=== PATIENT | female | born 1955 | race Caucasian/White ===

== ENCOUNTER → 2017-03-03 | Outpatient (CLI) | payer BC ==
--- NOTE | 2017-03-04 07:14 | BD ---
EXAMINATION TYPE: MG DEXA axial skeleton. DATE OF EXAM: 03/03/2017 COMPARISON: NONE CLINICAL HISTORY: Height: 5 FT Weight: 107 FRAX RISK QUESTIONS: Alcohol (3 or more units per day): YES Family History (Parent hip fracture): NO Glucocorticoids (More than 3mos): NO (Ex: prednisone, prednisolone, methylprednisolone, dexamethasone, and hydrocortisone). History of Fracture in Adulthood: NO Secondary Osteoporosis: 1. Type 1 Diabetes: NO 2. Hyperthyroidism: NO 3. Menopause before 45: YES SURGICAL 4. Malnutrition: NO 5. Chronic liver disease: NO Rheumatoid Arthritis: NO Current Tobacco Use: YES RISK FACTORS HISTORY OF: Smoke tobacco: YES Drink Alcohol: YES Active: YES Postmenopausal woman: PART HYST AGE 40 MEDICATIONS: Thyroid Medications: YES Which medication: LEVOTHYROXINE How Long: SINCE 1998 Osteoporosis Medications: YES Which medication: ACTONEL How Lon YR Additional Medications: LEVOTHYROXINE,ACTOENL ,CALCIUM Additional History: BREAST CANCER 1998 WITH RADIATION EXAM MEASUREMENTS: Bone mineral densitometry was performed using the [employer] System. Bone mineral density as measured about the Lumbar spine is: ----- L1-L4(G/cm2): 0.965 T Score Values are as follows: ----- L2: -1.6 ----- L3: -1.4 ----- L4: -2.7 ----- L1-L4: -1.8 Bone mineral density has: Increased 8.2% since study of: 2013 Bone mineral density about the R hip (g/cm2): 0.850 Bone mineral density about the L hip (g/cm2): 0.882 T Score values are as follows: -----R Neck: -1.3 -----L Neck: -1.1 -----R Total: -1.6 -----L Total: -0.9 Bone mineral density has: Increased 3.5% since study of: 2013 IMPRESSION: Findings compatible with osteopenia with localized osteoporosis involving the L4 vertebral body. NOTE: T-SCORE=SD OF THE YOUNG ADULT MEAN.
== END | disposition home or self-care (01) ==
LOC: RADBDWWP 14:15
PROVIDERS: ATTEND Family Medicine
DX: Z78.0 Asymptomatic menopausal state (principal)
CPT/HCPCS: 77080

== ENCOUNTER 2019-01-09 13:38 | Emergency (ER) | payer BC ==
[2019-01-09 14:09] VITALS: RESP 18
[2019-01-09] MEDS ORDERED: PANTOPRAZOLE 40 MG/10 ML VIAL IVP STA (15:27)
[2019-01-09] MEDS ORDERED: SODIUM CHLORIDE 0.9% 1,000 ML IV STA (15:27)
[2019-01-09] MEDS ORDERED: ONDANSETRON 4 MG/2 ML VIAL IVP STA (15:27)
[2019-01-09] MEDS ORDERED: MAG HYDROX/AL HYDROX/SIMETH 30 ML, HYOSCYAMINE ELIXIR 10 ML, CIMETIDINE HCL 300 MG, LID... PO STA ×4 (15:28)
[2019-01-09 16:14] LABS: Appearance,Urine Clear (Clear); Bilirubin,Urine Negative (Negative); Blood,Urine Negative (Negative); Color,Urine Light Yellow; Glucose,Urine (UA) Negative (Negative); Ketones,Urine Negative (Negative); Leukocyte Esterase,Urine Negative (Negative); Nitrite,Urine Negative (Negative); Protein,Urine Negative (Negative); Specific Gravity,Urine 1.003 (1.001-1.035); Urobilinogen,Urine <2.0 mg/dL (<2.0)
[2019-01-09 16:15] LABS: Basophils # (A) 0.1 k/uL (0-0.2); Basophils % (A) 0 %; Eosinophils # (A) 0.4 k/uL (0-0.7); Eosinophils % (A) 1 %; HCT 41.4 % (34.0-46.0); HGB 14.2 gm/dL (11.4-16.0); Lymphocytes # (A) 3.2 k/uL (1.0-4.8); Lymphocytes % (A) 11 %; MCH 33.1 pg (25.0-35.0); MCHC 34.4 g/dL (31.0-37.0); MCV 96.3 fL (80.0-100.0); Mean Platelet Volume 6.8; Monocytes # (A) 0.7 k/uL (0-1.0); Monocytes % (A) 2 %; Neutrophils # (A) 25.1 k/uL (1.3-7.7); Neutrophils % (A) 84 %; Platelet Count 541 k/uL (150-450); RBC 4.29 m/uL (3.80-5.40); RDW 13.1 % (11.5-15.5); WBC 29.8 k/uL (3.8-10.6)
[2019-01-09 16:24] LABS: ALT 31 U/L (9-52); AST 27 U/L (14-36); Albumin 4.5 g/dL (3.5-5.0); Alkaline Phosphatase 135 U/L (38-126); Amylase 51 U/L (30-110); Anion Gap 13 mmol/L; Blood Urea Nitrogen 7 mg/dL (7-17); Calcium 10.3 mg/dL (8.4-10.2); Carbon Dioxide 25 mmol/L (22-30); Chloride 100 mmol/L (98-107); Glucose 94 mg/dL (74-99); Lipase 39 U/L (23-300); Partial Thromboplastin Time 22.9 sec (22.0-30.0); Potassium 4.2 mmol/L (3.5-5.1); Prothrombin Time 10.6 sec (9.0-12.0); Sodium 138 mmol/L (137-145); Total Bilirubin 0.4 mg/dL (0.2-1.3); Total Protein 7.5 g/dL (6.3-8.2)
--- NOTE | 2019-01-09 16:42 | XR ---
EXAMINATION TYPE: XR KUB DATE OF EXAM: 01/09/2019 COMPARISON: NONE HISTORY: Abdominal pain TECHNIQUE: 2 views FINDINGS: The bowel gas pattern is normal. There is no sign of intestinal obstruction or pneumoperito neum. Fecal pattern is normal. There is no evidence of a mass. There are no pathologic calcifications over the kidneys. There is hiatal hernia. IMPRESSION: Nonacute abdomen.
--- NOTE | 2019-01-09 16:45 | XR ---
EXAMINATION TYPE: XR chest 2V DATE OF EXAM: 01/09/2019 COMPARISON: October 29, 2008 HISTORY: Upper respiratory infection TECHNIQUE: Frontal and lateral views of the chest are obtained. FINDINGS: There is a 7 cm masslike density at the left pulmonary hilum extending posteriorly. There is probably a hiatal hernia. The right lung is clear. There is no heart failure. Heart size is normal . Bony thorax appears intact. IMPRESSION: Large left side mass is suspicious for tumor. This is new compared to old exam. CT scan is recommended for further evaluation if clinically indicated.
--- NOTE | 2019-01-09 16:48 | ED ---
Abdominal Pain HPI - General Chief Complaint: Abdominal Pain Stated Complaint: LEG WEAKNESS Time Seen by Provider: 01/09/19 15:07 Source: patient, RN notes reviewed, old records reviewed Mode of arrival: ambulatory Limitations: no limitations - History of Present Illness Initial Comments: Krista is a 63-year-old female presents emergency department today with 3 weeks of sinus congestion and pressure feeling full with her sinuses. She complains of fevers and chills and body aches. She's been placed on multiple antibiotics by her primary care doctor. She states that she started Levaquin. She states that after starting Levaquin she started to have a flareup of her gastric ulcers. Patient states that she has been having GERD-like pain for the past week. She been taking Maalox and Rolaids without any relief of her symptoms. She states that she also been having off and on tingling and weakness in bilateral legs. She states it seems like her legs are "putting". She is here with her daughter. She has a strong smoking history. - Related Data Home Medications Medication Instructions Recorded Confirmed Levothyroxine Sodium [Synthroid] 175 mg PO DAILY 09/13/14 01/09/19 Acetaminophen Tab [Tylenol Tab] 975 mg PO Q4H PRN 01/09/19 01/09/19 Cetirizine HCl [Zyrtec] 10 mg PO DAILY 01/09/19 01/09/19 Esomeprazole Magnesium [NexIUM] 20 mg PO DAILY 01/09/19 01/09/19 Multivitamins, Thera [Multivitamin 1 tab PO DAILY 01/09/19 01/09/19 (formulary)] Allergies Allergy/AdvReac Type Severity Reaction Status Date / Time cucumber AdvReac Unknown Verified 01/09/19 15:21 Milk Containing Products AdvReac Unknown Verified 01/09/19 15:21 [Dairy] tomato AdvReac Unknown Verified 01/09/19 15:21 SEEDS AdvReac Unknown Uncoded 01/09/19 15:21 Review of Systems ROS Statement: Those systems with pertinent positive or pertinent negative responses have been documented in the HPI. ROS Other: All systems not noted in ROS Statement are negative. Past Medical History Past Medical History: Thyroid Disorder Additional Past Medical History / Comment(s): breast cancer History of Any Multi-Drug Resistant Organisms: None Reported Past Surgical History: Breast Surgery Additional Past Surgical History / Comment(s): left breast masectomy 99 Past Psychological History: No Psychological Hx Reported Smoking Status: Current every day smoker Past Alcohol Use History: None Reported Past Drug Use History: None Reported General Exam - General Exam Comments Initial Comments: Patient is a 63-year-old female. Alert and oriented. Patient appears acute distress. Limitations: no limitations General appearance: alert, in no apparent distress Head exam: Present: atraumatic Eye exam: Present: normal appearance, PERRL, EOMI. Absent: scleral icterus, conjunctival injection, periorbital swelling ENT exam: Present: normal exam, mucous membranes moist Neck exam: Present: normal inspection. Absent: tenderness, meningismus, lymphadenopathy Respiratory exam: Present: normal lung sounds bilaterally. Absent: respiratory distress, wheezes, rales, rhonchi, stridor Cardiovascular Exam: Present: regular rate, normal rhythm, normal heart sounds. Absent: systolic murmur, diastolic murmur, rubs, gallop, clicks GI/Abdominal exam: Present: soft, normal bowel sounds. Absent: distended, tenderness, guarding, rebound, rigid Extremities exam: Present: normal inspection, full ROM, normal capillary refill. Absent: tenderness, pedal edema, joint swelling, calf tenderness Back exam: Present: normal inspection Neurological exam: Present: alert, oriented X3, CN II-XII intact Psychiatric exam: Present: normal affect, normal mood Course Vital Signs 01/09/19 01/09/19 01/09/19 14:04 16:10 17:41 Temperature 98.1 F Pulse Rate 101 H 104 H 118 H Respiratory 18 18 18 Rate Blood Pressure 151/77 164/73 163/78 O2 Sat by Pulse 97 96 96 Oximetry Medical Decision Making - Medical Decision Making Patient's a 63-year-old female presents emergency Department with complaints of leg weakness intermittently, epigastric and chest burning pain, as well as sinus congestion for the past 3 weeks. She's been on multiple antibiotic for sinus congestion. Lab work was obtained. Evidence of leukocytosis with blood cell count 29,000. Chest x-ray shows evidence of a large mass not evident on previous chest x-rays. I informed Patient. And we completed a computed tomography scan. There is evidence of a large infrahilar mass. I informed Patient or family this and encouraged admission. Patient is adamant that she wants to be discharged. Discussed leaving AGAINST MEDICAL ADVICE. I will still give her referrals for pulmonology and oncology. Patient understands. - Lab Data Result diagrams: 01/09/19 16:00 01/09/19 16:00 Lab Results 01/09/19 01/09/19 01/09/19 Range/Units 16:00 16:00 16:00 WBC 29.8 H (3.8-10.6) k/uL RBC 4.29 (3.80-5.40) m/uL Hgb 14.2 (11.4-16.0) gm/dL Hct 41.4 (34.0-46.0) % MCV 96.3 (80.0-100.0) fL MCH 33.1 (25.0-35.0) pg MCHC 34.4 (31.0-37.0) g/dL RDW 13.1 (11.5-15.5) % Plt Count 541 H (150-450) k/uL Neutrophils % 84 % Lymphocytes % 11 % Monocytes % 2 % Eosinophils % 1 % Basophils % 0 % Neutrophils # 25.1 H (1.3-7.7) k/uL Lymphocytes # 3.2 (1.0-4.8) k/uL Monocytes # 0.7 (0-1.0) k/uL Eosinophils # 0.4 (0-0.7) k/uL Basophils # 0.1 (0-0.2) k/uL PT 10.6 (9.0-12.0) sec INR 1.0 (<1.2) APTT 22.9 (22.0-30.0) sec Sodium 138 (137-145) mmol/L Potassium 4.2 (3.5-5.1) mmol/L Chloride 100 (98-107) mmol/L Carbon Dioxide 25 (22-30) mmol/L Anion Gap 13 mmol/L BUN 7 (7-17) mg/dL Creatinine 0.43 L (0.52-1.04) mg/dL Est GFR (CKD-EPI)AfAm >90 (>60 ml/min/1.73 sqM) Est GFR (CKD-EPI)NonAf >90 (>60 ml/min/1.73 sqM) Glucose 94 (74-99) mg/dL Calcium 10.3 H (8.4-10.2) mg/dL Total Bilirubin 0.4 (0.2-1.3) mg/dL AST 27 (14-36) U/L ALT 31 (9-52) U/L Alkaline Phosphatase 135 H (38-126) U/L Troponin I (0.000-0.034) ng/mL Total Protein 7.5 (6.3-8.2) g/dL Albumin 4.5 (3.5-5.0) g/dL Amylase 51 (30-110) U/L Lipase 39 (23-300) U/L Urine Color Urine Appearance (Clear) Urine pH (5.0-8.0) Ur Specific [place] (1.001-1.035) Urine Protein (Negative) Urine Glucose (UA) (Negative) Urine Ketones (Negative) Urine Blood (Negative) Urine Nitrite (Negative) Urine Bilirubin (Negative) Urine Urobilinogen (<2.0) mg/dL Ur Leukocyte Esterase (Negative) 01/09/19 01/09/19 Range/Units 16:00 16:00 WBC (3.8-10.6) k/uL RBC (3.80-5.40) m/uL Hgb (11.4-16.0) gm/dL Hct (34.0-46.0) % MCV (80.0-100.0) fL MCH (25.0-35.0) pg MCHC (31.0-37.0) g/dL RDW (11.5-15.5) % Plt Count (150-450) k/uL Neutrophils % % Lymphocytes % % Monocytes % % Eosinophils % % Basophils % % Neutrophils # (1.3-7.7) k/uL Lymphocytes # (1.0-4.8) k/uL Monocytes # (0-1.0) k/uL Eosinophils # (0-0.7) k/uL Basophils # (0-0.2) k/uL PT (9.0-12.0) sec INR (<1.2) APTT (22.0-30.0) sec Sodium (137-145) mmol/L Potassium (3.5-5.1) mmol/L Chloride (98-107) mmol/L Carbon Dioxide (22-30) mmol/L Anion Gap mmol/L BUN (7-17) mg/dL Creatinine (0.52-1.04) mg/dL Est GFR (CKD-EPI)AfAm (>60 ml/min/1.73 sqM) Est GFR (CKD-EPI)NonAf (>60 ml/min/1.73 sqM) Glucose (74-99) mg/dL Calcium (8.4-10.2) mg/dL Total Bilirubin (0.2-1.3) mg/dL AST (14-36) U/L ALT (9-52) U/L Alkaline Phosphatase (38-126) U/L Troponin I <0.012 (0.000-0.034) ng/mL Total Protein (6.3-8.2) g/dL Albumin (3.5-5.0) g/dL Amylase (30-110) U/L Lipase (23-300) U/L Urine Color Light Yellow Urine Appearance Clear (Clear) Urine pH 6.0 (5.0-8.0) Ur Specific [place] 1.003 (1.001-1.035) Urine Protein Negative (Negative) Urine Glucose (UA) Negative (Negative) Urine Ketones Negative (Negative) Urine Blood Negative (Negative) Urine Nitrite Negative (Negative) Urine Bilirubin Negative (Negative) Urine Urobilinogen <2.0 (<2.0) mg/dL Ur Leukocyte Esterase Negative (Negative) 01/09/19 18:39 EKG shows sinus tachycardia minimal voltage criteria for LVH may be normal variant. Borderline EKG. Ventricular rate of 105 bpm. Intervals 156 ms. QRS ration 76 ms. QT QTC 340/449 ms. - Radiology Data Radiology results: report reviewed Large left-sided mass suspicious for tumor new compared old exam. CT recomme nded for further evaluation AB is normal. There is a large left hilar mass with smaller satellite mass in left lower lobe consistent with primary malignancy. There is an abrasion of left lower lobe pulmonary vein. No evidence of pulmonary embolus. Disposition Clinical Impression: Hilar mass, Leukocytosis, Transient leg weakness Disposition: Left Against Medical Advice Condition: Stable Is patient prescribed a controlled substance at d/c from ED?: No Referrals: Stewart Dawn MD [Primary Care Provider] - 1-2 days Naif Wild MD [STAFF PHYSICIAN] - 1-2 days Xu Hernandez MD [STAFF PHYSICIAN] - 1-2 days Time of Disposition: 18:46
--- NOTE | 2019-01-09 18:09 | CT ---
EXAMINATION TYPE: CT chest angio for PE DATE OF EXAM: 01/09/2019 COMPARISON: HISTORY: Burning to lower left chest. CT DLP: 177.4 mGycm Automated exposure control for dose reduction was used. CONTRAST: CT Chest for pulmonary embolism performed with with IV Contrast, patient injected with 70 mL of Isovu e 370. There are 3-D post processed images. FINDINGS: There is diffuse pulmonary emphysema. There is a 6.7 x 7.5 x 5.5 cm mass at the left pulmonary hilum extending posteriorly and inferiorly. There is some encasement of the left lower lobe pulmonary arter ies. There is narrowing of the left lower lobe bronchus. There is some narrowing of the left mainstem bronchus. Mass extends into the subcarinal region. There is some anterior displacement of left pulmo nary veins. Mass appears to be invading into left lower lobe pulmonary vein on the sagittal and axial images. There is a noncalcified 2.5 cm x 3 cm lobulated satellite mass in the posterior basal segmen t left lower lobe. There is some pleural thickening of the left major fissure. There is no filling de fect in the pulmonary arteries. Thoracic aorta shows no sign of aneurysm or dissection. Upper abdominal images show a 3 cm cyst in the anterior right lobe of the liver. There is a second 1 cm cyst anterior right lobe of the liver. IMPRESSION: There is a large left hilar mass with smaller satellite mass in the left lower lobe consistent with p rimary malignancy. There is some invasion of the left lower lobe pulmonary vein. No evidence of pulmo nary embolism. Emphysema.
[2019-01-09 18:56] VITALS: BP 161/79; PULSE 113; TEMP 98.3
== END 2019-01-09 18:55 | disposition left against medical advice (07) ==
LOC: EC 13:38
DX: D72.829 Elevated white blood cell count, unspecified (principal); R91.8 Other nonspecific abnormal finding of lung field; E07.9 Disorder of thyroid, unspecified; F17.200 Nicotine dependence, unspecified, uncomplicated; Z85.3 Personal history of malignant neoplasm of breast; Z90.12 Acquired absence of left breast and nipple; Z79.890 Hormone replacement therapy; Z79.899 Other long term (current) drug therapy; Z91.018 Allergy to other foods; Z91.011 Allergy to milk products; Z91.048 Other nonmedicinal substance allergy status
CPT/HCPCS: 36415; 93005; 80053; 82150; 83690; 84484; 85025; 85610; 85730; 81003; 71046; 74018; 71275; 99285; 96374; 96375; 96361; J2405; C9113; Q9967

== ENCOUNTER 2019-01-10 13:12 | Inpatient (IN) | payer BC ==
[2019-01-10] MEDS ORDERED: SODIUM CHLORIDE 0.9% 1,000 ML IV STA ×2 (14:11)
[2019-01-10 14:41] LABS: Basophils # (A) 0.1 k/uL (0-0.2); Basophils % (A) 0 %; Eosinophils # (A) 0.5 k/uL (0-0.7); Eosinophils % (A) 2 %; HCT 42.4 % (34.0-46.0); HGB 14.3 gm/dL (11.4-16.0); Lymphocytes # (A) 3.1 k/uL (1.0-4.8); Lymphocytes % (A) 10 %; MCH 32.9 pg (25.0-35.0); MCHC 33.8 g/dL (31.0-37.0); MCV 97.2 fL (80.0-100.0); Mean Platelet Volume 7.1; Monocytes # (A) 0.8 k/uL (0-1.0); Monocytes % (A) 3 %; Neutrophils # (A) 26.3 k/uL (1.3-7.7); Neutrophils % (A) 85 %; Platelet Count 511 k/uL (150-450); RBC 4.36 m/uL (3.80-5.40); RDW 13.3 % (11.5-15.5); WBC 31.2 k/uL (3.8-10.6)
[2019-01-10 14:46] LABS: ALT 37 U/L (9-52); AST 34 U/L (14-36); Albumin 4.3 g/dL (3.5-5.0); Alkaline Phosphatase 139 U/L (38-126); Anion Gap 10 mmol/L; Blood Urea Nitrogen 7 mg/dL (7-17); Calcium 9.8 mg/dL (8.4-10.2); Carbon Dioxide 22 mmol/L (22-30); Chloride 103 mmol/L (98-107); Glucose 93 mg/dL (74-99); INR 0.9 (<1.2); Magnesium 2.1 mg/dL (1.6-2.3); Phosphorus 4.4 mg/dL (2.5-4.5); Potassium 4.6 mmol/L (3.5-5.1); Prothrombin Time 9.4 sec (9.0-12.0); Sodium 135 mmol/L (137-145); Total Bilirubin 0.4 mg/dL (0.2-1.3); Total Protein 7.2 g/dL (6.3-8.2)
--- NOTE | 2019-01-10 15:04 | XR ---
EXAMINATION TYPE: XR chest 2V DATE OF EXAM: 01/10/2019 COMPARISON: 01/09/2019 HISTORY: Shortness of breath TECHNIQUE: Frontal and lateral views of the chest are obtained. FINDINGS: Scattered senescent parenchymal changes noted. Hyperinflation compatible with COPD. No evidence for infiltrate. No evidence for atelectasis. Left hilar mass redemonstrated. Left lower l obe mass also identified. Heart size is stable. Mediastinal structures are stable and grossly unremarkable. No evidence for hilar prominence. Degenerative changes dorsal spine. IMPRESSION: 1. Left hilar mass redemonstrated. Left lower lobe mass also identified.
--- NOTE | 2019-01-10 15:06 | ED ---
Weakness HPI - General Chief complaint: Weakness Stated complaint: Weakness, light headed CA PT Time Seen by Provider: 01/10/19 13:40 Source: patient, RN notes reviewed, old records reviewed Mode of arrival: ambulatory Limitations: no limitations - History of Present Illness Initial comments: Patient is a 63-year-old female presented to return today for evaluation due to lightheaded weakness. She was seen in emergency department by myself yesterday and was diagnosed with a large mediastinal mass area Patient states that she has had increased coughing some Unasyn and feeling more short of breath and felt that she needed to come in for evaluation and admission. - Related Data Home Medications Medication Instructions Recorded Confirmed Multivitamins, Thera [Multivitamin 1 tab PO DAILY 01/09/19 01/10/19 (formulary)] Alendronate Sodium 70 mg PO FLORES 01/10/19 01/10/19 Calcium Carbonate/Vitamin D3 1 tab PO DAILY 01/10/19 01/10/19 [Caltrate 600 Plus D3 Tablet] Cholecalciferol [Vitamin D3] 2,000 unit PO DAILY 01/10/19 01/10/19 Levothyroxine Sodium [Synthroid] 125 mcg PO DAILY 01/10/19 01/10/19 Ranitidine HCl [Zantac] 75 mg PO DAILY 01/10/19 01/10/19 Allergies Allergy/AdvReac Type Severity Reaction Status Date / Time cucumber AdvReac Unknown Verified 01/10/19 13:52 Milk Containing Products AdvReac Unknown Verified 01/10/19 13:52 [Dairy] tomato AdvReac Unknown Verified 01/10/19 13:52 SEEDS AdvReac Unknown Uncoded 01/10/19 13:37 Review of Systems ROS Statement: Those systems with pertinent positive or pertinent negative responses have been documented in the HPI. ROS Other: All systems not noted in ROS Statement are negative. Past Medical History Past Medical History: Thyroid Disorder Additional Past Medical History / Comment(s): breast cancer History of Any Multi-Drug Resistant Organisms: None Reported Past Surgical History: Breast Surgery Additional Past Surgical History / Comment(s): left breast masectomy 99 Past Psychological History: No Psychological Hx Reported Smoking Status: Current every day smoker Past Alcohol Use History: None Reported Past Drug Use History: None Reported General Exam - General Exam Comments Initial Comments: 63-year-old female. Alert and oriented 3. Limitations: no limitations General appearance: alert, in no apparent distress Head exam: Present: atraumatic, normocephalic, normal inspection Eye exam: Present: normal appearance, PERRL, EOMI. Absent: scleral icterus, conjunctival injection, periorbital swelling ENT exam: Present: normal exam, normal oropharynx, mucous membranes moist Neck exam: Present: normal inspection. Absent: tenderness, meningismus, lymp hadenopathy Respiratory exam: Absent: normal lung sounds bilaterally (Rhonchi and wheezing noted bilaterally.), respiratory distress, wheezes, rales, rhonchi, stridor Cardiovascular Exam: Present: regular rate, normal rhythm, normal heart sounds. Absent: systolic murmur, diastolic murmur, rubs, gallop, clicks GI/Abdominal exam: Present: soft, normal bowel sounds. Absent: distended, tenderness, guarding, rebound, rigid Extremities exam: Present: normal inspection, full ROM, normal capillary refill. Absent: tenderness, pedal edema, joint swelling, calf tenderness Back exam: Present: normal inspection Neurological exam: Present: alert, oriented X3, CN II-XII intact Psychiatric exam: Present: normal affect, normal mood Skin exam: Present: warm, dry, intact, normal color. Absent: rash Course Vital Signs 01/10/19 01/10/19 13:34 16:00 Temperature 98.3 F Pulse Rate 124 H 103 H Respiratory 18 18 Rate Blood Pressure 159/76 136/75 O2 Sat by Pulse 96 95 Oximetry EKG Findings - EKG Comments: EKG Findings:: EKG shows sinus tachycardia, ventricular rate of 160 bpm. DE interval is 150 ms. QRS duration 74 ms. QT QTc is 318/442 ms. No evidence of ST elevation or T-wave inversions. No evidence of atrial or ventricular arrhythmias. Medical Decision Making - Medical Decision Making Patient is 63-year-old female presented for his pharmacy for reevaluation and after finding a large mediastinal mass yesterday. At that time she left AMA. Labwork was reviewed today and continued to show significant leukocytosis. Patient has been placed on multiple antibiotics by her PCP for sinusitis. No steroid use. Patient does have wheezing rhonchi noted. She does complain of increasing dyspnea today. Repeat x-rays today continues to show the large mass. I discussed case with Dr. Meidna. I also discussed this with the admitting physician Dr. Irvin as none. Recommends consult pulmonology and oncology. We will hold off on antibiotics at this time. Patient did have blood cultures completed yesterday. - Lab Data Result diagrams: 01/10/19 14:24 01/10/19 14:24 Lab Results 01/10/19 01/10/19 01/10/19 Range/Units 14:24 14:24 14:24 WBC 31.2 H (3.8-10.6) k/uL RBC 4.36 (3.80-5.40) m/uL Hgb 14.3 (11.4-16.0) gm/dL Hct 42.4 (34.0-46.0) % MCV 97.2 (80.0-100.0) fL MCH 32.9 (25.0-35.0) pg MCHC 33.8 (31.0-37.0) g/dL RDW 13.3 (11.5-15.5) % Plt Count 511 H (150-450) k/uL Neutrophils % 85 % Lymphocytes % 10 % Monocytes % 3 % Eosinophils % 2 % Basophils % 0 % Neutrophils # 26.3 H (1.3-7.7) k/uL Lymphocytes # 3.1 (1.0-4.8) k/uL Monocytes # 0.8 (0-1.0) k/uL Eosinophils # 0.5 (0-0.7) k/uL Basophils # 0.1 (0-0.2) k/uL PT (9.0-12.0) sec INR (<1.2) APTT (22.0-30.0) sec Sodium 135 L (137-145) mmol/L Potassium 4.6 (3.5-5.1) mmol/L Chloride 103 (98-107) mmol/L Carbon Dioxide 22 (22-30) mmol/L Anion Gap 10 mmol/L BUN 7 (7-17) mg/dL Creatinine 0.47 L (0.52-1.04) mg/dL Est GFR (CKD-EPI)AfAm >90 (>60 ml/min/1.73 sqM) Est GFR (CKD-EPI)NonAf >90 (>60 ml/min/1.73 sqM) Glucose 93 (74-99) mg/dL Plasma Lactic Acid [place] 1.2 (0.7-2.0) mmol/L Calcium 9.8 (8.4-10.2) mg/dL Phosphorus 4.4 (2.5-4.5) mg/dL Magnesium 2.1 (1.6-2.3) mg/dL Total Bilirubin 0.4 (0.2-1.3) mg/dL AST 34 (14-36) U/L ALT 37 (9-52) U/L Alkaline Phosphatase 139 H (38-126) U/L Troponin I (0.000-0.034) ng/mL Total Protein 7.2 (6.3-8.2) g/dL Albumin 4.3 (3.5-5.0) g/dL Urine Color Urine Appearance (Clear) Urine pH (5.0-8.0) Ur Specific [place] (1.001-1.035) Urine Protein (Negative) Urine Glucose (UA) (Negative) Urine Ketones (Negative) Urine Blood (Negative) Urine Nitrite (Negative) Urine Bilirubin (Negative) Urine Urobilinogen (<2.0) mg/dL Ur Leukocyte Esterase (Negative) Urine RBC (0-5) /hpf Urine WBC (0-5) /hpf 01/10/19 01/10/19 01/10/19 Range/Units 14:24 14:24 15:44 WBC (3.8-10.6) k/uL RBC (3.80-5.40) m/uL Hgb (11.4-16.0) gm/dL Hct (34.0-46.0) % MCV (80.0-100.0) fL MCH (25.0-35.0) pg MCHC (31.0-37.0) g/dL RDW (11.5-15.5) % Plt Count (150-450) k/uL Neutrophils % % Lymphocytes % % Monocytes % % Eosinophils % % Basophils % % Neutrophils # (1.3-7.7) k/uL Lymphocytes # (1.0-4.8) k/uL Monocytes # (0-1.0) k/uL Eosinophils # (0-0.7) k/uL Basophils # (0-0.2) k/uL PT 9.4 (9.0-12.0) sec INR 0.9 (<1.2) APTT 20.0 L (22.0-30.0) sec Sodium (137-145) mmol/L Potassium (3.5-5.1) mmol/L Chloride (98-107) mmol/L Carbon Dioxide (22-30) mmol/L Anion Gap mmol/L BUN (7-17) mg/dL Creatinine (0.52-1.04) mg/dL Est GFR (CKD-EPI)AfAm (>60 ml/min/1.73 sqM) Est GFR (CKD-EPI)NonAf (>60 ml/min/1.73 sqM) Glucose (74-99) mg/dL Plasma Lactic Acid [place] (0.7-2.0) mmol/L Calcium (8.4-10.2) mg/dL Phosphorus (2.5-4.5) mg/dL Magnesium (1.6-2.3) mg/dL Total Bilirubin (0.2-1.3) mg/dL AST (14-36) U/L ALT (9-52) U/L Alkaline Phosphatase (38-126) U/L Troponin I <0.012 (0.000-0.034) ng/mL Total Protein (6.3-8.2) g/dL Albumin (3.5-5.0) g/dL Urine Color Light Yellow Urine Appearance Clear (Clear) Urine pH 6.0 (5.0-8.0) Ur Specific [place] 1.002 (1.001-1.035) Urine Protein Negative (Negative) Urine Glucose (UA) Negative (Negative) Urine Ketones Negative (Negative) Urine Blood Negative (Negative) Urine Nitrite Negative (Negative) Urine Bilirubin Negative (Negative) Urine Urobilinogen <2.0 (<2.0) mg/dL Ur Leukocyte Esterase Small H (Negative) Urine RBC <1 (0-5) /hpf Urine WBC 3 (0-5) /hpf - Radiology Data Radiology results: report reviewed Left hilar masses redemonstrated. Left lower lobe mass is also identified. Disposition Clinical Impression: Hilar mass, Leukocytosis Disposition: ADMITTED IP TO THIS [facility] Condition: Stable Is patient prescribed a controlled substance at d/c from ED?: No Referrals: Stewart Dawn MD [Primary Care Provider] - 1-2 days Time of Disposition: 16:35
[2019-01-10 15:54] LABS: Appearance,Urine Clear (Clear); Bilirubin,Urine Negative (Negative); Blood,Urine Negative (Negative); Color,Urine Light Yellow; Glucose,Urine (UA) Negative (Negative); Ketones,Urine Negative (Negative); Leukocyte Esterase,Urine Small (Negative); Nitrite,Urine Negative (Negative); Protein,Urine Negative (Negative); RBC,Urine <1 /hpf (0-5); Specific Gravity,Urine 1.002 (1.001-1.035); Urobilinogen,Urine <2.0 mg/dL (<2.0); WBC,Urine 3 /hpf (0-5)
[2019-01-10] MEDS ORDERED: NICOTINE 21MG/24HR PATCH TRANSDERM STA (16:33)
[2019-01-10] MEDS ORDERED: ACETAMINOPHEN TAB 325 MG TAB PO PRN (16:36)
[2019-01-10] MEDS ORDERED: IBUPROFEN 400 MG TAB PO PRN (16:36)
[2019-01-10] MEDS ORDERED: KETOROLAC 30 MG/ML 1 ML VIAL IVP PRN (16:36)
[2019-01-10] MEDS ORDERED: NALOXONE 0.4 MG/ML 1 ML VIAL IV PRN (16:36)
[2019-01-10] MEDS: LIDOCAINE 5% PATCH TOPICAL SCH (16:53)
--- NOTE | 2019-01-10 18:00 | P.HPIM ---
History of Present Illness Patient is a 63-year-old female came in with compensative lightheadedness generalized weakness tiredness and epigastric abdominal discomfort nausea and epigastric abdominal burning sensation. Patient appears to have gastritis and the hands and this aids and this can you to patient will continue on Protonix. Patient was being treated for upper respiratory tract infection with antibiotics although she didn't receive any steroids. Patient had a chest x-ray because of this year like symptoms which showed a large mediastinal mass and the patient subsequently had a CAT scan which did show left hilar mass there is some atelectasis but no evidence of pneumonia or a bronchogram there is a small other satellite lesion in the left inferior lobe with atelectasis and there is no pneumonia. Although patient has elevated white blood cell count when questioned about it patient was complaining of mild hemoptysis. Patient did admit to significant weight loss recently. Patient denied any fever chills dysuria UA is not significantly abnormal. I cannot explain the leukocytosis taken reactive because of this leukocytosis I did admit the patient for monitoring for 1 more night patient is bit tachycardic due to intravascular volume depletion for which I'll continue with -IV fluids. Patient will be monitored off antibiotics as t here is no evidence of pneumonia or UTI R any other kind of infection patient doesn't have any fever. Review of Systems REVIEW OF SYSTEMS: CONSTITUTIONAL: As mentioned in HPI. HEENT: No recent visual problems or hearing problems. Denied any sore throat. CARDIOVASCULAR: No chest pain, orthopnea, PND, no palpitations, no syncope. PULMONARY: No shortness of breath. GASTROINTESTINAL: As mentioned in HPI NEUROLOGICAL: No headaches, no weakness, no numbness. HEMATOLOGICAL: Denies any bleeding or petechiae. GENITOURINARY: Denies any burning micturition, frequency, or urgency. MUSCULOSKELETAL/RHEUMATOLOGICAL: Denies any joint pain, swelling, or any muscle pain. ENDOCRINE: Denies any polyuria or polydipsia. The rest of the 14-point review of systems is negative. Past Medical History Past Medical History: Thyroid Disorder Additional Past Medical History / Comment(s): breast cancer History of Any Multi-Drug Resistant Organisms: None Reported Past Surgical History: Breast Surgery Additional Past Surgical History / Comment(s): left breast masectomy 99 Past Psychological History: No Psychological Hx Reported Smoking Status: Current every day smoker Past Alcohol Use History: None Reported Past Drug Use History: None Reported Medications and Allergies Home Medications Medication Instructions Recorded Confirmed Type Multivitamins, Thera [Multivitamin 1 tab PO DAILY 01/09/19 01/10/19 History (formulary)] Alendronate Sodium 70 mg PO FLORES 01/10/19 01/10/19 History Calcium Carbonate/Vitamin D3 1 tab PO DAILY 01/10/19 01/10/19 History [Caltrate 600 Plus D3 Tablet] Cholecalciferol [Vitamin D3] 2,000 unit PO DAILY 01/10/19 01/10/19 History Levothyroxine Sodium [Synthroid] 125 mcg PO DAILY 01/10/19 01/10/19 History Ranitidine HCl [Zantac] 75 mg PO DAILY 01/10/19 01/10/19 History Allergies Allergy/AdvReac Type Severity Reaction Status Date / Time cucumber AdvReac Unknown Verified 01/10/19 13:52 Milk Containing Products AdvReac Unknown Verified 01/10/19 13:52 [Dairy] tomato AdvReac Unknown Verified 01/10/19 13:52 SEEDS AdvReac Unknown Uncoded 01/10/19 13:37 Physical Exam Vitals: Vital Signs Temp Pulse Resp BP Pulse Ox 01/10/19 17:00 102 H 20 134/67 95 01/10/19 16:00 103 H 18 136/75 95 01/10/19 13:34 98.3 F 124 H 18 159/76 96 Intake and Output 01/10/19 01/10/19 01/10/19 06:59 14:59 22:59 Other: Weight 46.72 kg PHYSICAL EXAMINATION: GENERAL: The patient is alert and oriented x3, not in any acute distress. Thin built female HEENT: Pupils are round and equally reacting to light. EOMI. No scleral icterus. No conjunctival pallor. Normocephalic, atraumatic. No pharyngeal erythema. No thyromegaly. CARDIOVASCULAR: S1 and S2 present. No murmurs, rubs, or gallops. Candice sinus tachycardia PULMONARY: Chest is clear to auscultation, no wheezing or crackles. ABDOMEN: Soft, nontender, nondistended, normoactive bowel sounds. No palpable organomegaly. MUSCULOSKELETAL: No joint swelling or deformity. EXTREMITIES: No cyanosis, clubbing, or pedal edema. NEUROLOGICAL: Gross neurological examination did not reveal any focal deficits. SKIN: No rashes. Results CBC & Chem 7: 01/10/19 14:24 01/10/19 14:24 Labs: Abnormal Lab Results - Last 24 Hours (Table) 01/10/19 01/10/19 01/10/19 Range/Units 14:24 14:24 14:24 WBC 31.2 H (3.8-10.6) k/uL Plt Count 511 H (150-450) k/uL Neutrophils # 26.3 H (1.3-7.7) k/uL APTT 20.0 L (22.0-30.0) sec Sodium 135 L (137-145) mmol/L Creatinine 0.47 L (0.52-1.04) mg/dL Alkaline Phosphatase 139 H (38-126) U/L Ur Leukocyte Esterase (Negative) 01/10/19 Range/Units 15:44 WBC (3.8-10.6) k/uL Plt Count (150-450) k/uL Neutrophils # (1.3-7.7) k/uL APTT (22.0-30.0) sec Sodium (137-145) mmol/L Creatinine (0.52-1.04) mg/dL Alkaline Phosphatase (38-126) U/L Ur Leukocyte Esterase Small H (Negative) Assessment and Plan Plan: -Leukocytosis: Patient white blood cell count is 31,000 with neutrophilic leuko cytosis no evidence of pneumonia or any other infection patient will be monitored overnight without any antibiotics. Patient does have some atelectasis and a big hilar mass which is probably a malignancy unless otherwise proven patient is a lifelong smoker continues to smoke did have significant weight loss. And this is reactive leukocytosis can be from nausea vomiting from my GI symptoms along with possible malignancy. -Left hilar mass: Possibility of malignancy, oncology and the pulmonology were consulted pulmonology for possible bronchial biopsy patient was unable to get an outpatient appointment with pulmonary until next 4 weeks. -Possible gastroesophageal reflux disease or peptic ulcer disease: Nonsteroidal anti-rheumatoid medications were discontinued and patient will be can you done IV fluids and the Protonix -Dehydration: IV fluids as mentioned, -Hypothyroidism -Unintentional weight loss probably secondary to malignancy as mentioned above -Significant emphysema changes on the CAT scan to although patient is not in COPD exacerbation at this time, counseling regarding smoking cessation was provided -Patient will need pharmacologic DVT prophylaxis -Generalized weakness: Consult PT and OT
[2019-01-10] MEDS: HEPARIN SODIUM,PORCINE 5,000 UNIT/ML 1 ML VIAL SQ SCH (20:38)
--- NOTE | 2019-01-10 22:49 | P.CONS ---
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 She describes subjective fevers and chills. She has been following with her primary care provider and has been on a few different antibiotics. Most recently levaquin, although has a history of gastritis and GERD-Like discomfort was worsening. She admits to greater than 15lb weight loss over 6 months and hemoptysis, bloody tinged sputum in which she contributed to sinus infection. Her Acid reflux has not improved on over the counter medications maalox, tums. She overall doesnt feel well, numbess and tingling in lower legs, weakness when standing. and exertional shortness of breath. On 01/09/19 a chest xray was performed and revealed a large mediastinal lung mass. Referrals for Oncology and Pulmnary were made to be seen as outpatient for patient and she was discharged home, although re-presented today 01/10/19 with worsening overall symptoms. Calcium was mildly elevated at 10.3, WBC increased (no evidence of recent steroid use, likely reactive to probable new malignancy), A CTA did not show evidence of PE, although did reveal the identified mass 6.7x7.5x5.5cm left pulmonary hilum extending posterior and inferior with encasement in the left lower lobe pulmonary artery. A satelite lobulated mass post segment of left bronchus was also identified measuring 2 .5x3cm. Therefore she was admitted for further monitoring, oncology and pulmonary evaluations, and IV Hydration for hypercalcemia (Secondary to dehydration versus other). She was taking calcium supplements on admission, I have discontinued these at this time. Review of Systems A 14 point review of systems assessed and completed and all negative except HPI Past Medical History Past Medical History: Thyroid Disorder Additional Past Medical History / Comment(s): breast cancer History of Any Multi-Drug Resistant Organisms: None Reported Past Surgical History: Breast Surgery Additional Past Surgical History / Comment(s): left breast masectomy 99 Past Psychological History: No Psychological Hx Reported Smoking Status: Current every day smoker Past Alcohol Use History: None Reported Past Drug Use History: None Reported Medications and Allergies Home Medications Medication Instructions Recorded Confirmed Type Multivitamins, Thera [Multivitamin 1 tab PO DAILY 01/09/19 01/10/19 History (formulary)] Alendronate Sodium 70 mg PO FLORES 01/10/19 01/10/19 History Calcium Carbonate/Vitamin D3 1 tab PO DAILY 01/10/19 01/10/19 History [Caltrate 600 Plus D3 Tablet] Cholecalciferol [Vitamin D3] 2,000 unit PO DAILY 01/10/19 01/10/19 History Levothyroxine Sodium [Synthroid] 125 mcg PO DAILY 01/10/19 01/10/19 History Ranitidine HCl [Zantac] 75 mg PO DAILY 01/10/19 01/10/19 History Allergies Allergy/AdvReac Type Severity Reaction Status Date / Time cucumber AdvReac Unknown Verified 01/10/19 13:52 Milk Containing Products AdvReac Unknown Verified 01/10/19 13:52 [Dairy] tomato AdvReac Unknown Verified 01/10/19 13:52 SEEDS AdvReac Unknown Uncoded 01/10/19 13:37 Physical Exam Vitals: Vital Signs Temp Pulse Resp BP Pulse Ox 01/10/19 17:56 99.2 F 01/10/19 17:00 102 H 20 134/67 95 01/10/19 16:00 103 H 18 136/75 95 01/10/19 13:34 98.3 F 124 H 18 159/76 96 Intake and Output 01/10/19 01/10/19 01/10/19 06:59 14:59 22:59 Other: Weight 46.72 kg Gen: Alert and Oriented, NAD Head: NCNT Neck: Supple, No palpable Cervical, Axillary or supraclavicular Mouth/Nares: Norm Lungs: Expiratory Wheeze No increased Effort Heart: Abdomen: Soft, ND, NT Extre: No edema, no rashes Neuro: No sensory or motor deficits Results CBC & Chem 7: 01/10/19 14:24 01/10/19 14:24 Labs: Abnormal Lab Results - Last 24 Hours (Table) 01/10/19 01/10/19 01/10/19 Range/Units 14:24 14:24 14:24 WBC 31.2 H (3.8-10.6) k/uL Plt Count 511 H (150-450) k/uL Neutrophils # 26.3 H (1.3-7.7) k/uL APTT 20.0 L (22.0-30.0) sec Sodium 135 L (137-145) mmol/L Creatinine 0.47 L (0.52-1.04) mg/dL Alkaline Phosphatase 139 H (38-126) U/L Ur Leukocyte Esterase (Negative) 01/10/19 Range/Units 15:44 WBC (3.8-10.6) k/uL Plt Count (150-450) k/uL Neutrophils # (1.3-7.7) k/uL APTT (22.0-30.0) sec Sodium (137-145) mmol/L Creatinine (0.52-1.04) mg/dL Alkaline Phosphatase (38-126) U/L Ur Leukocyte Esterase Small H (Negative) Assessment and Plan (1) Hypercalcemia Current Visit: Yes Status: Acute Code(s): E83.52 - HYPERCALCEMIA SNOMED Code(s): 45936610 (2) Hilar mass Current Visit: Yes Status: Acute Code(s): R91.8 - OTHER NONSPECIFIC ABNORMAL FINDING OF LUNG FIELD SNOMED Code(s): 778554585 (3) Leukocytosis Current Visit: Yes Status: Acute Code(s): D72.829 - ELEVATED WHITE BLOOD JAMES L COUNT, UNSPECIFIED SNOMED Code(s): 090882814 Plan: Assessment and Recommendations: New Large Left Pulmonary Hilium Mass: 6.7x7.5x5.5cm - extension posterior and inferior with encasement of left lower lobe pulmonary artery - A second suspicious satellite lubulated mass identified in the posterior segment of left lobe measuring 2.5x3cm - Very suspicious for a primary lung cancer picture, with her extent of symptoms it is resonable to initiate diagnostic work-up as inpatient. - Pulmonary has been consulted for bronchoscopy for diagnostic tissue biopsy - CT scans Abdomen and Pelvis, ordered for tomorrow with recent CT scan Contr ast today. Hypercalcemia: - Dehydration versus other, with increased alk phos will order bone scan to assess for metastatic malignancy bone - Recheck CMP for reassessment of calcium and alk phose in am - Discontinued Calcium Supp Neurological Sensory - Lower extremities: bilateral and light-headed dizziness: - Imaging of brain with MRI with contrast Leukocytosis: Likely reactive to above picture Sherry SERRANOCNP Physician Attest: I have completed the full history and physical of this patient and devloped the above impression and plan, I agree with above dictation, dictated as a scribe.
[2019-01-11] MEDS: LEVOTHYROXINE 125 MCG TAB PO SCH (04:58)
[2019-01-11 05:02] VITALS: BMI 20.1
[2019-01-11] MEDS: IOPAMIDOL-300 CONTRAST 30 ML VIAL (ORAL USE) PO PRN ×2 (06:29→07:30)
[2019-01-11 07:38] LABS: Basophils # (A) 0.1 k/uL (0-0.2); Basophils % (A) 0 %; Eosinophils # (A) 0.4 k/uL (0-0.7); Eosinophils % (A) 1 %; HCT 41.5 % (34.0-46.0); Lymphocytes % (A) 10 %; MCH 31.7 pg (25.0-35.0); MCHC 31.4 g/dL (31.0-37.0); MCV 100.9 fL (80.0-100.0); Macrocytosis Slight; Mean Platelet Volume 7.2; Monocytes # (A) 0.7 k/uL (0-1.0); Monocytes % (A) 2 %; Neutrophils # (A) 24.5 k/uL (1.3-7.7); Neutrophils % (A) 84 %; Platelet Count 490 k/uL (150-450); RBC 4.12 m/uL (3.80-5.40); RDW 13.5 % (11.5-15.5); WBC 29.1 k/uL (3.8-10.6)
[2019-01-11 08:00] LABS: ALT 41 U/L (9-52); AST 31 U/L (14-36); Albumin 3.8 g/dL (3.5-5.0); Alkaline Phosphatase 113 U/L (38-126); Anion Gap 10 mmol/L; Blood Urea Nitrogen 6 mg/dL (7-17); Calcium 9.1 mg/dL (8.4-10.2); Carbon Dioxide 21 mmol/L (22-30); Chloride 108 mmol/L (98-107); Glucose 121 mg/dL (74-99); LDH 614 U/L (313-618); Potassium 4.6 mmol/L (3.5-5.1); Sodium 139 mmol/L (137-145); Total Bilirubin 0.4 mg/dL (0.2-1.3); Total Protein 6.6 g/dL (6.3-8.2)
[2019-01-11] MEDS ORDERED: CALCIUM CARB-VIT D 500MG-200UN 1 EACH TAB PO SCH (09:00)
[2019-01-11] MEDS: PANTOPRAZOLE 40 MG/10 ML VIAL IV SCH (09:23)
[2019-01-11] MEDS: HEPARIN SODIUM,PORCINE 5,000 UNIT/ML 1 ML VIAL SQ SCH ×2 (09:24→21:48)
[2019-01-11] MEDS: MULTIVITAMINS, THERA 1 EACH TAB PO SCH (09:24)
[2019-01-11] MEDS: CHOLECALCIFEROL 1,000 UNIT TAB PO SCH (09:24)
[2019-01-11] MEDS: FAMOTIDINE 20 MG TAB PO SCH (09:24)
--- NOTE | 2019-01-11 10:20 | MR ---
EXAMINATION TYPE: MR brain wo/w con DATE OF EXAM: 01/11/2019 COMPARISON: Correlation CT chest performed 01/09/2019 HISTORY: 63-year-old female Evaluate metastatic cancer TECHNIQUE: Multiplanar, multisequence images of the brain and brainstem were acquired before and aft er administration of 4.5 mL IV Gadavist. Diffusion weighted imaging is performed. FINDINGS: Scattered ring enhancing lesions are present with associated vasogenic edema. Largest posterior right parietal lobe measures 4.2 cm with thin rim enhancement and some mural based T1 hyperintensity that could represent hemorrhagic material. Second largest at the left precentral gyrus measures 2.1 cm. Third largest measures 1.4 cm left paramedian left occipital lobe. A tiny 7 mm lesion is present in the left caudate. Small 5 mm focus of enhancement at the scott-white matter interface of the left parieto-occipital junc tion. These lesions show associated vasogenic edema but did not contribute to ventricular effacement or mid line shift. No evidence for acute infarction, midline shift, herniation, effacement of basal cisterns, or extra-a xial fluid collection. The ventricles and sulci are age-appropriate. T2/FLAIR weighted sequences show background of matter scattered bright foci in the subcortical and de ep white matter regions of both cerebral hemispheres and also within the bilateral paramedian renee li eliza relating to chronic small vessel ischemic disease. Midline structures demonstrate normal morphology. The craniocervical junction is normal. Intravenous sinuses are patent. Moderate mucosal thickening within the ethmoid air cells and right frontal sinus. Fluid within the le ft mastoid air cells. IMPRESSION: 1. Multiple ring-enhancing lesions with associated vasogenic edema suggestive of brain metastases. Ap proximately 5 lesions are present. No mass effect, herniation, or midline shift. 2. The largest lesion measures 4.2 cm in the right parietal lobe and only has thin rim enhancement wi th some mural based T1 hyperintensity, probably hemorrhagic debris. This has a somewhat atypical appe arance possibly due to prominent internal necrosis or abscess. Clinically correlate. 3. Background of mild to moderate scattered bright white matter changes likely related to chronic sma ll vessel ischemic disease. 4. Moderate chronic paranasal sinus disease. Additionally, there is trapped fluid in the left mastoid air cells. Correlate for any mastoid pain to exclude mastoiditis.
[2019-01-11] MEDS: NICOTINE 21MG/24HR PATCH TRANSDERM SCH (13:53)
[2019-01-11] MEDS: LIDOCAINE 5% PATCH TOPICAL SCH (13:53)
[2019-01-11] MEDS: DEXAMETHASONE SOD PHOSPHATE 4 MG/ML 1 ML VIAL IV SCH ×2 (13:54→18:39)
--- NOTE | 2019-01-11 13:58 | NM ---
EXAMINATION TYPE: NM bone scan whole body DATE OF EXAM: 01/11/2019 COMPARISON: NONE HISTORY: Initial staging. Probable lung cancer. Delayed whole-body scanning was performed following the injection of 22.3 mCi Tc 99m MDP. Images acq uired 5.25 hours post injection. FINDINGS: No suspicious focal radiotracer uptake to suggest metastatic osseous lesion. There is uptake within t he glenohumeral joints, sacroiliac joints, sternoclavicular joints, chromic clavicular joints, knees, hips, ankles, and mid feet as well as elbows likely on a degenerative basis. Physiologic uptake and excretion is seen within the kidneys and urinary bladder. IMPRESSION: Degenerative changes of the axial and appendicular skeleton. No findings to suggest osseo us metastasis.
--- NOTE | 2019-01-11 15:53 | CONS ---
CONSULTATION This is a pulmonary/critical care consultation. DATE OF SERVICE: January 11, 2019. REASON FOR CONSULTATION: We were asked to see the patient because of a lung mass. HISTORY OF PRESENT ILLNESS: This is a 63-year-old female who apparently presented to the emergency room because of weakness. She apparently was very lightheaded and very weak over a few days prior to admission. She apparently was in the emergency room a couple days back. She was discharged. She came back into the emergency room because she was not feeling well. In addition, she had cough and some hemoptysis. She was placed on some antibiotic. Again, she was not feeling any better and so she had to be readmitted to the hospital. A chest x-ray confirmed a mediastinal/left hilar mass. A CT scan further defined the mass. Quite large in the left chest. She does have a previous history of breast cancer. Her complaints include weakness, fatigue, decreased appetite, weight loss, cough and coughing up blood. The patient also complains about being lightheaded. HOME MEDICATIONS: Include multivitamins, alendronate sodium, Caltrate 600, vitamin D3, Synthroid and Zantac. ALLERGIES: INCLUDE CUCUMBER, MILK CONTAINING PRODUCTS, TOMATO AND SEEDS. MEDICAL HISTORY: Hypothyroidism and osteoporosis. Vitamin D deficiency and acid reflux disease. She also has a history of breast cancer. PAST SURGICAL HISTORY: Surgically, the breast cancer was surgically treated many years back. She had a left breast mastectomy [place] [address] Ambriz. She apparently at that time received no chemo or radiation therapy. SOCIAL HISTORY: Positive for current and ongoing tobacco use. She denies any alcohol use or illicit drug use. FAMILY HISTORY: Noncontributory. REVIEW OF SYSTEMS: CONSTITUTIONAL: Weakness, weight loss, decreased appetite. NEUROLOGIC: Lightheadedness. HEENT negative. CARDIOVASCULAR: Negative. PULMONARY: Shortness of breath, pretty much at baseline, cough and some hemoptysis. GI negative. : Negative. RHEUMATOLOGIC: Negative. IMMUNOLOGICAL: Negative. DERMATOLOGIC: Negative. PHYSICAL EXAMINATION: VITAL SIGNS: Current vital signs are reviewed. Temperature is 98.3, heart rate 89, respiratory rate 18, blood pressure 149/74, mean 99, room air saturation 96%. GENERAL: Appears in no acute distress. HEENT examination is grossly unremarkable. Mucous membranes are moist. No oral lesions. NECK: Supple. Full range of motion. No adenopathy, thyromegaly or neck vein distention. CARDIOVASCULAR: Examination reveals regular rhythm rate. Heart rate 89 beats per minute. S1, S2 normal. No S3, S4, murmur. LUNGS: Significant coarse rhonchi particularly in the left mid chest on auscultation. That is not heard on the right side. There is some scattered crackles as well. The right lung sounds mostly clear. Any abnormal sounds on the right side, probably are transmitted. No wheezes are appreciated. Breath sounds really diminished on the left side compared to the right. ABDOMEN: Soft bowel sounds are heard. There is no masses or tenderness. EXTREMITIES are intact. No cyanosis, clubbing, or edema. SKIN: Without rash. NEUROLOGIC EXAMINATION: Brief but nonfocal. LABS: Reviewed. White count 29.1, hemoglobin 13, hematocrit 41.5, platelet count 490,000. PT/INR normal. PTT is 20. Sodium 139, potassium 4.6, chloride 108, CO2 21. BUN and creatinine were 6 and 0.43. Alkaline phosphatase is 139. The urine was negative. The patient had a chest x-ray which suggested a left hilar mass. There is also a left lower lobe mass identified. Brain MRI shows multiple ring-enhancing lesions with associated vasogenic edema suggestive brain metastases with approximately 5 lesions are present. No mass effect, herniation or midline shift. The largest lesion is apparently 4.2 cm in the right parietal lobe and only has a thin rim enhancement with some mural based T1 hyperintensity. The rest of the MRI shows primarily chronic changes. The CT angiogram done on January 09 during her 1st visit to the emergency room shows a large left hilar mass with small satellite mass in the left lower lobe consistent with primary malignancy. There is some invasion of the lower lobe pulmonary vein. No evidence of pulmonary embolism. Medications are reviewed. The patient is on Decadron 4 mg q.6 hours. The patient's other medications are appropriate. She does have a nicotine patch. She is getting morphine, multivitamins and levothyroxine. ASSESSMENT: 1. Large mediastinal/left hilar mass with metastasis to the brain, likely representing metastatic lung cancer. 2. Previous history of left breast cancer with previous left mastectomy. 3. History of osteoporosis. 4. Vitamin D deficiency. 5. Hypothyroidism. 6. Ongoing tobacco use with nicotine addiction. 7. Rule out chronic obstructive pulmonary disease. PLAN: The patient is on Decadron. The patient will be going for bronchoscopy tomorrow. No additional recommendations are made. Prognosis is very guarded. This may in fact be bronchogenic carcinoma with METS to the brain. It appears on CT scan that we might be able to run into the lesion endobronchially. Additional recommendations and suggestions are forthcoming. Oncology has been consulted. MMODL / IJN: [id number] /
--- NOTE | 2019-01-11 16:05 | P.PN ---
Subjective 63-year-old female admitted the for gastritis or peptic is a disease incidentally found to have mass in the lung appears to have metastatic bronchoge christie carcinoma patient will undergo bronchoscopy patient does have metastases to the brain without any significant osseous metastasis patient was started on Decadron. Patient's abdominal pain did improve patient leukocytosis is coming down a bit. Constitutional: Denied any fatigue denied any fever. Cardio vascular: denied any chest pain, palpitations Gastrointestinal denied any nausea vomiting Pulmonary: Denied any shortness of breath cough Neurologic denied any new focal deficits All inpatient medications were reviewed and appropriate changes in these medications as dictated in the interval history and assessment and plan. Objective - Vital Signs Vital signs: Vital Signs Temp 98.3 F 01/11/19 11:39 Pulse 89 01/11/19 11:39 Resp 18 01/11/19 11:39 BP 149/74 01/11/19 11:39 Pulse Ox 96 01/11/19 11:39 Intake & Output 01/10/19 01/11/19 01/11/19 18:59 06:59 18:59 Intake Total 1160 300 Balance 1160 300 Weight 46.72 kg Intake: Intake, IV Titration 800 300 Amount Sodium Chloride 0.9% 1, 800 300 000 ml @ 100 mls/hr IV . Q10H STA Rx#:[id number] Oral 360 Other: # Voids 1 - Exam PHYSICAL EXAMINATION: GENERAL: The patient is alert and oriented x3, not in any acute distress. Thin built female HEENT: Pupils are round and equally reacting to light. EOMI. No scleral icterus. No conjunctival pallor. Normocephalic, atraumatic. No pharyngeal erythema. No thyromegaly. CARDIOVASCULAR: S1 and S2 present. No murmurs, rubs, or gallops. [place] sinus tachycardia PULMONARY: Chest is clear to auscultation, no wheezing or crackles. ABDOMEN: Soft, nontender, nondistended, normoactive bowel sounds. No palpable organomegaly. MUSCULOSKELETAL: No joint swelling or deformity. EXTREMITIES: No cyanosis, clubbing, or pedal edema. NEUROLOGICAL: Gross neurological examination did not reveal any focal deficits. SKIN: No rashes. - Labs CBC & Chem 7: 01/11/19 07:08 01/11/19 07:08 Labs: Abnormal Lab Results - Last 24 Hours (Table) 01/11/19 01/11/19 Range/Units 07:08 07:08 WBC 29.1 H (3.8-10.6) k/uL MCV 100.9 H (80.0-100.0) fL Plt Count 490 H (150-450) k/uL Neutrophils # 24.5 H (1.3-7.7) k/uL Chloride 108 H (98-107) mmol/L Carbon Dioxide 21 L (22-30) mmol/L BUN 6 L (7-17) mg/dL Creatinine 0.43 L (0.52-1.04) mg/dL Glucose 121 H (74-99) mg/dL Assessment and Plan Plan: -Possible Metastatic bronchogenic carcinoma with the metastatic disease to brain no significant osseous metastasis patient will undergo bronchoscopy tomorrow -Leukocytosis: Patient white blood cell count is 31,000 with neutrophilic leukocytosis no evidence of pneumonia or any other infection. -Left hilar mass. -Possible gastroesophageal reflux disease or peptic ulcer disease: Nonsteroidal anti-rheumatoid medications were discontinued and patient will be can you done IV fluids and the Protonix, improved abdominal pain and nausea -Dehydration: IV fluids as mentioned, improved -Hypothyroidism -Unintentional weight loss probably secondary to malignancy as mentioned above -Significant emphysema changes on the CAT scan to although patient is not in SPLUNK ARCHITECT D exacerbation at this time, counseling regarding smoking cessation was provided -Patient will need pharmacologic DVT prophylaxis -Generalized weakness: Consulted PT and OT
--- NOTE | 2019-01-11 17:02 | CT ---
EXAMINATION TYPE: CT abdomen pelvis w con DATE OF EXAM: 01/11/2019 COMPARISON: None HISTORY: Liver lesion Breast cancer CT DLP: 406 mGycm Automated exposure control for dose reduction was used. TECHNIQUE: Helical acquisition of images was performed from the lung bases through the pelvis. CONTRAST: Performed with Oral Contrast and with IV Contrast, patient injected with 100 mL of Isovue 300. FINDINGS: Heart size is normal. There is small left pleural effusion. There is infiltrate and atelectasis in th e left lower lobe. There are multiple rounded fluid densities in the liver that measure up to 2.5 cm consistent with sim ple cysts. The bile ducts are not dilated. Gallbladder appears normal. Spleen appears normal. The sto mach appears normal. There is no evidence of a pancreatic mass. There is no adrenal mass. Kidneys show satisfactory contrast opacification. There is no hydronephrosi s. There is atheromatous change in the abdominal aorta. There is no retroperitoneal adenopathy. Bladd er distends smoothly. There is no pelvic mass. There is no free fluid in the pelvis. There is no ingu inal hernia. There is no sign of a bowel obstruction. There is no mesenteric edema. There is no ascites. There is no sign of free air. Appendix is not seen. There is no sign of appendic itis. Lumbar spine is intact. Bony pelvis appears intact. I see no bony destructive process. IMPRESSION: MULTIPLE SMALL HEPATIC CYSTS. NO EVIDENCE OF METASTATIC DISEASE WITHIN THE ABDOMEN AND PELVIS. ATHERO SCLEROTIC VASCULAR DISEASE. LEFT LOWER LOBE PNEUMONIC INFILTRATE AND ATELECTASIS AND SMALL LEFT PLEURAL EFFUSION. PLEURAL FLUID I NCREASED COMPARED TO RECENT CT SCAN OF 01/09/2019.
[2019-01-12] MEDS: DEXAMETHASONE SOD PHOSPHATE 4 MG/ML 1 ML VIAL IV SCH ×5 (00:37→23:31)
[2019-01-12] MEDS: LEVOTHYROXINE 125 MCG TAB PO SCH ×2 (05:20→08:09)
[2019-01-12] MEDS: ONDANSETRON 4 MG/2 ML VIAL IVP PRN ×2 (05:56→20:23)
[2019-01-12] MEDS: MULTIVITAMINS, THERA 1 EACH TAB PO SCH (08:04)
[2019-01-12] MEDS: LIDOCAINE 5% PATCH TOPICAL SCH (08:04)
[2019-01-12] MEDS: FAMOTIDINE 20 MG TAB PO SCH (08:04)
[2019-01-12] MEDS: NICOTINE 21MG/24HR PATCH TRANSDERM SCH (08:04)
[2019-01-12] MEDS: PANTOPRAZOLE 40 MG/10 ML VIAL IV SCH (08:05)
[2019-01-12] MEDS: CHOLECALCIFEROL 1,000 UNIT TAB PO SCH (08:05)
[2019-01-12] MEDS: HEPARIN SODIUM,PORCINE 5,000 UNIT/ML 1 ML VIAL SQ SCH ×2 (08:06→20:16)
[2019-01-12 08:38] LABS: HCT 40.6 % (34.0-46.0); HGB 13.4 gm/dL (11.4-16.0); MCH 32.4 pg (25.0-35.0); MCV 98.1 fL (80.0-100.0); Mean Platelet Volume 8.5; Platelet Count 449 k/uL (150-450); RBC 4.14 m/uL (3.80-5.40); RDW 13.4 % (11.5-15.5); WBC 42.2 k/uL (3.8-10.6)
[2019-01-12 09:16] LABS: Anion Gap 14 mmol/L; Blood Urea Nitrogen 7 mg/dL (7-17); Calcium 9.4 mg/dL (8.4-10.2); Carbon Dioxide 21 mmol/L (22-30); Chloride 104 mmol/L (98-107); Glucose 104 mg/dL (74-99); Potassium 4.3 mmol/L (3.5-5.1); Sodium 139 mmol/L (137-145)
--- NOTE | 2019-01-12 12:00 | P.PN ---
Subjective Progress Note Date: 01/12/19 Principal diagnosis: Cough, weakness hemoptysis, weight loss On 01/12/2019 patient seen in follow-up on oncology floor. She is awake and alert, oriented 3, denies any acute distress, room air pulse ox is 95%, lung sounds are diminished, with some coarse rhonchi in the left mid chest. Still has a small amount of hemoptysis from time to time, but denies any dyspnea. She has been nothing by mouth after midnight, the patient is scheduled for Reclast Skippy with biopsy of the left mediastinal/left hilar mass. MRI of the brain showed multiple ring enhancing lesions with associated vasogenic edema suggestive of brain metastasis. Objective - Vital Signs Vital signs: Vital Signs Temp 98.6 F 01/12/19 06:28 Pulse 95 01/12/19 06:28 Resp 18 01/12/19 07:15 BP 149/74 01/12/19 06:28 Pulse Ox 95 01/12/19 06:28 Intake & Output 01/11/19 01/12/19 01/12/19 18:59 06:59 18:59 Intake Total 300 500 Balance 300 500 Intake: Intake, IV Titration 300 Amount Sodium Chloride 0.9% 1, 300 000 ml @ 100 mls/hr IV . Q10H STA Rx#:[id number] Oral 500 Other: Voiding Method Toilet Toilet # Voids 1 - Exam GENERAL EXAM: Alert, pleasant, 63-year-old white female on room air, with a pulse ox of 95% comfortable in no apparent distress. HEAD: Normocephalic/atraumatic. EYES: Normal reaction of pupils, equal size. Conjunctiva pink, sclera white. NOSE: Clear with pink turbinates. THROAT: No erythema or exudates. NECK: No masses, no JVD, no thyroid enlargement, no adenopathy. CHEST: No chest wall deformity. Symmetrical expansion. LUNGS: Equal air entry with diminished breath sounds on the left, with the some scattered rhonchi CVS: Regular rate and rhythm, normal S1 and S2, no gallops, no murmurs, no rubs ABDOMEN: Soft, nontender. No hepatosplenomegaly, normal bowel sounds, no guarding or rigidity. EXTREMITIES: No clubbing, no edema, no cyanosis, 2+ pulses and upper and lower extremities. MUSCULOSKELETAL: Muscle strength and tone normal. SPINE: No scoliosis or deformity SKIN: No rashes CENTRAL NERVOUS SYSTEM: Alert and oriented -3. No focal deficits, tone is normal in all 4 extremities. PSYCHIATRIC: Alert and oriented -3. Appropriate affect. Intact judgment and insight. - Labs CBC & Chem 7: 01/12/19 07:25 01/12/19 07:35 Labs: Abnormal Lab Results - Last 24 Hours (Table) 01/12/19 01/12/19 Range/Units 07:25 07:35 WBC 42.2 H (3.8-10.6) k/uL Carbon Dioxide 21 L (22-30) mmol/L Creatinine 0.42 L (0.52-1.04) mg/dL Glucose 104 H (74-99) mg/dL Assessment and Plan Plan: Assessment: #1. Large mediastinal/left hilar mass with metastasis to the brain, likely representing metastatic lung cancer #2. Previous history of left breast cancer with previous left partial mastectomy #3. Osteoporosis #4. Vitamin D deficiency #5. Hypothyroidism #6. Ongoing tobacco use with nicotine addiction #7. Rule out underlying chronic obstructive pulmonary disease Plan: We will proceed with bronchoscopy with biopsy of the left mediastinal mass today. MRI of the brain revealed lesions suspicious for metastatis, patient has been started on Decadron. Other recommendations will be based on the findings of the biopsy. Medical oncology is on board I performed a history & physical examination of the patient and discussed their management with my nurse practitioner, Mena Prater. I reviewed the nurse practitioner's note and agree with the documented findings and plan of care. Lung sounds are positive for rhonchi in the left lung. The findings and the impression was discussed with the patient. I attest to the documentation by the nurse practitioner. Time with Patient: Less than 30
[2019-01-12] MEDS ORDERED: LIDOCAINE 1% INJ 10MG/ML (20 ML MDV) ONE (13:00)
[2019-01-12] MEDS ORDERED: fentaNYL (PF) 50 MCG/ML 2 ML AMP ONE (13:00)
[2019-01-12] MEDS ORDERED: MIDAZOLAM 2 MG/2 ML VIAL ONE (13:00)
[2019-01-12] MEDS ORDERED: PROPOFOL 10 MG/ML 20 ML VIAL IV ONE (13:00)
[2019-01-12] MEDS ORDERED: LIDOCAINE 2% INJ 20 MG/ML INTRATRACH ONE (13:31)
[2019-01-12] MEDS ORDERED: LACTATED RINGERS 1,000 ML IV ONE (13:42)
--- NOTE | 2019-01-12 14:44 | P.PN ---
Subjective 63-year-old female admitted the for gastritis or peptic is a disease incidentally found to have mass in the lung appears to have metastatic bronchoge christie carcinoma patient will undergo bronchoscopy patient does have metastases to the brain without any significant osseous metastasis patient was started on Decadron. Patient's abdominal pain did improve patient leukocytosis is coming down a bit. 01/12/2019 Patient was apparently having weakness in both legs which improved she never complained of the symptoms to me. Patient white blood cell count went up to secondary to Decadron patient underwent bronchoscopy and discuss bronchoscopic findings with the pulmonology it appears he'll like patient has some pus while bronchoscopy they believe patient has postobstructive pneumonia as well because of which patient was started on Zosyn which will be continued for today possibility of discharge tomorrow with appointments oncology oral Augmentin and follow up with the pulmonology as an outpatient counseling regarding smoking cessation was provided discharge plan was extensively discussed with the patient. Abdominal pain completely resolved Constitutional: Denied any fatigue denied any fever. Cardio vascular: denied any chest pain, palpitations Gastrointestinal denied any nausea vomiting Pulmonary: Denied any shortness of breath cough Neurologic denied any new focal deficits All inpatient medications were reviewed and appropriate changes in these medications as dictated in the interval history and assessment and plan. Objective - Vital Signs Vital signs: Vital Signs Temp 98.1 F 01/12/19 12:45 Pulse 84 01/12/19 14:23 Resp 18 01/12/19 14:23 BP 139/70 01/12/19 14:12 Pulse Ox 94 L 01/12/19 14:12 Intake & Output 01/11/19 01/12/19 01/12/19 18:59 06:59 18:59 Intake Total 300 500 700 Balance 300 500 700 Intake: IV 700 Intake, IV Titration 300 Amount Sodium Chloride 0.9% 1, 300 000 ml @ 100 mls/hr IV . Q10H STA Rx#:[id number] Oral 500 Other: Voiding Method Toilet Toilet # Voids 1 2 - Exam PHYSICAL EXAMINATION: GENERAL: The patient is alert and oriented x3, not in any acute distress. Thin built female HEENT: Pupils are round and equally reacting to light. EOMI. No scleral icterus. No conjunctival pallor. Normocephalic, atraumatic. No pharyngeal erythema. No thyromegaly. CARDIOVASCULAR: S1 and S2 present. No murmurs, rubs, or gallops. [place] sinus tachycardia PULMONARY: Chest is clear to auscultation, no wheezing or crackles. ABDOMEN: Soft, nontender, nondistended, normoactive bowel sounds. No palpable organomegaly. MUSCULOSKELETAL: No joint swelling or deformity. EXTREMITIES: No cyanosis, clubbing, or pedal edema. NEUROLOGICAL: Gross neurological examination did not reveal any focal deficits. SKIN: No rashes. - Labs CBC & Chem 7: 01/12/19 07:25 01/12/19 07:35 Labs: Abnormal Lab Results - Last 24 Hours (Table) 01/12/19 01/12/19 Range/Units 07:25 07:35 WBC 42.2 H (3.8-10.6) k/uL Carbon Dioxide 21 L (22-30) mmol/L Creatinine 0.42 L (0.52-1.04) mg/dL Glucose 104 H (74-99) mg/dL Assessment and Plan Plan: -Possible Metastatic bronchogenic carcinoma with the metastatic disease to brain no significant osseous metastasis patient did undergo bronchoscopy -Possible postobstructive pneumonia patient was started on Zosyn -Leukocytosis: Secondary to postobstructive pneumonia, lung cancer and Decadron -Metastatic bronchogenic carcinoma had a biopsy today patient has metastases to the brain for which patient was started on Decadron -Possible gastroesophageal reflux disease or peptic ulcer disease: Nonsteroidal anti-inflammatory medications were discontinued and patient will be can you done IV fluids and the Protonix, improved abdominal pain and nausea -Dehydration: IV fluids as mentioned, improved -Hypothyroidism -Unintentional weight loss probably secondary to malignancy as mentioned above -Significant emphysema changes on the CAT scan to although patient is not in COPD exacerbation at this time, counseling regarding smoking cessation was provided -Patient will need pharmacologic DVT prophylaxis -Generalized weakness: Consulted PT and OT
--- NOTE | 2019-01-12 14:54 | PCN ---
PROCEDURE NOTE PROCEDURE: Bronchoscopy, airway examination, therapeutic lavage, BAL, endobronchial biopsies, transbronchial biopsies, transbronchial needle aspirations, brushes and washes distal left mainstem. OPERATORS: Dr. Chavez and Rosemary Dodge. PREOPERATIVE DIAGNOSIS: Left hilar mass. POSTOPERATIVE DIAGNOSIS: Left hilar mass. ANESTHESIA: Provided unconscious sedation and general anesthesia. The patient's procedure was done in room #1. There was informed consent and universal timeout. After the patient was adequately sedated and being fully monitored, the bronchoscope was inserted through the right nostril. It passed through the right nasopharynx into the oropharynx. The hypopharynx was identified and topicalized. The hypopharyngeal structures including anterior commissure, true cords, false cords, arytenoids, piriform sinuses, right and left vallecula and epiglottis all appeared relatively normal. After topicalization, bronchoscope was pushed through the glottic opening into the trachea. Trachea appeared normal. Tracheal monica were sharp. The right side was evaluated first. The right upper lobe and its three segments, right middle lobe and its two segments, right lower lobe and its five segments were relatively normal, save for some mild to moderate bronchitis and thick secretions. The secretions looked purulent. The secretions were much more significant on the left side. They were very thick and yellow in color. They were suctioned. Next, the bronchoscope was taken down to the distal left mainstem. There was obvious significant disease there. It appeared to be both intrinsic compression as well as extrinsic abnormalities to the bronchial air tubes. There was a lot of narrowing. There was some whitish material noted in the area right above the left lower lobe. It appeared to be possibly tumor or necrotic tumor. The monica the left upper lobe proper from the left lower lobe was thick. Next, multiple needle biopsies were done. In addition, both endobronchial and transbronchial biopsies were done in that area. Washes were performed as well as brushes in that area. The patient tolerated the procedure well. There was minimal bleeding. There was no immediate complication. The patient will be recovered. I will make sure that I talk to the family and give them an update. No additional recommendations are made. MMODL / IJN: [id number] /
--- NOTE | 2019-01-12 16:02 | P.CONS ---
History of Present Illness - Reason for Consult Consult date: 01/12/19 Brain Metastasis - Chief Complaint "I have lung cancer" - History of Present Illness Lissette Ge is a pleasant 63 year old with a history of locally advanced breast cancer in 1998 with retirement tobacco abuse history who presented to the emergency room after not improving from upper respiratory sinus congestive symptoms. She describes subjective fevers and chills. She notes a 15 lb weight l oss secondary to GERD/abdominal distress as well as bilateral lower extremity weakness, waxing and waning hemoptysis, and visual changes. On 01/09/19 a chest xray was performed and revealed a large mediastinal lung mass. CTA did not show evidence of PE, although did reveal the identified mass 6. 7x7.5x5.5cm left pulmonary hilum extending posterior and inferior with encasement in the left lower lobe pulmonary artery. A satelite lobulated mass post segment of left bronchus was also identified measuring 2.5x3cm. CT abdomen/pelvis on 01/11/19 visualized no evidence of metastatic disease. Same day bone scan was remarkable only for degenerative changes. MRI of the brain on 01/11/19 unfortunately visualized scattered ring enhancing lesions wiht associated vasogenic edema. The largest lesions are cystic in nature nad present in the right parietal lobe, left occipital lobe, and left precentral gyrus. Lissette did go for bronchoscopy and biopsy this afternoon. She feels well although did have some mild blood tinged sputum. She denies headaches, confusion, balance problems, and notes improvement in her vision since the admission. Review of Systems Constitutional: Reports chills, Reports weakness, Reports weight loss Eyes: bilateral blurred vision, bilateral decreased vision Respiratory: Reports cough with sputum, Reports hemoptysis Gastrointestinal: Reports abdominal pain, Reports indigestion, Reports nausea Genitourinary: Denies dysuria, Denies hematuria Past Medical History Past Medical History: Thyroid Disorder Additional Past Medical History / Comment(s): breast cancer History of Any Multi-Drug Resistant Organisms: None Reported Past Surgical History: Breast Surgery Additional Past Surgical History / Comment(s): left breast masectomy 99 Past Psychological History: No Psychological Hx Reported Smoking Status: Current every day smoker Past Alcohol Use History: None Reported Past Drug Use History: None Reported - Past Family History Mother Family Medical History: Hypertension Medications and Allergies Home Medications Medication Instructions Recorded Confirmed Type Multivitamins, Thera [Multivitamin 1 tab PO DAILY 01/09/19 01/10/19 History (formulary)] Alendronate Sodium 70 mg PO FLORES 01/10/19 01/10/19 History Calcium Carbonate/Vitamin D3 1 tab PO DAILY 01/10/19 01/10/19 History [Caltrate 600 Plus D3 Tablet] Cholecalciferol [Vitamin D3] 2,000 unit PO DAILY 01/10/19 01/10/19 History Levothyroxine Sodium [Synthroid] 125 mcg PO DAILY 01/10/19 01/10/19 History Albuterol Inhaler [Ventolin Hfa 1 - 2 puff INHALATION Q6HR PRN #1 01/12/19 Rx Inhaler] inhaler Dexamethasone [Decadron] 4 mg PO DIRECTED #100 tablet 01/12/19 Rx Lidocaine 5% Patch [Lidoderm 5% 1 patch TOPICAL DAILY #10 patch 01/12/19 Rx Patch] Metoprolol Tartrate [Lopressor] 25 mg PO BID #60 tablet 01/12/19 Rx Nicotine 21Mg/24Hr Patch [Habitrol] 1 patch TRANSDERM DAILY #14 patch 01/12/19 Rx Omeprazole [PriLOSEC] 20 mg PO AC-BID #60 cap 01/12/19 Rx Allergies Allergy/AdvReac Type Severity Reaction Status Date / Time cucumber AdvReac Unknown Verified 01/10/19 13:52 Milk Containing Products AdvReac Unknown Verified 01/10/19 13:52 [Dairy] tomato AdvReac Unknown Verified 01/10/19 13:52 SEEDS AdvReac Unknown Uncoded 01/10/19 13:37 Physical Exam Vitals: Vital Signs Temp Pulse Pulse Pulse Resp BP Pulse Ox 01/12/19 15:00 144/85 01/12/19 14:23 84 18 01/12/19 14:12 125 H 16 139/70 94 L 01/12/19 12:45 98.1 F 108 H 19 157/83 96 01/12/19 12:27 97.9 F 112 H 16 164/83 96 01/12/19 07:15 18 01/12/19 06:28 98.6 F 95 18 149/74 95 01/11/19 22:12 97.9 F 117 H 16 153/77 96 01/11/19 16:00 18 Intake and Output 01/12/19 01/12/19 01/12/19 06:59 14:59 22:59 Intake Total 700 Balance 700 Intake: IV 700 Other: Voiding Method Toilet Toilet # Voids 1 2 - Constitutional General appearance: thin - EENT Eyes: EOMI - Respiratory Respiratory: right: diminished, left: CTA - Cardiovascular Rhythm: regular Heart sounds: normal: S1, S2 - Gastrointestinal General gastrointestinal: normal bowel sounds - Neurologic Neurologic: CNII-XII intact - Psychiatric Psychiatric: A&O x's 3 Results CBC & Chem 7: 01/12/19 07:25 01/12/19 07:35 Labs: Abnormal Lab Results - Last 24 Hours (Table) 01/12/19 01/12/19 01/12/19 Range/Units 07:25 07:35 07:35 WBC 42.2 H (3.8-10.6) k/uL Carbon Dioxide 21 L (22-30) mmol/L Creatinine 0.42 L (0.52-1.04) mg/dL Glucose 104 H (74-99) mg/dL TSH 0.349 L (0.465-4.680) mIU/L Assessment and Plan Assessment: Lissette Ge is a 63 year old with a large left hilar mass and [employer] lesions likely consistent with metastatic lung cancer. Plan: Large central lung mass - left constriction of segmental branches, however, Breathing stable; currently on 02 - hemoptysis scant - Bronchoscopy and biopsy performed today; pathology pending. Brain metastasis - Multifocal and cystic in nature. Patient with limited systemic metastatic disease. Did have mild lower extremity weakness and homonymous hemianopsia somewhat improved since admission. Continues on steroids with improvement, but does appear to have some steroid kourtney. - If pathology returns non small cell lung cancer may potentially benefit from outpatient neurosurgical evaluation secondary to symptoms and cystic nature of the lesions. Should she have small cell lung cancer whole brain radiation would be initiated. We will see Lissette back as an outpatient on 01/17/19 @11am for further recommendations with final pathology. Misael Forman [phone]
[2019-01-12] MEDS: PIPERACILLIN-TAZOBACTAM 3.375 GM in SODIUM CHLORIDE 0.9% 100 ML IVPB SCH ×2 (17:24→23:33)
[2019-01-12 18:04] LABS: Appearance,BF Bloody; Color,BF Red
[2019-01-12 18:05] LABS: Nucleated Cells, Body Fluid 0 /uL; RBC, Body Fluid 2960 /uL
[2019-01-12 18:09] LABS: T4, Free (Free Thyroxine) 2.16 ng/dL (0.78-2.19)
--- NOTE | 2019-01-12 20:37 | P.PN ---
Subjective Progress Note Date: 01/12/19 The patient's shortness of breath and chest discomfort persist and are stable. She continues to have a productive cough. No history of any fever or chills or hemoptysis. She is awaiting bronchoscopy today. She denies any dizziness, falls or headaches. Objective - Vital Signs Vital signs: Vital Signs Temp 98.0 F 01/12/19 20:18 Pulse 107 H 01/12/19 20:18 Resp 18 01/12/19 20:18 BP 143/73 01/12/19 20:18 Pulse Ox 96 01/12/19 20:18 Intake & Output 01/12/19 01/12/19 01/13/19 06:59 18:59 06:59 Intake Total 500 700 Balance 500 700 Intake: IV 700 Oral 500 Other: Voiding Method Toilet Toilet # Voids 1 1 - Constitutional General appearance: Present: no acute distress - EENT Eyes: Present: EOMI ENT: Present: hearing grossly normal, normal oropharynx - Respiratory Respiratory: left: diminished, rales - Cardiovascular Rhythm: regular Heart sounds: normal: S1, S2 - Gastrointestinal General gastrointestinal: Present: normal bowel sounds, soft - Integumentary Integumentary: Present: normal - Neurologic Neurologic: Present: CNII-XII intact - Musculoskeletal Musculoskeletal: Present: generalized weakness, strength equal bilaterally - Psychiatric Psychiatric: Present: A&O x's 3, appropriate affect - Labs CBC & Chem 7: 01/12/19 07:25 01/12/19 07:35 Labs: Abnormal Lab Results - Last 24 Hours (Table) 01/12/19 01/12/19 01/12/19 Range/Units 07:25 07:35 07:35 WBC 42.2 H (3.8-10.6) k/uL Carbon Dioxide 21 L (22-30) mmol/L Creatinine 0.42 L (0.52-1.04) mg/dL Glucose 104 H (74-99) mg/dL TSH 0.349 L (0.465-4.680) mIU/L Microbiology - Last 24 Hours (Table) 01/12/19 10:15 Acid Fast Bacilli Culture - Preliminary Bronchial Washings - Left 01/12/19 10:15 Fungal Culture - Preliminary Bronchial Washings - Left 01/12/19 10:15 Bronchial Washings Culture - Preliminary Bronchial Washings - Left Assessment and Plan (1) Hilar mass Narrative/Plan: The patient is awaiting bronchoscopy for tissue diagnosis. Await results. It was again discussed with her and her daughter, that the clinical presentation is most suggestive of a primary lung cancer. However tissue diagnosis is required for confirmation, prior to proceeding with any systemic therapy plans. The patient has had bone scan as well as CT of the abdomen and pelvis showing no definite metastatic disease. She does have a left-sided pleural effusion, that is however quite small, and nonspecific as to etiology. Brain MRI however reveals evidence of brain metastasis, confirming stage IV disease. It was discussed with the patient and the daughter, that stage IV disease would usually not be considered curable, and the main stay of treatment would be systemic therapy, with the intent of prolongation of life and palliation of symptoms. Assuming lung primary is confirmed, biomarker testing will be ordered on the specimen Current Visit: Yes Status: Acute Code(s): R91.8 - OTHER NONSPECIFIC ABNORMAL FINDING OF LUNG FIELD SNOMED Code(s): 807580386 (2) Brain metastasis Narrative/Plan: MRI of the brain unfortunately confirms the presence of bilateral metastatic brain lesions. The patient overall has fairly mild symptomatology. In retrospect she feels that she has noted some blurring of vision, and feeling of fullness in her head occasionally. - IV steroids utilizing dexamethasone Radiation oncology was consulted, and the case discussed in detail with them. Images were also reviewed with them . They've evaluated the patient, but will wait on tissue diagnosis and completion of staging, prior to starting therapy. This is reasonable, given the patient's mild symptomatology, even prior to starting Decadron. Current Visit: Yes Status: Acute Code(s): C79.31 - SECONDARY MALIGNANT NEOPLASM OF BRAIN SNOMED Code(s): 21440805
[2019-01-13] MEDS: ONDANSETRON 4 MG/2 ML VIAL IVP PRN (04:07)
[2019-01-13] MEDS: MORPHINE SULFATE 4 MG/ML SYRINGE IV PRN ×2 (04:51→11:17)
[2019-01-13 04:59] VITALS: TEMP 97.8
[2019-01-13] MEDS: DEXAMETHASONE SOD PHOSPHATE 4 MG/ML 1 ML VIAL IV SCH ×2 (05:38→11:46)
[2019-01-13] MEDS: LEVOTHYROXINE 125 MCG TAB PO SCH (05:49)
[2019-01-13 08:50] VITALS: RESP 18
[2019-01-13] MEDS: PANTOPRAZOLE 40 MG/10 ML VIAL IV SCH (09:37)
[2019-01-13] MEDS: MULTIVITAMINS, THERA 1 EACH TAB PO SCH (09:37)
[2019-01-13] MEDS: PIPERACILLIN-TAZOBACTAM 3.375 GM in SODIUM CHLORIDE 0.9% 100 ML IVPB SCH (09:37)
[2019-01-13] MEDS: HEPARIN SODIUM,PORCINE 5,000 UNIT/ML 1 ML VIAL SQ SCH (09:38)
[2019-01-13] MEDS: LIDOCAINE 5% PATCH TOPICAL SCH (09:38)
[2019-01-13] MEDS: NICOTINE 21MG/24HR PATCH TRANSDERM SCH (09:38)
[2019-01-13] MEDS: CHOLECALCIFEROL 1,000 UNIT TAB PO SCH (09:38)
--- NOTE | 2019-01-13 11:55 | P.DS ---
Providers Date of admission: 01/11/19 13:27 Attending physician: Jaja Tena Consults: 01/10/19 16:36 Consult Physician Stat Consulting Provider: Wendy Escobar Consult Reason/Comments: Hilar mass Do you want consulting provider notified?: Yes Consult Physician Stat Consulting Provider: Naif Wild Consult Reason/Comments: hilar mass Do you want consulting provider notified?: Yes 01/12/19 20:29 Consult Physician Routine Consulting Provider: Misael Forman Consult Reason/Comments: Brain mets, eval for RT Do you want consulting provider notified?: Already Contacted Primary care physician: Stewart Dawn [facility] Course: 63-year-old female admitted the for gastritis or peptic is a disease incidentally found to have mass in the lung appears to have metastatic bronchogenic carcinoma patient will undergo bronchoscopy patient does have metastases to the brain without any significant osseous metastasis patient was started on Decadron. Patient's abdominal pain did improve patient leukocytosis is coming down a bit. 01/12/2019 Patient was apparently having weakness in both legs which improved she never complained of the symptoms to me. Patient white blood cell count went up to secondary to Decadron patient underwent bronchoscopy and discuss bronchoscopic findings with the pulmonology it appears he'll like patient has some pus while bronchoscopy they believe patient has postobstructive pneumonia as well because of which patient was started on Zosyn which will be continued for today possibility of discharge tomorrow with appointments oncology oral Augmentin and follow up with the pulmonology as an outpatient counseling regarding smoking cessation was provided discharge plan was extensively discussed with the patient. Abdominal pain completely resolved 01/13/2019 and patient is being discharged today patient will follow-up with oncology, radiation oncology pulmonary. Primary care physician as an outpatient. Patient was started on Augmentin for possible postobstructive pneumonia for about a week. Patient will be discharged on [place] for pain. Description for 3 days was provided. PHYSICAL EXAMINATION: GENERAL: The patient is alert and oriented x3, not in any acute distress. Thin built female HEENT: Pupils are round and equally reacting to light. EOMI. No scleral icterus. No conjunctival pallor. Normocephalic, atraumatic. No pharyngeal erythema. No thyromegaly. CARDIOVASCULAR: S1 and S2 present. No murmurs, rubs, or gallops. [place] sinus tachycardia PULMONARY: Chest is clear to auscultation, no wheezing or crackles. ABDOMEN: Soft, nontender, nondistended, normoactive bowel sounds. No palpable organomegaly. MUSCULOSKELETAL: No joint swelling or deformity. EXTREMITIES: No cyanosis, clubbing, or pedal edema. NEUROLOGICAL: Gross neurological examination did not reveal any focal deficits. SKIN: No rashes. Assessment and Plan Plan: -Possible Metastatic bronchogenic carcinoma with the metastatic disease to brain no significant osseous metastasis patient did undergo bronchoscopy -Possible postobstructive pneumonia patient was on Zosyn, will be discharged on Augmentin -Leukocytosis: Secondary to postobstructive pneumonia, lung cancer and Decadron -Metastatic bronchogenic carcinoma had a biopsy yesterday patient has metastases to the brain for which patient is on Decadron -Possible gastroesophageal reflux disease or peptic ulcer disease: Nonsteroidal anti-inflammatory medications were discontinued and patient is being discharged on Prilosec -Dehydration: IV fluids as mentioned, improved -Hypothyroidism -Unintentional weight loss probably secondary to malignancy as mentioned above -Significant emphysema changes on the CAT scan to although patient is not in COPD exacerbation at this time, counseling regarding smoking cessation was provided Patient Condition at Discharge: Stable Plan - Discharge Summary New Discharge Prescriptions: New Dexamethasone [Decadron] 4 mg PO DIRECTED #100 tablet Nicotine 21Mg/24Hr Patch [Habitrol] 1 patch TRANSDERM DAILY #14 patch Lidocaine 5% Patch [Lidoderm 5% Patch] 1 patch TOPICAL DAILY #10 patch Omeprazole [PriLOSEC] 20 mg PO AC-BID #60 cap Metoprolol Tartrate [Lopressor] 25 mg PO BID #60 tablet Albuterol Inhaler [Ventolin Hfa Inhaler] 1 - 2 puff INHALATION Q6HR PRN #1 inhaler PRN Reason: Shortness Of Breath Or Wheezing Amoxic-Pot Clav 875-125Mg [Augmentin 875-125] 1 tab PO Q12HR #14 tablet HYDROcodone/APAP 7.5-325MG [[place] 7.5-325] 1 tab PO Q4H PRN #18 tab PRN Reason: Pain Continue Multivitamins, Thera [Multivitamin (formulary)] 1 tab PO DAILY Levothyroxine Sodium [Synthroid] 125 mcg PO DAILY Cholecalciferol [Vitamin D3] 2,000 unit PO DAILY Alendronate Sodium 70 mg PO FLORES Calcium Carbonate/Vitamin D3 [Caltrate 600 Plus D3 Tablet] 1 tab PO DAILY Discontinued Ranitidine HCl [Zantac] 75 mg PO DAILY Discharge Medication List Multivitamins, Thera [Multivitamin (formulary)] 1 tab PO DAILY 01/09/19 [History] Alendronate Sodium 70 mg PO FLORES 01/10/19 [History] Calcium Carbonate/Vitamin D3 [Caltrate 600 Plus D3 Tablet] 1 tab PO DAILY 01/10/19 [History] Cholecalciferol [Vitamin D3] 2,000 unit PO DAILY 01/10/19 [History] Levothyroxine Sodium [Synthroid] 125 mcg PO DAILY 01/10/19 [History] Albuterol Inhaler [Ventolin Hfa Inhaler] 1 - 2 puff INHALATION Q6HR PRN #1 inhaler 01/12/19 [Rx] Dexamethasone [Decadron] 4 mg PO DIRECTED #100 tablet 01/12/19 [Rx] Lidocaine 5% Patch [Lidoderm 5% Patch] 1 patch TOPICAL DAILY #10 patch 01/12/19 [Rx] Metoprolol Tartrate [Lopressor] 25 mg PO BID #60 tablet 01/12/19 [Rx] Nicotine 21Mg/24Hr Patch [Habitrol] 1 patch TRANSDERM DAILY #14 patch 01/12/19 [Rx] Omeprazole [PriLOSEC] 20 mg PO AC-BID #60 cap 01/12/19 [Rx] Amoxic-Pot Clav 875-125Mg [Augmentin 875-125] 1 tab PO Q12HR #14 tablet 01/13/19 [Rx] HYDROcodone/APAP 7.5-325MG [[place] 7.5-325] 1 tab PO Q4H PRN #18 tab 01/13/19 [Rx] Follow up Appointment(s)/Referral(s): Naif Wild MD [STAFF PHYSICIAN] - 01/19/19 3:45 pm (appt will be in the [facility]) Stewart Dawn MD [Primary Care Provider] - 01/18/19 11:20 am Keny Chavez DO [Doctor of Osteopathic Medicine] - 01/24/19 3:30 pm (patient will have to get referal from 's office before being seen at 's) Misael Forman MD [STAFF PHYSICIAN] - 01/17/19 11:00 am Discharge Disposition: HOME SELF-CARE
[2019-01-13 12:24] VITALS: BP 158/77; PULSE 83
--- NOTE | 2019-01-13 13:54 | P.PN ---
Subjective Progress Note Date: 01/13/19 Principal diagnosis: The patient is seen today 01/13/2019 in follow-up on the oncology unit. She is awake and alert in no acute distress. Up ambulating in her room. She did unde rgo bronchoscopy with biopsies yesterday, pathology is pending. She also had undergone an MRI of the brain field multiple ring-enhancing lesions associated with vasogenic edema suggestive brain metastases. Approximately 5 lesions are present. The largest lesion measures 4.2 cm in the right parietal lobe. She had been initiated on Decadron. She still has a loose currently nonproductive cough. She is maintaining good O2 saturations in the mid 90s on room air. She's been afebrile. Hemodynamically stable. Bronchial wash cultures are pending. Currently on Zosyn. Objective - Vital Signs Vital signs: Vital Signs Temp 97.8 F 01/13/19 11:12 Pulse 83 01/13/19 11:12 Resp 18 01/13/19 11:28 BP 158/77 01/13/19 11:12 Pulse Ox 96 01/13/19 11:12 Intake & Output 01/12/19 01/13/19 01/13/19 18:59 06:59 18:59 Intake Total 700 1520 650 Output Total 3 Balance 700 1517 650 Intake: IV 700 Intake, IV Titration 440 100 Amount Lactated Ringers 1,000 ml 240 @ 0 mls/hr IV [facility] Rx#:[id number] Piperacillin-Tazobactam 3 200 100 .375 gm In Sodium Chloride 0.9% 100 ml @ 25 mls/hr IVPB Q8HR [facility] Rx# :[id number] Oral 1080 550 Output: Urine 3 Other: Voiding Method Toilet Toilet Toilet # Voids 1 3 2 - Exam GENERAL EXAM: Alert, pleasant, 63-year-old female on room air, with a pulse ox of 96%, comfortable in no apparent distress. HEAD: Normocephalic/atraumatic. EYES: Normal reaction of pupils, equal size. Conjunctiva pink, sclera white. NOSE: Clear with pink turbinates. THROAT: No erythema or exudates. NECK: No masses, no JVD, no thyroid enlargement, no adenopathy. CHEST: No chest wall deformity. Symmetrical expansion. LUNGS: Equal air entry with diminished breath sounds on the left, with the some scattered rhonchi CVS: Regular rate and rhythm, normal S1 and S2, no gallops, no murmurs, no rubs ABDOMEN: Soft, nontender. No hepatosplenomegaly, normal bowel sounds, no guarding or rigidity. EXTREMITIES: No clubbing, no edema, no cyanosis, 2+ pulses and upper and lower extremities. MUSCULOSKELETAL: Muscle strength and tone normal. SPINE: No scoliosis or deformity SKIN: No rashes CENTRAL NERVOUS SYSTEM: No focal deficits, tone is normal in all 4 extremities. PSYCHIATRIC: Alert and oriented -3. Appropriate affect. Intact judgment and insight. - Labs CBC & Chem 7: 01/12/19 07:25 01/12/19 07:35 Labs: Abnormal Lab Results - Last 24 Hours (Table) 01/12/19 Range/Units 07:35 TSH 0.349 L (0.465-4.680) mIU/L Microbiology - Last 24 Hours (Table) 01/12/19 10:15 Acid Fast Bacilli Smear - Final Bronchial Washings - Left Acid Fast Bacilli Culture - Preliminary 01/12/19 10:15 Gram Stain - Preliminary Bronchial Washings - Left Bronchial Washings Culture - Preliminary 01/12/19 10:15 Fungal Culture - Preliminary Bronchial Washings - Left Assessment and Plan Assessment: Assessment: #1. Large mediastinal/left hilar mass with metastasis to the brain, likely r epresenting metastatic lung cancer. Status post bronchoscopy with biopsy. Pathology pending. The patient did undergo MRI of the brain which revealed metastatic lesions, the largest of which is 4.2 cm in the right parietal lobe. #2. Previous history of left breast cancer with previous left partial mastectomy #3. Osteoporosis #4. Vitamin D deficiency #5. Hypothyroidism #6. Ongoing tobacco use with nicotine addiction #7. Rule out underlying chronic obstructive pulmonary disease Plan: The patient was seen and evaluated by Dr. Chavez. She is currently stable from the pulmonary standpoint. She is hoping to go home today. She has been seen by oncology and radiation oncology. We'll wait for final pathology. She will follow-up in our office in 1-2 weeks' time. She is encouraged to call sooner with any recurrence of symptoms or other questions or concerns. I, the cosigning physician, performed a history & physical examination of the patient. Lungs sounds with few scattered rhonchi. Maintaining good O2 saturations in the 90s on room air. I discussed the assessment and plan of care with my nurse practitioner, Rosemary Dodge. I attest to the above note as dictated by her.
[2019-01-14] MEDS ORDERED: PANTOPRAZOLE 40 MG TABLET PO SCH (07:30)
[2019-01-15] MEDS ORDERED: ALENDRONATE 70MG PO SCH (06:30)
== END 2019-01-13 15:04 | disposition home or self-care (01) | DRG 166 ==
LOC: EC 13:12 → 3NMEDONC 16:01 → OBSVTOIN 01-11 13:27
PROVIDERS: ADMIT Internal Medicine; ATTEND Internal Medicine
PROC: 0B9L8ZX Drainage of Left Lung, Via Natural or Artificial Opening Endoscopic, Diagnostic (ICD-10-PCS; principal; 2019-01-12 13:20)
PROC: 0BD78ZX Extraction of Left Main Bronchus, Via Natural or Artificial Opening Endoscopic, Diagnostic (ICD-10-PCS; 2019-01-12 13:20)
PROC: 0BD78ZX Extraction of Left Main Bronchus, Via Natural or Artificial Opening Endoscopic, Diagnostic (ICD-10-PCS; 2019-01-12 13:20)
DX: C34.02 Malignant neoplasm of left main bronchus (principal); G93.6 Cerebral edema; J18.9 Pneumonia, unspecified organism; R04.2 Hemoptysis; C79.31 Secondary malignant neoplasm of brain; J91.8 Pleural effusion in other conditions classified elsewhere; J98.11 Atelectasis; H53.469 Homonymous bilateral field defects, unspecified side; E83.52 Hypercalcemia; J43.9 Emphysema, unspecified; E86.0 Dehydration; E55.9 Vitamin D deficiency, unspecified; D72.828 Other elevated white blood cell count; T38.0X5A Adverse effect of glucocorticoids and synthetic analogues, initial encounter; E03.9 Hypothyroidism, unspecified; K29.70 Gastritis, unspecified, without bleeding; K21.9 Gastro-esophageal reflux disease without esophagitis; M81.0 Age-related osteoporosis without current pathological fracture; F17.200 Nicotine dependence, unspecified, uncomplicated; Z71.6 Tobacco abuse counseling; Z79.83 Long term (current) use of bisphosphonates; Z79.890 Hormone replacement therapy; Z79.899 Other long term (current) drug therapy; Z85.3 Personal history of malignant neoplasm of breast; Z90.12 Acquired absence of left breast and nipple; Z91.011 Allergy to milk products; Z91.018 Allergy to other foods; Z82.49 Family history of ischemic heart disease and other diseases of the circulatory system
CPT/HCPCS: 31623; 31624; 31625; 31633; 36415; 70553; 71046; 74177; 78306; 80048; 80053; 81001; 83605; 83615; 83735; 84100; 84439; 84443; 84484; 85025; 85027; 85610; 85730; 87070; 87102; 87116; 87205; 87206; 87252; 87496; 87498; 87502; 87529; 87634; 87798; 88104; 88108; 88173; 88305; 88341; 88342; 89050; 93005; 96360; 96361; 99285

== ENCOUNTER → 2019-02-04 | Outpatient (CLI) | payer BC ==
--- NOTE | 2019-02-06 07:09 | PE ---
EXAMINATION TYPE: PET CT fusion skull to thigh DATE OF EXAM: 02/04/2019 COMPARISON: NONE HISTORY: Lung cancer. Prior radiation therapy of the left breast in 1998. No treatment for the known lung cancer. TECHNIQUE: Following the intravenous administration of 11.0 mCi of F-18 FDG, whole body images are p erformed from the skull base to the midthigh. Images are reviewed on the computer in the coronal, ax ial, and sagittal planes. Reconstructed rotating images are created on independent workstation and r eviewed on the computer. A localization and attenuation correction CT is performed in conjunction w ith the PET scan. SCAN: Initial exam FINDINGS: Mediastinal background: 1.25 Abdominal background: 2.16 SKULL BASE AND NECK: No suspicious hypermetabolic uptake. CHEST, MEDIASTINUM, AND HILAR REGION: Moderate background emphysematous change. The large cavitary left upper lobe mass invades the mediast inum and is inseparable with mediastinal adenopathy. This conglomeration measures up to 9.8 x 6.9 cm on series 3 image 100 and creates downstream atelectasis. This has a maximum SUV of 23.04. Compatible with neoplasm. Additionally there is a cavitary left lower lobe mass measuring 3.6 x 2.4 cm with a maximum SUV of 7. 6. Hypermetabolic high prevascular lymph node on series 3 image 71 adjacent to the superior vena cava nice s a maximum SUV of 3.99 and measures 1.6 cm in short axis. ABDOMEN AND PELVIS: There is focal hypermetabolic activity of a left pericolonic mass seen on image 1 96 measuring 2.4 x 2.9 cm presumably primary colonic neoplasm with metastasis also possibility. This has a maximum SUV of 23.97. Two adjacent closely associated lobulated hypermetabolic masses represent ing metastasis given their marked hypermetabolic activity are seen on image 217 and 218 measuring 3.4 cm and 3.0 cm with a total maximum SUV of 26.05. These are seen within the ischiorectal fossa. OSSEOUS STRUCTURES: Multifocal hypermetabolic uptake within the thoracic spine (maximum SUV up to 3.3 3) and lumbosacral spine (maximum SUV up to 2.9) as well as within the iliac bones (maximum SUV up to 14.84 on the left). There is also hypermetabolic activity within the manubrium with a maximum SUV of 1.93. Correlate with bone scan. There is also focal hypermetabolic activity of the right fifth, sixt h, and seventh ribs anteriorly and left sixth rib anteriorly. OTHER CT: Encephalomalacia in the right parietal lobe is seen from prior infarct. Mild multilevel deg enerative changes of the spine. There is leftward mediastinal shift. Mild coronary calcifications are seen. Postsurgical changes of the breasts are noted. Left hepatic lobe 2.5 cm cyst and right hepatic lobe 1.0 cm cyst are seen. Extensive atherosclerosis of the aorta is present. Numerous diverticula a re seen with inspissated debris. Mesenteric nodule on image 141 in the left upper quadrant could repr esent a tiny low lying splenule or lymph node however this is not hypermetabolic. Unenhanced abdomina l viscera are grossly unremarkable. IMPRESSION: 1. Large left perihilar markedly hypermetabolic mass invading the mediastinum most compatible with pr imary lung neoplasmresulting in downstream atelectasis with inseparable left perihilar and subcarinal adenopathy and metastatic left lower lobe cavitary hypermetabolic mass. These masses measure up to 9 .8 cm and 3.6 cm respectively. 2. Retrosternal high mediastinal metastatic lymph node, multifocal hypermetabolic osseous activity hi ghly suggestive of metastasis, and markedly hypermetabolic soft tissue implants in the right ischiore ctal fossa also relating to metastasis. 3. Highly hypermetabolic left pericolonic mass of the sigmoid colon that is concerning for synchronou s primary colon carcinoma.
== END | disposition home or self-care (01) ==
LOC: RADPETMAIN 08:06
PROVIDERS: ATTEND Internal Medicine Hematology & Oncology
DX: C34.12 Malignant neoplasm of upper lobe, left bronchus or lung (principal); C78.02 Secondary malignant neoplasm of left lung; C77.1 Secondary and unspecified malignant neoplasm of intrathoracic lymph nodes; R59.1 Generalized enlarged lymph nodes; J98.11 Atelectasis; K63.89 Other specified diseases of intestine; Z96.89 Presence of other specified functional implants
CPT/HCPCS: 78815; A9552

== ENCOUNTER 2019-02-19 13:20 | Inpatient (IN) | payer BC ==
[2019-02-19] MEDS ORDERED: SODIUM CHLORIDE 0.9% 1,000 ML IV STA (13:39)
[2019-02-19] MEDS ORDERED: ONDANSETRON 4 MG/2 ML VIAL IVP STA (13:39)
[2019-02-19] MEDS ORDERED: MORPHINE SULFATE 4 MG/ML SYRINGE IV STA (13:39)
--- NOTE | 2019-02-19 14:12 | ED ---
Abdominal Pain HPI - General Chief Complaint: Abdominal Pain Stated Complaint: abd pain, ca pt Time Seen by Provider: 02/19/19 13:39 Source: patient, RN notes reviewed, old records reviewed Mode of arrival: wheelchair Limitations: no limitations - History of Present Illness Initial Comments: This is a 63-year-old female the ER for evaluation. She presents today for evaluation of severe abdominal pain. Patient does has had history of CVA. Last bowel movement 2 days ago. Severe abdominal pain suprapubic and pelvic pain. Severe nausea every time she eats. Unable to keep anything down. No fevers. No travel history no sick contacts. No prior history of similar symptoms. No abdominal surgery, breast cancer is primary cancer with metastases MD Complaint: abdominal pain -: days(s) Location: suprapubic Radiation: suprapubic Migration to: suprapubic Severity: moderate Severity scale (1-10): 7 Quality: aching Consistency: constant Improves With: nothing Worsens With: nothing Associated Symptoms: nausea - Related Data Home Medications Medication Instructions Recorded Confirmed Multivitamins, Thera [Multivitamin 1 tab PO DAILY 01/09/19 02/19/19 (formulary)] Alendronate Sodium 70 mg PO FLORES 01/10/19 02/19/19 Calcium Carbonate/Vitamin D3 1 tab PO DAILY 01/10/19 02/19/19 [Caltrate 600 Plus D3 Tablet] Cholecalciferol [Vitamin D3 (25 2,000 unit PO DAILY 01/10/19 02/19/19 Mcg = 1000 Iu)] Levothyroxine Sodium [Synthroid] 125 mcg PO DAILY 01/10/19 02/19/19 Dexamethasone [Decadron] 4 mg PO BID 02/19/19 02/19/19 Previous Rx's Medication Instructions Recorded Lidocaine 5% Patch [Lidoderm 5% 1 patch TOPICAL DAILY #10 patch 01/12/19 Patch] Metoprolol Tartrate [Lopressor] 25 mg PO BID #60 tablet 01/12/19 Nicotine 21Mg/24Hr Patch [Habitrol] 1 patch TRANSDERM DAILY #14 patch 01/12/19 Omeprazole [PriLOSEC] 20 mg PO AC-BID #60 cap 01/12/19 HYDROcodone/APAP 7.5-325MG [[place] 1 tab PO Q4H PRN #18 tab 01/13/19 7.5-325] Allergies Allergy/AdvReac Type Severity Reaction Status Date / Time cucumber AdvReac Unknown Verified 02/19/19 14:02 Milk Containing Products AdvReac Unknown Verified 02/19/19 14:02 [Dairy] tomato AdvReac Unknown Verified 02/19/19 14:02 SEEDS AdvReac Unknown Uncoded 02/19/19 13:37 Review of Systems ROS Statement: Those systems with pertinent positive or pertinent negative responses have been documented in the HPI. ROS Other: All systems not noted in ROS Statement are negative. Past Medical History Past Medical History: Cancer, Thyroid Disorder Additional Past Medical History / Comment(s): breast cancer, lung CA, Brain lesions History of Any Multi-Drug Resistant Organisms: None Reported Past Surgical History: Breast Surgery Additional Past Surgical History / Comment(s): left breast masectomy 99, thyroid removed Past Psychological History: No Psychological Hx Reported Smoking Status: Former smoker Past Alcohol Use History: None Reported Past Drug Use History: None Reported - Past Family History Mother Family Medical History: Hypertension General Exam Limitations: no limitations General appearance: alert, in no apparent distress Head exam: Present: atraumatic, normocephalic, normal inspection Eye exam: Present: normal appearance, PERRL, EOMI. Absent: scleral icterus, conjunctival injection, periorbital swelling ENT exam: Present: normal exam, mucous membranes moist Neck exam: Present: normal inspection. Absent: tenderness, meningismus, lymphadenopathy Respiratory exam: Present: normal lung sounds bilaterally. Absent: respiratory distress, wheezes, rales, rhonchi, stridor Cardiovascular Exam: Present: regular rate, normal rhythm, normal heart sounds. Absent: systolic murmur, diastolic murmur, rubs, gallop, clicks GI/Abdominal exam: Present: soft, normal bowel sounds. Absent: distended, tenderness, guarding, rebound, rigid Extremities exam: Present: normal inspection, full ROM, normal capillary refill. Absent: tenderness, pedal edema, joint swelling, calf tenderness Back exam: Present: normal inspection Neurological exam: Present: alert, oriented X3, CN II-XII intact Psychiatric exam: Present: normal affect, normal mood Skin exam: Present: warm, dry, intact, normal color. Absent: rash Course Vital Signs 02/19/19 13:34 Temperature 97.2 F L Pulse Rate 130 H Respiratory 18 Rate Blood Pressure 119/67 - Reevaluation(s) Reevaluation #1: 02/19/19 14:12 Medical record is reviewed Reevaluation #2: 02/19/19 14:12 Patient has adequate pain control currently Medical Decision Making - Medical Decision Making 63 female the ER for evaluation. Patient with abdominal pain severe, severe cancer with multiple areas metastasis. Mild nausea severe nausea and vomiting. Patient be admitted for surgical oncology consult - Lab Data Result diagrams: 02/19/19 14:05 02/19/19 14:05 Lab Results 02/19/19 02/19/19 02/19/19 Range/Units 14:05 14:05 14:05 WBC 52.3 H* (3.8-10.6) k/uL RBC 3.58 L (3.80-5.40) m/uL Hgb 11.0 L (11.4-16.0) gm/dL Hct 35.0 (34.0-46.0) % MCV 97.8 (80.0-100.0) fL MCH 30.8 (25.0-35.0) pg MCHC 31.5 (31.0-37.0) g/dL RDW 13.5 (11.5-15.5) % Plt Count 489 H (150-450) k/uL Neutrophils % 96 % Lymphocytes % 2 % Monocytes % 2 % Eosinophils % 1 % Basophils % 0 % Neutrophils # 50.0 H (1.3-7.7) k/uL Lymphocytes # 0.9 L (1.0-4.8) k/uL Monocytes # 0.9 (0-1.0) k/uL Eosinophils # 0.3 (0-0.7) k/uL Basophils # 0.1 (0-0.2) k/uL Sodium 136 L (137-145) mmol/L Potassium 4.3 (3.5-5.1) mmol/L Chloride 99 (98-107) mmol/L Carbon Dioxide 25 (22-30) mmol/L Anion Gap 12 mmol/L BUN 14 (7-17) mg/dL Creatinine 0.43 L (0.52-1.04) mg/dL Est GFR (CKD-EPI)AfAm >90 (>60 ml/min/1.73 sqM) Est GFR (CKD-EPI)NonAf >90 (>60 ml/min/1.73 sqM) Glucose 150 H (74-99) mg/dL Plasma Lactic Acid [place] 1.7 (0.7-2.0) mmol/L Calcium 8.8 (8.4-10.2) mg/dL Total Bilirubin 0.5 (0.2-1.3) mg/dL AST 45 H (14-36) U/L ALT 17 (9-52) U/L Alkaline Phosphatase 240 H (38-126) U/L Total Protein 6.3 (6.3-8.2) g/dL Albumin 3.5 (3.5-5.0) g/dL Amylase 35 (30-110) U/L Lipase <10 L (23-300) U/L - Radiology Data Radiology results: report reviewed (CT pelvis as colonic mass severe with possible fistula), image reviewed Disposition Clinical Impression: Hilar mass, Leukocytosis, Brain metastasis, Lung cancer, Breast cancer Disposition: ADMITTED IP TO THIS [facility] Condition: Critical Is patient prescribed a controlled substance at d/c from ED?: No Referrals: Stewart Dawn MD [Primary Care Provider] - 1-2 days
[2019-02-19 14:28] LABS: ALT 17 U/L (9-52); AST 45 U/L (14-36); African American GFR (CKD) >90 (>60 ml/min/1.73 sqM); Albumin 3.5 g/dL (3.5-5.0); Alkaline Phosphatase 240 U/L (38-126); Amylase 35 U/L (30-110); Anion Gap 12 mmol/L; Blood Urea Nitrogen 14 mg/dL (7-17); Calcium 8.8 mg/dL (8.4-10.2); Carbon Dioxide 25 mmol/L (22-30); Chloride 99 mmol/L (98-107); Glucose 150 mg/dL (74-99); Lipase <10 U/L (23-300); Potassium 4.3 mmol/L (3.5-5.1); Sodium 136 mmol/L (137-145); Total Bilirubin 0.5 mg/dL (0.2-1.3); Total Protein 6.3 g/dL (6.3-8.2)
[2019-02-19 14:34] LABS: Basophils # (A) 0.1 k/uL (0-0.2); Basophils % (A) 0 %; Eosinophils # (A) 0.3 k/uL (0-0.7); Eosinophils % (A) 1 %; Lymphocytes # (A) 0.9 k/uL (1.0-4.8); Lymphocytes % (A) 2 %; MCH 30.8 pg (25.0-35.0); MCHC 31.5 g/dL (31.0-37.0); MCV 97.8 fL (80.0-100.0); Mean Platelet Volume 6.6; Monocytes # (A) 0.9 k/uL (0-1.0); Monocytes % (A) 2 %; Neutrophils % (A) 96 %; Platelet Count 489 k/uL (150-450); RBC 3.58 m/uL (3.80-5.40); RDW 13.5 % (11.5-15.5)
--- NOTE | 2019-02-19 14:40 | CT ---
EXAMINATION TYPE: CT abdomen pelvis w con DATE OF EXAM: 02/19/2019 HISTORY: Abdominal pain. Lung CA CT DLP: 442.3mGycm Automated Exposure Control for Dose Reduction was Utilized. CONTRAST: CT scan of the abdomen and pelvis is performed with IV Contrast, patient injected with 100 mL of Isov ue 300. COMPARISON: CT abdomen pelvis dated 02/04/[address] abdomen pelvis dated 01/11/2019 FINDINGS: LUNG BASES: The left lower lobe cavitating mass is again seen with central necrosis indicating the me diastinum with neovascularization seen. This at least abut if not invades the esophagus. There is a s mall associated left pleural effusion and associated atelectasis. LIVER/GB: Multiple hepatic cysts are again noted. Gallbladder is unremarkable. PANCREAS: Slight pancreatic ductal prominence although the pancreas enhances homogeneously. SPLEEN: No significant abnormality is seen. ADRENALS: There is slight thickening of the adrenal glands likely related to adrenal gland hyperplasi a.. KIDNEYS: The kidneys enhance symmetrically without hydronephrosis. Urinary bladder is incompletely di stended. BOWEL: As mentioned on the prior PET/CT of 02/04/2019 there is progression in size of a large sigmoid colon mass with central necrosis now measuring 4.1 x 3.6 cm. At the cranial aspect of this mass there is a questionable fistula versus focus of free air with possible fistulous tract emanating medially on coronal image 58. This extends towards another loop of sigmoid colon. There is surrounding inflamm atory fat stranding and scant amount of free pelvic fluid. This is nonobstructive as no proximal jose l dilatation is seen. However there is a second markedly hypermetabolic descending colonic mass with wall thickening up to 1.9 cm, hypermetabolic on the prior PET. Few loops of prominent small bowel in the left upper quadrant measuring up to 2.8 cm, upper limits of normal.. LYMPH NODES: No greater than 1cm abdominal or pelvic lymph nodes are appreciated. OSSEOUS STRUCTURES: Mild multilevel degenerative changes of the spine.. OTHER: Multilobulated right ischiorectal fossa metastasis measures 3.5 cm with the adjacent mass andree uring 3.5 cm as well. Extensive atherosclerosis is seen of the abdominal aorta and its branches. IMPRESSION: 1. Left colonic masses present in either synchronous or metastatic colon carcinoma within the sigmoid and descending colon have enlarged since the prior PET/CT of 02/04/2019. There is new acute inflammat ory change surrounding the sigmoid colonic mass indicative of surrounding acute colitis. Additionally there is either a punctate focus of pneumoperitoneum or nondistended fistulous tract to the adjacent sigmoid colon. Findings discussed with Dr. You by Dr. Yusuf at 1437 on 02/19/19. 2. Partial visualization of the known left lower lobe/perihilar pulmonary neoplasm invading the media stinum and at least abutting if not invading the esophagus.
[2019-02-19 14:44] LABS: WBC 52.3 k/uL (3.8-10.6)
[2019-02-19] MEDS ORDERED: MORPHINE SULFATE 4 MG/ML SYRINGE IVP STA (14:52)
[2019-02-19] MEDS ORDERED: ONDANSETRON 4 MG/2 ML VIAL IVP PRN (14:52)
[2019-02-19] MEDS ORDERED: PIPERACILLIN-TAZOBACTAM 3.375 GM in SODIUM CHLORIDE 0.9% 100 ML IVPB STA (14:52)
[2019-02-19 16:05] LABS: Appearance,Urine Clear (Clear); Bilirubin,Urine Negative (Negative); Blood,Urine Negative (Negative); Color,Urine Light Yellow; Glucose,Urine (UA) Negative (Negative); Ketones,Urine Trace (Negative); Leukocyte Esterase,Urine Negative (Negative); Nitrite,Urine Negative (Negative); Protein,Urine Negative (Negative); Urobilinogen,Urine <2.0 mg/dL (<2.0)
[2019-02-19 16:08] LABS: Specific Gravity,Urine >1.050 (1.001-1.035)
[2019-02-19] MEDS: SODIUM CHLORIDE 0.9% 1,000 ML IV SCH (17:32)
[2019-02-19] MEDS: MORPHINE SULFATE 4 MG/ML SYRINGE IVP PRN (18:16)
[2019-02-19] MEDS: LIDOCAINE 5% PATCH TOPICAL SCH (18:16)
[2019-02-19] MEDS: NICOTINE 14MG/24HR PATCH TRANSDERM SCH (18:16)
[2019-02-19] MEDS: METOPROLOL TARTRATE 25 MG TAB PO SCH (20:21)
[2019-02-19] MEDS: PIPERACILLIN-TAZOBACTAM 3.375 GM in SODIUM CHLORIDE 0.9% 100 ML IVPB SCH (23:24)
[2019-02-20] MEDS: MORPHINE SULFATE 4 MG/ML SYRINGE IVP PRN ×4 (02:09→22:21)
[2019-02-20] MEDS: SODIUM CHLORIDE 0.9% 1,000 ML IV SCH ×3 (07:08→23:38)
[2019-02-20] MEDS: NICOTINE 14MG/24HR PATCH TRANSDERM SCH (07:33)
[2019-02-20] MEDS: METOPROLOL TARTRATE 25 MG TAB PO SCH ×2 (07:33→20:45)
[2019-02-20] MEDS: PIPERACILLIN-TAZOBACTAM 3.375 GM in SODIUM CHLORIDE 0.9% 100 ML IVPB SCH ×3 (07:33→23:38)
[2019-02-20] MEDS: ENOXAPARIN 40 MG/0.4 ML SYRINGE SQ SCH (07:33)
--- NOTE | 2019-02-20 07:46 | P.HPIM ---
History of Present Illness H&P Date: 02/20/19 Chief Complaint: abdominal pain diffuse This is a history of physical 63-year-old white female with known history oflung and history of colon cancer. The patient has been struggling with abdominal pain. She was treated for colitis as an outpatient and states she did not im prove very much. The patient came to the ER for worsening abdominal pain. Last bowel movement was about 2 days ago. The patient now has found metastatic disease with probable fistula. Surgery has been consulted as has oncology. I had a brief discussion with surgery service, she has poor prognostic indicators given her severity of disease. Pain seems to be only moderately controlled. Review of Systems Constitutional: Reports fatigue, Reports poor appetite Eyes: denies blurred vision, denies pain Ears, nose, mouth and throat: Denies headache, Denies sore throat Cardiovascular: Denies chest pain, Denies shortness of breath Respiratory: Reports cough Gastrointestinal: Reports abdominal pain, Reports nausea, Reports vomiting, Denies diarrhea Genitourinary: Denies dysuria, Denies hematuria Musculoskeletal: Denies myalgias Integumentary: Denies pruritus, Denies rash Neurological: Denies numbness, Denies weakness Psychiatric: Denies anxiety, Denies depression Past Medical History Past Medical History: Cancer, Thyroid Disorder Additional Past Medical History / Comment(s): breast cancer, lung CA, Brain lesions History of Any Multi-Drug Resistant Organisms: None Reported Past Surgical History: Breast Surgery Additional Past Surgical History / Comment(s): left breast masectomy 99, thyroid removed Past Anesthesia/Blood Transfusion Reactions: No Reported Reaction Past Psychological History: No Psychological Hx Reported Smoking Status: Former smoker Past Alcohol Use History: None Reported Past Drug Use History: None Reported - Past Family History Mother Family Medical History: Hypertension Medications and Allergies Home Medications Medication Instructions Recorded Confirmed Type Multivitamins, Thera [Multivitamin 1 tab PO DAILY 01/09/19 02/19/19 History (formulary)] Alendronate Sodium 70 mg PO FLORES 01/10/19 02/19/19 History Calcium Carbonate/Vitamin D3 1 tab PO DAILY 01/10/19 02/19/19 History [Caltrate 600 Plus D3 Tablet] Cholecalciferol [Vitamin D3 (25 2,000 unit PO DAILY 01/10/19 02/19/19 History Mcg = 1000 Iu)] Levothyroxine Sodium [Synthroid] 125 mcg PO DAILY 01/10/19 02/19/19 History Lidocaine 5% Patch [Lidoderm 5% 1 patch TOPICAL DAILY #10 patch 01/12/19 02/19/19 Rx Patch] Metoprolol Tartrate [Lopressor] 25 mg PO BID #60 tablet 01/12/19 02/19/19 Rx Nicotine 21Mg/24Hr Patch [Habitrol] 1 patch TRANSDERM DAILY #14 patch 01/12/19 02/19/19 Rx Omeprazole [PriLOSEC] 20 mg PO AC-BID #60 cap 01/12/19 02/19/19 Rx HYDROcodone/APAP 7.5-325MG [[place] 1 tab PO Q4H PRN #18 tab 01/13/19 02/19/19 Rx 7.5-325] Dexamethasone [Decadron] 4 mg PO BID 02/19/19 02/19/19 History Allergies Allergy/AdvReac Type Severity Reaction Status Date / Time cucumber AdvReac Unknown Verified 02/19/19 14:02 Milk Containing Products AdvReac Unknown Verified 02/19/19 14:02 [Dairy] tomato AdvReac Unknown Verified 02/19/19 14:02 SEEDS AdvReac Unknown Uncoded 02/19/19 13:37 Physical Exam Vitals: Vital Signs Temp Pulse Pulse Pulse Resp BP BP 02/20/19 01:15 99.4 F 115 H 16 110/68 02/19/19 23:00 117 H 02/19/19 21:49 134 H 02/19/19 19:42 96.9 F L 131 H 16 123/73 02/19/19 16:00 133 H 16 02/19/19 15:56 98.9 F 133 H 16 117/76 02/19/19 15:34 110 H 16 126/61 02/19/19 13:34 97.2 F L 130 H 18 119/67 Pulse Ox 02/20/19 01:15 95 02/19/19 23:00 02/19/19 21:49 02/19/19 19:42 98 02/19/19 16:00 02/19/19 15:56 98 02/19/19 15:34 92 L 02/19/19 13:34 Intake and Output 02/19/19 02/20/19 02/20/19 22:59 06:59 14:59 Intake Total 0 700 Balance 0 700 Intake: Intake, IV Titration 700 Amount Sodium Chloride 0.9% 1, 700 000 ml @ 100 mls/hr IV . Q10H [facility] Rx#:[id number] Oral 0 Other: Voiding Method Toilet # Voids 1 1 Weight 33.5 kg - Constitutional General appearance: no acute distress - EENT Eyes: EOMI - Neck Neck: no lymphadenopathy - Respiratory Respiratory: bilateral: CTA - Cardiovascular Rhythm: regular Heart sounds: normal: S1, S2 Abnormal Heart Sounds: no S3 Gallop - Gastrointestinal General gastrointestinal: decreased bowel sounds, tenderness - Neurologic Neurologic: CNII-XII intact Results CBC & Chem 7: 02/19/19 14:05 02/19/19 14:05 Labs: Abnormal Lab Results - Last 24 Hours (Table) 02/19/19 02/19/19 02/19/19 Range/Units 14:00 14:05 14:05 WBC 52.3 H* (3.8-10.6) k/uL RBC 3.58 L (3.80-5.40) m/uL Hgb 11.0 L (11.4-16.0) gm/dL Plt Count 489 H (150-450) k/uL Neutrophils # 50.0 H (1.3-7.7) k/uL Lymphocytes # 0.9 L (1.0-4.8) k/uL Sodium 136 L (137-145) mmol/L Creatinine 0.43 L (0.52-1.04) mg/dL Glucose 150 H (74-99) mg/dL AST 45 H (14-36) U/L Alkaline Phosphatase 240 H (38-126) U/L Lipase <10 L (23-300) U/L Ur Specific [place] >1.050 H (1.001-1.035) Urine Ketones Trace H (Negative) Thrombosis Risk Factor Assmnt - Choose All That Apply Any of the Below Risk Factors Present?: Yes Other Risk Factors: Yes Each Risk Factor Represents 2 Points: Age 61-74 years, Malignancy Thrombosis Risk Factor Assessment Total Risk Factor Score: 4 Thrombosis Risk Factor Assessment Level: Moderate Risk Assessment and Plan (1) Acute colitis Current Visit: Yes Status: Acute Code(s): K52.9 - NONINFECTIVE GASTROENTERITIS AND COLITIS, UNSPECIFIED SNOMED Code(s): 76393987 (2) Brain metastasis Current Visit: Yes Status: Acute Code(s): C79.31 - SECONDARY MALIGNANT NEOPLASM OF BRAIN SNOMED Code(s): 98474520 (3) Hilar mass Current Visit: Yes Status: Acute Code(s): R91.8 - OTHER NONSPECIFIC ABNORMAL FINDING OF LUNG FIELD SNOMED Code(s): 898206241 (4) Lung cancer Current Visit: Yes Status: Acute Code(s): C34.90 - MALIGNANT NEOPLASM OF UNSP PART OF UNSP BRONCHUS OR LUNG SNOMED Code(s): 323813072 Plan: appreciate surgical evaluation per Await hematology/oncology service. Pain control as necessary. Continue current regimen of antibiotics given her colitis element. Prognosis is poor secondary to her multiple metastasis. shared services manager consultation for hospice/palliative care. Time with Patient: Greater than 30
[2019-02-20] MEDS ORDERED: LIDOCAINE 5% PATCH TOPICAL SCH (09:00)
[2019-02-20 09:48] LABS: HCT 26.4 % (34.0-46.0); Hypochromasia Slight; MCH 31.4 pg (25.0-35.0); MCHC 31.7 g/dL (31.0-37.0); Mean Platelet Volume 7.4; Platelet Count 434 k/uL (150-450); RBC 2.67 m/uL (3.80-5.40); RDW 13.8 % (11.5-15.5)
[2019-02-20 09:56] LABS: WBC 54.4 k/uL (3.8-10.6)
[2019-02-20 09:57] LABS: HGB 8.4 gm/dL (11.4-16.0)
[2019-02-20 12:25] LABS: Band Neutrophils % 3 %; Lymphocytes # (M) 2.72 k/uL (1.0-4.8); Monocytes # (M) 1.63 k/uL (0-1.0); Neutrophils % (M) 89 %; Nucleated Red Blood Cells 0 /100 WBC (0-0); Total Cells Counted 100; Toxic Granulation Present
[2019-02-20 12:26] LABS: Anisocytosis (M) Present; Poikilocytosis (M) Present
--- NOTE | 2019-02-20 14:43 | P.GSCN ---
History of Present Illness Consult date: 02/20/19 History of present illness: 63-year-old female presents to the emergency department with complaints of abdominal pain. She has had recent diagnosis of lung cancer that does appear to invade into the mediastinum and possibly into the esophagus. She also was found to have brain metastasis. On recent PET scan, she was found to have a lesion in the descending or sigmoid colon. She did have a CT scan on admission to the hospital and was found to have some inflammatory changes around this mass. She states that her last bowel movement was over 1 day ago but she is having some flatus. She denies any nausea vomiting. She denies any abdominal distention. She is being followed by oncology secondary to her stage IV disease. She states that she has not made a decision on chemotherapy. It is not clear whether she has had any discussion on goals of care due to her terminal illness. Review of Systems All systems: negative Past Medical History Past Medical History: Cancer, Thyroid Disorder Additional Past Medical History / Comment(s): breast cancer, lung CA, Brain l esions History of Any Multi-Drug Resistant Organisms: None Reported Past Surgical History: Breast Surgery Additional Past Surgical History / Comment(s): left breast masectomy 99, thyroid removed Past Anesthesia/Blood Transfusion Reactions: No Reported Reaction Past Psychological History: No Psychological Hx Reported Smoking Status: Former smoker Past Alcohol Use History: None Reported Past Drug Use History: None Reported - Past Family History Mother Family Medical History: Hypertension Medications and Allergies Home Medications Medication Instructions Recorded Confirmed Type RX: Multivitamins, Thera 1 tab PO DAILY 01/09/19 02/19/19 History [Multivitamin (formulary)] RX: Alendronate Sodium 70 mg PO FLORES 01/10/19 02/19/19 History RX: Calcium Carbonate/Vitamin D3 1 tab PO DAILY 01/10/19 02/19/19 History [Caltrate 600 Plus D3 Tablet] RX: Cholecalciferol [Vitamin D3 2,000 unit PO DAILY 01/10/19 02/19/19 History (25 Mcg = 1000 Iu)] RX: Levothyroxine Sodium 125 mcg PO DAILY 01/10/19 02/19/19 History [Synthroid] Omeprazole [PriLOSEC] 20 mg PO AC-BID #60 cap 01/12/19 02/19/19 Rx RX: Lidocaine 5% Patch [Lidoderm 1 patch TOPICAL DAILY #10 patch 01/12/19 Rx 5% Patch] RX: Metoprolol Tartrate [Lopressor] 25 mg PO BID #60 tablet 01/12/19 02/19/19 Rx RX: Nicotine 21Mg/24Hr Patch 1 patch TRANSDERM DAILY #14 patch 01/12/19 02/19/19 Rx [Habitrol] HYDROcodone/APAP 7.5-325MG [[place] 1 tab PO Q4H PRN #18 tab 01/13/19 02/19/19 Rx 7.5-325] Dexamethasone [Decadron] 4 mg PO BID 02/19/19 02/19/19 History Allergies Allergy/AdvReac Type Severity Reaction Status Date / Time cucumber AdvReac Unknown Verified 02/19/19 14:02 Milk Containing Products AdvReac Unknown Verified 02/19/19 14:02 [Dairy] tomato AdvReac Unknown Verified 02/19/19 14:02 Surgical - Exam Osteopathic Statement: *. No significant issues noted on an osteopathic structural exam other than those noted in the History and Physical/Consult. Vital Signs Temp Pulse Resp BP 97.2 F L 130 H 18 119/67 02/19/19 13:34 02/19/19 13:34 02/19/19 13:34 02/19/19 13:34 - General no distress - Eyes PERRL - ENT no hearing loss - Neck trachea midline - Respiratory no difficulty with respiration - Abdomen soft, mild tenderness to palpation in b/l lower quadrants, nondistended, no rebound, no guarding - Psychiatric oriented to time, oriented to person, oriented to place Results - Labs 02/20/19 08:42 02/19/19 14:05 Abnormal Lab Results - Last 24 Hours (Table) 02/19/19 02/19/19 02/19/19 Range/Units 14:00 14:05 14:05 WBC 52.3 H* (3.8-10.6) k/uL RBC 3.58 L (3.80-5.40) m/uL Hgb 11.0 L (11.4-16.0) gm/dL Hct (34.0-46.0) % Plt Count 489 H (150-450) k/uL Neutrophils # 50.0 H (1.3-7.7) k/uL Neutrophils # (Manual) (1.3-7.7) k/uL Lymphocytes # 0.9 L (1.0-4.8) k/uL Monocytes # (Manual) (0-1.0) k/uL Sodium 136 L (137-145) mmol/L Creatinine 0.43 L (0.52-1.04) mg/dL Glucose 150 H (74-99) mg/dL AST 45 H (14-36) U/L Alkaline Phosphatase 240 H (38-126) U/L Lipase <10 L (23-300) U/L Ur Specific [place] >1.050 H (1.001-1.035) Urine Ketones Trace H (Negative) 02/20/19 Range/Units 08:42 WBC 54.4 H* (3.8-10.6) k/uL RBC 2.67 L (3.80-5.40) m/uL Hgb 8.4 L D (11.4-16.0) gm/dL Hct 26.4 L (34.0-46.0) % Plt Count (150-450) k/uL Neutrophils # (1.3-7.7) k/uL Neutrophils # (Manual) 50.00 H (1.3-7.7) k/uL Lymphocytes # (1.0-4.8) k/uL Monocytes # (Manual) 1.63 H (0-1.0) k/uL Sodium (137-145) mmol/L Creatinine (0.52-1.04) mg/dL Glucose (74-99) mg/dL AST (14-36) U/L Alkaline Phosphatase (38-126) U/L Lipase (23-300) U/L Ur Specific [place] (1.001-1.035) Urine Ketones (Negative) Diabetes panel 02/19/19 Range/Units 14:05 Sodium 136 L (137-145) mmol/L Potassium 4.3 (3.5-5.1) mmol/L Chloride 99 (98-107) mmol/L Carbon Dioxide 25 (22-30) mmol/L BUN 14 (7-17) mg/dL Creatinine 0.43 L (0.52-1.04) mg/dL Glucose 150 H (74-99) mg/dL Calcium 8.8 (8.4-10.2) mg/dL AST 45 H (14-36) U/L ALT 17 (9-52) U/L Alkaline Phosphatase 240 H (38-126) U/L Total Protein 6.3 (6.3-8.2) g/dL Albumin 3.5 (3.5-5.0) g/dL Calcium panel 02/19/19 Range/Units 14:05 Calcium 8.8 (8.4-10.2) mg/dL Albumin 3.5 (3.5-5.0) g/dL Pituitary panel 02/19/19 Range/Units 14:05 Sodium 136 L (137-145) mmol/L Potassium 4.3 (3.5-5.1) mmol/L Chloride 99 (98-107) mmol/L Carbon Dioxide 25 (22-30) mmol/L BUN 14 (7-17) mg/dL Creatinine 0.43 L (0.52-1.04) mg/dL Glucose 150 H (74-99) mg/dL Calcium 8.8 (8.4-10.2) mg/dL Adrenal panel 02/19/19 Range/Units 14:05 Sodium 136 L (137-145) mmol/L Potassium 4.3 (3.5-5.1) mmol/L Chloride 99 (98-107) mmol/L Carbon Dioxide 25 (22-30) mmol/L BUN 14 (7-17) mg/dL Creatinine 0.43 L (0.52-1.04) mg/dL Glucose 150 H (74-99) mg/dL Calcium 8.8 (8.4-10.2) mg/dL Total Bilirubin 0.5 (0.2-1.3) mg/dL AST 45 H (14-36) U/L ALT 17 (9-52) U/L Alkaline Phosphatase 240 H (38-126) U/L Total Protein 6.3 (6.3-8.2) g/dL Albumin 3.5 (3.5-5.0) g/dL - Imaging CT scan - abdomen: report reviewed, image reviewed CT scan - pelvis: report reviewed, image reviewed Assessment and Plan (1) Abdominal pain Narrative/Plan: 63-year-old female with colonic mass, stage IV lung cancer with brain metastasis - I did have a discussion with the patient and the patient's primary care physician about her current diagnosis. Currently, it is unclear whether she has a true large bowel obstruction. She does have stool and air distal to this mass on CT of the abdomen and pelvis. She will be seen by oncology during this admission and will be making decisions on oncologic treatment and goals of care. At this point, due to stage IV disease, any surgical procedure would be as a palliative measure and not as a curative measure. The patient does understand this. I will continue to follow and make recommendations based on the patient's clinical progress and decisions on goals of care Current Visit: Yes Status: Acute Code(s): R10.9 - UNSPECIFIED ABDOMINAL PAIN SNOMED Code(s): 48491745
[2019-02-20] MEDS: LIDOCAINE 5% PATCH TOPICAL SCH (17:09)
[2019-02-20] MEDS: PANTOPRAZOLE 40 MG TABLET PO SCH (18:01)
--- NOTE | 2019-02-20 18:01 | P.CONS ---
History of Present Illness - Reason for Consult Consult date: 02/20/19 metastatic NSCLC Requesting physician: Byron You - Chief Complaint abd pain - History of Present Illness Ms. Ge is a pleasant lady seen in consult at [facility] 01/10/19, she presented with upper respiratory symptoms, subjective fevers and chills that had been ongoing for several weeks. These had not improved satisfactorily after different courses of antibiotics. She had also been having some upper abdominal discomfort. The patient had noted blood-tinged sputum over 2-3 weeks, associated symptoms included generalized weakness, increasing shortness of br eath on exertion, as well as some numbness and tingling in her lower extremities, all progressive over the past 2-3 weeks. CXR on 01/09/19 showed a large left upper mediastinal mass. The patient left AMA with a plan to follow- up with Oncology and Pulmonary as an outpatient. However, due to some worsening of her symptoms she came back to the ER and agreed to be admitted for further management. On admission calcium was elevated at 10.3, CTA revealed 6.7 x 7.5 x 5.5 left hilar mass extending posteriorly and inferiorly with encasement of the left lower lobe pulmonary artery. Satellite related mass in the posterior segment was also seen measuring 2.5 x 3 cm. Calcium improved with hydration and withholding of calcium supplements. MRI of the brain revealed at least 5 separate lesions involving both lobes, the largest 4.2 cm in the right parietal lobe. These were overall cystic in nature. CT AP and bone scan were negative. She was seen by Radiation Oncology and started on Decadron. In retrospect she noted some visual complaints with blurring of vision in the right lateral visual field, as well as mild intermittent difficulty with balance. Bronchoscopy 01/12/19, path revealed poorly differentiated malignant neoplasm, positive for vimentin, but negative for other markers, including breast. Specimen sent to [facility], poorly differentiated malignant non-small cell neoplasm of pulmonary origin, with additional differentiation not possible. First office visit was on 01/19/19. She proceeded to whole brain radiation and completed that on 02/07/19. Staging PET showed widespread disease outside the [employer], with involvement of the left lower lobe, mediastinal lymph node, thoracic and lumbar spine, bilateral ribs and iliac bones, as well as the left lower abdomen, there was the possibility of a primary colonic neoplasm with 2 other areas of uptake. Patient is currently admitted with complaints of persistent, progressive abdominal pain, lower portion of the abdomen, denies any recent bloody or mucus stools, she did have a bowel movement the day before admission, she denied any change in caliber of the stool, no rectal pain with bowel movements. Patient is having more of a cramping type sensation across the abdomen, greater on the flanks, complaints of mild distention. She is anemic, WBC significantly elevated, all neutrophils, CT of the abdomen and pelvis reveals left colonic masses within the sigmoid and descending colon, enlarged since the prior PET/CT from 02/04. New acute inflammatory changes suggesting surrounding acute colitis. Possible punctate focus of pneumoperitoneum or nondistended fistulous tract in the adjacent sigmoid colon. Review of Systems 14 point review of systems is negative except as stated in HPI Past Medical History Past Medical History: Cancer, Thyroid Disorder Additional Past Medical History / Comment(s): breast cancer, lung CA, Brain lesions History of Any Multi-Drug Resistant Organisms: None Reported Past Surgical History: Breast Surgery Additional Past Surgical History / Comment(s): left breast masectomy 99, thyroid removed Past Anesthesia/Blood Transfusion Reactions: No Reported Reaction Past Psychological History: No Psychological Hx Reported Smoking Status: Former smoker Past Alcohol Use History: None Reported Past Drug Use History: None Reported - Past Family History Mother Family Medical History: Hypertension Medications and Allergies Home Medications Medication Instructions Recorded Confirmed Type Multivitamins, Thera [Multivitamin 1 tab PO DAILY 01/09/19 02/19/19 History (formulary)] Alendronate Sodium 70 mg PO FLORES 01/10/19 02/19/19 History Calcium Carbonate/Vitamin D3 1 tab PO DAILY 01/10/19 02/19/19 History [Caltrate 600 Plus D3 Tablet] Cholecalciferol [Vitamin D3 (25 2,000 unit PO DAILY 01/10/19 02/19/19 History Mcg = 1000 Iu)] Levothyroxine Sodium [Synthroid] 125 mcg PO DAILY 01/10/19 02/19/19 History Lidocaine 5% Patch [Lidoderm 5% 1 patch TOPICAL DAILY #10 patch 01/12/19 02/19/19 Rx Patch] Metoprolol Tartrate [Lopressor] 25 mg PO BID #60 tablet 01/12/19 02/19/19 Rx Nicotine 21Mg/24Hr Patch [Habitrol] 1 patch TRANSDERM DAILY #14 patch 01/12/19 02/19/19 Rx Omeprazole [PriLOSEC] 20 mg PO AC-BID #60 cap 01/12/19 02/19/19 Rx HYDROcodone/APAP 7.5-325MG [[place] 1 tab PO Q4H PRN #18 tab 01/13/19 02/19/19 Rx 7.5-325] Dexamethasone [Decadron] 4 mg PO BID 02/19/19 02/19/19 History Allergies Allergy/AdvReac Type Severity Reaction Status Date / Time cucumber AdvReac Unknown Verified 02/19/19 14:02 Milk Containing Products AdvReac Unknown Verified 02/19/19 14:02 [Dairy] tomato AdvReac Unknown Verified 02/19/19 14:02 Physical Exam Vitals: Vital Signs Temp Pulse Resp BP Pulse Ox 02/20/19 14:54 98.3 F 93 16 104/56 93 L 02/20/19 07:00 98.1 F 72 16 95/50 98 02/20/19 01:15 99.4 F 115 H 16 110/68 95 02/19/19 23:00 117 H 02/19/19 21:49 134 H 02/19/19 19:42 96.9 F L 131 H 16 123/73 98 Intake and Output 02/20/19 02/20/19 02/20/19 06:59 14:59 22:59 Intake Total 700 Balance 700 Intake: Intake, IV Titration 700 Amount Sodium Chloride 0.9% 1, 700 000 ml @ 100 mls/hr IV . Q10H [facility] Rx#:[id number] Other: Voiding Method Toilet Toilet # Voids 3 Weight 46.4 kg - Constitutional General appearance: average body habitus, cooperative, no acute distress - EENT Eyes: anicteric sclerae, edentulous, EOMI ENT: hearing grossly normal, normal oropharynx - Neck Neck: no lymphadenopathy - Respiratory Respiratory: bilateral: CTA - Cardiovascular Heart sounds: normal: S1, S2 Abnormal Heart Sounds: no systolic murmur, no diastolic murmur, no rub, no S3 Gallop, no S4 Gallop, no click, no other leg Peripheral Edema: bilateral: None - Gastrointestinal General gastrointestinal: distended, soft, tenderness - Neurologic Neurologic: CNII-XII intact - Musculoskeletal Musculoskeletal: strength equal bilaterally - Psychiatric Psychiatric: A&O x's 3, appropriate affect, intact judgment & insight Results CBC & Chem 7: 02/20/19 08:42 02/19/19 14:05 Labs: Abnormal Lab Results - Last 24 Hours (Table) 02/20/19 Range/Units 08:42 WBC 54.4 H* (3.8-10.6) k/uL RBC 2.67 L (3.80-5.40) m/uL Hgb 8.4 L D (11.4-16.0) gm/dL Hct 26.4 L (34.0-46.0) % Neutrophils # (Manual) 50.00 H (1.3-7.7) k/uL Monocytes # (Manual) 1.63 H (0-1.0) k/uL CT scan - abdomen: report reviewed CT scan - pelvis: report reviewed Assessment and Plan (1) Colonic mass Narrative/Plan: Early this morning case was discussed with Surgeon. It was felt that treating obstruction medically was the best option for the patient at this time. Case discussed with Dr. Wild. Dr. Wild is concerned that the patient could obstruct in the near future. If the patient does obstruct than that would negate any t herapy that she could receive for lung cancer. Also, it is unclear if the patient may have a second primary in the colon or, if this is metastatic disease or, a benign process. Dr. Wild has recommended a diverting ostomy the or removal of the mass. We will contact surgeon in the a.m. to discuss the opinions. Patient's performance status is a 1. Without further work up I cannot state for certain that she is a good surgical candidate, this will be discussed with Surgeon and Attending. Patient did seem to understand the reasoning behind the recommendation for surgery. Surgery would be reasonable even if it was for palliative/comfort measures only. Current Visit: Yes Status: Acute Priority: High Code(s): K63.9 - DISEASE OF INTESTINE, UNSPECIFIED SNOMED Code(s): 368651165 (2) Non-small cell lung cancer with metastasis Narrative/Plan: the plan so far regarding metastatic non-small cell lung cancer: The patient's PET scan results and implications of metastatic disease were discussed with her in the office on 02/09. She was advised that she has widespread metastatic disease, which is not curable. The intention of treatment would be prolongation of life and palliation of symptoms. Biomarker testing has been ordered but, is still pending. If she has a suitable marker, then appropriate, targeted agent will be used in first line. Otherwise, patient will start on chemotherapy with carboplatin, Taxol and Keytruda. Current Visit: Yes Status: Acute Code(s): C34.90 - MALIGNANT NEOPLASM OF UNSP PART OF UNSP BRONCHUS OR LUNG SNOMED Code(s): 303263219 (3) Brain metastasis Narrative/Plan: Status post whole brain radiation. Patient is to continue her steroid taper for now. She is currently on 4 mg of dexamethasone twice a day. Current Visit: Yes Status: Acute Priority: High Code(s): C79.31 - SECONDARY MALIGNANT NEOPLASM OF BRAIN SNOMED Code(s): 35022462 (4) Normocytic anemia Narrative/Plan: Patient has had a little over 2 gram drop in her hemoglobin over time. Anemia workup will be ordered. No need for transfusion at this time. CBC monitoring during hospitalization. Current Visit: Yes Status: Acute Priority: Medium Code(s): D64.9 - ANEMIA, UNSPECIFIED SNOMED Code(s): 996180348 (5) Leukocytosis Narrative/Plan: Patient's white blood cell count has been elevated for some time. Is noted to be a left shift, with absolute neutrophilia. No acute intervention. May need to consider infectious disease consult. Patient is on antibiotics. Current Visit: Yes Status: Acute Priority: Medium Code(s): D72.829 - ELEVATED WHITE BLOOD CELL COUNT, UNSPECIFIED SNOMED Code(s): 942475800
[2019-02-20 18:14] LABS: Reticulocyte % 1.6 % (0.5-2.0)
[2019-02-20] MEDS ORDERED: DOCUSATE 100 MG CAP PO PRN (21:00)
[2019-02-21 02:10] LABS: Iron Saturation 4.29 (12.00-45.00)
[2019-02-21] MEDS: MORPHINE SULFATE 4 MG/ML SYRINGE IVP PRN ×4 (04:06→23:57)
[2019-02-21] MEDS: ENOXAPARIN 40 MG/0.4 ML SYRINGE SQ SCH (07:03)
[2019-02-21] MEDS: NICOTINE 14MG/24HR PATCH TRANSDERM SCH (07:03)
[2019-02-21] MEDS: PIPERACILLIN-TAZOBACTAM 3.375 GM in SODIUM CHLORIDE 0.9% 100 ML IVPB SCH ×3 (07:03→23:57)
[2019-02-21] MEDS: METOPROLOL TARTRATE 25 MG TAB PO SCH ×2 (07:03→20:22)
[2019-02-21] MEDS: PANTOPRAZOLE 40 MG TABLET PO SCH (07:03)
--- NOTE | 2019-02-21 07:27 | P.PN ---
Subjective Progress Note Date: 02/21/19 Principal diagnosis: This is a continue progress on a 63-year-old white female essentially admitted for abdominal pain and finding of metastatic disease with potential colonic obst ruction. I'll on discussion with her today and she is agreeable to surgery for possible diverting colostomy to prevent potential obstruction and palliative care at that point. She slept well yesterday. She seems to be tolerating diet but has had no significant bowel movement since admission. Objective - Vital Signs Vital signs: Vital Signs Temp 98.8 F 02/21/19 00:49 Pulse 87 02/21/19 00:49 Resp 18 02/21/19 00:49 BP 105/65 02/21/19 00:49 Pulse Ox 96 02/21/19 00:49 Intake & Output 02/20/19 02/21/19 02/21/19 18:59 06:59 18:59 Intake Total 700 500 Balance 700 500 Weight 46.4 kg Intake: Intake, IV Titration 700 500 Amount Sodium Chloride 0.9% 1, 700 500 000 ml @ 100 mls/hr IV . Q10H [facility] Rx#:[id number] Other: Voiding Method Toilet Toilet # Voids 3 1 - Constitutional General appearance: Present: average body habitus - EENT Eyes: Absent: abnormal pupil - Neck Neck: Absent: lymphadenopathy - Respiratory Respiratory: bilateral: CTA - Cardiovascular Rhythm: regular Heart sounds: normal: S1, S2 Abnormal Heart Sounds: Absent: S3 Gallop - Gastrointestinal General gastrointestinal: Present: soft. Absent: tenderness - Integumentary Integumentary: Absent: cellulitis - Psychiatric Psychiatric: Present: A&O x's 3, appropriate affect, intact judgment & insight - Labs CBC & Chem 7: 02/20/19 08:42 02/19/19 14:05 Labs: Abnormal Lab Results - Last 24 Hours (Table) 02/20/19 02/20/19 Range/Units 08:42 08:42 WBC 54.4 H* (3.8-10.6) k/uL RBC 2.67 L (3.80-5.40) m/uL Hgb 8.4 L D (11.4-16.0) gm/dL Hct 26.4 L (34.0-46.0) % Neutrophils # (Manual) 50.00 H (1.3-7.7) k/uL Monocytes # (Manual) 1.63 H (0-1.0) k/uL Iron 9 L (50-170) ug/dL TIBC 210 L (228-460) ug/dL Iron Saturation 4.29 L (12.00-45.00) Ferritin 315.4 H (10.0-291.0) ng/mL Vitamin B12 3081.0 H (200.0-944.0) pg/mL Assessment and Plan (1) Acute colitis Current Visit: Yes Status: Acute Code(s): K52.9 - NONINFECTIVE GASTROENTERITIS AND COLITIS, UNSPECIFIED SNOMED Code(s): 70186909 (2) Brain metastasis Current Visit: Yes Status: Acute Priority: High Code(s): C79.31 - SECONDARY MALIGNANT NEOPLASM OF BRAIN SNOMED Code(s): 87715741 (3) Hilar mass Current Visit: Yes Status: Acute Code(s): R91.8 - OTHER NONSPECIFIC ABNORMAL FINDING OF LUNG FIELD SNOMED Code(s): 213638139 (4) Lung cancer Current Visit: Yes Status: Acute Code(s): C34.90 - MALIGNANT NEOPLASM OF UNSP PART OF UNSP BRONCHUS OR LUNG SNOMED Code(s): 589305356 Plan: We will continue clear liquids today. Await surgical reevaluation area and she is agreeable to potential repair at this time. New. Check CBC and CMP in a.m. History leukocytosis which is not new. Prognosis is guarded.
[2019-02-21 08:21] LABS: HGB 8.6 gm/dL (11.4-16.0); Hypochromasia Slight; MCH 31.5 pg (25.0-35.0); MCHC 31.7 g/dL (31.0-37.0); MCV 99.3 fL (80.0-100.0); Mean Platelet Volume 7.2; Platelet Count 465 k/uL (150-450); RBC 2.72 m/uL (3.80-5.40); RDW 13.6 % (11.5-15.5)
[2019-02-21 08:22] LABS: ALT 24 U/L (9-52); AST 31 U/L (14-36); African American GFR (CKD) >90 (>60 ml/min/1.73 sqM); Albumin 2.8 g/dL (3.5-5.0); Alkaline Phosphatase 227 U/L (38-126); Anion Gap 8 mmol/L; Blood Urea Nitrogen 6 mg/dL (7-17); Calcium 8.2 mg/dL (8.4-10.2); Carbon Dioxide 26 mmol/L (22-30); Chloride 104 mmol/L (98-107); Glucose 85 mg/dL (74-99); Potassium 4.4 mmol/L (3.5-5.1); Sodium 138 mmol/L (137-145); Total Bilirubin 0.5 mg/dL (0.2-1.3); Total Protein 5.5 g/dL (6.3-8.2)
[2019-02-21 08:25] LABS: WBC 61.2 k/uL (3.8-10.6)
[2019-02-21] MEDS: SODIUM CHLORIDE 0.9% 1,000 ML IV SCH ×2 (09:30→20:26)
--- NOTE | 2019-02-21 13:44 | FL ---
EXAMINATION TYPE: FL barium enema DATE OF EXAM: 02/21/2019 COMPARISON: CT dated 02/19/2019 and PET/CT dated 02/04/2019. HISTORY: Lung cancer, colonic masses, and constipation. Last bowel movement 4 days prior, abnormal fo r the patient TECHNIQUE: A double contrast barium enema study is performed. 750 mL of Isovue-370 was utilized with 750 mL of water. 2 minutes and 56 seconds of fluoroscopy time was used with 81 images saved. FINDINGS: The medical staff coordinator image demonstrates no evidence of pneumoperitoneum. This also demonstrates gaseou s distention of the colon up to 3.8 cm without abnormal dilation. There is mucosal ulceration and irregularity of the sigmoid colon in a long segment measuring at leas t 6.5 cm. There appears to be extrinsic compression by a likely submucosal mass. This could either be primary or metastatic. After entirely filling the rectum this area of narrowing is partially related to colonic spasm as there is some distention without high-grade stricture. Numerous diverticula are also incidentally seen throughout the colon. Along the descending colon distally there is extrinsic m ass effect without stenosis from the now confirmed small bowel rather than large bowel concerning mas s seen on prior PET/CT and CT dated 02/19/2019. There is persistent narrowing and delayed of contrast flow at the splenic flexure with eventual passa ge of contrast. Focal area of narrowing is seen without incomplete distention at this location. This is very short segment and could relate to colonic spasm. On the postevacuation images the previously questioned fistula or free air appears to represent a sin us tract marked on image /81 emanating anteriorly and medially without extent into the adjacent colo n. This appears to be blind ending. IMPRESSION: 1. Long segment mucosal ulceration and irregularity with transient high-grade narrowing partially rel ated to colonic spasm of the sigmoid colon is seen measuring 6.5 cm in length. Suspicion is for submu cosal nonobstructing sigmoid colon mass, primary or metastatic, creating adjacent colitis and spasm. 2. 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 3. The second neoplastic bowel mass seen on the prior exams is located within small bowel adjacent to the descending colon creating only mild mass effect on the descending colon. 4. Short segment persistent narrowing of the splenic flexure without CT correlate. This may relate to colonic spasm or short segment stricture and exploration of the splenic flexure is recommended if th ere is surgical intervention performed. 5. Contrast progresses into the transverse colon through the suspected areas of obstruction however t he patient described intense pain throughout the exam and the exam was terminated after opacification of the mid and distal transverse colon was achieved. The proximal transverse colon and ascending col on were not visualized.
--- NOTE | 2019-02-21 14:10 | P.PN ---
Subjective Progress Note Date: 02/21/19 Patient seen and examined at bedside. She states she is feeling better today. Abdominal pain is improving. She does not have pain around her rectum. She states she has not had a bowel movement. She is unsure on whether she is passing gas or not. Objective - Vital Signs Vital signs: Vital Signs Temp 98.0 F 02/21/19 07:00 Pulse 94 02/21/19 07:00 Resp 16 02/21/19 07:00 BP 123/74 02/21/19 07:00 Pulse Ox 94 L 02/21/19 07:00 Intake & Output 02/20/19 02/21/19 02/21/19 18:59 06:59 18:59 Intake Total 700 500 Balance 700 500 Weight 46.4 kg 46.4 kg Intake: Intake, IV Titration 700 500 Amount Sodium Chloride 0.9% 1, 700 500 000 ml @ 100 mls/hr IV . Q10H [facility] Rx#:[id number] Other: Voiding Method Toilet Toilet # Voids 3 1 - Constitutional General appearance: Present: cooperative, no acute distress - EENT Eyes: Present: PERRLA - Respiratory Details: no difficulty with respiration - Gastrointestinal Gastrointestinal Comment(s): soft, nontender, nondistended, no rebound, no guarding - Musculoskeletal Musculoskeletal: Present: generalized weakness - Psychiatric Psychiatric: Present: A&O x's 3 - Labs CBC & Chem 7: 02/21/19 06:51 02/21/19 06:51 Labs: Abnormal Lab Results - Last 24 Hours (Table) 02/20/19 02/20/19 02/21/19 Range/Units 08:42 08:42 06:51 WBC 61.2 H* (3.8-10.6) k/uL RBC 2.72 L (3.80-5.40) m/uL Hgb 8.6 L (11.4-16.0) gm/dL Hct 27.0 L (34.0-46.0) % Plt Count 465 H (150-450) k/uL BUN (7-17) mg/dL Calcium (8.4-10.2) mg/dL Iron 9 L (50-170) ug/dL TIBC 210 L (228-460) ug/dL Iron Saturation 4.29 L (12.00-45.00) Ferritin 315.4 H (10.0-291.0) ng/mL Alkaline Phosphatase (38-126) U/L Total Protein (6.3-8.2) g/dL Albumin (3.5-5.0) g/dL Vitamin B12 3081.0 H (200.0-944.0) pg/mL RBC Folate 1,450 H (280 - 791) ng/mL 02/21/19 Range/Units 06:51 WBC (3.8-10.6) k/uL RBC (3.80-5.40) m/uL Hgb (11.4-16.0) gm/dL Hct (34.0-46.0) % Plt Count (150-450) k/uL BUN 6 L (7-17) mg/dL Calcium 8.2 L (8.4-10.2) mg/dL Iron (50-170) ug/dL TIBC (228-460) ug/dL Iron Saturation (12.00-45.00) Ferritin (10.0-291.0) ng/mL Alkaline Phosphatase 227 H (38-126) U/L Total Protein 5.5 L (6.3-8.2) g/dL Albumin 2.8 L (3.5-5.0) g/dL Vitamin B12 (200.0-944.0) pg/mL RBC Folate (280 - 791) ng/mL Assessment and Plan (1) Abdominal pain Narrative/Plan: 63-year-old female with colonic mass, stage IV lung cancer with brain metastasis - I did review the oncology notes for this case. It is reasonable to consider a diverting ostomy if the patient is having concern of obstruction. I also did review the CT scan once again and did discuss the CT findings with the radiologist. The patient does have 2 lesions in the colon in the descending and sigmoid colon. It is also unclear whether there is a true obstruction. We will obtain a barium enema for further investigation of anatomy and the multiple lesions of the left side of the colon. Once this is completed, I will need to discuss the case with oncology on patient's medical status and surgery preparedness and what the overall prognosis would be prior to deciding on a diverting loop ostomy versus an end colostomy with removal of the colonic masses. At this point, removing the colonic masses may not have a curative effect for the patient. Further recommendations will be made after barium enema and discussion with oncology. Current Visit: Yes Status: Acute Code(s): R10.9 - UNSPECIFIED ABDOMINAL PAIN SNOMED Code(s): 22379114
[2019-02-21] MEDS: LIDOCAINE 5% PATCH TOPICAL SCH (15:51)
[2019-02-21] MEDS ORDERED: PANTOPRAZOLE 40 MG TABLET PO SCH (18:00)
[2019-02-22] MEDS: SODIUM CHLORIDE 0.9% 1,000 ML IV SCH ×2 (05:56→15:45)
[2019-02-22 07:39] LABS: HCT 26.3 % (34.0-46.0); HGB 8.4 gm/dL (11.4-16.0); Hypochromasia Slight; MCH 31.7 pg (25.0-35.0); MCHC 31.8 g/dL (31.0-37.0); MCV 99.7 fL (80.0-100.0); Mean Platelet Volume 7.2; Platelet Count 456 k/uL (150-450); RBC 2.64 m/uL (3.80-5.40); RDW 13.5 % (11.5-15.5)
[2019-02-22 07:47] LABS: ALT 19 U/L (9-52); AST 30 U/L (14-36); African American GFR (CKD) >90 (>60 ml/min/1.73 sqM); Albumin 2.7 g/dL (3.5-5.0); Alkaline Phosphatase 198 U/L (38-126); Anion Gap 7 mmol/L; Blood Urea Nitrogen 4 mg/dL (7-17); Calcium 8.4 mg/dL (8.4-10.2); Carbon Dioxide 25 mmol/L (22-30); Chloride 107 mmol/L (98-107); Glucose 89 mg/dL (74-99); Potassium 4.1 mmol/L (3.5-5.1); Sodium 139 mmol/L (137-145); Total Bilirubin 0.4 mg/dL (0.2-1.3); Total Protein 5.3 g/dL (6.3-8.2)
[2019-02-22 07:55] LABS: WBC 57.9 k/uL (3.8-10.6)
--- NOTE | 2019-02-22 08:52 | P.PN ---
Subjective Progress Note Date: 02/22/19 Patient seen and examined at bedside. States that after the barium enema from yesterday, she did have some abdominal pain, however she began having bowel function and her abdominal pain has resolved. She denies nausea and vomiting. Objective - Vital Signs Vital signs: Vital Signs Temp 98.3 F 02/22/19 07:00 Pulse 105 H 02/22/19 07:00 Resp 16 02/22/19 07:00 BP 130/79 02/22/19 07:00 Pulse Ox 98 02/22/19 07:00 Intake & Output 02/21/19 02/22/19 02/22/19 18:59 06:59 18:59 Intake Total 800 Balance 800 Weight 46.4 kg Intake: Intake, IV Titration 800 Amount Sodium Chloride 0.9% 1, 800 000 ml @ 100 mls/hr IV . Q10H [facility] Rx#:[id number] Other: Voiding Method Toilet Toilet # Voids 2 2 - Constitutional General appearance: Present: cooperative, no acute distress - Respiratory Details: no difficulty with respiration - Gastrointestinal Gastrointestinal Comment(s): soft, nontender, nondistended, no rebound, no guarding - Psychiatric Psychiatric: Present: A&O x's 3 - Labs CBC & Chem 7: 02/22/19 06:50 02/22/19 06:50 Labs: Abnormal Lab Results - Last 24 Hours (Table) 02/20/19 02/22/19 02/22/19 Range/Units 08:42 06:50 06:50 WBC 57.9 H* (3.8-10.6) k/uL RBC 2.64 L (3.80-5.40) m/uL Hgb 8.4 L (11.4-16.0) gm/dL Hct 26.3 L (34.0-46.0) % Plt Count 456 H (150-450) k/uL BUN 4 L (7-17) mg/dL Creatinine 0.42 L (0.52-1.04) mg/dL Alkaline Phosphatase 198 H (38-126) U/L Total Protein 5.3 L (6.3-8.2) g/dL Albumin 2.7 L (3.5-5.0) g/dL RBC Folate 1,450 H (280 - 791) ng/mL Assessment and Plan (1) Abdominal pain Narrative/Plan: 63-year-old female with colonic mass, stage IV lung cancer with brain metastasis - Patient did have a barium enema performed yesterday. There is a notable 6.5 cm nonobstructing lesion in the sigmoid colon. The patient did have bowel function after the barium enema. I also did discuss the case with Dr. Wild yesterday. At this point, the goals of care need to be firmly established with the patient. Any surgical intervention would be strictly for palliative purposes and non- curative. It is unclear whether the sigmoid colon mass is a second primary source or a metastatic lesion. Based on imaging studies, the mass does appear submucosal and biopsy would unlikely provide a complete picture with IR or endoscopy. At this point, the patient is not obstructed and therefore we can continue the patient on laxatives for the time being while decisions on long- term care are being made. Current Visit: Yes Status: Acute Code(s): R10.9 - UNSPECIFIED ABDOMINAL PAIN SNOMED Code(s): 42454370
[2019-02-22] MEDS: ENOXAPARIN 40 MG/0.4 ML SYRINGE SQ SCH (10:24)
[2019-02-22] MEDS: PIPERACILLIN-TAZOBACTAM 3.375 GM in SODIUM CHLORIDE 0.9% 100 ML IVPB SCH ×3 (10:24→23:28)
[2019-02-22] MEDS: NICOTINE 14MG/24HR PATCH TRANSDERM SCH (10:24)
[2019-02-22] MEDS: PANTOPRAZOLE 40 MG TABLET PO SCH (10:24)
[2019-02-22] MEDS: METOPROLOL TARTRATE 25 MG TAB PO SCH ×2 (10:24→20:23)
[2019-02-22] MEDS: MORPHINE SULFATE 4 MG/ML SYRINGE IVP PRN ×3 (11:25→20:20)
[2019-02-22] MEDS ORDERED: MAGNESIUM CITRATE 296 ML BOTTLE PO ONE (13:45)
--- NOTE | 2019-02-22 15:52 | P.PN ---
Progress Note - Text Progress Note Date: 02/22/19 I did have a long discussion with the patient and the patient's daughter after discussion with Dr. Wild. At this point, we are unsure if the colonic mass is a primary tumor or if this is a metastatic lesion from the lung cancer. If the patient is to start chemotherapy for lung cancer, it would not treat a second primary colon cancer. Therefore, we would need further investigation to understand what the pathology is of the colonic mass. At this point, an IR biopsy is unlikely due to the lesion being submucosal and the colon. A laparoscopic biopsy would provide a high risk for any perforation of the colon. So we will plan for a endoscopic biopsy of this lesion. The biopsy will be able to dictate any future oncologic and surgical plans. We will plan for the biopsy to be completed tomorrow.
[2019-02-22] MEDS: LIDOCAINE 5% PATCH TOPICAL SCH (18:10)
--- NOTE | 2019-02-22 22:42 | P.PN ---
Subjective Progress Note Date: 02/22/19 Principal diagnosis: This is a continue progress on a 63-year-old white female essentially admitted for abdominal pain and finding of metastatic disease with potential colonic obst ruction. I'll on discussion with her today and she is agreeable to surgery for possible diverting colostomy to prevent potential obstruction and palliative care at that point. She slept well yesterday. She seems to be tolerating diet but has had no significant bowel movement since admission. Discussion with the patient about possible diverting colostomy to prevent possible obstruction. However protocol needs to be followed as far as if this is a new primary versus metastatic disease.Conference with the general surgeon at length. Objective - Vital Signs Vital signs: Vital Signs Temp 98.2 F 02/22/19 19:28 Pulse 104 H 02/22/19 19:28 Resp 17 02/22/19 19:28 BP 135/81 02/22/19 19:28 Pulse Ox 90 L 02/22/19 19:28 Intake & Output 02/22/19 02/22/19 02/23/19 06:59 18:59 06:59 Intake Total 800 240 Balance 800 240 Intake: Intake, IV Titration 800 Amount Sodium Chloride 0.9% 1, 800 000 ml @ 100 mls/hr IV . Q10H LU Rx#:[id number] Oral 240 Other: Voiding Method Toilet # Voids 2 8 1 # Bowel Movements 1 - Constitutional General appearance: Present: average body habitus - EENT Eyes: Absent: abnormal pupil - Neck Neck: Absent: lymphadenopathy - Respiratory Respiratory: bilateral: CTA - Cardiovascular Rhythm: regular Heart sounds: normal: S1, S2 Abnormal Heart Sounds: Absent: S3 Gallop - Gastrointestinal General gastrointestinal: Present: soft - Integumentary Integumentary: Absent: cellulitis - Psychiatric Psychiatric: Present: A&O x's 3 - Labs CBC & Chem 7: 02/22/19 06:50 02/22/19 06:50 Labs: Abnormal Lab Results - Last 24 Hours (Table) 02/22/19 02/22/19 Range/Units 06:50 06:50 WBC 57.9 H* (3.8-10.6) k/uL RBC 2.64 L (3.80-5.40) m/uL Hgb 8.4 L (11.4-16.0) gm/dL Hct 26.3 L (34.0-46.0) % Plt Count 456 H (150-450) k/uL BUN 4 L (7-17) mg/dL Creatinine 0.42 L (0.52-1.04) mg/dL Alkaline Phosphatase 198 H (38-126) U/L Total Protein 5.3 L (6.3-8.2) g/dL Albumin 2.7 L (3.5-5.0) g/dL Assessment and Plan (1) Acute colitis Current Visit: Yes Status: Acute Code(s): K52.9 - NONINFECTIVE GASTROENTERITIS AND COLITIS, UNSPECIFIED SNOMED Code(s): 79916889 (2) Brain metastasis Current Visit: Yes Status: Acute Priority: High Code(s): C79.31 - SECONDARY MALIGNANT NEOPLASM OF BRAIN SNOMED Code(s): 39413421 (3) Hilar mass Current Visit: Yes Status: Acute Code(s): R91.8 - OTHER NONSPECIFIC ABNORMAL FINDING OF LUNG FIELD SNOMED Code(s): 364346082 (4) Lung cancer Current Visit: Yes Status: Acute Code(s): C34.90 - MALIGNANT NEOPLASM OF UNSP PART OF UNSP BRONCHUS OR LUNG SNOMED Code(s): 701542346 Plan: Appreciate input from oncology and general surgery. Check CBC and CMP in a.m. Prognosis is guarded secondary to her multiple comorbidities. Time with Patient: Greater than 30
[2019-02-23] MEDS: MORPHINE SULFATE 4 MG/ML SYRINGE IVP PRN ×4 (00:13→19:22)
--- NOTE | 2019-02-23 00:35 | P.PN ---
Subjective Progress Note Date: 02/22/19 The patient feels overall fairly comfortable. She denies any major abdominal pain. No nausea or vomiting. She is having bowel movements and passing gas. She reports some increase in appetite. No fevers or chills. Objective - Vital Signs Vital signs: Vital Signs Temp 98.2 F 02/22/19 19:28 Pulse 104 H 02/22/19 19:28 Resp 17 02/22/19 19:28 BP 135/81 02/22/19 19:28 Pulse Ox 90 L 02/22/19 19:28 Intake & Output 02/22/19 02/22/19 02/23/19 06:59 18:59 06:59 Intake Total 800 240 Balance 800 240 Intake: Intake, IV Titration 800 Amount Sodium Chloride 0.9% 1, 800 000 ml @ 100 mls/hr IV . Q10H [facility] Rx#:[id number] Oral 240 Other: Voiding Method Toilet # Voids 2 8 1 # Bowel Movements 1 - Constitutional General appearance: Present: no acute distress - EENT Eyes: Present: EOMI ENT: Present: hearing grossly normal, normal oropharynx - Respiratory Respiratory: bilateral: CTA - Cardiovascular Rhythm: regular Heart sounds: normal: S1, S2 - Gastrointestinal General gastrointestinal: Present: normal bowel sounds, soft Localized gastrointestinal: tender: diffuse (mild) - Integumentary Integumentary: Present: normal - Neurologic Neurologic: Present: CNII-XII intact - Musculoskeletal Musculoskeletal: Present: generalized weakness - Labs CBC & Chem 7: 02/22/19 06:50 02/22/19 06:50 Labs: Abnormal Lab Results - Last 24 Hours (Table) 02/22/19 02/22/19 Range/Units 06:50 06:50 WBC 57.9 H* (3.8-10.6) k/uL RBC 2.64 L (3.80-5.40) m/uL Hgb 8.4 L (11.4-16.0) gm/dL Hct 26.3 L (34.0-46.0) % Plt Count 456 H (150-450) k/uL BUN 4 L (7-17) mg/dL Creatinine 0.42 L (0.52-1.04) mg/dL Alkaline Phosphatase 198 H (38-126) U/L Total Protein 5.3 L (6.3-8.2) g/dL Albumin 2.7 L (3.5-5.0) g/dL Assessment and Plan (1) Colonic mass Narrative/Plan: The patient presented with symptoms related to the same. It was concern for obstruction, as well as fistula. At this time the patient does not appear to be obstructed clinically. Symptoms are improved. The patient's case, including scans were discussed in detail with surgery. Based on their evaluation of the CT scan, fistula appears to be less likely. At this time extrinsic lesion, involving segments of the colon, and adjacent small bowel is a possibility, versus primary colonic lesion with growth outwards through the serosa. It was discussed with surgery, and subsequently with the patient, that this p resents a complicated situation. If the patient had a second primary malignancy involving the colon, then this should ideally be treated surgically, before we proceed with treatment for her lung cancer. If the patient already has metastatic disease limited to the colon, then the patient will be quite hard to treat, as we do not have a regimen that would be effective against metastatic lung and metastatic colon simultaneously. On the other hand if this lesion represents metastasis from the lung primary with extrinsic involvement and growth the wall of the colon from outside in, this would represent another lesion in her stage IV lung cancer which already has. In that case she can proceed with systemic treatment for metastatic lung cancer (assuming no need for acute surgical intervention such as or obstruction or perforation) which is already being planned for her Therefore it is very important to obtain a biopsy from the abdominal lesion. Various methods of attempting the same were discussed with surgery. At this time the plan is to proceed with sigmoidoscopy, and biopsy of any intraluminal lesions. If sigmoidoscopy is negative for the same, then relapse, with appropriate antibiotics the lesions will be considered. The above plan was discussed in detail with the patient and surgery. They are agreeable to proceed Current Visit: Yes Status: Acute Priority: High Code(s): K63.9 - DISEASE OF INTESTINE, UNSPECIFIED SNOMED Code(s): 521088688 (2) Non-small cell lung cancer with metastasis Narrative/Plan: The patient has completed whole brain radiation with good tolerance. She will start systemic therapy, ending receipt of biomarker testing. If these are negative for any specific target, she'll start treatment with carboplatin and Alimta, along with Keytruda. However the current plan is on hold currently pending evaluation and identification of the colonic lesions, which would have implications as detailed above Current Visit: Yes Status: Acute Code(s): C34.90 - MALIGNANT NEOPLASM OF UNSP PART OF UNSP BRONCHUS OR LUNG SNOMED Code(s): 053550862
[2019-02-23] MEDS: SODIUM CHLORIDE 0.9% 1,000 ML IV SCH ×2 (05:27→13:59)
--- NOTE | 2019-02-23 07:55 | P.PN ---
Subjective Principal diagnosis: This is a continue progress on a 63-year-old white female essentially admitted for abdominal pain and finding of metastatic disease with potential colonic obstruction. I'll on discussion with her today and she is agreeable to surgery for possible diverting colostomy to prevent potential obstruction and palliative care at that point. She slept well yesterday. She seems to be tolerating diet but has had no significant bowel movement since admission. This is a continue present on a 63-year-old white female essentially admitted for possible metastatic disease. She is scheduled for sigmoidoscopy/colonoscopy with possible biopsy because of computed tomography scan showing possible metastatic disease versus new primary. She has not underlying history of non- small cell cancer. Objective - Vital Signs Vital signs: Vital Signs Temp 98.1 F 02/23/19 01:16 Pulse 98 02/23/19 01:16 Resp 18 02/23/19 04:37 BP 129/78 02/23/19 01:16 Pulse Ox 99 02/23/19 07:27 Intake & Output 02/22/19 02/23/19 02/23/19 18:59 06:59 18:59 Intake Total 240 900 Balance 240 900 Intake: Intake, IV Titration 900 Amount Piperacillin-Tazobactam 3 100 .375 gm In Sodium Chloride 0.9% 100 ml @ 25 mls/hr IVPB Q8HR [facility] Rx# :[id number] Sodium Chloride 0.9% 1, 800 000 ml @ 100 mls/hr IV . Q10H [facility] Rx#:[id number] Oral 240 Other: Voiding Method Toilet # Voids 8 1 # Bowel Movements 1 - Constitutional General appearance: Present: average body habitus - EENT Eyes: Absent: abnormal pupil - Neck Neck: Absent: lymphadenopathy - Respiratory Respiratory: bilateral: CTA - Cardiovascular Rhythm: regular Heart sounds: normal: S1, S2 Abnormal Heart Sounds: Absent: S3 Gallop - Gastrointestinal General gastrointestinal: Present: soft. Absent: tenderness - Musculoskeletal Musculoskeletal: Present: gait normal - Psychiatric Psychiatric: Present: A&O x's 3, appropriate affect - Labs CBC & Chem 7: 02/22/19 06:50 02/22/19 06:50 Labs: Abnormal Lab Results - Last 24 Hours (Table) 02/22/19 Range/Units 06:50 WBC 57.9 H* (3.8-10.6) k/uL RBC 2.64 L (3.80-5.40) m/uL Hgb 8.4 L (11.4-16.0) gm/dL Hct 26.3 L (34.0-46.0) % Plt Count 456 H (150-450) k/uL Assessment and Plan (1) Acute colitis Current Visit: Yes Status: Acute Code(s): K52.9 - NONINFECTIVE EDJUAN ROENTERITIS AND COLITIS, UNSPECIFIED SNOMED Code(s): 25488955 (2) Brain metastasis Current Visit: Yes Status: Acute Priority: High Code(s): C79.31 - SECONDARY MALIGNANT NEOPLASM OF BRAIN SNOMED Code(s): 53089851 (3) Hilar mass Current Visit: Yes Status: Acute Code(s): R91.8 - OTHER NONSPECIFIC ABNORMAL FINDING OF LUNG FIELD SNOMED Code(s): 580070840 (4) Lung cancer Current Visit: Yes Status: Acute Code(s): C34.90 - MALIGNANT NEOPLASM OF UNSP PART OF UNSP BRONCHUS OR LUNG SNOMED Code(s): 181829069 Plan: Appreciate input from oncology and general surgery. Await colonoscopy and biopsy results. Anticipate discharge in next 24 hours. Prognosis is guarded secondary to her multiple comorbidities.
[2019-02-23] MEDS: ENOXAPARIN 40 MG/0.4 ML SYRINGE SQ SCH (07:57)
[2019-02-23] MEDS: PANTOPRAZOLE 40 MG TABLET PO SCH (08:39)
[2019-02-23] MEDS: PIPERACILLIN-TAZOBACTAM 3.375 GM in SODIUM CHLORIDE 0.9% 100 ML IVPB SCH ×2 (08:39→16:56)
[2019-02-23] MEDS: NICOTINE 14MG/24HR PATCH TRANSDERM SCH (08:39)
[2019-02-23] MEDS: METOPROLOL TARTRATE 25 MG TAB PO SCH ×2 (08:39→21:37)
[2019-02-23] MEDS ORDERED: IV FLUID CONTINUATION 1,000 ML IV ONE (12:25)
[2019-02-23] MEDS ORDERED: MIDAZOLAM 2 MG/2 ML VIAL ONE (12:25)
[2019-02-23] MEDS ORDERED: PROPOFOL 10 MG/ML 20 ML VIAL IV ONE (12:25)
--- NOTE | 2019-02-23 13:10 | P.OP ---
Date of Procedure: 02/23/19 Preoperative Diagnosis: Sigmoid colon mass Postoperative Diagnosis: Sigmoid colon mass Procedure(s) Performed: Flexible sigmoidoscopy up to approximately 70 cm with biopsy Anesthesia: CATARINO Surgeon: Fabian Sierra Pathology: other (Biopsies of sigmoid and biopsies of sigmoid mass) Condition: stable Disposition: floor Indications for Procedure: 63-year-old female with recent finding of sigmoid mass on PET scan and CT of the abdomen and pelvis along with a barium enema. She is noted to have a history of small cell lung cancer along with metastasis to the brain. Biopsy is being performed today for planning on the future clinical care of the patient's multiple oncologic issues. Operative Findings: Sigmoid colon mass and approximately the 25 cm ricardo Description of Procedure: The patient was placed in left lateral decubitus position. Sedation was provided by anesthesia and a digital rectal exam was performed. There was no obvious palpable rectal mass. The scope was then placed into the rectum and advanced to approximately 70 cm. The scope was then slowly retrieved and there were no obvious lesions throughout the descending colon. The sigmoid colon was closely examined. Multiple biopsies were taken of the sigmoid colon. A mucosal ulceration was noted and this was noted to be the sigmoid colon mass that had been seen on previous imaging. Multiple biopsies were taken. Hemostasis was maintained. The scope was then fully retrieved and the patient was awakened in the endoscopy suite. Multiple pictures were taken throughout the procedure.
[2019-02-23] MEDS: LIDOCAINE 5% PATCH TOPICAL SCH (19:23)
[2019-02-24] MEDS: SODIUM CHLORIDE 0.9% 1,000 ML IV SCH ×2 (00:48→08:57)
[2019-02-24] MEDS: PIPERACILLIN-TAZOBACTAM 3.375 GM in SODIUM CHLORIDE 0.9% 100 ML IVPB SCH ×2 (00:49→08:56)
[2019-02-24] MEDS: MORPHINE SULFATE 4 MG/ML SYRINGE IVP PRN ×2 (00:54→06:21)
--- NOTE | 2019-02-24 07:27 | P.PN ---
Subjective Progress Note Date: 02/24/19 Patient seen and examined at bedside. States she is feeling well since her procedure. She has had lots of flatus. She denies nausea or vomiting. Objective - Vital Signs Vital signs: Vital Signs Temp 98.3 F 02/24/19 02:29 Pulse 88 02/24/19 02:29 Resp 18 02/24/19 02:29 BP 128/72 02/24/19 02:29 Pulse Ox 96 02/24/19 02:29 Intake & Output 02/23/19 02/24/19 02/24/19 18:59 06:59 18:59 Intake Total 250 900 Balance 250 900 Weight 46.4 kg Intake: IV 250 Intake, IV Titration 900 Amount Piperacillin-Tazobactam 3 100 .375 gm In Sodium Chloride 0.9% 100 ml @ 25 mls/hr IVPB Q8HR [facility] Rx# :[id number] Sodium Chloride 0.9% 1, 800 000 ml @ 100 mls/hr IV . Q10H [facility] Rx#:[id number] Other: Voiding Method Toilet # Voids 2 1 # Bowel Movements 10 1 - Constitutional General appearance: Present: cooperative, no acute distress - EENT Eyes: Present: PERRLA - Respiratory Details: No difficulty with respiration - Gastrointestinal Gastrointestinal Comment(s): Soft, nontender, nondistended, no rebound, no guarding - Psychiatric Psychiatric: Present: A&O x's 3 - Labs CBC & Chem 7: 02/22/19 06:50 02/22/19 06:50 Assessment and Plan (1) Abdominal pain Narrative/Plan: 63-year-old female with colonic mass, stage IV lung cancer with brain metastasis - Patient is doing well since procedure yesterday. She is not obstructed as the pediatric scope was able to traverse the colonic lesion. Biopsies were taken and are pending. At this point, the patient is surgically stable for discharge. I did advise the patient to stay on full liquids and soft foods with laxative and stool softener use. She is to follow-up with myself and with oncology for further recommendations after biopsies return. Current Visit: Yes Status: Acute Code(s): R10.9 - UNSPECIFIED ABDOMINAL PAIN SNOMED Code(s): 80539868
[2019-02-24 07:39] VITALS: BP 145/81; PULSE 99; RESP 16; TEMP 98.1
--- NOTE | 2019-02-24 07:42 | P.DS ---
Providers Date of admission: 02/19/19 14:50 Attending physician: Stewart Dawn Consults: 02/19/19 14:50 Consult Physician Routine Consulting Provider: Juno Hernadez Consult Reason/Comments: known Do you want consulting provider notified?: Yes Consult Physician Routine Consulting Provider: Fabian Sierra Consult Reason/Comments: colonCa Do you want consulting provider notified?: Yes Primary care physician: Stewart Dawn - Discharge Diagnosis(es) (1) Acute colitis Current Visit: Yes Status: Acute (2) Brain metastasis Current Visit: Yes Status: Acute Priority: High (3) Hilar mass Current Visit: Yes Status: Acute (4) Lung cancer Current Visit: Yes Status: Acute Hospital Course: Mr. discharge summary a 63-year-old white female with known non-small cell lung cancer who had abnormal abdominal pain with element of possible metastatic disease. Colonoscopy was done biopsies are pending. At this point she is been cleared from a surgical perspective. Once cleared by oncology, we will sent home on appropriate pain control and follow-up with me in about 5-7 days. Patient Condition at Discharge: Serious Plan - Discharge Summary Discharge Rx Participant: No New Discharge Prescriptions: New Nicotine 14Mg/24Hr Patch [Habitrol] 1 patch TRANSDERM DAILY #30 patch Pantoprazole [Protonix] 40 mg PO AC-BRKFST #30 tablet.dr Vásquez Multivitamins, Thera [Multivitamin (formulary)] 1 tab PO DAILY Levothyroxine Sodium [Synthroid] 125 mcg PO DAILY Cholecalciferol [Vitamin D3 (25 Mcg = 1000 Iu)] 2,000 unit PO DAILY Alendronate Sodium 70 mg PO FLORES Calcium Carbonate/Vitamin D3 [Caltrate 600 Plus D3 Tablet] 1 tab PO DAILY Nicotine 21Mg/24Hr Patch [Habitrol] 1 patch TRANSDERM DAILY #14 patch Lidocaine 5% Patch [Lidoderm 5% Patch] 1 patch TOPICAL DAILY #10 patch Omeprazole [PriLOSEC] 20 mg PO AC-BID #60 cap Metoprolol Tartrate [Lopressor] 25 mg PO BID #60 tablet Dexamethasone [Decadron] 4 mg PO BID Changed HYDROcodone/APAP 7.5-325MG [Wheeler 7.5-325] 1 tab PO Q6H PRN #28 tab PRN Reason: Pain Discharge Medication List Multivitamins, Thera [Multivitamin (formulary)] 1 tab PO DAILY 01/09/19 [History] Alendronate Sodium 70 mg PO FLORES 01/10/19 [History] Calcium Carbonate/Vitamin D3 [Caltrate 600 Plus D3 Tablet] 1 tab PO DAILY 01/10/19 [History] Cholecalciferol [Vitamin D3 (25 Mcg = 1000 Iu)] 2,000 unit PO DAILY 01/10/19 [History] Levothyroxine Sodium [Synthroid] 125 mcg PO DAILY 01/10/19 [History] Lidocaine 5% Patch [Lidoderm 5% Patch] 1 patch TOPICAL DAILY #10 patch 01/12/19 [Rx] Metoprolol Tartrate [Lopressor] 25 mg PO BID #60 tablet 01/12/19 [Rx] Nicotine 21Mg/24Hr Patch [Habitrol] 1 patch TRANSDERM DAILY #14 patch 01/12/19 [Rx] Omeprazole [PriLOSEC] 20 mg PO AC-BID #60 cap 01/12/19 [Rx] Dexamethasone [Decadron] 4 mg PO BID 02/19/19 [History] HYDROcodone/APAP 7.5-325MG [Wheeler 7.5-325] 1 tab PO Q6H PRN #28 tab 02/24/19 [Rx] Nicotine 14Mg/24Hr Patch [Habitrol] 1 patch TRANSDERM DAILY #30 patch 02/24/19 [Rx] Pantoprazole [Protonix] 40 mg PO AC-BRKFST #30 tablet. 02/24/19 [Rx] Follow up Appointment(s)/Referral(s): Stewart Dawn MD [Primary Care Provider] - 1-2 days Fabian Sierra DO [Doctor of Osteopathic Medicine] - 10 Days
[2019-02-24] MEDS: PANTOPRAZOLE 40 MG TABLET PO SCH (08:56)
[2019-02-24] MEDS: METOPROLOL TARTRATE 25 MG TAB PO SCH (08:56)
[2019-02-24] MEDS: ENOXAPARIN 40 MG/0.4 ML SYRINGE SQ SCH ×2 (08:56→09:03)
[2019-02-24] MEDS: NICOTINE 14MG/24HR PATCH TRANSDERM SCH (08:56)
--- NOTE | 2019-03-02 13:59 | CDI ---
Documentation Clarification Form Date: 03-02-19 From: Misa Finch Phone: Admit Date: 02/19/2019 2:50:00 PM Patient Name: Lissette Ge Visit Number: [id number] Discharge Date: 02/24/2019 3:00:00 PM ATTENTION: The Clinical Documentation Specialists (CDI) and [facility] Coding Staff appreciate your assistance in clarifying documentation. Please respond to the clarification below the line at the bottom and electronically sign. The CDI & [facility] Coding staff will review the response and follow-up if needed. Please note: Queries are made part of the Legal Health Record. If you have any questions, please contact the author of this message via ITS. Dr. Stewart Dawn Ms Ge presented with recent findings of sigmoid mass on PET scan. She is noted t have a history of small cell lung cancer along with metastasis to the brain. Flexible sigmoidoscopy with biopsy of the sigmoid mass was performed on 02/23. The final diagnosis of the pathology report states: Poorly differentiated non small cell carcinoma, favor metastasis from pulmonary primary. Discharge Summary documentation states: Possible metastatic disease, colonscopy biopsies pending In your professional opinion, do you agree with the pathology report specifying sigmoid mass as metastasis from pulmonary primary? Yes No Other (please specify) Unable to determine dx per path MTDD
== END 2019-02-24 15:00 | disposition home or self-care (01) | DRG 392 ==
LOC: EC 13:20 → 4SSUR 14:50
PROVIDERS: ADMIT Family Medicine; ATTEND Family Medicine
DX: K52.9 Noninfective gastroenteritis and colitis, unspecified (principal); C78.5 Secondary malignant neoplasm of large intestine and rectum; C34.90 Malignant neoplasm of unspecified part of unspecified bronchus or lung; C79.31 Secondary malignant neoplasm of brain; K63.89 Other specified diseases of intestine
CPT/HCPCS: 36415; 45331; 74177; 74270; 80053; 81003; 82150; 82607; 82728; 82747; 83540; 83550; 83605; 83690; 83921; 85025; 85027; 85045; 88305; 88341; 88342; 94760; 96361; 96374; 96375; 96376; 99285

== ENCOUNTER 2019-03-10 21:06 | Inpatient (IN) | payer BC ==
[2019-03-10 22:01] LABS: HCT 22.9 % (34.0-46.0); HGB 7.4 gm/dL (11.4-16.0); Hypochromasia Slight; MCH 29.7 pg (25.0-35.0); MCHC 32.1 g/dL (31.0-37.0); Mean Platelet Volume 7.5; Platelet Count 703 k/uL (150-450); RBC 2.47 m/uL (3.80-5.40); RDW 14.7 % (11.5-15.5)
[2019-03-10 22:04] LABS: INR 1.1 (<1.2); Prothrombin Time 11.2 sec (9.0-12.0)
--- NOTE | 2019-03-10 22:08 | CT ---
EXAMINATION TYPE: CT brain corenlius salguero con DATE OF EXAM: 03/10/2019 COMPARISON: None HISTORY: Fall. History of brain mets. CT DLP: 1163.1 mGycm Automated exposure control for dose reduction was used. TECHNIQUE: CT scan of the head and cervical spine are performed without contrast. FINDINGS: Ventricles have normal size. There is 3.5 cm area of hypodensity right occipital lobe gra y and white matter consistent with edema. There is a similar irregular 4.5 x 2.5 cm area of edema lef t occipital lobe. There is 4 cm irregular area of edema left posterior frontal lobe cortex. There is no midline shift. There is no sign of intracranial hemorrhage. There is some mucosal thickening in th e mastoid sinuses consistent with mastoiditis on the left side more than the right. Cervical vertebra have normal alignment. There is some degenerative disc space narrowing and spur for mation at C5-6 C6-7. Skull base is intact. There is no evidence for fracture. I see no bony destructi ve process. IMPRESSION: Spondylotic changes in the lower cervical spine. No fracture. There are several foci of cerebral edema consistent with metastatic disease. No intracranial hemorrha ge.
[2019-03-10 22:09] LABS: ALT 16 U/L (9-52); AST 20 U/L (14-36); African American GFR (CKD) >90 (>60 ml/min/1.73 sqM); Albumin 2.8 g/dL (3.5-5.0); Alkaline Phosphatase 284 U/L (38-126); Anion Gap 8 mmol/L; Blood Urea Nitrogen 10 mg/dL (7-17); Carbon Dioxide 29 mmol/L (22-30); Chloride 97 mmol/L (98-107); Glucose 148 mg/dL (74-99); Magnesium 1.9 mg/dL (1.6-2.3); Potassium 3.3 mmol/L (3.5-5.1); Sodium 134 mmol/L (137-145); Total Bilirubin 0.3 mg/dL (0.2-1.3); Total Protein 5.6 g/dL (6.3-8.2)
[2019-03-10 22:13] LABS: WBC 104.8 k/uL (3.8-10.6)
--- NOTE | 2019-03-10 22:19 | XR ---
EXAM: XR Chest, 2 Views CLINICAL HISTORY: Pain TECHNIQUE: Frontal and lateral views of the chest. COMPARISON: Chest x-ray dated 01/10/2019 FINDINGS: Lungs: Complete opacification of the left thorax which may represent large pleural effusion and atelectasis. Pneumonia or neoplasm is not excluded. Pleural space: See above. Heart: Unremarkable. No cardiomegaly. Mediastinum: Unremarkable. Bones/joints: Unremarkable. IMPRESSION: Complete opacification of the left thorax which may represent large pleural effusion and atelectasis. Pneumonia or neoplasm is not excluded.
--- NOTE | 2019-03-10 22:19 | ED ---
General Adult HPI - General Chief complaint: Weakness Stated complaint: Rt sided weakness Time Seen by Provider: 03/10/19 21:16 Source: patient, family, RN notes reviewed, old records reviewed Mode of arrival: ambulatory Limitations: no limitations - History of Present Illness Initial comments: Chief complaint history of present illness a 63-year-old female with a history of breast cancer in 1998 and several months ago diagnosed with lung cancer with metastatic lesions to the brain. The patient has finished radiation to the brain proximal one month ago. Scheduled to have chemotherapy. Today she states she had a week right arm trying to get up and fell bruising the left side of her cheek and head sheet read difficulty calling for her this lasted for several minutes. By the time the patient arrived to the emergency room she was moving her arms talking in normal fashion answering questions appropriately. Denies having had previous episodes like this. Denies being on blood thinners. - Related Data Home Medications Medication Instructions Recorded Confirmed Multivitamins, Thera [Multivitamin 1 tab PO DAILY 01/09/19 02/19/19 (formulary)] Alendronate Sodium 70 mg PO FLORES 01/10/19 02/19/19 Calcium Carbonate/Vitamin D3 1 tab PO DAILY 01/10/19 02/19/19 [Caltrate 600 Plus D3 Tablet] Cholecalciferol [Vitamin D3 (25 2,000 unit PO DAILY 01/10/19 02/19/19 Mcg = 1000 Iu)] Levothyroxine Sodium [Synthroid] 125 mcg PO DAILY 01/10/19 02/19/19 Dexamethasone [Decadron] 4 mg PO BID 02/19/19 02/19/19 Previous Rx's Medication Instructions Recorded Lidocaine 5% Patch [Lidoderm 5% 1 patch TOPICAL DAILY #10 patch 01/12/19 Patch] Metoprolol Tartrate [Lopressor] 25 mg PO BID #60 tablet 01/12/19 Nicotine 21Mg/24Hr Patch [Habitrol] 1 patch TRANSDERM DAILY #14 patch 01/12/19 Omeprazole [PriLOSEC] 20 mg PO AC-BID #60 cap 01/12/19 HYDROcodone/APAP 7.5-325MG [[place] 1 tab PO Q6H PRN #28 tab 02/24/19 7.5-325] Nicotine 14Mg/24Hr Patch [Habitrol] 1 patch TRANSDERM DAILY #30 patch 02/24/19 Pantoprazole [Protonix] 40 mg PO AC-BRKFST #30 tablet. 02/24/19 Allergies Allergy/AdvReac Type Severity Reaction Status Date / Time cucumber AdvReac Unknown Verified 03/10/19 21:14 Milk Containing Products AdvReac Unknown Verified 03/10/19 21:14 [Dairy] tomato AdvReac Unknown Verified 03/10/19 21:14 Review of Systems ROS Statement: Those systems with pertinent positive or pertinent negative responses have been documented in the HPI. Review of systems currently not complaining of any headache or visual acuity changes the previous weakness the right arm subsided. Able to express himself without difficulty. Family states she's sounding and talking normal at this time. She said she has some chest pain earlier this morning her daughter told to call him to come the hospital because she did not. The patient denies any diaphoresis throughout the day. She states the pain is behind heart where she has her tumor. The patient denies any vomiting. She reports she has loose stool. Moving all extremities. All systems reviewed. Past medical problems significant for breast cancer and more recently lung cancer with metastatic lesions to the brain. Patient's family history significant for her father had lung cancer use a emergency care tech. Patient has ALLERGIES to cucumbers, milk containing products and tomatoes. She quit smoking several months ago with alcohol half year ago. ROS Other: All systems not noted in ROS Statement are negative. Past Medical History Past Medical History: Cancer, Thyroid Disorder Additional Past Medical History / Comment(s): breast cancer, lung CA, Brain lesions History of Any Multi-Drug Resistant Organisms: None Reported Past Surgical History: Breast Surgery Additional Past Surgical History / Comment(s): left breast masectomy 99, thyroid removed Past Anesthesia/Blood Transfusion Reactions: No Reported Reaction Past Psychological History: No Psychological Hx Reported Smoking Status: Former smoker Past Alcohol Use History: None Reported Past Drug Use History: None Reported - Past Family History Mother Family Medical History: Hypertension General Exam - General Exam Comments Initial Comments: General: The patient is awake and alert, patient is much improved over the past 40 minutes from when she had appears to be a TIA. Vital signs are temperature 90.5 pulse 124 respiratory rate 20 pulse ox 96% room air blood pressure 157/83 Eye: Pupils are equal, round and reactive to light, extra-ocular movements are intact; there is normal conjunctiva bilaterally. No signs of icterus. Ears, nose, mouth and throat: There are moist mucous membranes and no oral lesions. Neck: The neck is supple, there is no tenderness . Cardiovascular: Tachycardic, 124 Respiratory: Decreased and no breath sounds appreciated on the left thorax. Gastrointestinal: Soft, non-distended, non-tender abdomen without masses or organomegaly noted. There is no rebound or guarding present. Back: There is no tenderness to palpation in the midline. There is no obvious deformity. No rashes noted. Musculoskeletal: Normal ROM, no tenderness, There is no pedal edema. There is no calf tenderness or swelling. Sensation intact. Pulses equal bilaterally 2+. Neurological: Neurologically patient is intact, no focal or lateralizing findings at this time. She had complained of difficulty speaking and right arm weakness all over since subsided. Alert and oriented making jokes Skin: Skin is warm and dry and no rashes or lesions are noted. Psychiatric: Cooperative, appropriate mood & affect, Limitations: no limitations Course Vital Signs 03/10/19 21:08 Temperature 98.5 F Pulse Rate 124 H Respiratory 20 Rate Blood Pressure 157/83 O2 Sat by Pulse 96 Oximetry EKG Findings - EKG Comments: EKG Findings:: EKG was done and reviewed at 2122 showing sinus tach rate 117 age undetermined anterior infarct. Patient's SD interval was 136 QRS 74 QT 316 QTC 440. No acute ST elevation. No old EKG available to compare to. Dr. Valle Medical Decision Making - Medical Decision Making Medical decision making; is a 63-year-old female brought in by family because of possible TIA. Her symptoms have since resolved. She had difficulty speaking for several minutes and weakness to her right arm. The patient is currently being treated for metastatic lung cancer to the brain. Recently finished rad iation to the brain and is starting chemotherapy. On a previous visit the patient's CBC showed a white count of 55,000. Today's white count is 104,000. Hemoglobin 7.4 hemoglobin 22.9 INR 1.1 platelets 703. Potassium 3.3. BUN 10 creatinine 0.34 GFR greater than 90. Glucose 148 alk phos 284, troponin less than 0.012. Patient had a CT of the brain and reviewed by radiologist entire report was reviewed the radiologist's impression is spondylotic changes in the lower cervical spine. No fracture. There are several foci cerebral edema consistent with metastatic disease. No intracranial hemorrhage. As read by Dr. Ratliff Chest x-ray was done and compared to chest x-ray dated 01/10/2019. Findings include complete opacification of left thorax which may represent large pleural effusion and atelectasis. Pneumonia or neoplasm is not excluded. No cardiomegaly. Impression complete opacification of the left thorax which may represent large pleural effusion and atelectasis. Pneumonia or neoplasm is not excluded. As read by Dr. barbosa The patient be admitted to Dr. vazquez, on-call for Dr. Dawn Disposition Clinical Impression: TIA (transient ischemic attack), Pleural effusion, left, Metastatic cancer to brain, Lung cancer Disposition: ADMITTED IP TO THIS HOSP Condition: Serious Referrals: Stewart Dawn MD [Primary Care Provider] - 1-2 days
[2019-03-10 22:39] LABS: Lymphocytes # (M) 4.19 k/uL (1.0-4.8); Neutrophils # (M) 98.51 k/uL (1.3-7.7); Neutrophils % (M) 94 %; Nucleated Red Blood Cells 0 /100 WBC (0-0); Polychromasia Present; Total Cells Counted 100
[2019-03-10 22:40] LABS: Appearance,Urine Clear (Clear); Bilirubin,Urine Negative (Negative); Blood,Urine Negative (Negative); Color,Urine Yellow; Glucose,Urine (UA) Negative (Negative); Hyaline Casts,Urine 3 /lpf (0-2); Ketones,Urine Negative (Negative); Leukocyte Esterase,Urine Moderate (Negative); Mucus,Urine Occasional /hpf; Nitrite,Urine Negative (Negative); Protein,Urine Trace (Negative); RBC,Urine 1 /hpf (0-5); Specific Gravity,Urine 1.017 (1.001-1.035); Squamous Epithelial Cell,Urine 1 /hpf (0-4); WBC,Urine 26 /hpf (0-5)
[2019-03-10] MEDS ORDERED: NALOXONE 0.4 MG/ML 1 ML VIAL IV PRN (22:41)
[2019-03-10] MEDS: SODIUM CHLORIDE 0.9% 1,000 ML IV SCH (23:13)
[2019-03-10] MEDS: HYDROcodone/APAP 7.5-325MG 1 EACH TAB PO PRN (23:45)
[2019-03-11 00:59] LABS: Troponin I <0.012 ng/mL (0.000-0.034)
[2019-03-11] MEDS ORDERED: LORazepam 1 MG TAB PO PRN (01:07)
[2019-03-11] MEDS: DEXAMETHASONE SOD PHOSPHATE 4 MG/ML 1 ML VIAL IV SCH ×5 (02:40→23:52)
[2019-03-11] MEDS: LEVOTHYROXINE 125 MCG TAB PO SCH (06:07)
[2019-03-11] MEDS: HYDROcodone/APAP 7.5-325MG 1 EACH TAB PO PRN ×4 (06:07→23:52)
[2019-03-11] MEDS: PANTOPRAZOLE 40 MG TABLET PO SCH (06:07)
[2019-03-11 06:19] LABS: HCT 24.9 % (34.0-46.0); HGB 7.8 gm/dL (11.4-16.0); Hypochromasia Moderate; MCH 30.1 pg (25.0-35.0); MCHC 31.2 g/dL (31.0-37.0); MCV 96.5 fL (80.0-100.0); Mean Platelet Volume 6.7; Platelet Count 647 k/uL (150-450); RBC 2.58 m/uL (3.80-5.40); RDW 14.8 % (11.5-15.5)
[2019-03-11 06:22] LABS: African American GFR (CKD) >90 (>60 ml/min/1.73 sqM); Anion Gap 9 mmol/L; Blood Urea Nitrogen 10 mg/dL (7-17); Carbon Dioxide 29 mmol/L (22-30); Chloride 97 mmol/L (98-107); Creatine Kinase <20 U/L (30-135); Glucose 124 mg/dL (74-99); Potassium 3.6 mmol/L (3.5-5.1); Sodium 135 mmol/L (137-145)
[2019-03-11 06:25] LABS: WBC 96.4 k/uL (3.8-10.6)
[2019-03-11 06:47] LABS: Creatine Kinase MB 0.8 ng/mL (0.0-2.4); Troponin I <0.012 ng/mL (0.000-0.034)
[2019-03-11 07:03] LABS: Monocytes # (M) 0.96 k/uL (0-1.0); Neutrophils # (M) 95.44 k/uL (1.3-7.7); Neutrophils % (M) 99 %; Nucleated Red Blood Cells 0 /100 WBC (0-0); Total Cells Counted 100; Toxic Vacuolation Present
[2019-03-11 07:32] LABS: MCV 92.5 fL (80.0-100.0)
--- NOTE | 2019-03-11 07:51 | HP ---
HISTORY AND PHYSICAL I am covering for Dr. Dawn. DATE OF SERVICE: 03/10/2019 CHIEF COMPLAINT: Weakness and numbness of the right upper limb. HISTORY OF PRESENT ILLNESS: This 63-year-old woman with a past medical history of breast cancer, history of lung cancer with metastases with brain lesions, finished radiation therapy recently on chemotherapy. Slated to have chemotherapy. Also with history hypothyroidism, mastectomy, thyroidectomy being followed Dr. Dawn in the outpatient setting, was apparently at home and was noted to have weakness, numbness of the right arm. Apparently the patient also lost control of the right arm and there were some abnormal movements also described. The patient came to [facility]. Patient unable to speak also for some time and by the time the patient is in the ER, patient able to speak. Evaluation included CT scans of the head, cervical spine and head, neck showed spondylitic changes and several consistent with metastatic disease and patient admitted to the hospital for further evaluation and treatment. There is no history of fever, rigors. No history of headache, loss of consciousness or seizures. PAST MEDICAL HISTORY: History of hypothyroidism, history of breast cancer, lung cancer, brain lesions, history of breast surgery. MEDICATIONS: Prior to admission: 1. Protonix 40 mg p.o. daily. 2. Multivitamins 1 daily. 3. Lopressor 25 mg b.i.d. 4. Lidocaine patch 5% patch daily. 5. Synthroid 112 mcg p.o. daily. 6. [place] 7.5 q.6h p.r.n. 7. Folic acid 1 mg daily. 8. Decadron 4 mg p.o. b.i.d. 9. Fosamax 70 mg q.h.s. ALLERGIES: CONTAINING PRODUCTS. FAMILY HISTORY: History of hypertension in the family. SOCIAL HISTORY: Previous history of smoking. No history of current smoking or alcohol intake. REVIEW OF SYSTEMS: ENT: Diminished vision. Diminished hearing. Cardiovascular: No angina or palpitations. Respiration as mentioned earlier. GI no nausea or vomiting. no dysuria. Nervous System: As mentioned earlier. ALLERGY/IMMUNOLOGY: No asthma or hayfever. MUSCULOSKELETAL as mentioned earlier. HEMATOLOGY/ONCOLOGY: As mentioned earlier. ENDOCRINE: Hypothyroidism. CONSTITUTIONAL: As mentioned earlier. DERMATOLOGY: Negative. RHEUMATOLOGY negative. PSYCHIATRY as mentioned earlier. PHYSICAL EXAMINATION: Alert and oriented times three. Pulse is 106. Blood pressure 149/74, respirations 16, temperature 97.4, pulse ox 97% on 2 L. HEENT: Oral mucosa moist. Neck is no jugular venous distention. No carotid bruit. No lymph node enlargement. Cardiovascular system: S1, S2. No S3, no S4. RESPIRATORY: Breath sounds diminished in the bases. A few scattered rhonchi and crackles. ABDOMEN: Soft, nontender. No mass palpable. LEGS: No edema. No swelling. NERVOUS SYSTEM: Higher functions as mentioned earlier, moves all 4 limbs. No focal motor or sensory deficits. Minimal weakness on the right upper limb present. LYMPHATICS: No lymph nodes palpable in the neck, axillae or groin. SKIN: No ulcer, rashes or bleeding. JOINTS: No active deforming. LAB STUDIES: WBC ntd, hemoglobin 7.4, and platelets 703. Sodium 130, potassium 3.3. ASSESSMENT: 1. Weakness and numbness of the right upper limb, possible transient ischemic attack, rule out seizure disorder. 2. History of lung cancer with METS, status post radiation therapy. 3. History of breast cancer. 4. Effusion versus collapse of the left lung. 5. Increased WBC. 6. Anemia. 7. Increased platelets. 8. Hyponatremia. 9. Hypokalemia. 10.Hypocalcemia. 11.Possible urinary tract infection. 12.History of breast surgery, mastectomy. 13.Remote history of nicotine dependence. 14.Mild to moderate protein calorie malnutrition with BMI of 19.9. RECOMMENDATIONS AND DISCUSSION: In this 63-year-old woman presented with multiple medical issues, at this time I recommend to continue current medication, continue symptomatic treatment. We will also consult Dr. Hernandez for further evaluation. Otherwise, repeat labs. The white count is elevated up to 104.8. Previous baseline was about 57.9, indicating a leukemoid reaction. Otherwise the most recent admission was meant for colitis and brain METS. We will continue to monitor. Overall prognosis extremely guarded because of multiple complex medical issues. Patient remains FULL CODE. Further recommendations to follow. A copy of this forwarded to Dr. Dawn who is the primary physician. MMKELLY / ISSACN: [id number] / CARLOS
[2019-03-11] MEDS: LIDOCAINE 5% PATCH TOPICAL SCH (08:52)
[2019-03-11] MEDS: METOPROLOL TARTRATE 25 MG TAB PO SCH ×2 (08:54→20:01)
[2019-03-11] MEDS: NICOTINE 14MG/24HR PATCH TRANSDERM SCH (08:54)
[2019-03-11] MEDS: CHOLECALCIFEROL 1,000 UNIT TAB PO SCH (08:54)
[2019-03-11] MEDS: FOLIC ACID 1 MG TAB PO SCH (08:54)
[2019-03-11] MEDS: MULTIVITAMINS, THERA 1 EACH TAB PO SCH (08:54)
[2019-03-11] MEDS: CALCIUM CARB-VIT D 500MG-200UN 1 EACH TAB PO SCH (08:54)
[2019-03-11] MEDS ORDERED: FAMOTIDINE 20 MG TAB PO SCH (09:00)
[2019-03-11] MEDS ORDERED: DEXAMETHASONE 4 MG TAB PO SCH (09:00)
--- NOTE | 2019-03-11 09:59 | US ---
EXAMINATION TYPE: US chest DATE OF EXAM: 03/11/2019 COMPARISON: NONE CLINICAL HISTORY: Left pleural effusion. Left pleural effusion TECHNIQUE: Targeted ultrasound of the posterior lower bilateral hemithoraces EXAM MEASUREMENTS: Right Pleural Effusion pocket size: 1.3 cm Right skin surface to fluid distance: 2.3 cm Left Pleural Effusion pocket size: 9.5 cm - lung noted anteriorly Left skin surface to fluid distance: 1.8 cm Right side NOT marked for possible thoracentesis outside the dept. Left side marked for possible thoracentesis outside the dept. Pulmonologists are able to review the images in the patient?s EMR. IMPRESSIONS: SMALL, BILATERAL PLEURAL EFFUSIONS.
--- NOTE | 2019-03-11 10:40 | P.CNPUL ---
History of Present Illness Consult date: 03/11/19 Requesting physician: Stewart Dawn Reason for consult: abnormal CXR/CT Chief complaint: Right upper extremity weakness, dysphasia History of present illness: This is a very pleasant 63-year-old female patient who follows with Dr. Dawn as her primary care physician. She has a history of hypothyroidism and previous breast cancer with a left mastectomy in 1998. Thyroidectomy. Former smoker. She was admitted here back in December 2018 with weakness and was found to have a left hilar and lower lobe mass. She had undergone biopsies by Dr. 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 She had undergone 10 radiation treatments to the brain. Colon biopsy was positive for non-small cell carcinoma favoring metastasis from pulmonary primary. She is due to start chemotherapy next week. She presented here to the emergency room yesterday after having right arm numbness and weakness as well as dysphasia and was having trouble calling out to her for help. Computed tomography scan of the brain revealed several foci of cerebral edema consistent with metastatic disease. No intracranial hemorrhage. She has been on Decadron 4 mg twice a day in the outpatient setting. Chest x-ray reveals near complete white out of the left lung. We are consulted for the same. She is seen in consultation on the selective care unit. Presently, she is awake and alert in no acute distress. She has nearly complete resolution of the right arm numbness. Her speech is clear. She is oriented 3. She does have some dyspnea on exertion. Comfortable at rest. Maintain O2 saturations in the high 90s on 2 L/m per nasal cannula. She's afebrile. Blood pressure stable. Slightly tachycardic. Urine culture pending. Initial white count 104.8, currently 96.4. Hemoglobin 7.8. Platelet count 647,000, neutrophils 95, sodium 135. Creatinine 0.34. Glucose 124. Calcium 8.0. Troponin is negative 3. Review of Systems REVIEW OF SYSTEMS: CONSTITUTIONAL: Positive for weight loss no weight gain. EYES: Denies change in vision. EARS, NOSE, MOUTH, THROAT: Denies headaches, denies sore throat. CARDIOVASCULAR: Denies chest pain, palpitations or syncopal episodes. RESPIRATORY: Positive shortness of breath, cough, congestion no hemoptysis. GASTROINTESTINAL: Poor appetite, denies abdominal pain GENITOURINARY: Denies hematuria, denies infections. MUSKULOSKELETAL: Denies pain, denies swelling. INTEGUMENTARY: Denies rash, denies eczema. NEUROLOGICAL: Right upper extremity weakness, dysphasia PSYCHIATRIC: Denies anxiety, denies depression. HEMATOLOGIC/LYMPHATIC: Denies anemia. Past Medical History Past Medical History: Cancer, Thyroid Disorder Additional Past Medical History / Comment(s): breast cancer, lung CA, Brain lesions History of Any Multi-Drug Resistant Organisms: None Reported Past Surgical History: Breast Surgery Additional Past Surgical History / Comment(s): left breast masectomy 99, thyroid removed Past Anesthesia/Blood Transfusion Reactions: No Reported Reaction Past Psychological History: No Psychological Hx Reported Smoking Status: Former smoker Past Alcohol Use History: None Reported Additional Past Alcohol Use History / Comment(s): quit in december 2018 Past Drug Use History: None Reported - Past Family History Mother Family Medical History: Hypertension Medications and Allergies Home Medications Medication Instructions Recorded Confirmed Type Multivitamins, Thera [Multivitamin 1 tab PO DAILY 01/09/19 03/10/19 History (formulary)] Alendronate Sodium 70 mg PO FLORES 01/10/19 03/10/19 History Levothyroxine Sodium [Synthroid] 125 mcg PO DAILY 01/10/19 03/10/19 History Lidocaine 5% Patch [Lidoderm 5% 1 patch TOPICAL DAILY #10 patch 01/12/19 03/10/19 Rx Patch] Metoprolol Tartrate [Lopressor] 25 mg PO BID #60 tablet 01/12/19 03/10/19 Rx Dexamethasone [Decadron] 4 mg PO BID 02/19/19 03/10/19 History HYDROcodone/APAP 7.5-325MG [[place] 1 tab PO Q6H PRN #28 tab 02/24/19 03/10/19 Rx 7.5-325] Pantoprazole [Protonix] 40 mg PO AC-BRKFST #30 tablet. 02/24/19 03/10/19 Rx Folic Acid 1 mg PO DAILY 03/10/19 03/10/19 History Allergies Allergy/AdvReac Type Severity Reaction Status Date / Time cucumber AdvReac Unknown Verified 03/10/19 22:51 Milk Containing Products AdvReac Unknown Verified 03/10/19 22:51 [Dairy] tomato AdvReac Unknown Verified 03/10/19 22:51 Physical Exam Vitals: Vital Signs Temp Pulse Pulse Resp BP BP Pulse Ox 03/11/19 03:04 105 H 18 03/11/19 03:03 98.1 F 105 H 18 156/80 99 03/10/19 23:55 106 H 18 03/10/19 23:53 97.4 F L 106 H 16 149/74 97 03/10/19 23:04 97.4 F L 106 H 16 149/74 97 03/10/19 23:00 98.3 F 103 H 18 141/72 99 03/10/19 22:10 117 H 20 98 03/10/19 21:08 98.5 F 124 H 20 157/83 96 Intake and Output 03/10/19 03/11/19 03/11/19 22:59 06:59 14:59 Intake Total 310 240 Output Total 300 Balance 10 240 Intake: Amount of Fluid Infused ( 50 ml) Intake, IV Titration 160 Amount Sodium Chloride 0.9% 1, 160 000 ml @ 20 mls/hr IV . Q24H [facility], [facility]–1983 Rx#:[id number] Oral 100 240 Output: Urine 300 Other: Voiding Method Toilet # Voids 1 Weight 46.266 kg 44.7 kg GENERAL EXAM: Very pleasant 63-year-old female patient, alert, fairly comfortable in no apparent distress. On 2 L nasal cannula. HEAD: Alopecia secondary to radiation treatments to the brain. Normocephalic. EYES: Normal reaction of pupils, equal size. NOSE: Clear with pink turbinates. THROAT: No erythema or exudates. NECK: No masses, no JVD. CHEST: No chest wall deformity. LUNGS: Crackles and diminished in the left lung. CVS: S1 and S2 normal with no audible murmur, regular rhythm. ABDOMEN: No hepatosplenomegaly, normal bowel sounds, no guarding or rigidity. SPINE: No scoliosis or deformity SKIN: No rashes CENTRAL NERVOUS SYSTEM: No focal deficits currently, tone is normal in all 4 extremities. EXTREMITIES: There is no peripheral edema. No clubbing, no cyanosis. Peripheral pulses are intact. Results - Laboratory Findings CBC and BMP: 03/11/19 05:35 03/11/19 05:35 PT/INR, D-dimer PT 11.2 sec (9.0-12.0) 03/10/19 21:45 INR 1.1 (<1.2) 03/10/19 21:45 Abnormal lab findings: Abnormal Labs 03/10/19 03/10/19 03/10/19 21:45 21:45 22:24 WBC 104.8 H* RBC 2.47 L Hgb 7.4 L Hct 22.9 L Plt Count 703 H Neutrophils # (Manual) 98.51 H Monocytes # (Manual) 2.10 H Sodium 134 L Potassium 3.3 L Chloride 97 L Creatinine 0.34 L Glucose 148 H Calcium 8.0 L Alkaline Phosphatase 284 H Creatine Kinase Total Protein 5.6 L Albumin 2.8 L Urine Protein Trace H Ur Leukocyte Esterase Moderate H Urine WBC 26 H Hyaline Casts 3 H Urine Mucus Occasional H 03/11/19 03/11/19 05:35 05:35 WBC 96.4 H* RBC 2.58 L Hgb 7.8 L Hct 24.9 L Plt Count 647 H Neutrophils # (Manual) 95.44 H Monocytes # (Manual) Sodium 135 L Potassium Chloride 97 L Creatinine 0.34 L Glucose 124 H Calcium 8.0 L Alkaline Phosphatase Creatine Kinase <20 L Total Protein Albumin Urine Protein Ur Leukocyte Esterase Urine WBC Hyaline Casts Urine Mucus - Diagnostic Findings Chest x-ray: image reviewed Assessment and Plan Assessment: Impression: #1 Right upper extremity numbness and weakness, dysphasia, recovered. Suspect secondary to several foci of cerebral edema consistent with metastatic disease. Status post 10 radiation treatments. On Decadron in the outpatient setting. Due to start chemotherapy on 03/15/2019. #2 Large left pleural effusion secondary to non-small cell lung cancer with metastasis to the brain and colon. Diagnosed in December 2018. #3 Significant leukocytosis. Initial white count 104.8, currently 96.4. #4 Anemia. Current hemoglobin 7.8. #5 History of chronic tobacco dependence. #6 History of breast cancer status post left mastectomy in 1998. #7 History of thyroid cancer status post thyroidectomy. Plan: The patient was seen and evaluated by Dr. Hernandez. Chest x-ray and labs reviewed. We'll order an ultrasound of the left chest to determine if there is significant free-flowing fluid or potential thoracentesis. Right upper extremity weakness and dysphagia has improved. We'll continue Decadron. We will continue to follow and make further recommendations based on her clinical status. I, the cosigning physician, performed a history & physical examination of the patient. Lungs sounds crackles, diminished left lung Maintaining good O2 saturations in the 90s on 2 L/m per nasal cannula. I discussed the assessment a nd plan of care with my nurse practitioner, Rosemary Dodge. I attest to the above note as dictated by her.
[2019-03-11 12:18] LABS: Creatine Kinase <20 U/L (30-135)
[2019-03-11 12:27] LABS: Creatine Kinase MB 0.6 ng/mL (0.0-2.4); Troponin I <0.012 ng/mL (0.000-0.034)
--- NOTE | 2019-03-11 13:57 | PCN ---
PROCEDURE NOTE OPERATIVE REPORT: Left-sided thoracentesis. PREOPERATIVE DIAGNOSIS: Large left pleural effusion. POSTOPERATIVE DIAGNOSIS: Large left pleural effusion. ANESTHESIA USED: 2 mL of 1% lidocaine. PROCEDURE: The patient was placed in a sitting upright position, the area below the left scapula was prepared in a sterile fashion and drapes were applied. The area of the fluid was localized earlier by ultrasound guidance. At the level of the 8th intercostal space and tip of the scapula, the area was locally anesthetized, a 26-gauge needle was inserted at the same site. The fluid was localized with the needle. Then a small tiny skin incision was made, and a standard thoracentesis catheter and needle were used and inserted at the same site, advanced into the pleural space and as soon as the fluid was obtained, the needle was pulled out of the pleural space and the catheter was advanced into the pleural space. Freely-flowing fluid was removed, roughly 800 mL of fluid was removed, and there was definitely more fluid to be drained, however, the patient developed significant left shoulder pain and discomfort, and hence no further fluid was drained. 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 The fluid was sent for different diagnostic studies. MMODL / IJN: [id number] /
--- NOTE | 2019-03-11 14:03 | XR ---
EXAMINATION TYPE: XR chest 1V portable DATE OF EXAM: 03/11/2019 HISTORY: s/p lt thoracentesis. REFERENCE: Previous study dated 03/10/2019. FINDINGS: There is, , Slight improved aeration of the left lung. There is a tiny apical pneumothorax. There is a small ri ght pleural effusion. There is overinflation of the right lung. IMPRESSION: TINY LEFT APICAL PNEUMOTHORAX FOLLOWING THORACENTESIS.
[2019-03-11 15:01] LABS: Appearance,BF Clear; Color,BF Yellow; Nucleated Cells, Body Fluid 39 /uL; RBC, Body Fluid 29 /uL
[2019-03-11 15:18] LABS: Mononuclear WBC,Body Fluid 53 %; Polynuclear WBC,Body Fluid 47 %; Total Cells Counted,Body Fluid 100
[2019-03-11] MEDS: SODIUM CHLORIDE 0.9% 1,000 ML IV SCH (20:03)
[2019-03-11 23:27] LABS: Total Protein, Body Fluid 920 mg/dL
--- NOTE | 2019-03-11 23:30 | PN ---
PROGRESS NOTE DATE OF SERVICE: 03/11/2019. This 63-year-old woman was admitted with weakness and numbness of the right arm was suspected to have a TIA. The patient also had abnormal movements. Patient also had lung cancer with METS, stat radiation treatment. Patient complaining of weakness. Patient being closely monitored. The patient is being evaluated by multiple consultants, evaluated by Dr. Hernandez also. The ultrasound only showed mild bilateral pleural effusions. Chest x-ray was reviewed personally. Dr. Hernandez performed left thoracocentesis of about 800 mL fluid was removed. PAST MEDICAL HISTORY: Reviewed. REVIEW OF SYSTEMS: Cardiovascular: No angina or palpitations. RESPIRATION: As mentioned earlier. GI no nausea or vomiting. no dysuria. NERVOUS SYSTEM: No numbness or weakness. CURRENT MEDICATIONS ARE: Noted. Medications are reviewed and include: 1. [place] 7.5 q.6h p.r.n. 2. Os-Bautista with vitamin D, vitamin D3 2000 daily. 3. Decadron 80 mg IV q.8h. 4. Folic acid 1 mg. 5. Synthroid 125 mcg. 6. Duoderm patch. 7. Ativan. 8. Lopressor. 9. Multivitamins. 10.Narcan. 11.Habitrol. 12.Protonix. PHYSICAL EXAM: Patient is alert, oriented x3. Pulse 85, blood pressure 143/80, respiration 20, temperature 98.1, pulse ox 98% on room air. HEENT is conjunctivae normal. Oral mucosa moist. NECK is no jugular venous distention. No carotid bruit. No lymph node enlargement. Cardiovascular systems: S1, S2. RESPIRATORY: Breath sounds diminished in the bases. A few scattered rhonchi and crackles. ABDOMEN: Soft, nontender. LEGS: No edema. No swelling. CENTRAL NERVOUS SYSTEM: No focal deficits. LABS: At this time shows WBC 96.5, hemoglobin 7.2, sodium 135, potassium 3.6. UA noted. 26 WBCs. ASSESSMENT: 1. Weakness, numbness of the right upper limb, possibly transient ischemic attack, rule out seizure disorder. 2. History of lung cancer with METS, status post radiation therapy. 3. History of breast cancer. 4. Left pleural effusion status post thoracocentesis 800 mL fluid. 5. Increased WBC. 6. Anemia. 7. Increased platelets. 8. Hyponatremia. 9. Hypokalemia. 10.Hypocalcemia. 11.Urinary tract infection present on admission. 12.History of breast surgery, mastectomy. 13.Remote history of nicotine dependence. 14.Mild to moderate protein calorie malnutrition with BMI of 19.9. RECOMMENDATIONS AND DISCUSSION: Recommend to continue current medications, monitoring and symptomatic treatment. Otherwise, at this time, we will monitor the patient closely. Otherwise, continue with steroids. Dr. Hernandez's input appreciated. Otherwise, closely follow with Dr. Wild. Guarded prognosis because of multiple complex medical issues. Further recommendations to follow. MMODL / IJN: [id number] /
[2019-03-12] MEDS: PANTOPRAZOLE 40 MG TABLET PO SCH ×2 (06:00→17:12)
[2019-03-12] MEDS: HYDROcodone/APAP 7.5-325MG 1 EACH TAB PO PRN ×4 (06:00→23:37)
[2019-03-12] MEDS: LEVOTHYROXINE 125 MCG TAB PO SCH (06:00)
[2019-03-12] MEDS: DEXAMETHASONE SOD PHOSPHATE 4 MG/ML 1 ML VIAL IV SCH ×4 (06:00→23:37)
[2019-03-12 06:03] LABS: HCT 23.9 % (34.0-46.0); HGB 7.4 gm/dL (11.4-16.0); Hypochromasia Marked; MCH 29.9 pg (25.0-35.0); MCV 96.4 fL (80.0-100.0); Platelet Count 585 k/uL (150-450); RBC 2.48 m/uL (3.80-5.40); RDW 14.6 % (11.5-15.5)
[2019-03-12 06:07] LABS: WBC 95.5 k/uL (3.8-10.6)
[2019-03-12 06:11] LABS: African American GFR (CKD) >90 (>60 ml/min/1.73 sqM); Anion Gap 11 mmol/L; Blood Urea Nitrogen 9 mg/dL (7-17); Calcium 7.8 mg/dL (8.4-10.2); Carbon Dioxide 28 mmol/L (22-30); Chloride 96 mmol/L (98-107); Glucose 119 mg/dL (74-99); Potassium 3.3 mmol/L (3.5-5.1); Sodium 135 mmol/L (137-145)
[2019-03-12 06:52] LABS: Band Neutrophils % 3 %; Lymphocytes # (M) 0.96 k/uL (1.0-4.8); Monocytes # (M) 0.96 k/uL (0-1.0); Neutrophils % (M) 96 %; Nucleated Red Blood Cells 0 /100 WBC (0-0); Total Cells Counted 200; Toxic Granulation Present
[2019-03-12] MEDS ORDERED: SENNOSIDES 8.6 MG TAB PO PRN (07:43)
[2019-03-12] MEDS ORDERED: Alendronate Sodium [Alendronate Sodium] 70 MG PO SCH (09:00)
[2019-03-12] MEDS: DOCUSATE 100 MG CAP PO SCH ×2 (09:15→19:35)
[2019-03-12] MEDS: CALCIUM CARB-VIT D 500MG-200UN 1 EACH TAB PO SCH (09:15)
[2019-03-12] MEDS: CHOLECALCIFEROL 1,000 UNIT TAB PO SCH (09:15)
[2019-03-12] MEDS: FOLIC ACID 1 MG TAB PO SCH (09:15)
[2019-03-12] MEDS: NICOTINE 14MG/24HR PATCH TRANSDERM SCH (09:16)
[2019-03-12] MEDS: METOPROLOL TARTRATE 25 MG TAB PO SCH ×2 (09:16→19:35)
[2019-03-12] MEDS: LIDOCAINE 5% PATCH TOPICAL SCH (09:16)
[2019-03-12] MEDS: MULTIVITAMINS, THERA 1 EACH TAB PO SCH (09:16)
[2019-03-12] MEDS ORDERED: POTASSIUM CHLORIDE ER 20 MEQ TAB.ER PO STA (10:38)
--- NOTE | 2019-03-12 13:32 | P.PN ---
Subjective Progress Note Date: 03/12/19 Principal diagnosis: right upper extremity weakness and dysphagia, most likely secondary to metastatic disease to the brain. This is a very pleasant 63-year-old female patient who follows with Dr. Dawn as her primary care physician. She has a history of hypothyroidism and previous breast cancer with a left mastectomy in 1998. Thyroidectomy. Former smoker. She was admitted here back in December 2018 with weakness and was found to have a left hilar and lower lobe mass. She had undergone biopsies by Dr. 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 She had undergone 10 radiation treatments to the brain. Colon biopsy was positive for non-small cell carcinoma favoring metastasis from pulmonary primary. She is due to start chemotherapy next week. She presented here to the emergency room yesterday after having right arm numbness and weakness as well as dysphasia and was having trouble calling out to her for help. Computed tomography scan of the brain revealed several foci of cerebral edema consistent with metastatic disease. No intracranial hemorrhage. She has been on Decadron 4 mg twice a day in the outpatient setting. Chest x-ray reveals near complete white out of the left lung. We are consulted for the same. She is seen in consultation on the selective care unit. Presently, she is awake and alert in no acute distress. She has nearly complete resolution of the right arm numbness. Her speech is clear. She is oriented 3. She does have some dyspnea on exertion. Comfortable at rest. Maintain O2 saturations in the high 90s on 2 L/m per nasal cannula. She's afebrile. Blood pressure stable. Slightly tachycardic. Urine culture pending. Initial white count 104.8, currently 96.4. Hemoglobin 7.8. Platelet count 647,000, neutrophils 95, sodium 135. Creatinine 0.34. Glucose 124. Calcium 8.0. Troponin is negative 3. Reevaluated today on 03/12/2019, continues to have a bit of discomfort in the left shoulder area. Denies any cough no wheezing no shortness of breath. No fever no chills no hemoptysis, and her neurological symptoms have resolved.WBC count is 95.5 hemoglobin is 7.4. Electrolytes are normal except for low potassium of 3.3 being corrected as per protocol. Objective - Vital Signs Vital signs: Vital Signs Temp 96.3 F L 03/12/19 12:00 Pulse 79 03/12/19 12:00 Resp 20 03/12/19 12:00 BP 159/62 03/12/19 12:00 Pulse Ox 100 03/12/19 12:00 Intake & Output 03/11/19 03/12/19 03/12/19 18:59 06:59 18:59 Intake Total 720 160 100 Output Total 500 300 850 Balance 220 -140 -750 Weight 44.7 kg 46.6 kg Intake: Intake, IV Titration 160 Amount Sodium Chloride 0.9% 1, 160 000 ml @ 20 mls/hr IV . Q24H [facility] Rx#:[id number] Oral 720 100 Output: Urine 500 300 850 Other: Voiding Method Toilet # Voids 1 1 # Bowel Movements 2 - Exam GENERAL EXAM: Very pleasant 63-year-old female patient, alert, fairly comfortable in no apparent distress. On 2 L nasal cannula. HEAD: Alopecia secondary to radiation treatments to the brain. Normocephalic. EYES: Normal reaction of pupils, equal size. NOSE: Clear with pink turbinates. THROAT: No erythema or exudates. NECK: No masses, no JVD. CHEST: No chest wall deformity. LUNGS: Crackles and diminished in the left lung. CVS: S1 and S2 normal with no audible murmur, regular rhythm. ABDOMEN: No hepatosplenomegaly, normal bowel sounds, no guarding or rigidity. SPINE: No scoliosis or deformity SKIN: No rashes CENTRAL NERVOUS SYSTEM: No focal deficits currently, tone is normal in all 4 extremities. EXTREMITIES: There is no peripheral edema. No clubbing, no cyanosis. Peripheral pulses are intact. - Labs CBC & Chem 7: 03/12/19 05:16 03/12/19 05:16 Labs: Abnormal Lab Results - Last 24 Hours (Table) 03/12/19 03/12/19 Range/Units 05:16 05:16 WBC 95.5 H* (3.8-10.6) k/uL RBC 2.48 L (3.80-5.40) m/uL Hgb 7.4 L (11.4-16.0) gm/dL Hct 23.9 L (34.0-46.0) % Plt Count 585 H (150-450) k/uL Neutrophils # (Manual) 94.50 H (1.3-7.7) k/uL Lymphocytes # (Manual) 0.96 L (1.0-4.8) k/uL Sodium 135 L (137-145) mmol/L Potassium 3.3 L (3.5-5.1) mmol/L Chloride 96 L (98-107) mmol/L Creatinine 0.40 L (0.52-1.04) mg/dL Glucose 119 H (74-99) mg/dL Calcium 7.8 L (8.4-10.2) mg/dL Microbiology - Last 24 Hours (Table) 03/11/19 12:30 Gram Stain - Preliminary Pleural Fluid Body Fluid Culture - Preliminary 03/10/19 22:24 Urine Culture - Final Urine,Voided 03/11/19 12:30 Anaerobic Culture - Preliminary Pleural Fluid Assessment and Plan Assessment: #1 Right upper extremity numbness and weakness, dysphasia, recovered. Suspect secondary to several foci of cerebral edema consistent with metastatic disease. Status post 10 radiation treatments. On Decadron in the outpatient setting. Due to start chemotherapy on 03/15/2019. #2 Large left pleural effusion secondary to non-small cell lung cancer with metastasis to the brain and colon. status post left-sided thoracentesis, 800 mL of fluid drained sent for different diagnostic studies, results of which are pending. 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 #3 Significant leukocytosis. Being addressed by oncology on the case. #4 Anemia. most likely of chronic disease. #5 History of chronic tobacco dependence. #6 History of breast cancer status post left mastectomy in 1998. #7 History of thyroid cancer status post thyroidectomy. Recommendation: Continue present treatment plan, discussed her condition with the oncologist on the case, patient may have to be considered for radiation treatment since the chest x-ray did not change much after the thoracentesis, and there is a lateral deviation of the trachea suspicious for endobronchial tumor involving the left mainstem bronchus. Even if the patient is fully drained and had a full thoracentesis, she will continue to have a trapped lung. Prognosis is definitely poor and guarded. Time with Patient: Less than 30
[2019-03-12] MEDS: DICLOFENAC SODIUM GEL 100 GM TUBE TOPICAL SCH ×3 (13:36→19:36)
[2019-03-12] MEDS: SODIUM CHLORIDE 0.9% 1,000 ML IV SCH (19:38)
--- NOTE | 2019-03-12 21:16 | PN ---
PROGRESS NOTE DATE OF SERVICE: 03/12/2019. This 63-year-old woman was admitted with weakness and numbness of the right upper limb is suspected to have a TIA. The patient also had pleural effusion on the left side, which Dr. Hernandez aspirated 800 mL of fluid. The patient is slightly better. Patient on IV steroids. White count is elevated. Potassium 3.3. No chest pain. No palpitation. PHYSICAL EXAM: Alert and oriented x3. Pulse 79. Blood pressure 159/62, respiration 20, temperature 98.2. Pulse ox 100 percent on room air. HEENT: Conjunctivae normal. NECK: S1, S2. CARDIOVASCULAR: S1, S2 muffled. RESPIRATORY: Breath sounds diminished in the bases. A few scattered rhonchi and crackles. ABDOMEN is soft, nontender. LEGS are no edema. No swelling. NERVOUS SYSTEM: Diffusely weak. LAB STUDIES: WBC 95.2, hemoglobin 7.4, sodium 130, potassium 3.3. IV fluids are noted. ASSESSMENT: 1. Weakness and numbness of the right upper limb, possibly transient ischemic attack, rule out seizure disorder. 2. History of lung cancer with METS, status post radiation therapy. 3. History of breast cancer. 4. Left pleural effusion status post thoracocentesis 800 mL fluid. 5. Increased WBC. 6. Anemia. 7. Increased platelets. 8. Hyponatremia. 9. Hypokalemia. 10.Hypocalcemia. 11.Urinary tract infection present on admission. 12.History of breast surgery, mastectomy. 13.Remote history of nicotine dependence. 14.Mild to moderate protein calorie malnutrition with BMI of 19.9. RECOMMENDATIONS AND DISCUSSION: Recommend to continue current medications, management and symptomatic treatment. Continue with IV steroids. Continue the rest of medications. PT/OT evaluation. Otherwise supplement potassium and Dr. Dawn will follow. MMODL / IJN: [id number] /
--- NOTE | 2019-03-13 00:19 | CONS ---
CONSULTATION DATE OF DICTATION: 03/12/2019. ADMITTING PHYSICIAN: Dr. Lynn. REASON FOR CONSULTATION: Lung cancer. HISTORY OF ILLNESS: Lissette is a 63-year-old female who was recently diagnosed with advanced metastatic non-small cell carcinoma of the lung, adenocarcinoma subtype, she presented with unfortunate diagnosis of stage IV and metastatic disease to the brain. The patient completed whole-brain radiation and she is about to start systemic chemotherapy with a combination of Carboplatin, Alimta, and Keytuda. She presented to the hospital with progressive shortness of breath, was found to have opacification of the left hemithorax. The patient was seen by Dr. Hernandez and underwent CT diagnostic/therapeutic thoracentesis where 1000 mL of bloody fluid were removed and the patient developed anticipated chest pain during the procedure and has no relief of her shortness of breath and chest x-ray shows no significant improvement. Per my discussion with Dr. Hernandez today, the patient is likely to have a sense of a airway compression. The patient admitted having central chest discomfort. No skeletal pain. She reports generalized weakness and increasing shortness of breath as stated. PAST MEDICAL HISTORY: 1. Recently diagnosed non-small cell cancer of the lung. 2. Smoking-related COPD. CURRENT MEDICATIONS: Reviewed and documented in the electronic medical record. SOCIAL HISTORY: The patient smoked 2 packs of cigarettes daily. FAMILY HISTORY: Was unremarkable for malignancies. REVIEW OF SYSTEMS: Progressive anorexia, weight loss, generalized weakness, and aside from chest pain, no shortness of breath. No hemoptysis. EXAMINATION: The patient appeared alert and oriented. Blood pressure was 156/84, pulse of 88 and regular, respiratory rate was 16, not labored. Temperature is afebrile. There were no pathologic cervical supraclavicular, infraclavicular or axillary adenopathy. Trachea was in midline. Chest: The right hemithorax was clear. There was absence of breath sounds in the left hemithorax. The abdomen was soft. The liver and spleen were not clinically palpable and no masses tenderness or inguinal lymphadenopathy and extremities appears to be grossly unremarkable. Range of motion was within normal. No deformities seen. Neurologic examination showed no focal motor or sensory deficits. Cranial nerves 2-12 are unremarkable. IMPRESSION: 1. Metastatic non-small cell cancer of the lung to the brain, status post whole-brain radiation therapy. 2. Progressive dyspnea due to left lung collapse, ? central airway compression as well as malignant pleural effusion. 3. Smoking-related chronic obstructive pulmonary disease. 4. Reactive leukocytosis with a white blood cell count of 95,000. 5. Malignancy induced anemia with a hemoglobin of 7.4. RECOMMENDATIONS: 1. Discussed the case with Dr. Hernandez. Therapeutic thoracentesis was clinically ineffective. 2. Consider bronchoscopy with central disease ablation versus palliative external beam radiation therapy. 3. Consult Radiation Oncology. I discussed the case with Dr. Funez who will evaluate the patient in the next 24 hours therapy with palliative radiation therapy. 4. Systemic chemotherapy with Carboplatin, soon. Overall, the patient has poor prognosis. We will follow the patient along with you. MMODL / IJN: [id number] /
[2019-03-13] MEDS: HYDROcodone/APAP 7.5-325MG 1 EACH TAB PO PRN ×2 (06:33→20:16)
[2019-03-13] MEDS: DEXAMETHASONE SOD PHOSPHATE 4 MG/ML 1 ML VIAL IV SCH ×4 (06:33→23:06)
[2019-03-13] MEDS: PANTOPRAZOLE 40 MG TABLET PO SCH ×2 (06:34→16:49)
[2019-03-13] MEDS: LEVOTHYROXINE 125 MCG TAB PO SCH (06:34)
[2019-03-13 07:19] LABS: HCT 26.9 % (34.0-46.0); HGB 7.8 gm/dL (11.4-16.0); Hypochromasia Moderate; MCH 28.3 pg (25.0-35.0); MCHC 28.9 g/dL (31.0-37.0); MCV 97.8 fL (80.0-100.0); Mean Platelet Volume 6.6; Platelet Count 657 k/uL (150-450); RBC 2.75 m/uL (3.80-5.40); WBC 112.7 k/uL (3.8-10.6)
[2019-03-13 07:30] LABS: African American GFR (CKD) >90 (>60 ml/min/1.73 sqM); Anion Gap 11 mmol/L; Blood Urea Nitrogen 10 mg/dL (7-17); Calcium 8.3 mg/dL (8.4-10.2); Carbon Dioxide 27 mmol/L (22-30); Chloride 97 mmol/L (98-107); Glucose 103 mg/dL (74-99); Potassium 4.3 mmol/L (3.5-5.1); Sodium 135 mmol/L (137-145)
--- NOTE | 2019-03-13 07:34 | XR ---
EXAMINATION TYPE: XR chest 1V portable DATE OF EXAM: 03/13/2019 COMPARISON: 03/11/2019 HISTORY: Shortness of breath, follow-up for pleural effusion TECHNIQUE: Single frontal view of the chest is obtained. FINDINGS: There is a new reticular opacity in the right upper lobe along the right minor fissure lat erally. There is continued complete opacification of the left lung with the tiny left apical pneumoth orax no longer visualized. There is leftward deviation of the trachea and mediastinum from volume los s. There is narrowing of the left mainstem bronchus. Trace right pleural effusion has resolved. Compe nsatory hyperinflation of the right lung is noted. Osseous structures are grossly intact. IMPRESSION: 1. New right lateral upper lobe reticular opacity, likely pneumonia. 2. Continued complete opacification of the left lung thought to represent endobronchial obstruction a nd atelectasis given the slitlike appearance of the left mainstem bronchus and leftward mediastinal/t maude shift.
[2019-03-13 08:49] LABS: Band Neutrophils % 1 %; Lymphocytes # (M) 2.25 k/uL (1.0-4.8); Monocytes # (M) 2.25 k/uL (0-1.0); Myelocytes # (M) 1.13 k/uL (0); Myelocytes % 1 %; Neutrophils % (M) 95 %; Nucleated Red Blood Cells 0 /100 WBC (0-0); Total Cells Counted 200
[2019-03-13] MEDS: LIDOCAINE 5% PATCH TOPICAL SCH (09:21)
[2019-03-13] MEDS: DICLOFENAC SODIUM GEL 100 GM TUBE TOPICAL SCH ×4 (09:23→20:08)
[2019-03-13] MEDS: CALCIUM CARB-VIT D 500MG-200UN 1 EACH TAB PO SCH (09:24)
[2019-03-13] MEDS: METOPROLOL TARTRATE 25 MG TAB PO SCH ×2 (09:24→20:08)
[2019-03-13] MEDS: FOLIC ACID 1 MG TAB PO SCH (09:24)
[2019-03-13] MEDS: NICOTINE 14MG/24HR PATCH TRANSDERM SCH (09:24)
[2019-03-13] MEDS: CHOLECALCIFEROL 1,000 UNIT TAB PO SCH (09:24)
[2019-03-13] MEDS: DOCUSATE 100 MG CAP PO SCH ×2 (09:24→20:08)
[2019-03-13] MEDS: MULTIVITAMINS, THERA 1 EACH TAB PO SCH (09:25)
--- NOTE | 2019-03-13 13:13 | P.PN ---
Subjective Progress Note Date: 03/13/19 Principal diagnosis: Continued right upper extremity tingling and weakness. This is a continue present on a 63-year-old white female with history of metastatic lung cancer who has recently gone and radiation treatment who is admitted essentially complaining of TIA to symptomatology. The patient states she is much improved. No significant fever or chills are stated. Appreciate multiple consultants input. Objective - Vital Signs Vital signs: Vital Signs Temp 98.0 F 03/13/19 04:00 Pulse 89 03/13/19 12:00 Resp 17 03/13/19 12:00 BP 164/68 03/13/19 12:00 Pulse Ox 97 03/13/19 12:00 Intake & Output 03/12/19 03/13/19 03/13/19 18:59 06:59 18:59 Intake Total 460 320 400 Output Total 1200 400 Balance -740 -80 400 Weight 44.8 kg Intake: Intake, IV Titration 320 Amount Sodium Chloride 0.9% 1, 320 000 ml @ 20 mls/hr IV . Q24H [facility] Rx#:[id number] Oral 460 400 Output: Urine 1200 400 Other: Voiding Method Toilet # Voids 1 1 # Bowel Movements 2 - Constitutional General appearance: Present: thin - EENT Eyes: Absent: abnormal pupil - Neck Neck: Absent: lymphadenopathy - Respiratory Respiratory: bilateral: CTA - Cardiovascular Rhythm: regular Heart sounds: normal: S1, S2 Abnormal Heart Sounds: Absent: S3 Gallop - Integumentary Integumentary: Absent: cellulitis - Psychiatric Psychiatric: Present: A&O x's 3 - Labs CBC & Chem 7: 03/13/19 06:36 03/13/19 06:36 Labs: Abnormal Lab Results - Last 24 Hours (Table) 03/13/19 03/13/19 Range/Units 06:36 06:36 WBC 112.7 H* (3.8-10.6) k/uL RBC 2.75 L (3.80-5.40) m/uL Hgb 7.8 L (11.4-16.0) gm/dL Hct 26.9 L (34.0-46.0) % MCHC 28.9 L (31.0-37.0) g/dL Plt Count 657 H (150-450) k/uL Neutrophils # (Manual) 108.10 H (1.3-7.7) k/uL Monocytes # (Manual) 2.25 H (0-1.0) k/uL Myelocytes # (Manual) 1.13 H (0) k/uL Sodium 135 L (137-145) mmol/L Chloride 97 L (98-107) mmol/L Creatinine 0.38 L (0.52-1.04) mg/dL Glucose 103 H (74-99) mg/dL Calcium 8.3 L (8.4-10.2) mg/dL Microbiology - Last 24 Hours (Table) 03/11/19 12:30 Gram Stain - Preliminary Pleural Fluid Body Fluid Culture - Preliminary Assessment and Plan (1) Brain metastasis Current Visit: Yes Status: Acute Priority: High Code(s): C79.31 - SECONDARY MALIGNANT NEOPLASM OF BRAIN SNOMED Code(s): 40087172 (2) TIA (transient ischemic attack) Current Visit: Yes Status: Acute Code(s): G45.9 - TRANSIENT CEREBRAL ISC HEMIC ATTACK, UNSPECIFIED SNOMED Code(s): 756119991 Plan: Continue current regimen of treatment. check CBC and CMP in a.m. Prognosis guarded secondary to multiple comorbidities. Comfort control at this time also.
--- NOTE | 2019-03-13 14:53 | PN ---
PROGRESS NOTE PULMONARY/CRITICAL CARE PROGRESS NOTE: DATE OF SERVICE: 03/13/2019 A 63-year-old female with a history of right upper extremity numbness and weakness with dysphasia. The symptoms have pretty much resolved. She was thought to have cerebral edema consistent with her metastatic disease from her primary non-small cell lung cancer. In addition, she had a large left pleural effusion drained by my partner 2 days ago. This is secondary to her non-small cell lung cancer. The left chest really has not changed appreciably. She appears to have some trapped lung and/or endobronchial disease. The patient's cytology from the fluid evaluation is pending. at 100 mL was removed. Honestly, there is probably 2.5 L in the left chest. In addition, she has a history of significant leukocytosis, chronic anemia, chronic tobacco dependence, breast cancer, status post left mastectomy in 1998, and thyroid cancer with previous thyroidectomy. She is sitting at the side of the bed. She is having lots of nausea vomiting. She just does not feel very comfortable. Vital signs are reviewed. Temperature is 98, heart rate is 94, respiratory rate 19, blood pressure 131/59, mean 83, 2 L saturation 98%. She appears in no acute distress. From the pulmonary standpoint. She is having lots of nausea and vomiting. HEENT examination is grossly unremarkable. Nasal O2 in place. Neck is supple. Full range of motion. No adenopathy. Neck veins are flat. CARDIOVASCULAR examination reveals regular rhythm rate. Heart rate right around 100 beats per minute. S1, S2 normal. Lungs reveal diminished breath sounds on the left. Breath sounds are clear on the right. No wheezes, rhonchi, or crackles. There is numbness on the left side. ABDOMEN is soft. Bowel sounds are heard. EXTREMITIES are intact. There is no cyanosis, clubbing, or edema. Skin without rash. NEUROLOGIC examination is brief but nonfocal. We looked at the left chest area. The prior x-ray, not much change, even though she apparently did have a 800 cc thoracentesis. LABS: Reviewed. White count 112.7 1000, hemoglobin 7.8, hematocrit 26.9, platelet count 657,000. Sodium 135, potassium 4.3, chloride 97, CO2 of 27, anion gap is 11, BUN and creatinine were 10 and 0.38. The fluid analysis is pending. Microbiologic studies are negative. Chest x-ray from the continues to show complete opacification of the left chest. Medications are reviewed. ASSESSMENT: 1. Right upper extremity weakness and numbness with dysphagia, recovered, secondary to cerebral edema consistent with the patient's metastatic non-small cell lung cancer. 2. Large left pleural effusion secondary to non-small cell lung cancer. The patient did have a left-sided thoracentesis and 800 mL was removed. 3. Metastatic non-small cell lung cancer to the colon. 4. Significant leukocytosis/leukemoid reaction, being addressed by Oncology. 5. Anemia of chronic disease. 6. History of chronic tobacco dependence. 7. History of breast cancer, status post mastectomy in 1998. 8. History of thyroid cancer, status post thyroidectomy. Plan: Overall, the patient is doing reasonably well from the pulmonary standpoint. She is currently struggling without nausea, vomiting. There is no plans to do another thoracentesis on this patient. There was no appreciable change before and after the thoracentesis that was recently done by my partner. The fluid cytology is pending. Code status really needs to be addressed. I think would be disastrous if this woman ever ended up on life support. Additional recommendations and suggestions are forthcoming. MMODL / IJN: [id number] / CARLOS
--- NOTE | 2019-03-13 15:49 | P.PN ---
Subjective Progress Note Date: 03/13/19 Principal diagnosis: NSCLC, symptomatic pleural effusion, obstruction In follow-up today patient is doing fairly well, she ate all of her food, her respiratory status is stable, little bit better after the draining of the fluid, she is not currently in any pain. Objective - Vital Signs Vital signs: Vital Signs Temp 98.0 F 03/13/19 04:00 Pulse 89 03/13/19 12:00 Resp 17 03/13/19 15:01 BP 164/68 03/13/19 12:00 Pulse Ox 97 03/13/19 12:00 Intake & Output 03/12/19 03/13/19 03/13/19 18:59 06:59 18:59 Intake Total 460 320 400 Output Total 1200 400 Balance -740 -80 400 Weight 44.8 kg Intake: Intake, IV Titration 320 Amount Sodium Chloride 0.9% 1, 320 000 ml @ 20 mls/hr IV . Q24H LU Rx#:[id number] Oral 460 400 Output: Urine 1200 400 Other: Voiding Method Toilet # Voids 1 1 # Bowel Movements 2 - Constitutional General appearance: Present: cooperative, no acute distress, thin - EENT Eyes: Present: anicteric sclerae, EOMI ENT: Present: hearing grossly normal - Respiratory Respiratory: right: rales, left: diminished - Cardiovascular Heart sounds: normal: S1, S2 Abnormal Heart Sounds: Absent: systolic murmur, diastolic murmur, rub, S3 Gallop, S4 Gallop, click, other - Peripheral edema leg Peripheral Edema: bilateral: None - Gastrointestinal General gastrointestinal: Present: normal bowel sounds, soft - Neurologic Neurologic: Present: focal deficits - Musculoskeletal Musculoskeletal: Present: generalized weakness - Psychiatric Psychiatric: Present: A&O x's 3, appropriate affect, intact judgment & insight - Labs CBC & Chem 7: 03/13/19 06:36 03/13/19 06:36 Labs: Abnormal Lab Results - Last 24 Hours (Table) 03/13/19 03/13/19 Range/Units 06:36 06:36 WBC 112.7 H* (3.8-10.6) k/uL RBC 2.75 L (3.80-5.40) m/uL Hgb 7.8 L (11.4-16.0) gm/dL Hct 26.9 L (34.0-46.0) % MCHC 28.9 L (31.0-37.0) g/dL Plt Count 657 H (150-450) k/uL Neutrophils # (Manual) 108.10 H (1.3-7.7) k/uL Monocytes # (Manual) 2.25 H (0-1.0) k/uL Myelocytes # (Manual) 1.13 H (0) k/uL Sodium 135 L (137-145) mmol/L Chloride 97 L (98-107) mmol/L Creatinine 0.38 L (0.52-1.04) mg/dL Glucose 103 H (74-99) mg/dL Calcium 8.3 L (8.4-10.2) mg/dL Microbiology - Last 24 Hours (Table) 03/11/19 12:30 Gram Stain - Preliminary Pleural Fluid Body Fluid Culture - Preliminary Assessment and Plan (1) Non-small cell lung cancer with metastasis Narrative/Plan: Status post whole brain radiation. Patient has not yet begun chemotherapy. Plan is to begin this very soon Current Visit: Yes Status: Acute Priority: High Code(s): C34.90 - MALIGNANT NEOPLASM OF UNSP PART OF UNSP BRONCHUS OR LUNG SNOMED Code(s): 044168201 (2) Neutrophilic leukocytosis Narrative/Plan: Secondary to steroids and current illness, no acute intervention needed Current Visit: Yes Status: Acute Priority: Low Code(s): D72.9 - DISORDER OF WHITE BLOOD CELLS, UNSPECIFIED SNOMED Code(s): 331540363 (3) Brain metastasis Narrative/Plan: Status post whole brain radiation. Patient remains on steroids. Steroids need to be tapered down. Current Visit: Yes Status: Acute Priority: High Code(s): C79.31 - SECONDARY MALIGNANT NEOPLASM OF BRAIN SNOMED Code(s): 96807559 (4) Normocytic anemia Narrative/Plan: Mild iron deficiency on lab review. Oral supplement adequate at this time. No need for transfusion at this time, transfuse for Hgb<7 or if symptomatic Current Visit: Yes Status: Acute Priority: Medium Code(s): D64.9 - ANEMIA, UNSPECIFIED SNOMED Code(s): 840401649 Plan: Pleural effusion, Failure of the lung to re-expand post thoracentesis: Did review some of the recent imaging with the Radiation Oncologist. Radiation Oncology and Pulmonary are evaluating patient's case to see what the best approach is to see if there is the possibility of procedure (bronch, radiation) that will help to open up the obstruction. Ongoing dialogue, plan to be determined.
[2019-03-13] MEDS: FERROUS SULFATE 325 MG TAB PO SCH (16:49)
[2019-03-13] MEDS: SODIUM CHLORIDE 0.9% 1,000 ML IV SCH (20:08)
[2019-03-14 05:24] LABS: Glucose,Whole Blood 123 mg/dL (75-99)
--- NOTE | 2019-03-14 05:48 | CT ---
EXAM: CT Head Without Intravenous Contrast CLINICAL HISTORY: ITS.REASON CT Reason: code stroke TECHNIQUE: Axial computed tomography images of the head/brain without intravenous contrast. CTDI is 49 mGy and DLP is 1072 mGy-cm. This CT exam was performed using one or more of the following dose reduction techniques: automated exposure control, adjustment of the mA and/or kV according to patient size, and/or use of iterative reconstruction technique. COMPARISON: CT head 03/10/19 FINDINGS: Redemonstration of multifocal hypodensities especially in the left frontal lobe, left parietal lobe, and bilateral occipital lobes. No hemorrhage, hydrocephalus, or herniation. IMPRESSION: Findings are not significantly changed since the prior exam. Findings likely represent multiple metastasis. <MYCVCSECTION> Critical Value Communications 03/14/19 05:54 Verify Receipt with Nurse Verified receipt with No need to verify per Dr. Cordero
[2019-03-14] MEDS: LEVOTHYROXINE 125 MCG TAB PO SCH (05:50)
[2019-03-14] MEDS: levETIRAcetam 250 MG TAB PO SCH ×2 (05:50→20:15)
[2019-03-14] MEDS: DEXAMETHASONE SOD PHOSPHATE 4 MG/ML 1 ML VIAL IV SCH ×4 (05:50→23:11)
[2019-03-14] MEDS: PANTOPRAZOLE 40 MG TABLET PO SCH ×2 (05:50→17:32)
[2019-03-14 06:08] LABS: HCT 25.8 % (34.0-46.0); HGB 7.7 gm/dL (11.4-16.0); Hypochromasia Moderate; MCH 28.3 pg (25.0-35.0); MCHC 29.9 g/dL (31.0-37.0); MCV 94.7 fL (80.0-100.0); Platelet Count 627 k/uL (150-450); RBC 2.72 m/uL (3.80-5.40); RDW 15.4 % (11.5-15.5)
[2019-03-14 06:11] LABS: WBC 104.3 k/uL (3.8-10.6)
[2019-03-14 06:17] LABS: ALT 21 U/L (9-52); AST 25 U/L (14-36); African American GFR (CKD) >90 (>60 ml/min/1.73 sqM); Albumin 2.9 g/dL (3.5-5.0); Alkaline Phosphatase 288 U/L (38-126); Anion Gap 12 mmol/L; Blood Urea Nitrogen 10 mg/dL (7-17); Calcium 8.4 mg/dL (8.4-10.2); Carbon Dioxide 28 mmol/L (22-30); Chloride 95 mmol/L (98-107); Glucose 85 mg/dL (74-99); Potassium 3.7 mmol/L (3.5-5.1); Sodium 135 mmol/L (137-145); Total Bilirubin 0.4 mg/dL (0.2-1.3); Total Protein 5.6 g/dL (6.3-8.2)
[2019-03-14 06:23] LABS: Partial Thromboplastin Time 21.9 sec (22.0-30.0); Prothrombin Time 10.8 sec (9.0-12.0)
[2019-03-14 06:39] LABS: Band Neutrophils % 3 %; Lymphocytes # (M) 3.13 k/uL (1.0-4.8); Monocytes # (M) 2.09 k/uL (0-1.0); Neutrophils % (M) 93 %; Nucleated Red Blood Cells 0 /100 WBC (0-0); Total Cells Counted 200
[2019-03-14 06:40] LABS: Target Cells Present
[2019-03-14] MEDS: DICLOFENAC SODIUM GEL 100 GM TUBE TOPICAL SCH ×5 (09:00→20:15)
--- NOTE | 2019-03-14 09:19 | P.CONS ---
History of Present Illness - Reason for Consult Consult date: 03/13/19 dyspnea Requesting physician: Juno Hernadez - Chief Complaint short of breath - History of Present Illness The patient is a 63-year-old female with a remote history of left breast cancer and a recent diagnosis of metastatic poorly differentiated non-small cell lung cancer with metastatic disease involving the brain. She is status post whole brain radiotherapy finishing on February 06, 2019. She has not yet initiated any systemic therapy, when she was hospitalized with concerns of possible TIA. She also has reported increasing dyspnea. The patient presented to the ER on March 10 complaining of an episode of difficulty with speech and right arm weakness. According to the patient, these complaints resolved except she still feels mildly week in the right extremity. A CT scan of the brain was performed without contrast on admission, and this revealed the patient's known area of brain metastases without evidence of stroke. The patient was found on a chest x-ray to have complete opacification of the left hemithorax, which was a change from prior imaging. The patient reports that she is also been feeling increasingly dyspneic over the last couple weeks. She did have in ipsilateral pleural effusion, and left-sided thoracentesis was performed revealing 800 cc of fluid. Further fluid could not be removed secondary to the patient developing pain. The patient reports that despite currently being on 2 L of oxygen, she still feels her breathing is worse than normal. She has however not been out of bed since her hospitalization. She denies difficulty with cough, chest pain or dysphasia. She has no significant headache, but she has felt a little bit nauseous and had one episode of emesis earlier today. The patient was initially planning on starting ch emotherapy this week prior to her hospitalization. Review of Systems Constitutional: Denies chills, Denies fever Eyes: bilateral blurred vision Ears: deny: decreased hearing Ears, nose, mouth and throat: Denies dysphagia Cardiovascular: Denies chest pain Respiratory: Reports dyspnea, Reports home oxygen, Denies cough Gastrointestinal: Reports nausea, Reports vomiting Musculoskeletal: Denies low back pain Neurological: Reports aphasia (POssible - resolved prior to admit), Reports weakness (Right upper extremity), Denies balance difficulties, Denies change in mentation, Denies confusion, Denies convulsions, Denies double vision, Denies headaches Past Medical History Past Medical History: Cancer, Thyroid Disorder Additional Past Medical History / Comment(s): breast cancer, lung CA, Brain lesions History of Any Multi-Drug Resistant Organisms: None Reported Past Surgical History: Breast Surgery Additional Past Surgical History / Comment(s): left breast masectomy 99, thyroid removed Past Anesthesia/Blood Transfusion Reactions: No Reported Reaction Past Psychological History: No Psychological Hx Reported Smoking Status: Former smoker Past Alcohol Use History: None Reported Additional Past Alcohol Use History / Comment(s): quit in december 2018 Past Drug Use History: None Reported - Past Family History Mother Family Medical History: Hypertension Medications and Allergies Home Medications Medication Instructions Recorded Confirmed Type Multivitamins, Thera [Multivitamin 1 tab PO DAILY 01/09/19 03/10/19 History (formulary)] Alendronate Sodium 70 mg PO FLORES 01/10/19 03/10/19 History Levothyroxine Sodium [Synthroid] 125 mcg PO DAILY 01/10/19 03/10/19 History Lidocaine 5% Patch [Lidoderm 5% 1 patch TOPICAL DAILY #10 patch 01/12/19 03/10/19 Rx Patch] Metoprolol Tartrate [Lopressor] 25 mg PO BID #60 tablet 01/12/19 03/10/19 Rx Dexamethasone [Decadron] 4 mg PO BID 02/19/19 03/10/19 History HYDROcodone/APAP 7.5-325MG [Ethel 1 tab PO Q6H PRN #28 tab 02/24/19 03/10/19 Rx 7.5-325] Pantoprazole [Protonix] 40 mg PO AC-BRKFST #30 tablet. 02/24/19 03/10/19 Rx Folic Acid 1 mg PO DAILY 03/10/19 03/10/19 History Allergies Allergy/AdvReac Type Severity Reaction Status Date / Time cucumber AdvReac Unknown Verified 03/10/19 22:51 Milk Containing Products AdvReac Unknown Verified 03/10/19 22:51 [Dairy] tomato AdvReac Unknown Verified 03/10/19 22:51 Physical Exam Vitals: Vital Signs Temp Pulse Resp BP Pulse Ox 03/14/19 05:58 95 18 157/73 97 03/14/19 05:40 98 18 166/78 98 03/14/19 05:15 120 H 18 193/104 97 03/14/19 05:10 125 H 20 189/88 98 03/14/19 03:35 98.4 F 85 18 151/83 95 03/14/19 00:00 98.7 F 72 18 134/78 96 03/13/19 20:00 98.9 F 88 18 145/77 94 L 03/13/19 16:00 98.1 F 92 17 144/75 99 03/13/19 15:01 17 03/13/19 12:00 89 17 164/68 97 Intake and Output 03/13/19 03/14/19 03/14/19 22:59 06:59 14:59 Intake Total 240 240 Balance 240 240 Intake: Oral 240 240 Other: Voiding Method Toilet Toilet # Voids 1 2 # Bowel Movements 1 Weight 45 kg - Constitutional General appearance: no acute distress, thin - EENT Eyes: EOMI, PERRLA ENT: hearing grossly normal - Neck Neck: no lymphadenopathy - Respiratory Respiratory: right: CTA, left: diminished - Cardiovascular Rhythm: regular - Gastrointestinal General gastrointestinal: no distended, no tenderness - Integumentary Integumentary: no cyanotic - Neurologic Neurologic: CNII-XII intact - Musculoskeletal Musculoskeletal: generalized weakness - Psychiatric Psychiatric: A&O x's 3, appropriate affect Results CBC & Chem 7: 03/14/19 05:35 03/14/19 05:35 Labs: Abnormal Lab Results - Last 24 Hours (Table) 03/13/19 03/14/19 03/14/19 Range/Units 06:36 05:12 05:35 WBC (3.8-10.6) k/uL RBC (3.80-5.40) m/uL Hgb (11.4-16.0) gm/dL Hct (34.0-46.0) % MCHC (31.0-37.0) g/dL Plt Count (150-450) k/uL Neutrophils # (Manual) 108.10 H (1.3-7.7) k/uL Monocytes # (Manual) 2.25 H (0-1.0) k/uL Myelocytes # (Manual) 1.13 H (0) k/uL APTT (22.0-30.0) sec Sodium 135 L (137-145) mmol/L Chloride 95 L (98-107) mmol/L Creatinine 0.43 L (0.52-1.04) mg/dL POC Glucose (mg/dL) 123 H (75-99) mg/dL Alkaline Phosphatase 288 H (38-126) U/L Total Protein 5.6 L (6.3-8.2) g/dL Albumin 2.9 L (3.5-5.0) g/dL 03/14/19 03/14/19 Range/Units 05:35 05:35 WBC 104.3 H* (3.8-10.6) k/uL RBC 2.72 L (3.80-5.40) m/uL Hgb 7.7 L (11.4-16.0) gm/dL Hct 25.8 L (34.0-46.0) % MCHC 29.9 L (31.0-37.0) g/dL Plt Count 627 H (150-450) k/uL Neutrophils # (Manual) 100.10 H (1.3-7.7) k/uL Monocytes # (Manual) 2.09 H (0-1.0) k/uL Myelocytes # (Manual) (0) k/uL APTT 21.9 L (22.0-30.0) sec Sodium (137-145) mmol/L Chloride (98-107) mmol/L Creatinine (0.52-1.04) mg/dL POC Glucose (mg/dL) (75-99) mg/dL Alkaline Phosphatase (38-126) U/L Total Protein (6.3-8.2) g/dL Albumin (3.5-5.0) g/dL Microbiology - Last 24 Hours (Table) 03/11/19 12:30 Gram Stain - Preliminary Pleural Fluid Body Fluid Culture - Preliminary 03/11/19 12:30 Anaerobic Culture - Preliminary Pleural Fluid Chest x-ray: report reviewed, image reviewed CT Scan - head: report reviewed, image reviewed Assessment and Plan Plan: The patient is a 63-year-old female with a remote history of left breast cancer and a recent diagnosis of metastatic poorly differentiated non-small cell lung cancer with metastatic disease involving the brain. She is status post whole brain radiotherapy finishing on February 06, 2019. She has not yet initiated any systemic therapy, when she was hospitalized with concerns of possible TIA. She also has reported increasing dyspnea and now has complete opacification of the left hemithorax. 1. Dyspnea 2/2 left lung collapse: Reviewing the patient's previous imaging, she had a large left hilar tumor with mass effect on the airways approximately 1 month ago. This is more likely the etiology of her left lung collapse, as this has likely progressed in size resulting in complete obstruction at the hilum. The patient did not improve much following thoracentesis, likely due to the central disease. I discussed with the patient that it is possible to do a palliative course of radiotherapy in hopes to reexpand the lung. I explained to the patient that she would first need CT simulation for treatment planning. Treatment will be delivered Wednesday through Wednesday, 5 days a week for approximately 1-2 weeks. I discussed typical side effects of this treatment with the patient which include, but are not limited to; fatigue, cough, esophagitis, and low risk of long-term toxicity. The patient will be evaluated tomorrow by Dr. Forman, who has previously treated her and is more familiar with her case. 2. Possible TIA: Based on CT imaging, I feel this is more likely related to edema from her brain metastases. The patient initially presented with large cystic lesions, and she likely still has some vasogenic edema from these despite prior treatment with whole brain radiation. She has a high left posterior frontal mass, which is likely the reason for her right upper arm weakness. Would continue Decadron, but can safely decrease to 4 mg QID. No need for repeat MRI at this time. Time with Patient: Greater than 30
--- NOTE | 2019-03-14 09:34 | P.PN ---
Subjective Progress Note Date: 03/14/19 Principal diagnosis: syncopal episode/fall This is a continue progress on a 63-year-old white female with history of metastatic lung cancer. She has recently had an episode of severe shortness of breath resulting in a fall and possible tonic-clonic activity. However when queried, the patient was fairly lucid after the episode. It happened within about 5 minutes and a code stroke was called. The patient was placed on Keppra. We will consult appropriate neurology service. Objective - Vital Signs Vital signs: Vital Signs Temp 98.4 F 03/14/19 03:35 Pulse 95 03/14/19 05:58 Resp 18 03/14/19 05:58 BP 157/73 03/14/19 05:58 Pulse Ox 97 03/14/19 05:58 Intake & Output 03/13/19 03/14/19 03/14/19 18:59 06:59 18:59 Intake Total 640 240 Balance 640 240 Weight 45 kg Intake: Oral 640 240 Other: Voiding Method Toilet # Voids 2 # Bowel Movements 1 - Constitutional General appearance: Present: average body habitus - EENT Eyes: Absent: abnormal pupil - Respiratory Respiratory: bilateral: CTA - Cardiovascular Rhythm: regular Heart sounds: normal: S1, S2 Abnormal Heart Sounds: Absent: S3 Gallop - Gastrointestinal General gastrointestinal: Present: soft. Absent: tenderness - Musculoskeletal Musculoskeletal: Present: right sided weakness - Labs CBC & Chem 7: 03/14/19 05:35 03/14/19 05:35 Labs: Abnormal Lab Results - Last 24 Hours (Table) 03/14/19 03/14/19 03/14/19 Range/Units 05:12 05:35 05:35 WBC 104.3 H* (3.8-10.6) k/uL RBC 2.72 L (3.80-5.40) m/uL Hgb 7.7 L (11.4-16.0) gm/dL Hct 25.8 L (34.0-46.0) % MCHC 29.9 L (31.0-37.0) g/dL Plt Count 627 H (150-450) k/uL Neutrophils # (Manual) 100.10 H (1.3-7.7) k/uL Monocytes # (Manual) 2.09 H (0-1.0) k/uL APTT (22.0-30.0) sec Sodium 135 L (137-145) mmol/L Chloride 95 L (98-107) mmol/L Creatinine 0.43 L (0.52-1.04) mg/dL POC Glucose (mg/dL) 123 H (75-99) mg/dL Alkaline Phosphatase 288 H (38-126) U/L Total Protein 5.6 L (6.3-8.2) g/dL Albumin 2.9 L (3.5-5.0) g/dL 03/14/19 Range/Units 05:35 WBC (3.8-10.6) k/uL RBC (3.80-5.40) m/uL Hgb (11.4-16.0) gm/dL Hct (34.0-46.0) % MCHC (31.0-37.0) g/dL Plt Count (150-450) k/uL Neutrophils # (Manual) (1.3-7.7) k/uL Monocytes # (Manual) (0-1.0) k/uL APTT 21.9 L (22.0-30.0) sec Sodium (137-145) mmol/L Chloride (98-107) mmol/L Creatinine (0.52-1.04) mg/dL POC Glucose (mg/dL) (75-99) mg/dL Alkaline Phosphatase (38-126) U/L Total Protein (6.3-8.2) g/dL Albumin (3.5-5.0) g/dL Microbiology - Last 24 Hours (Table) 03/11/19 12:30 Gram Stain - Preliminary Pleural Fluid Body Fluid Culture - Preliminary 03/11/19 12:30 Anaerobic Culture - Preliminary Pleural Fluid Assessment and Plan (1) Brain metastasis Current Visit: Yes Status: Acute Priority: High Code(s): C79.31 - SECONDARY MALIGNANT NEOPLASM OF BRAIN SNOMED Code(s): 95253568 (2) TIA (transient ischemic attack) Current Visit: Yes Status: Acute Code(s): G45.9 - TRANSIENT CEREBRAL ISCHEMIC ATTACK, UNSPECIFIED SNOMED Code(s): 378962783 Plan: Element of possible seizure disorder with history of TIA. Consult neurology. Check CBC and CMP in a.m.. Question need for EEG. Metastatic lung cancer. Dr. Conde's group will covering starting tomorrow.
[2019-03-14] MEDS: LIDOCAINE 5% PATCH TOPICAL SCH (09:42)
[2019-03-14] MEDS: NICOTINE 14MG/24HR PATCH TRANSDERM SCH (09:43)
[2019-03-14] MEDS: MULTIVITAMINS, THERA 1 EACH TAB PO SCH (09:43)
[2019-03-14] MEDS: CALCIUM CARB-VIT D 500MG-200UN 1 EACH TAB PO SCH (09:43)
[2019-03-14] MEDS: DOCUSATE 100 MG CAP PO SCH ×2 (09:43→20:15)
[2019-03-14] MEDS: CHOLECALCIFEROL 1,000 UNIT TAB PO SCH (09:43)
[2019-03-14] MEDS: METOPROLOL TARTRATE 25 MG TAB PO SCH ×2 (09:43→20:15)
[2019-03-14] MEDS: FOLIC ACID 1 MG TAB PO SCH (09:43)
--- NOTE | 2019-03-14 12:03 | P.PN ---
Subjective Progress Note Date: 03/14/19 Principal diagnosis: Right upper extremity weakness, dysphasia This is a very pleasant 63-year-old female patient who follows with Dr. Dawn as her primary care physician. She has a history of hypothyroidism and previous breast cancer with a left mastectomy in 1998. Thyroidectomy. Former smoker. She was admitted here back in December 2018 with weakness and was found to have a left hilar and lower lobe mass. She had undergone biopsies by Dr. 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 She had undergone 10 radiation treatments to the brain. Colon biopsy was positive for non-small cell carcinoma favoring metastasis from pulmonary primary. She is due to start chemotherapy next week. She presented here to the emergency room yesterday after having right arm numbness and weakness as well as dysphasia and was having trouble calling out to her for help. Computed tomography scan of the brain revealed several foci of cerebral edema consistent with metastatic disease. No intracranial hemorrhage. She has been on Decadron 4 mg twice a day in the outpatient setting. Chest x-ray reveals near complete white out of the left lung. We are consulted for the same. She is seen in consultation on the selective care unit. Presently, she is awake and alert in no acute distress. She has nearly complete resolution of the right arm numbness. Her speech is clear. She is oriented 3. She does have some dyspnea on exertion. Comfortable at rest. Maintain O2 saturations in the high 90s on 2 L/m per nasal cannula. She's afebrile. Blood pressure stable. Slightly tachycardic. Urine culture pending. Initial white count 104.8, currently 96.4. Hemoglobin 7.8. Platelet count 647,000, neutrophils 95, sodium 135. Creatinine 0.34. Glucose 124. Calcium 8.0. Troponin is negative 3. Patient is seen today 03/14/2019 in follow-up on the selective care unit. She is awake and alert in no acute distress. Maintaining O2 saturations in the 90s on 3 L/m per nasal cannula. Pleural fluid cultures are pending. Cytology pending. Yesterday's chest x-ray showed a new right lateral upper lobe reticular opacity suspicious for pneumonia. She has continued complete opacification of the left lung that could represent endobronchial obstruction and atelectasis. The plan may be for radiation therapy. Been seen and evaluated by Dr. Lewis. White count 104.3. Hemoglobin 7.7. Platelet count 627,000. Creatinine 0.43. Computed tomography scan of the brain continues to show multifocal hypodensities especially in the left frontal lobe, left parietal lobe and bilateral occipital lobes. Objective - Vital Signs Vital signs: Vital Signs Temp 98.4 F 03/14/19 03:35 Pulse 95 03/14/19 05:58 Resp 18 03/14/19 05:58 BP 157/73 03/14/19 05:58 Pulse Ox 97 03/14/19 05:58 Intake & Output 03/13/19 03/14/19 03/14/19 18:59 06:59 18:59 Intake Total 640 240 Balance 640 240 Weight 45 kg Intake: Oral 640 240 Other: Voiding Method Toilet # Voids 2 # Bowel Movements 1 - Exam GENERAL EXAM: Very pleasant 63-year-old female patient, alert, fairly comfor table in no apparent distress. On 3 L nasal cannula. HEAD: Alopecia secondary to radiation treatments to the brain. Normocephalic. EYES: Normal reaction of pupils, equal size. NOSE: Clear with pink turbinates. THROAT: No erythema or exudates. NECK: No masses, no JVD. CHEST: No chest wall deformity. LUNGS: Crackles and diminished in the left lung. Scattered rhonchi in the right lung. CVS: S1 and S2 normal with no audible murmur, regular rhythm. ABDOMEN: No hepatosplenomegaly, normal bowel sounds, no guarding or rigidity. SPINE: No scoliosis or deformity SKIN: No rashes CENTRAL NERVOUS SYSTEM: No focal deficits currently, tone is normal in all 4 extremities. EXTREMITIES: There is no peripheral edema. No clubbing, no cyanosis. Peripheral pulses are intact. - Labs CBC & Chem 7: 03/14/19 05:35 03/14/19 05:35 Labs: Abnormal Lab Results - Last 24 Hours (Table) 03/14/19 03/14/19 03/14/19 Range/Units 05:12 05:35 05:35 WBC 104.3 H* (3.8-10.6) k/uL RBC 2.72 L (3.80-5.40) m/uL Hgb 7.7 L (11.4-16.0) gm/dL Hct 25.8 L (34.0-46.0) % MCHC 29.9 L (31.0-37.0) g/dL Plt Count 627 H (150-450) k/uL Neutrophils # (Manual) 100.10 H (1.3-7.7) k/uL Monocytes # (Manual) 2.09 H (0-1.0) k/uL APTT (22.0-30.0) sec Sodium 135 L (137-145) mmol/L Chloride 95 L (98-107) mmol/L Creatinine 0.43 L (0.52-1.04) mg/dL POC Glucose (mg/dL) 123 H (75-99) mg/dL Alkaline Phosphatase 288 H (38-126) U/L Total Protein 5.6 L (6.3-8.2) g/dL Albumin 2.9 L (3.5-5.0) g/dL 03/14/19 Range/Units 05:35 WBC (3.8-10.6) k/uL RBC (3.80-5.40) m/uL Hgb (11.4-16.0) gm/dL Hct (34.0-46.0) % MCHC (31.0-37.0) g/dL Plt Count (150-450) k/uL Neutrophils # (Manual) (1.3-7.7) k/uL Monocytes # (Manual) (0-1.0) k/uL APTT 21.9 L (22.0-30.0) sec Sodium (137-145) mmol/L Chloride (98-107) mmol/L Creatinine (0.52-1.04) mg/dL POC Glucose (mg/dL) (75-99) mg/dL Alkaline Phosphatase (38-126) U/L Total Protein (6.3-8.2) g/dL Albumin (3.5-5.0) g/dL Microbiology - Last 24 Hours (Table) 03/11/19 12:30 Gram Stain - Preliminary Pleural Fluid Body Fluid Culture - Preliminary 03/11/19 12:30 Anaerobic Culture - Preliminary Pleural Fluid Assessment and Plan Assessment: Impression: #1 Right upper extremity numbness and weakness, dysphasia, recovered. Suspect secondary to several foci of cerebral edema consistent with metastatic disease. Status post 10 radiation treatments. On Decadron in the outpatient setting. Due to start chemotherapy on 03/15/2019. #2 Large left pleural effusion secondary to non-small cell lung cancer with metastasis to the brain and colon. Diagnosed in December 2018. Status post left- sided thoracentesis with 800 mL removed on 03/11/2018. Pathology pending. #3 Significant leukocytosis. Initial white count 104.8, currently 104.3. #4 Anemia. Current hemoglobin 7.8. #5 History of chronic tobacco dependence. #6 History of breast cancer status post left mastectomy in 1998. #7 History of thyroid cancer status post thyroidectomy. Plan: The patient was seen and evaluated by Dr. Chavez. Chest x-ray and labs reviewed. She has been seen and evaluated by radiation oncology. We'll continue Decadron. We will continue to follow and make further recommendations based on her clinical status. I, the cosigning physician, performed a history & physical examination of the patient. Lungs sounds crackles, diminished left lung, scattered rhonchi in the right. Maintaining good O2 saturations in the 90s on 3 L/m per nasal cannula. I discussed the assessment and plan of care with my nurse practitioner, Rosemary Dodge. I attest to the above note as dictated by her.
[2019-03-14] MEDS: FERROUS SULFATE 325 MG TAB PO SCH (13:23)
[2019-03-14] MEDS: ONDANSETRON 4 MG/2 ML VIAL IVP PRN (13:23)
--- NOTE | 2019-03-14 15:18 | P.CNNES ---
History of Present Illness Consult date: 03/14/19 Requesting physician: Stewart Dawn Reason for Consult: Possible seizure Chief complaint: "I passed out twice, woke up confused with right arm numbness" History of Present Illness: This is a 63 RH female with known lung CA with brain metastasis who on 03/10/19 had an episode of sudden loss of consciousness. When she woke up, she was noted to be confused and c/o RUE numbness. The entire episode lasted around 20 minutes. Then, on 03/13/19 she experienced almost an identical episode. There was some preceding SOB. She denies preceding aura, prodrome, mónica vu, witnessed repetitive behavior suspicious for automatism, tongue/cheek biting or bowel/bladder incontinence associated with these episodes. She was started on LEV, and we were consulted for possible seizure activity. Patient denies any cu rrent side effects with the AED. No further episodes of decreased level or loss of consciousness. Her RUE numbness has improved. No other neuro c/o. Review of Systems 14-point ROS performed and as per HPI. Neurologically, patient denies changes in vision, diplopia, amaurosis, changes in hearing, facial droop, ptosis, vertigo, hearing loss, tinnitus, dysarthria, dysphagia, aphasia, other focal numbness/weakness not mentioned above, tremors, bowel/bladder incontinence or ataxia. Past Medical History Past Medical History: Cancer, Thyroid Disorder Additional Past Medical History / Comment(s): breast cancer, lung CA, Brain lesions History of Any Multi-Drug Resistant Organisms: None Reported Past Surgical History: Breast Surgery Additional Past Surgical History / Comment(s): left breast masectomy 99, thyroid removed Past Anesthesia/Blood Transfusion Reactions: No Reported Reaction Past Psychological History: No Psychological Hx Reported Smoking Status: Former smoker Past Alcohol Use History: None Reported Additional Past Alcohol Use History / Comment(s): quit in december 2018 Past Drug Use History: None Reported - Past Family History Mother Family Medical History: Hypertension Medications and Allergies Home Medications Medication Instructions Recorded Confirmed Type Multivitamins, Thera [Multivitamin 1 tab PO DAILY 01/09/19 03/10/19 History (formulary)] Alendronate Sodium 70 mg PO FLORES 01/10/19 03/10/19 History Levothyroxine Sodium [Synthroid] 125 mcg PO DAILY 01/10/19 03/10/19 History Lidocaine 5% Patch [Lidoderm 5% 1 patch TOPICAL DAILY #10 patch 01/12/19 03/10/19 Rx Patch] Metoprolol Tartrate [Lopressor] 25 mg PO BID #60 tablet 01/12/19 03/10/19 Rx Dexamethasone [Decadron] 4 mg PO BID 02/19/19 03/10/19 History HYDROcodone/APAP 7.5-325MG [Haworth 1 tab PO Q6H PRN #28 tab 02/24/19 03/10/19 Rx 7.5-325] Pantoprazole [Protonix] 40 mg PO AC-BRKFST #30 tablet. 02/24/19 03/10/19 Rx Folic Acid 1 mg PO DAILY 03/10/19 03/10/19 History Allergies Allergy/AdvReac Type Severity Reaction Status Date / Time cucumber AdvReac Unknown Verified 03/10/19 22:51 Milk Containing Products AdvReac Unknown Verified 03/10/19 22:51 [Dairy] tomato AdvReac Unknown Verified 03/10/19 22:51 Physical Examination - Vital Signs Vital Signs: Vital Signs Temp Pulse Resp BP Pulse Ox 03/14/19 12:00 97.0 F L 83 16 123/54 95 03/14/19 08:00 97.9 F 94 14 105/65 92 L 03/14/19 05:58 95 18 157/73 97 03/14/19 05:40 98 18 166/78 98 03/14/19 05:15 120 H 18 193/104 97 03/14/19 05:10 125 H 20 189/88 98 03/14/19 03:35 98.4 F 85 18 151/83 95 03/14/19 00:00 98.7 F 72 18 134/78 96 03/13/19 20:00 98.9 F 88 18 145/77 94 L 03/13/19 16:00 98.1 F 92 17 144/75 99 Intake and Output 03/14/19 03/14/19 03/14/19 06:59 14:59 22:59 Intake Total 480 Output Total 400 Balance 80 Intake: Oral 480 Output: Urine 400 Other: Voiding Method Toilet Toilet # Voids 2 # Bowel Movements 1 Weight 45 kg Gen Cachetic o/w in NAD Pleasant and cooperative HEENT NCAT Sclera without icterus O/P clear Neck Supple No carotid bruit Cor RRR no m/r/g Lungs CTAB Abd Soft NTND +BS Ext Warm to touch No edema Neuro MS A+Ox4 Normal fluency Able to follow all commands CN PERRL VFF no APD EOMI no nystagmus or MAXIM No facial asymmetry Masseter's symmetric Hearing intact to normal voice bilaterally Speech not dysarthric Equal elevation of palate Tongue midline Sym shrug and SCM bilaterally Motor Normal bulk/tone Right pronator drift No tremors Strength 4+/5 RUE o/w 5/5 x3 Sens Diminished to LT in RUE No neglect or extinction Coord No dysmetria on FTN bilaterally DTRs 1+/4 sym throughout Toes withdrawn bilaterally No clonus at achilles Gait Deferred NIHSS [address] head without contrast 03/14/2019. Multifocal hypodensities especially in the left frontal and parietal areas as well as the bilateral occipital lobes. There is no hemorrhage or hydrocephalus. No other acute intracranial abnormalities are seen. - Laboratory Findings CBC and BMP: 03/14/19 05:35 03/14/19 05:35 Abnormal Lab Findings: Abnormal Labs 03/10/19 03/10/19 03/10/19 21:45 21:45 22:24 WBC 104.8 H* RBC 2.47 L Hgb 7.4 L Hct 22.9 L MCHC Plt Count 703 H Neutrophils # (Manual) 98.51 H Lymphocytes # (Manual) Monocytes # (Manual) 2.10 H Myelocytes # (Manual) APTT Sodium 134 L Potassium 3.3 L Chloride 97 L Creatinine 0.34 L Glucose 148 H POC Glucose (mg/dL) Calcium 8.0 L Alkaline Phosphatase 284 H Creatine Kinase Total Creatine Kinase Total Protein 5.6 L Albumin 2.8 L Urine Protein Trace H Ur Leukocyte Esterase Moderate H Urine WBC 26 H Hyaline Casts 3 H Urine Mucus Occasional H 03/11/19 03/11/19 03/11/19 05:35 05:35 11:30 WBC 96.4 H* RBC 2.58 L Hgb 7.8 L Hct 24.9 L MCHC Plt Count 647 H Neutrophils # (Manual) 95.44 H Lymphocytes # (Manual) Monocytes # (Manual) Myelocytes # (Manual) APTT Sodium 135 L Potassium Chloride 97 L Creatinine 0.34 L Glucose 124 H POC Glucose (mg/dL) Calcium 8.0 L Alkaline Phosphatase Creatine Kinase <20 L Total Creatine Kinase <20 L Total Protein Albumin Urine Protein Ur Leukocyte Esterase Urine WBC Hyaline Casts Urine Mucus 03/12/19 03/12/19 03/13/19 05:16 05:16 06:36 WBC 95.5 H* 112.7 H* RBC 2.48 L 2.75 L Hgb 7.4 L 7.8 L Hct 23.9 L 26.9 L MCHC 28.9 L Plt Count 585 H 657 H Neutrophils # (Manual) 94.50 H 108.10 H Lymphocytes # (Manual) 0.96 L Monocytes # (Manual) 2.25 H Myelocytes # (Manual) 1.13 H APTT Sodium 135 L Potassium 3.3 L Chloride 96 L Creatinine 0.40 L Glucose 119 H POC Glucose (mg/dL) Calcium 7.8 L Alkaline Phosphatase Creatine Kinase Total Creatine Kinase Total Protein Albumin Urine Protein Ur Leukocyte Esterase Urine WBC Hyaline Casts Urine Mucus 03/13/19 03/14/19 03/14/19 06:36 05:12 05:35 WBC RBC Hgb Hct MCHC Plt Count Neutrophils # (Manual) Lymphocytes # (Manual) Monocytes # (Manual) Myelocytes # (Manual) APTT Sodium 135 L 135 L Potassium Chloride 97 L 95 L Creatinine 0.38 L 0.43 L Glucose 103 H POC Glucose (mg/dL) 123 H Calcium 8.3 L Alkaline Phosphatase 288 H Creatine Kinase Total Creatine Kinase Total Protein 5.6 L Albumin 2.9 L Urine Protein Ur Leukocyte Esterase Urine WBC Hyaline Casts Urine Mucus 03/14/19 03/14/19 05:35 05:35 WBC 104.3 H* RBC 2.72 L Hgb 7.7 L Hct 25.8 L MCHC 29.9 L Plt Count 627 H Neutrophils # (Manual) 100.10 H Lymphocytes # (Manual) Monocytes # (Manual) 2.09 H Myelocytes # (Manual) APTT 21.9 L Sodium Potassium Chloride Creatinine Glucose POC Glucose (mg/dL) Calcium Alkaline Phosphatase Creatine Kinase Total Creatine Kinase Total Protein Albumin Urine Protein Ur Leukocyte Esterase Urine WBC Hyaline Casts Urine Mucus Assessment and Plan Assessment: Recurrent episodes of loss of consciousness with seizure-like activity and post- ictal confusion and RUE numbness/weakness 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 GFR is >60. She is getting around 33mg/kg/d of LEV that is towards the higher end of therapeutic range, but currently she does not exhibit any clinical side effects, so will continue this dose. -Seizure precautions. -MRI Brain w huseyin r/o CVA -Sleep/wake EEG -Patient should not drive for 6 months in accordance with the state law of [place]. Same common sense applies to engaging in any activity that may endanger patient and/or others should she have recurrent seizure activity. -d/w patient and . All questions answered. Thank you for this consultation. Please call with ?. Time with Patient: Greater than 30 (Time spent in direct patient care, greater than 50% of which was spent in [id number] counseling and coordination of care: 70 minutes.)
--- NOTE | 2019-03-14 15:38 | P.PN ---
Subjective Progress Note Date: 03/14/19 Principal diagnosis: Non small cell lung cancer with brain metastasis Lissette is a 63-year-old female with a remote history of left breast cancer and a recent diagnosis of metastatic poorly differentiated non-small cell lung cancer with metastatic disease involving the brain. She is status post whole brain radiotherapy finishing on February 06, 2019. She has not yet initiated any systemic therapy she does have increasing dyspnea. CT of the chest visualized complete opacification of the left hemithorax. She is requiring 2-3L 02 with a baseline status of >90% saturation on RA. Left thoracentesis did drain 800 cc of fluid. Neurologically she does have worsening right sided weakness. She does report nausea primarily in the afternoon. Speech if fluent and mentation is intact. Objective - Vital Signs Vital signs: Vital Signs Temp 97.0 F L 03/14/19 12:00 Pulse 83 03/14/19 12:00 Resp 16 03/14/19 12:00 BP 123/54 03/14/19 12:00 Pulse Ox 95 03/14/19 12:00 Intake & Output 03/13/19 03/14/19 03/14/19 18:59 06:59 18:59 Intake Total 640 480 Output Total 400 Balance 640 80 Weight 45 kg Intake: Oral 640 480 Output: Urine 400 Other: Voiding Method Toilet Toilet # Voids 2 # Bowel Movements 1 - Constitutional General appearance: Present: thin - EENT Eyes: Present: PERRLA - Neck Neck: Present: normal ROM - Respiratory Respiratory: right: CTA, left: diminished, dullness - Cardiovascular Rhythm: regular - Neurologic Neurologic: Present: focal deficits - Psychiatric Psychiatric: Present: A&O x's 3, appropriate affect, intact judgment & insight (RUE 3/5 LUE 5/5) - Labs CBC & Chem 7: 03/14/19 05:35 03/14/19 05:35 Labs: Abnormal Lab Results - Last 24 Hours (Table) 03/14/19 03/14/19 03/14/19 Range/Units 05:12 05:35 05:35 WBC 104.3 H* (3.8-10.6) k/uL RBC 2.72 L (3.80-5.40) m/uL Hgb 7.7 L (11.4-16.0) gm/dL Hct 25.8 L (34.0-46.0) % MCHC 29.9 L (31.0-37.0) g/dL Plt Count 627 H (150-450) k/uL Neutrophils # (Manual) 100.10 H (1.3-7.7) k/uL Monocytes # (Manual) 2.09 H (0-1.0) k/uL APTT (22.0-30.0) sec Sodium 135 L (137-145) mmol/L Chloride 95 L (98-107) mmol/L Creatinine 0.43 L (0.52-1.04) mg/dL POC Glucose (mg/dL) 123 H (75-99) mg/dL Alkaline Phosphatase 288 H (38-126) U/L Total Protein 5.6 L (6.3-8.2) g/dL Albumin 2.9 L (3.5-5.0) g/dL 03/14/19 Range/Units 05:35 WBC (3.8-10.6) k/uL RBC (3.80-5.40) m/uL Hgb (11.4-16.0) gm/dL Hct (34.0-46.0) % MCHC (31.0-37.0) g/dL Plt Count (150-450) k/uL Neutrophils # (Manual) (1.3-7.7) k/uL Monocytes # (Manual) (0-1.0) k/uL APTT 21.9 L (22.0-30.0) sec Sodium (137-145) mmol/L Chloride (98-107) mmol/L Creatinine (0.52-1.04) mg/dL POC Glucose (mg/dL) (75-99) mg/dL Alkaline Phosphatase (38-126) U/L Total Protein (6.3-8.2) g/dL Albumin (3.5-5.0) g/dL Microbiology - Last 24 Hours (Table) 03/11/19 12:30 Gram Stain - Preliminary Pleural Fluid Body Fluid Culture - Preliminary 03/11/19 12:30 Anaerobic Culture - Preliminary Pleural Fluid Assessment and Plan Assessment: 63 year old with metastatic non small cell lung cancer with bulky/Cystic STROKE COORDINATOR metastasis and external compression of the hilum leading to collapse of the left lung. Patient breathing stable on 2-3L 02. Plan: 1. Dyspnea 2/2 left lung collapse: Lissette patient did not improve much following thoracentesis, likely due to the central disease. Patient was evaluate by pulmonary with no recommendation of bronchoscopy. Will iniitate palliative radiation therapy to the central lung mass in hopes of improving aeration of the left lung. We will deliver 6 fractions to be initiated 03/14. 2. Right sided weakness. STROKE COORDINATOR metastasis vs TIA. The likely etiology of this neurologic change is secondary to edema from her cystic brain metastasis. She continues on decadron as an inpatient. Neurology recommends MRI at this time to evaluate for possible CVA. Imaging unlikely to evaluate response to whole brain radiation therapy as it is slightly premature 4 weeks from the completion of treatment. Will continue to monitor metastasis as outpt. 3. Lung cancer- Palliative XRT. Systemic therapy per Dr. Wild as an outpatient.
--- NOTE | 2019-03-14 16:56 | P.PN ---
Subjective Progress Note Date: 03/14/19 Principal diagnosis: NSCLC, symptomatic pleural effusion, obstruction In f/u today pt has no new c/o, SOB/ANAHI is stable, she is on 3L, no hemoptysis Objective - Vital Signs Vital signs: Vital Signs Temp 97.3 F L 03/14/19 16:00 Pulse 109 H 03/14/19 16:00 Resp 18 03/14/19 16:00 BP 126/57 03/14/19 16:00 Pulse Ox 100 03/14/19 16:00 Intake & Output 03/13/19 03/14/19 03/14/19 18:59 06:59 18:59 Intake Total 640 480 Output Total 400 Balance 640 80 Weight 45 kg Intake: Oral 640 480 Output: Urine 400 Other: Voiding Method Toilet Toilet # Voids 2 # Bowel Movements 1 - Constitutional General appearance: Present: cooperative, no acute distress, thin - EENT Eyes: Present: anicteric sclerae, EOMI - Respiratory Respiratory: left: other (absent lower 2/3 lung field, upper 1/3 soft crackles, poor air flow) - Cardiovascular Heart sounds: normal: S1, S2 - Gastrointestinal General gastrointestinal: Present: normal bowel sounds - Musculoskeletal Musculoskeletal: Present: strength equal bilaterally - Psychiatric Psychiatric: Present: A&O x's 3, appropriate affect, intact judgment & insight - Labs CBC & Chem 7: 03/14/19 05:35 03/14/19 05:35 Labs: Abnormal Lab Results - Last 24 Hours (Table) 03/14/19 03/14/19 03/14/19 Range/Units 05:12 05:35 05:35 WBC 104.3 H* (3.8-10.6) k/uL RBC 2.72 L (3.80-5.40) m/uL Hgb 7.7 L (11.4-16.0) gm/dL Hct 25.8 L (34.0-46.0) % MCHC 29.9 L (31.0-37.0) g/dL Plt Count 627 H (150-450) k/uL Neutrophils # (Manual) 100.10 H (1.3-7.7) k/uL Monocytes # (Manual) 2.09 H (0-1.0) k/uL APTT (22.0-30.0) sec Sodium 135 L (137-145) mmol/L Chloride 95 L (98-107) mmol/L Creatinine 0.43 L (0.52-1.04) mg/dL POC Glucose (mg/dL) 123 H (75-99) mg/dL Alkaline Phosphatase 288 H (38-126) U/L Total Protein 5.6 L (6.3-8.2) g/dL Albumin 2.9 L (3.5-5.0) g/dL 03/14/19 Range/Units 05:35 WBC (3.8-10.6) k/uL RBC (3.80-5.40) m/uL Hgb (11.4-16.0) gm/dL Hct (34.0-46.0) % MCHC (31.0-37.0) g/dL Plt Count (150-450) k/uL Neutrophils # (Manual) (1.3-7.7) k/uL Monocytes # (Manual) (0-1.0) k/uL APTT 21.9 L (22.0-30.0) sec Sodium (137-145) mmol/L Chloride (98-107) mmol/L Creatinine (0.52-1.04) mg/dL POC Glucose (mg/dL) (75-99) mg/dL Alkaline Phosphatase (38-126) U/L Total Protein (6.3-8.2) g/dL Albumin (3.5-5.0) g/dL Microbiology - Last 24 Hours (Table) 03/11/19 12:30 Gram Stain - Preliminary Pleural Fluid Body Fluid Culture - Preliminary 03/11/19 12:30 Anaerobic Culture - Preliminary Pleural Fluid Assessment and Plan (1) Non-small cell lung cancer with metastasis Narrative/Plan: Status post whole brain radiation. No chemotherapy has been started yet Discussed briefly with Pulmonary and Rad/Onc. Plan is for palliative radiation to try and open the airway Current Visit: Yes Status: Acute Priority: High Code(s): C34.90 - MALIGNANT NEOPLASM OF UNSP PART OF UNSP BRONCHUS OR LUNG SNOMED Code(s): 166983489 (2) Neutrophilic leukocytosis Current Visit: Yes Status: Acute Priority: Low Code(s): D72.9 - DISORDER OF WHITE BLOOD CELLS, UNSPECIFIED SNOMED Code(s): 462973821 (3) Brain metastasis Current Visit: Yes Status: Acute Priority: High Code(s): C79.31 - SECONDARY MALIGNANT NEOPLASM OF BRAIN SNOMED Code(s): 12754413 (4) Normocytic anemia Current Visit: Yes Status: Acute Priority: Medium Code(s): D64.9 - ANEMIA, UNSPECIFIED SNOMED Code(s): 112612182 Plan: Evaluate for home O2
[2019-03-15] MEDS: SODIUM CHLORIDE 0.9% 1,000 ML IV SCH ×2 (05:41→23:21)
[2019-03-15] MEDS: PANTOPRAZOLE 40 MG TABLET PO SCH ×2 (06:42→17:30)
[2019-03-15] MEDS: DEXAMETHASONE SOD PHOSPHATE 4 MG/ML 1 ML VIAL IV SCH ×4 (06:42→23:21)
[2019-03-15] MEDS: LEVOTHYROXINE 125 MCG TAB PO SCH (06:42)
[2019-03-15 08:03] LABS: African American GFR (CKD) >90 (>60 ml/min/1.73 sqM); Anion Gap 11 mmol/L; Blood Urea Nitrogen 11 mg/dL (7-17); Calcium 8.5 mg/dL (8.4-10.2); Carbon Dioxide 31 mmol/L (22-30); Chloride 92 mmol/L (98-107); Glucose 93 mg/dL (74-99); Potassium 4.1 mmol/L (3.5-5.1); Sodium 134 mmol/L (137-145)
[2019-03-15] MEDS: ONDANSETRON 4 MG/2 ML VIAL IVP PRN ×2 (08:49→13:56)
[2019-03-15 08:56] LABS: Basophils # (A) 0.1 k/uL (0-0.2); Basophils % (A) 0 %; Eosinophils # (A) 0.1 k/uL (0-0.7); Eosinophils % (A) 0 %; HCT 26.9 % (34.0-46.0); HGB 8.1 gm/dL (11.4-16.0); Hypochromasia Moderate; Lymphocytes # (A) 0.8 k/uL (1.0-4.8); Lymphocytes % (A) 1 %; MCH 29.6 pg (25.0-35.0); MCHC 30.2 g/dL (31.0-37.0); MCV 97.9 fL (80.0-100.0); Macrocytosis Slight; Mean Platelet Volume 7.2; Monocytes # (A) 0.8 k/uL (0-1.0); Monocytes % (A) 1 %; Neutrophils # (A) 91.8 k/uL (1.3-7.7); Neutrophils % (A) 98 %; Platelet Count 604 k/uL (150-450); RBC 2.74 m/uL (3.80-5.40); RDW 15.4 % (11.5-15.5)
[2019-03-15 09:08] LABS: WBC 93.7 k/uL (3.8-10.6)
--- NOTE | 2019-03-15 09:43 | P.PN ---
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 No seizure. Tolerating LEV w/o side effects. RUE still numb. No new neuro c/o. Objective - Vital Signs Vital signs: Vital Signs Temp 98.2 F 03/15/19 04:00 Pulse 76 03/15/19 04:00 Resp 18 03/15/19 04:00 BP 128/74 03/15/19 04:00 Pulse Ox 100 03/15/19 04:00 Intake & Output 03/14/19 03/15/19 03/15/19 18:59 06:59 18:59 Intake Total 702 240 Output Total 400 700 Balance 302 -700 240 Weight 42.8 kg Intake: Oral 702 240 Output: Urine 400 700 Other: Voiding Method Toilet Toilet # Voids 1 - Exam Gen NAD Pleasant and cooperative Neuro MS A+Ox4 Normal fluency Able to follow all commands CN PERRL VFF no APD EOMI no nystagmus or MAXIM No facial asymmetry Masseter's symmetric Hearing intact to normal voice bilaterally Speech not dysarthric Equal elevation of palate Tongue midline Sym shrug and SCM bilaterally Motor Normal bulk/tone Right pronator drift No tremors Strength 4+/5 RUE o/w 5/5 x3 Sens Diminished to LT in RUE No neglect Coord Not tested DTRs 1+/4 sym throughout Gait Deferred NIHSS 2 - Labs CBC & Chem 7: 03/15/19 07:16 03/15/19 07:16 Labs: Abnormal Lab Results - Last 24 Hours (Table) 03/15/19 03/15/19 Range/Units 07:16 07:16 WBC 93.7 H* (3.8-10.6) k/uL RBC 2.74 L (3.80-5.40) m/uL Hgb 8.1 L (11.4-16.0) gm/dL Hct 26.9 L (34.0-46.0) % MCHC 30.2 L (31.0-37.0) g/dL Plt Count 604 H (150-450) k/uL Sodium 134 L (137-145) mmol/L Chloride 92 L (98-107) mmol/L Carbon Dioxide 31 H (22-30) mmol/L Creatinine 0.41 L (0.52-1.04) mg/dL Microbiology - Last 24 Hours (Table) 03/11/19 12:30 Gram Stain - Preliminary Pleural Fluid Body Fluid Culture - Preliminary Assessment and Plan Assessment: Recurrent episodes of loss of consciousness with seizure-like activity and post- ictal confusion and RUE numbness/weakness 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 -Seizure precautions. -MRI Brain w huseyin r/o CVA; awaiting study. -Sleep/wake EEG; will follow up with EEG lab. -Patient should not drive for 6 months in accordance with the state law of [place]. Same common sense applies to engaging in any activity that may endanger patient and/or others should she have recurrent seizure activity. -d/w patient. All questions answered. Thank you again for this consultation. Please call with ?. Time with Patient: Less than 30 (Time spent in direct patient care, greater than 50% of which was spent in [id number] counseling and coordination of care: 25 minutes.)
[2019-03-15 10:16] VITALS: BMI 18.4
--- NOTE | 2019-03-15 10:41 | EEG ---
ELECTROENCEPHALOGRAM REPORT DATE OF SERVICE: 03/15/2019 PREAMBLE: This is a 63-year-old right handed female with a history of lung cancer with brain metastasis. She had 2 episodes of loss of consciousness with subsequent right upper extremity numbness and weakness. This study is performed to rule out any epileptiform activity. CURRENT MEDICATIONS: Senna, pantoprazole, Zofran, nicotine patch, metoprolol, lorazepam, levothyroxine, levetiracetam, acetaminophen, folic acid, ferrous sulfate, Colace, Voltaren gel, Decadron, Vitamin D3, Os-Bautista, alendronate. TYPE OF RECORDING: A routine 21 channel awake digital EEG recording was accomplished utilizing the 10-20 international electrode placement system. No sedation was given prior to the beginning of this recording. FINDINGS: The background of this tracing is seen with a mixed frequency of 8 to 10 Hz with reactivity. There are scattered EMG artifacts that correspond to patient's body movements. There is focal slowing seen in the left frontal parietal area, generally in the theta range. Photic stimulation and hyperventilation are not performed in this recording. There is no definitive sleep architecture seen. There is no evidence of ictal or interictal patterns appreciated. IMPRESSION: This is an abnormal awake electroencephalogram with focal left frontal parietal slowing, which can be seen in structural dysfunction of any cause. Epileptiform discharges are not seen in this recording. Clinical correlation is advised. MAUREEN / MARVIN: [id number] / [id number]
[2019-03-15 10:57] LABS: Toxic Granulation Present
[2019-03-15 10:58] LABS: Polychromasia Present
[2019-03-15] MEDS: FERROUS SULFATE 325 MG TAB PO SCH (12:15)
[2019-03-15] MEDS: METOPROLOL TARTRATE 25 MG TAB PO SCH ×2 (12:15→20:19)
[2019-03-15] MEDS: CHOLECALCIFEROL 1,000 UNIT TAB PO SCH (12:15)
[2019-03-15] MEDS: FOLIC ACID 1 MG TAB PO SCH (12:15)
[2019-03-15] MEDS: MULTIVITAMINS, THERA 1 EACH TAB PO SCH (12:15)
[2019-03-15] MEDS: DOCUSATE 100 MG CAP PO SCH ×2 (12:15→23:21)
[2019-03-15] MEDS: CALCIUM CARB-VIT D 500MG-200UN 1 EACH TAB PO SCH (12:16)
[2019-03-15] MEDS: DICLOFENAC SODIUM GEL 100 GM TUBE TOPICAL SCH ×3 (12:16→17:27)
[2019-03-15] MEDS: levETIRAcetam 250 MG TAB PO SCH ×2 (12:16→20:20)
[2019-03-15] MEDS: LIDOCAINE 5% PATCH TOPICAL SCH (12:19)
[2019-03-15] MEDS: NICOTINE 14MG/24HR PATCH TRANSDERM SCH (12:34)
--- NOTE | 2019-03-15 13:37 | P.PN ---
Subjective Progress Note Date: 03/15/19 Principal diagnosis: Right upper extremity weakness, dysphasia This is a very pleasant 63-year-old female patient who follows with Dr. Dawn as her primary care physician. She has a history of hypothyroidism and previous breast cancer with a left mastectomy in 1998. Thyroidectomy. Former smoker. She was admitted here back in December 2018 with weakness and was found to have a left hilar and lower lobe mass. She had undergone biopsies by Dr. 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 She had undergone 10 radiation treatments to the brain. Colon biopsy was positive for non-small cell carcinoma favoring metastasis from pulmonary primary. She is due to start chemotherapy next week. She presented here to the emergency room yesterday after having right arm numbness and weakness as well as dysphasia and was having trouble calling out to her for help. Computed tomography scan of the brain revealed several foci of cerebral edema consistent with metastatic disease. No intracranial hemorrhage. She has been on Decadron 4 mg twice a day in the outpatient setting. Chest x-ray reveals near complete white out of the left lung. We are consulted for the same. She is seen in consultation on the selective care unit. Presently, she is awake and alert in no acute distress. She has nearly complete resolution of the right arm numbness. Her speech is clear. She is oriented 3. She does have some dyspnea on exertion. Comfortable at rest. Maintain O2 saturations in the high 90s on 2 L/m per nasal cannula. She's afebrile. Blood pressure stable. Slightly tachycardic. Urine culture pending. Initial white count 104.8, currently 96.4. Hemoglobin 7.8. Platelet count 647,000, neutrophils 95, sodium 135. Creatinine 0.34. Glucose 124. Calcium 8.0. Troponin is negative 3. Patient is seen today 03/14/2019 in follow-up on the selective care unit. She is awake and alert in no acute distress. Maintaining O2 saturations in the 90s on 3 L/m per nasal cannula. Pleural fluid cultures are pending. Cytology pending. Yesterday's chest x-ray showed a new right lateral upper lobe reticular opacity suspicious for pneumonia. She has continued complete opacification of the left lung that could represent endobronchial obstruction and atelectasis. The plan may be for radiation therapy. Been seen and evaluated by Dr. Lewis. White count 104.3. Hemoglobin 7.7. Platelet count 627,000. Creatinine 0.43. Computed tomography scan of the brain continues to show multifocal hypodensities especially in the left frontal lobe, left parietal lobe and bilateral occipital lobes. The patient is seen today 03/15/2019 in follow-up on the selective care unit. He sitting up in a chair at the bedside. Awake and alert in no acute distress. She is maintaining good O2 saturations up to 100% on 2 L/m per nasal cannula. His been afebrile. Hemodynamically stable. Pleural fluid cultures and cytology are still pending. White count 93.7. Hemoglobin 8.1. Platelets 604,000. Sodium 134. Creatinine 0.41. EEG reveals focal left frontal parietal slowing seen and structural dysfunction of any cause. Neurology is on the case. MRI of the brain pending. She remains on Decadron. Objective - Vital Signs Vital signs: Vital Signs Temp 98.2 F 03/15/19 04:00 Pulse 87 03/15/19 08:00 Resp 16 03/15/19 08:00 BP 128/58 03/15/19 08:00 Pulse Ox 100 03/15/19 08:00 Intake & Output 03/14/19 03/15/19 03/15/19 18:59 06:59 18:59 Intake Total 702 462 Output Total 400 700 Balance 302 -700 462 Weight 42.8 kg 42.8 kg Intake: Oral 702 462 Output: Urine 400 700 Other: Voiding Method Toilet Toilet Toilet # Voids 1 - Exam GENERAL EXAM: Very pleasant 63-year-old female patient, alert, fairly comfortable in no apparent distress. On 3 L nasal cannula. HEAD: Alopecia secondary to radiation treatments to the brain. Normocephalic. EYES: Normal reaction of pupils, equal size. NOSE: Clear with pink turbinates. THROAT: No erythema or exudates. NECK: No masses, no JVD. CHEST: No chest wall deformity. LUNGS: Crackles and diminished in the left lung. Scattered rhonchi in the right lung. CVS: S1 and S2 normal with no audible murmur, regular rhythm. ABDOMEN: No hepatosplenomegaly, normal bowel sounds, no guarding or rigidity. SPINE: No scoliosis or deformity SKIN: No rashes CENTRAL NERVOUS SYSTEM: No focal deficits currently, tone is normal in all 4 extremities. EXTREMITIES: There is no peripheral edema. No clubbing, no cyanosis. Aysha pheral pulses are intact. - Labs CBC & Chem 7: 03/15/19 07:16 03/15/19 07:16 Labs: Abnormal Lab Results - Last 24 Hours (Table) 03/15/19 03/15/19 Range/Units 07:16 07:16 WBC 93.7 H* (3.8-10.6) k/uL RBC 2.74 L (3.80-5.40) m/uL Hgb 8.1 L (11.4-16.0) gm/dL Hct 26.9 L (34.0-46.0) % MCHC 30.2 L (31.0-37.0) g/dL Plt Count 604 H (150-450) k/uL Neutrophils # 91.8 H (1.3-7.7) k/uL Lymphocytes # 0.8 L (1.0-4.8) k/uL Sodium 134 L (137-145) mmol/L Chloride 92 L (98-107) mmol/L Carbon Dioxide 31 H (22-30) mmol/L Creatinine 0.41 L (0.52-1.04) mg/dL Microbiology - Last 24 Hours (Table) 03/11/19 12:30 Gram Stain - Preliminary Pleural Fluid Body Fluid Culture - Preliminary Assessment and Plan Assessment: Impression: #1 Right upper extremity numbness and weakness, dysphasia, recovered. Suspect secondary to several foci of cerebral edema consistent with metastatic disease. Status post 10 radiation treatments. On Decadron in the outpatient setting. Due to start chemotherapy. Questionable syncope and seizure activity. MRI of the brain pending. #2 Large left pleural effusion secondary to non-small cell lung cancer with metastasis to the brain and colon. Diagnosed in December 2018. Status post left- sided thoracentesis with 800 mL removed on 03/11/2018. Pathology pending. #3 Significant leukocytosis. Initial white count 104.8, currently 93.7. #4 Anemia. Current hemoglobin 8.1. #5 History of chronic tobacco dependence. #6 History of breast cancer status post left mastectomy in 1998. #7 History of thyroid cancer status post thyroidectomy. Plan: The patient was seen and evaluated by Dr. Chavez. She is currently stable from the pulmonary standpoint. Comfortable on 2 L/m per nasal cannula. No further plans for thoracentesis at this time. Pathology is pending. We will continue to follow and make further recommendations based on her clinical status. I, the cosigning physician, performed a history & physical examination of the pa gavi. Lungs sounds crackles, diminished left lung, scattered rhonchi in the right. Maintaining good O2 saturations in the 90s on 2 L/m per nasal cannula. I discussed the assessment and plan of care with my nurse practitioner, Rosemary Dodge. I attest to the above note as dictated by her.
[2019-03-15 15:55] VITALS: RESP 18
--- NOTE | 2019-03-15 15:57 | P.PN ---
Subjective Progress Note Date: 03/15/19 Principal diagnosis: NSCLC, symptomatic pleural effusion, obstruction In f/u today pt has persistent SOB on exertion, no pain. When she was to be taken for XRT she was experiencing diarrhea and vomiting so she declined. Objective - Vital Signs Vital signs: Vital Signs Temp 98.2 F 03/15/19 04:00 Pulse 88 03/15/19 12:00 Resp 16 03/15/19 12:00 BP 112/61 03/15/19 12:00 Pulse Ox 98 03/15/19 12:00 Intake & Output 03/14/19 03/15/19 03/15/19 18:59 06:59 18:59 Intake Total 702 462 Output Total 400 700 500 Balance 302 -700 -38 Weight 42.8 kg 42.8 kg Intake: Oral 702 462 Output: Urine 400 700 500 Other: Voiding Method Toilet Toilet Toilet # Voids 1 # Bowel Movements 1 - Exam WD, thin, frail, laying in bed, NAD, A&Ox3, respirations even and unlabored, lt lung absent breath sounds, no lower extremity swelling - Labs CBC & Chem 7: 03/15/19 07:16 03/15/19 07:16 Labs: Abnormal Lab Results - Last 24 Hours (Table) 03/15/19 03/15/19 Range/Units 07:16 07:16 WBC 93.7 H* (3.8-10.6) k/uL RBC 2.74 L (3.80-5.40) m/uL Hgb 8.1 L (11.4-16.0) gm/dL Hct 26.9 L (34.0-46.0) % MCHC 30.2 L (31.0-37.0) g/dL Plt Count 604 H (150-450) k/uL Neutrophils # 91.8 H (1.3-7.7) k/uL Lymphocytes # 0.8 L (1.0-4.8) k/uL Sodium 134 L (137-145) mmol/L Chloride 92 L (98-107) mmol/L Carbon Dioxide 31 H (22-30) mmol/L Creatinine 0.41 L (0.52-1.04) mg/dL Microbiology - Last 24 Hours (Table) 03/11/19 12:30 Gram Stain - Preliminary Pleural Fluid Body Fluid Culture - Preliminary Assessment and Plan (1) Non-small cell lung cancer with metastasis Narrative/Plan: Status post whole brain radiation. No chemotherapy has been started yet Plan is for palliative radiation to try and open the airway, not done today due to V, D Current Visit: Yes Status: Acute Priority: High Code(s): C34.90 - MALIGNANT NEOPLASM OF UNSP PART OF UNSP BRONCHUS OR LUNG SNOMED Code(s): 847135018 (2) Neutrophilic leukocytosis Narrative/Plan: CBC/ANC trending down now, no acute intervention Current Visit: Yes Status: Acute Priority: Low Code(s): D72.9 - DISORDER OF WHITE BLOOD CELLS, UNSPECIFIED SNOMED Code(s): 189684766 (3) Brain metastasis Narrative/Plan: Status post whole brain radiation. Patient remains on steroids. Steroids need to be tapered down. Current Visit: Yes Status: Acute Priority: High Code(s): C79.31 - SECONDARY MALIGNANT NEOPLASM OF BRAIN SNOMED Code(s): 52535330 (4) Normocytic anemia Narrative/Plan: Mild iron deficiency on lab review. Oral supplement adequate at this time. No need for transfusion at this time, transfuse for Hgb<7 or if symptomatic Current Visit: Yes Status: Acute Priority: Medium Code(s): D64.9 - ANEMIA, UNSPECIFIED SNOMED Code(s): 083229468 Plan: Evaluate for home O2 Plan for chemo post radiation
[2019-03-15] MEDS ORDERED: CYANOCOBALAMIN 1,000 MCG/ML 1 ML VIAL IM ONE (16:15)
--- NOTE | 2019-03-16 00:36 | P.PN ---
Subjective Progress Note Date: 03/15/19 Principal diagnosis: Metastatic cancer With the brain lesions This is a continue progress on a 63-year-old white female with history of metastatic lung cancer. She has recently had an episode of severe shortness of breath resulting in a fall and possible tonic-clonic activity. However when queried, the patient was fairly lucid after the episode. It happened within about 5 minutes and a code stroke was called. The patient was placed on Keppra. 03/15/2019 Patient is currently sitting in the bed. Awake alert and oriented 3. MRI of the brain is pending today. Patient is also scheduled for radiation therapy this afternoon. Continued on Decadron. Neurology, pulmonary and oncology on board. Case discussed with. WBC 19.7, hemoglobin 8.1 and platelet count 604,000. EEG reveals focal left frontal parietal slowing seen and structural dysfunction of any cause. Current medications reviewed. Objective - Vital Signs Vital signs: Vital Signs Temp 98.2 F 03/15/19 04:00 Pulse 88 03/15/19 12:00 Resp 18 03/15/19 15:53 BP 112/61 03/15/19 12:00 Pulse Ox 98 03/15/19 12:00 Intake & Output 03/14/19 03/15/19 03/15/19 18:59 06:59 18:59 Intake Total 702 462 Output Total 400 700 500 Balance 302 -700 -38 Weight 42.8 kg 42.8 kg Intake: Oral 702 462 Output: Urine 400 700 500 Other: Voiding Method Toilet Toilet Toilet # Voids 1 # Bowel Movements 1 - Exam PHYSICAL EXAMINATION: Patient is lying in the bed comfortably, no acute distress, awake alert and oriented.. HEENT: Normocephalic. Neck is supple. Pupils reactive. Nostrils clear. Oral cavity is moist. Ears reveal no drainage. Neck reveals no JVD, carotid bruits, or thyromegaly. CHEST EXAMINATION: Trachea is central. Symmetrical expansion. Lung lacy clear to auscultation and percussion. CARDIAC: Normal S1, S2 with no gallops. No murmurs ABDOMEN: Soft. Bowel sounds normal. No organomegaly. No abdominal bruits. Extremities: reveal no edema. No clubbing or cyanosis Neurologically awake, alert, oriented x3 with well-coordinated movements. No focal deficits noted Skin: No rash or skin lesions. Psychiatric: Coperative. Nonsuicidal Musculoskeletal: No joint swelling or deformity. Normal range of motion. - Labs CBC & Chem 7: 03/15/19 07:16 03/15/19 07:16 Labs: Abnormal Lab Results - Last 24 Hours (Table) 03/15/19 03/15/19 Range/Units 07:16 07:16 WBC 93.7 H* (3.8-10.6) k/uL RBC 2.74 L (3.80-5.40) m/uL Hgb 8.1 L (11.4-16.0) gm/dL Hct 26.9 L (34.0-46.0) % MCHC 30.2 L (31.0-37.0) g/dL Plt Count 604 H (150-450) k/uL Neutrophils # 91.8 H (1.3-7.7) k/uL Lymphocytes # 0.8 L (1.0-4.8) k/uL Sodium 134 L (137-145) mmol/L Chloride 92 L (98-107) mmol/L Carbon Dioxide 31 H (22-30) mmol/L Creatinine 0.41 L (0.52-1.04) mg/dL Microbiology - Last 24 Hours (Table) 03/11/19 12:30 Gram Stain - Preliminary Pleural Fluid Body Fluid Culture - Preliminary Assessment and Plan Assessment: Right upper extremity weakness and numbness resolved at this time. Likely due to metastatic brain lesions. Suspected seizure activity. Metastatic non-small cell lung cancer with metastases to brain. Diagnosed in December 2018. Status post thoracentesis. Surgical pathology is pending. leukocytosis/leukemoid reaction Anemia of chronic disease History of nicotine addiction History of breast cancer status post left mastectomy in History of thyroid cancer status post thyroidectomy DVT prophylaxis Plan: Patient will be continued on Decadron 8 mg every 6 hourly. Continue with Keppra. Continue with home medications and follow up closely. Oxygen therapy as needed. Scheduled for radiation therapy this afternoon. MRI of the brain is pending. Oncology is on board. Further recommendations based on the clinical course. Prognosis poor at this time. Time with Patient: Greater than 30
[2019-03-16 07:08] LABS: African American GFR (CKD) >90 (>60 ml/min/1.73 sqM); Anion Gap 10 mmol/L; Blood Urea Nitrogen 10 mg/dL (7-17); Calcium 8.1 mg/dL (8.4-10.2); Carbon Dioxide 29 mmol/L (22-30); Chloride 94 mmol/L (98-107); Glucose 79 mg/dL (74-99); Potassium 3.9 mmol/L (3.5-5.1); Sodium 133 mmol/L (137-145)
[2019-03-16 07:24] LABS: Anisocytosis Slight; HCT 23.5 % (34.0-46.0); HGB 7.4 gm/dL (11.4-16.0); Hypochromasia Moderate; MCHC 31.3 g/dL (31.0-37.0); MCV 95.8 fL (80.0-100.0); Mean Platelet Volume 7.3; Platelet Count 548 k/uL (150-450); RBC 2.45 m/uL (3.80-5.40); RDW 16.1 % (11.5-15.5)
[2019-03-16 07:30] LABS: WBC 102.8 k/uL (3.8-10.6)
[2019-03-16] MEDS: LEVOTHYROXINE 125 MCG TAB PO SCH (07:44)
[2019-03-16] MEDS: PANTOPRAZOLE 40 MG TABLET PO SCH ×2 (07:44→16:53)
[2019-03-16] MEDS: HYDROcodone/APAP 7.5-325MG 1 EACH TAB PO PRN ×2 (07:44→21:34)
[2019-03-16] MEDS: DEXAMETHASONE SOD PHOSPHATE 4 MG/ML 1 ML VIAL IV SCH ×3 (07:45→16:53)
[2019-03-16] MEDS: DICLOFENAC SODIUM GEL 100 GM TUBE TOPICAL SCH ×5 (07:45→23:54)
[2019-03-16] MEDS: NICOTINE 14MG/24HR PATCH TRANSDERM SCH (08:20)
[2019-03-16] MEDS: DOCUSATE 100 MG CAP PO SCH ×2 (08:21→23:54)
[2019-03-16] MEDS: LIDOCAINE 5% PATCH TOPICAL SCH (08:21)
[2019-03-16] MEDS: CHOLECALCIFEROL 1,000 UNIT TAB PO SCH (08:21)
[2019-03-16] MEDS: MULTIVITAMINS, THERA 1 EACH TAB PO SCH (08:22)
[2019-03-16] MEDS: FOLIC ACID 1 MG TAB PO SCH (08:22)
[2019-03-16] MEDS: CALCIUM CARB-VIT D 500MG-200UN 1 EACH TAB PO SCH (08:22)
[2019-03-16] MEDS: METOPROLOL TARTRATE 25 MG TAB PO SCH ×2 (08:22→21:33)
[2019-03-16] MEDS: levETIRAcetam 250 MG TAB PO SCH ×2 (08:29→21:33)
[2019-03-16 08:59] LABS: Band Neutrophils % 5 %; Lymphocytes # (M) 2.06 k/uL (1.0-4.8); Monocytes # (M) 2.06 k/uL (0-1.0); Neutrophils % (M) 91 %; Nucleated Red Blood Cells 0 /100 WBC (0-0); Total Cells Counted 100; Toxic Granulation Present
[2019-03-16 09:00] LABS: Poikilocytosis (M) Present
[2019-03-16] MEDS: FERROUS SULFATE 325 MG TAB PO SCH (11:57)
--- NOTE | 2019-03-16 12:31 | P.PN ---
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 No seizure. Tolerating LEV w/o side effects. RUE still numb. No new neuro c/o. Objective - Vital Signs Vital signs: Vital Signs Temp 98.8 F 03/16/19 08:00 Pulse 98 03/16/19 08:00 Resp 18 03/16/19 08:00 BP 125/72 03/16/19 08:00 Pulse Ox 95 03/16/19 08:00 Intake & Output 03/15/19 03/16/19 03/16/19 18:59 06:59 18:59 Intake Total 462 120 240 Output Total 500 360 Balance -38 120 -120 Weight 42.8 kg 43.5 kg Intake: Oral 462 120 240 Output: Urine 500 360 Other: Voiding Method Toilet Toilet Toilet # Voids 1 1 - Exam Gen NAD Pleasant and cooperative Neuro MS A+Ox4 Normal fluency Able to follow all commands CN PERRL VFF no APD EOMI no nystagmus or MAXIM No facial asymmetry Masseter's symmetric Hearing intact to normal voice bilaterally Speech not dysarthric Equal elevation of palate Tongue midline Sym shrug and SCM bilaterally Motor Normal bulk/tone Right pronator drift No tremors Strength 4+/5 RUE o/w 5/5 x3 Sens Diminished to LT in RUE No neglect Coord Not tested DTRs 1+/4 sym throughout Gait Deferred NIHSS 2 - Labs CBC & Chem 7: 03/16/19 06:08 03/16/19 06:08 Labs: Abnormal Lab Results - Last 24 Hours (Table) 03/16/19 03/16/19 Range/Units 06:08 06:08 WBC 102.8 H* (3.8-10.6) k/uL RBC 2.45 L (3.80-5.40) m/uL Hgb 7.4 L (11.4-16.0) gm/dL Hct 23.5 L (34.0-46.0) % RDW 16.1 H (11.5-15.5) % Plt Count 548 H (150-450) k/uL Neutrophils # (Manual) 98.60 H (1.3-7.7) k/uL Monocytes # (Manual) 2.06 H (0-1.0) k/uL Sodium 133 L (137-145) mmol/L Chloride 94 L (98-107) mmol/L Creatinine 0.42 L (0.52-1.04) mg/dL Calcium 8.1 L (8.4-10.2) mg/dL Microbiology - Last 24 Hours (Table) 03/11/19 12:30 Anaerobic Culture - Final Pleural Fluid 03/11/19 12:30 Gram Stain - Final Pleural Fluid Body Fluid Culture - Final - Imaging and Cardiology MRI Brain report pending Assessment and Plan Assessment: Recurrent episodes of loss of consciousness with seizure-like activity and post- ictal confusion and RUE numbness/weakness 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 -Seizure precautions. -MRI Brain w huseyin r/o CVA; awaiting report. -Sleep/wake EEG shows focal right frontoparietal slowing c/w her known [employer] mets and possible epileptic focus. -Patient should not drive for 6 months in accordance with the state law of [place]. Same common sense applies to engaging in any activity that may endanger patient and/or others should she have recurrent seizure activity. -d/w patient. All questions answered. Thank you again for this consultation. Please call with ?. Time with Patient: Less than 30 (Time spent in direct patient care, greater than 50% of which was spent in [id number] counseling and coordination of care: 25 minutes.)
--- NOTE | 2019-03-16 15:47 | P.PN ---
Subjective Progress Note Date: 03/16/19 Principal diagnosis: NSCLC, symptomatic pleural effusion, obstruction In f/u today pt denied vomiting, she ate breakfast with no problems, SOB is stable, she is weak, no diarrhea, fevers, pain. Objective - Vital Signs Vital signs: Vital Signs Temp 98.8 F 03/16/19 08:00 Pulse 98 03/16/19 08:00 Resp 18 03/16/19 08:00 BP 125/72 03/16/19 08:00 Pulse Ox 95 03/16/19 08:00 Intake & Output 03/15/19 03/16/19 03/16/19 18:59 06:59 18:59 Intake Total 462 120 300 Output Total 500 960 Balance -38 120 -660 Weight 42.8 kg 43.5 kg Intake: Oral 462 120 300 Output: Urine 500 960 Other: Voiding Method Toilet Toilet Toilet # Voids 1 2 - Constitutional General appearance: Present: cooperative, no acute distress, thin - EENT Eyes: Present: anicteric sclerae, EOMI ENT: Present: hearing grossly normal - Respiratory Respiratory: bilateral: diminished (L>R) - Cardiovascular Heart sounds: normal: S1, S2 - Peripheral edema leg Peripheral Edema: bilateral: None - Gastrointestinal General gastrointestinal: Present: normal bowel sounds, soft - Neurologic Neurologic: Present: CNII-XII intact - Musculoskeletal Musculoskeletal: Present: generalized weakness - Psychiatric Psychiatric: Present: A&O x's 3, appropriate affect, intact judgment & insight - Labs CBC & Chem 7: 03/16/19 06:08 03/16/19 06:08 Labs: Abnormal Lab Results - Last 24 Hours (Table) 03/16/19 03/16/19 Range/Units 06:08 06:08 WBC 102.8 H* (3.8-10.6) k/uL RBC 2.45 L (3.80-5.40) m/uL Hgb 7.4 L (11.4-16.0) gm/dL Hct 23.5 L (34.0-46.0) % RDW 16.1 H (11.5-15.5) % Plt Count 548 H (150-450) k/uL Neutrophils # (Manual) 98.60 H (1.3-7.7) k/uL Monocytes # (Manual) 2.06 H (0-1.0) k/uL Sodium 133 L (137-145) mmol/L Chloride 94 L (98-107) mmol/L Creatinine 0.42 L (0.52-1.04) mg/dL Calcium 8.1 L (8.4-10.2) mg/dL Microbiology - Last 24 Hours (Table) 03/11/19 12:30 Anaerobic Culture - Final Pleural Fluid 03/11/19 12:30 Gram Stain - Final Pleural Fluid Body Fluid Culture - Final Assessment and Plan (1) Non-small cell lung cancer with metastasis Narrative/Plan: Status post whole brain radiation. MRI was ordered for today No chemotherapy has been started yet Plan is for palliative radiation to try and open the airway Current Visit: Yes Status: Acute Priority: High Code(s): C34.90 - MALIGNANT NEOPLASM OF UNSP PART OF UNSP BRONCHUS OR LUNG SNOMED Code(s): 634529086 (2) Neutrophilic leukocytosis Narrative/Plan: Persistent, multifactorial including obstruction, malignancy and steroids. No bone marrow at this time, but will consider if persistent changes Current Visit: Yes Status: Acute Priority: Low Code(s): D72.9 - DISORDER OF WHITE BLOOD CELLS, UNSPECIFIED SNOMED Code(s): 886064249 (3) Brain metastasis Narrative/Plan: MRI was ordered for today, previously treated brain meds, pending review and results Current Visit: Yes Status: Acute Priority: High Code(s): C79.31 - S ECONDARY MALIGNANT NEOPLASM OF BRAIN SNOMED Code(s): 26850277 (4) Normocytic anemia Narrative/Plan: Mild iron deficiency on lab review. Oral supplement adequate at this time. No need for transfusion at this time, transfuse for Hgb<7 or if symptomatic Current Visit: Yes Status: Acute Priority: Medium Code(s): D64.9 - ANEMIA, UNSPECIFIED SNOMED Code(s): 152632371 Plan: Evaluate for home O2 Plan for chemo post radiation.
--- NOTE | 2019-03-16 15:59 | P.PN ---
Subjective Progress Note Date: 03/16/19 Principal diagnosis: Right upper extremity numbness and weakness, dysphagia, metastatic non-small cell lung cancer with brain metastases This is a very pleasant 63-year-old female patient who follows with Dr. Dawn as her primary care physician. She has a history of hypothyroidism and previous breast cancer with a left mastectomy in 1998. Thyroidectomy. Former smoker. She was admitted here back in December 2018 with weakness and was found to have a left hilar and lower lobe mass. She had undergone biopsies by Dr. 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 She had undergone 10 radiation treatments to the brain. Colon biopsy was positive for non-small cell carcinoma favoring metastasis from pulmonary primary. She is due to start chemotherapy next week. She presented here to the emergency room yesterday after having right arm numbness and weakness as well as dysphasia and was having trouble calling out to her for help. Computed tomography scan of the brain revealed several foci of cerebral edema consistent with metastatic disease. No intracranial hemorrhage. She has been on Decadron 4 mg twice a day in the outpatient setting. Chest x-ray reveals near complete white out of the left lung. We are consulted for the same. She is seen in consultation on the selective care unit. Presently, she is awake and alert in no acute distress. She has nearly complete resolution of the right arm numbness. Her speech is clear. She is oriented 3. She does have some dyspnea on exertion. Comfortable at rest. Maintain O2 saturations in the high 90s on 2 L/m per nasal cannula. She's afebrile. Blood pressure stable. Slightly tachycardic. Urine culture pending. Initial white count 104.8, currently 96.4. Hemoglobin 7.8. Platelet count 647,000, neutrophils 95, sodium 135. Creatinine 0.34. Glucose 124. Calcium 8.0. Troponin is negative 3. Patient is seen today 03/14/2019 in follow-up on the selective care unit. She is awake and alert in no acute distress. Maintaining O2 saturations in the 90s on 3 L/m per nasal cannula. Pleural fluid cultures are pending. Cytology pending. Yesterday's chest x-ray showed a new right lateral upper lobe reticular opacity suspicious for pneumonia. She has continued complete opacification of the left lung that could represent endobronchial obstruction and atelectasis. The plan may be for radiation therapy. Been seen and evaluated by Dr. Lewis. White count 104.3. Hemoglobin 7.7. Platelet count 627,000. Creatinine 0.43. Computed tomography scan of the brain continues to show multifocal hypodensities especially in the left frontal lobe, left parietal lobe and bilateral occipital lobes. The patient is seen today 03/15/2019 in follow-up on the selective care unit. He sitting up in a chair at the bedside. Awake and alert in no acute distress. She is maintaining good O2 saturations up to 100% on 2 L/m per nasal cannula. His been afebrile. Hemodynamically stable. Pleural fluid cultures and cytology are still pending. White count 93.7. Hemoglobin 8.1. Platelets 604,000. Sodium 134. Creatinine 0.41. EEG reveals focal left frontal parietal slowing seen and structural dysfunction of any cause. Neurology is on the case. MRI of the brain pending. She remains on Decadron. On 03/16/2019 patient seen in follow-up in the selective care unit, she is awake and alert, in no acute distress, was started on chemotherapy today, tolerated fairly well, no vomiting, appetite is poor, the patient tolerating oral intake, no worsening shortness of breath, no fever or pain. She is on supplemental oxygen, and 3 L/min with a pulse ox of 95%, hemodynamically stable. No new chest x-ray today, brain MRI was completed, report is pending, his labs have been reviewed, showing white blood cell count of 102.8, hemoglobin of 7.4, sodium of 133, potassium is 3.9, chloride is 94, CO2 is 29, BUN is 10, creatinine 0.42. No seizure activity, with upper extremity is still numb. Objective - Vital Signs Vital signs: Vital Signs Temp 98.8 F 03/16/19 08:00 Pulse 98 03/16/19 08:00 Resp 18 03/16/19 08:00 BP 125/72 03/16/19 08:00 Pulse Ox 95 03/16/19 08:00 Intake & Output 03/15/19 03/16/19 03/16/19 18:59 06:59 18:59 Intake Total 462 120 300 Output Total 500 960 Balance -38 120 -660 Weight 42.8 kg 43.5 kg Intake: Oral 462 120 300 Output: Urine 500 960 Other: Voiding Method Toilet Toilet Toilet # Voids 1 2 - Exam GENERAL EXAM: Alert, pleasant, 63-year-old white female on 3 L of oxygen comfortable in no apparent distress. HEAD: Normocephalic/atraumatic. EYES: Normal reaction of pupils, equal size. Conjunctiva pink, sclera white. NOSE: Clear with pink turbinates. THROAT: No erythema or exudates. NECK: No masses, no JVD, no thyroid enlargement, no adenopathy. CHEST: No chest wall deformity. Symmetrical expansion. LUNGS: Equal air entry with no crackles, wheeze, rhonchi or dullness. Diminished breath sounds in the left lung, scattered rhonchi in the right lung CVS: Regular rate and rhythm, normal S1 and S2, no gallops, no murmurs, no rubs ABDOMEN: Soft, nontender. No hepatosplenomegaly, normal bowel sounds, no guarding or rigidity. EXTREMITIES: No clubbing, no edema, no cyanosis, 2+ pulses and upper and lower extremities. MUSCULOSKELETAL: Muscle strength and tone normal. SPINE: No scoliosis or deformity SKIN: No rashes CENTRAL NERVOUS SYSTEM: Alert and oriented -3. No focal deficits, tone is normal in all 4 extremities. PSYCHIATRIC: Alert and oriented -3. Appropriate affect. Intact judgment and insight. - Labs CBC & Chem 7: 03/16/19 06:08 03/16/19 06:08 Labs: Abnormal Lab Results - Last 24 Hours (Table) 03/16/19 03/16/19 Range/Units 06:08 06:08 WBC 102.8 H* (3.8-10.6) k/uL RBC 2.45 L (3.80-5.40) m/uL Hgb 7.4 L (11.4-16.0) gm/dL Hct 23.5 L (34.0-46.0) % RDW 16.1 H (11.5-15.5) % Plt Count 548 H (150-450) k/uL Neutrophils # (Manual) 98.60 H (1.3-7.7) k/uL Monocytes # (Manual) 2.06 H (0-1.0) k/uL Sodium 133 L (137-145) mmol/L Chloride 94 L (98-107) mmol/L Creatinine 0.42 L (0.52-1.04) mg/dL Calcium 8.1 L (8.4-10.2) mg/dL Microbiology - Last 24 Hours (Table) 03/11/19 12:30 Anaerobic Culture - Final Pleural Fluid 03/11/19 12:30 Gram Stain - Final Pleural Fluid Body Fluid Culture - Final Assessment and Plan Plan: Assessment: #1 Right upper extremity numbness and weakness, dysphasia, recovered. Suspect secondary to several foci of cerebral edema consistent with metastatic disease. Status post 10 radiation treatments. On Decadron in the outpatient setting. Due to start chemotherapy. Questionable syncope and seizure activity. MRI of the brain pending. #2 Large left pleural effusion secondary to non-small cell lung cancer with metastasis to the brain and colon. Diagnosed in December 2018. Status post left- sided thoracentesis with 800 mL removed on 03/11/2018. Pathology pending. #3 Significant leukocytosis. Initial white count 104.8, currently 93.7. #4 Anemia. Current hemoglobin 8.1. #5 History of chronic tobacco dependence. #6 History of breast cancer status post left mastectomy in 1998. #7 History of thyroid cancer status post thyroidectomy. Plan: Continue with current medical treatment, patient will have her first radiation treatment with an attempt to decrease the lung tumor, and relieve airway obstruction. She remains on supplemental oxygen 3 L, no worsening shortness of breath, maintaining oxygenation in the range of 95% on 3 L, afebrile, no seizure activity, appetite remains poor, but is tolerating oral intake. MRI was completed, will await the results, no seizure activity. From pulmonary perspective no further recommendations at this time, we will follow on as-needed basis. Long prognosis is guarded I performed a history & physical examination of the patient and discussed their management with my nurse practitioner, Mena Prater. I reviewed the nurse practitioner's note and agree with the documented findings and plan of care. Lung sounds are positive for diminished breath sounds. The findings and the impression was discussed with the patient. I attest to the documentation by the nurse practitioner. Time with Patient: Less than 30
--- NOTE | 2019-03-16 15:59 | MR ---
EXAMINATION TYPE: MR brain wo/w con DATE OF EXAM: 03/16/2019 COMPARISON: CT brain 03/14/2019 and prior brain MRI 01/11/2019 HISTORY: LOC with RUE numbness h/o lung CA w/ brain mets, dizziness TECHNIQUE: Multiplanar, multisequence images of the brain and brainstem is performed without and with IV contras t, utilizing 4.5 mL intravenous Gadavist . FINDINGS: The largest focus of abnormal signal within the right occipital lobe shows a similar appear ance. Left posterior occipital lobe focus of ring enhancement has increased in size measuring 2.3 cm increased from 1.4 cm. In the head of the caudate a focus of previous abnormal signal now measures 7 mm similar to prior. In the left frontoparietal junction level 3 enhancement lesion is approximately 2.2 cm which is essentially stable. There is increase in the vasogenic edema associated with the left occipital lesion and also the left frontoparietal lesion. Midline structures demonstrate normal morphology. The craniocervical junction appears within normal limits. No hydrocephalus or hemorrhage. Fast brain protocol was utilized. Inflammatory changes are present within the bilateral mastoid air cells, temporal bones. IMPRESSION: At least one of the metastatic lesions is enlarged slightly in the interval, there is an increase in vasogenic edema in the left cerebral hemisphere.
[2019-03-16] MEDS: SODIUM CHLORIDE 0.9% 1,000 ML IV SCH (23:55)
[2019-03-17] MEDS: DEXAMETHASONE SOD PHOSPHATE 4 MG/ML 1 ML VIAL IV SCH ×3 (00:09→11:31)
--- NOTE | 2019-03-17 02:06 | P.PN ---
Subjective Progress Note Date: 03/16/19 Principal diagnosis: Metastatic cancer With the brain lesions This is a continue progress on a 63-year-old white female with history of metastatic lung cancer. She has recently had an episode of severe shortness of breath resulting in a fall and possible tonic-clonic activity. However when queried, the patient was fairly lucid after the episode. It happened within about 5 minutes and a code stroke was called. The patient was placed on Keppra. 03/15/2019 Patient is currently sitting in the bed. Awake alert and oriented 3. MRI of the brain is pending today. Patient is also scheduled for radiation therapy this afternoon. Continued on Decadron. Neurology, pulmonary and oncology on board. Case discussed with. WBC 93.7, hemoglobin 8.1 and platelet count 604,000. EEG reveals focal left frontal parietal slowing seen and structural dysfunction of any cause. 03/16/2019 She is awake alert and oriented 3. MRI of the brain and radiation therapy planned today. Patient is being continued on IV steroids and still having significant leukocytosis. Hemoglobin 7.4 today. No complaints of chest pain or shortness of breath. No nausea vomiting or abdominal pain. No other acute overnight issues. Current medications reviewed. Objective - Vital Signs Vital signs: Vital Signs Temp 98.6 F 03/16/19 16:00 Pulse 92 03/16/19 16:00 Resp 18 03/16/19 16:00 BP 89/47 03/16/19 16:00 Pulse Ox 95 03/16/19 16:00 Intake & Output 03/15/19 03/16/19 03/16/19 18:59 06:59 18:59 Intake Total 462 120 300 Output Total 500 960 Balance -38 120 -660 Weight 42.8 kg 43.5 kg Intake: Oral 462 120 300 Output: Urine 500 960 Other: Voiding Method Toilet Toilet Toilet # Voids 1 2 - Labs CBC & Chem 7: 03/16/19 06:08 03/16/19 06:08 Labs: Abnormal Lab Results - Last 24 Hours (Table) 03/16/19 03/16/19 Range/Units 06:08 06:08 WBC 102.8 H* (3.8-10.6) k/uL RBC 2.45 L (3.80-5.40) m/uL Hgb 7.4 L (11.4-16.0) gm/dL Hct 23.5 L (34.0-46.0) % RDW 16.1 H (11.5-15.5) % Plt Count 548 H (150-450) k/uL Neutrophils # (Manual) 98.60 H (1.3-7.7) k/uL Monocytes # (Manual) 2.06 H (0-1.0) k/uL Sodium 133 L (137-145) mmol/L Chloride 94 L (98-107) mmol/L Creatinine 0.42 L (0.52-1.04) mg/dL Calcium 8.1 L (8.4-10.2) mg/dL Microbiology - Last 24 Hours (Table) 03/11/19 12:30 Anaerobic Culture - Final Pleural Fluid 03/11/19 12:30 Gram Stain - Final Pleural Fluid Body Fluid Culture - Final Assessment and Plan Assessment: Right upper extremity weakness and numbness resolved at this time. Likely due to metastatic brain lesions. Suspected seizure activity. Metastatic non-small cell lung cancer with metastases to brain. Diagnosed in December 2018. Status post thoracentesis. Surgical pathology is pending. leukocytosis/leukemoid reaction Anemia of chronic disease History of nicotine addiction History of breast cancer status post left mastectomy in History of thyroid cancer status post thyroidectomy DVT prophylaxis Plan: Patient will be continued on Decadron 8 mg every 6 hourly. Continue with Keppra. Continue with home medications and follow up closely. Oxygen therapy as needed. Scheduled for radiation therapy this afternoon. MRI of the brain is pending. Oncology is on board. Further recommendations based on the clinical course. Prognosis poor at this time.
[2019-03-17] MEDS: PANTOPRAZOLE 40 MG TABLET PO SCH (06:51)
[2019-03-17] MEDS: LEVOTHYROXINE 125 MCG TAB PO SCH (06:51)
[2019-03-17] MEDS: NICOTINE 14MG/24HR PATCH TRANSDERM SCH (08:46)
[2019-03-17] MEDS: LIDOCAINE 5% PATCH TOPICAL SCH (08:51)
[2019-03-17] MEDS: CHOLECALCIFEROL 1,000 UNIT TAB PO SCH (08:52)
[2019-03-17] MEDS: levETIRAcetam 250 MG TAB PO SCH (08:52)
[2019-03-17] MEDS: FOLIC ACID 1 MG TAB PO SCH (08:52)
[2019-03-17] MEDS: CALCIUM CARB-VIT D 500MG-200UN 1 EACH TAB PO SCH (08:52)
[2019-03-17] MEDS: MULTIVITAMINS, THERA 1 EACH TAB PO SCH (08:52)
[2019-03-17] MEDS: DOCUSATE 100 MG CAP PO SCH (08:52)
[2019-03-17] MEDS: METOPROLOL TARTRATE 25 MG TAB PO SCH (08:52)
[2019-03-17] MEDS: DICLOFENAC SODIUM GEL 100 GM TUBE TOPICAL SCH ×2 (08:55→11:29)
[2019-03-17] MEDS: HYDROcodone/APAP 7.5-325MG 1 EACH TAB PO PRN (08:58)
[2019-03-17] MEDS: ONDANSETRON 4 MG/2 ML VIAL IVP PRN (09:00)
--- NOTE | 2019-03-17 11:01 | P.PN ---
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 No seizure. Tolerating LEV w/o side effects. RUE still numb. No new neuro c/o. Objective - Vital Signs Vital signs: Vital Signs Temp 98.1 F 03/17/19 08:00 Pulse 86 03/17/19 08:00 Resp 18 03/17/19 08:00 BP 110/47 03/17/19 08:00 Pulse Ox 98 03/17/19 08:00 Intake & Output 03/16/19 03/17/19 03/17/19 18:59 06:59 18:59 Intake Total 415 122 240 Output Total 960 Balance -545 122 240 Weight 44.6 kg Intake: Oral 415 122 240 Output: Urine 960 Other: Voiding Method Toilet # Voids 2 - Exam Gen NAD Pleasant and cooperative Neuro MS A+Ox4 Normal fluency Able to follow all commands CN II-XII grossly intact no nystagmus Motor Normal bulk/tone Right pronator drift No tremors Strength 4+/5 RUE o/w 5/5 x3 Sens Diminished to LT in RUE No neglect Coord Not tested DTRs 1+/4 sym throughout Gait Deferred NIHSS 2 - Labs CBC & Chem 7: 03/16/19 06:08 03/16/19 06:08 - Imaging and Cardiology MRI Brain w wo huseyin 03/16/19. At least one of the metastatic lesions is enlarged slightly in the interval with an increase in vasogenic edema in the left cerebral hemisphere. Assessment and Plan Assessment: Recurrent episodes of loss of consciousness with seizure-like activity and post- ictal confusion and RUE numbness/weakness 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 -Seizure precautions. -MRI Brain w huseyin shows mild disease progression. Oncology to decide on further treatment. -Sleep/wake EEG shows focal right frontoparietal slowing c/w her known [employer] mets and possible epileptic focus. -Patient should not drive for 6 months in accordance with the state law of [place]. Same common sense applies to engaging in any activity that may endanger patient and/or others should she have recurrent seizure activity. -d/w patient. All questions answered. -No further neuro recs at this time. Will sign off. Please call with new ?. Time with Patient: Less than 30 (Time spent in direct patient care, greater than 50% of which was spent in [id number] counseling and coordination of care: 25 minutes.)
[2019-03-17] MEDS: FERROUS SULFATE 325 MG TAB PO SCH (11:32)
[2019-03-17 11:35] VITALS: BP 117/65; PULSE 77; TEMP 98.2
== END 2019-03-17 18:11 | disposition home or self-care (01) | DRG 54 ==
LOC: EC 21:06 → 3SCARD 22:41
PROVIDERS: ADMIT Family Medicine; ATTEND Family Medicine
PROC: 0W9B3ZX Drainage of Left Pleural Cavity, Percutaneous Approach, Diagnostic (ICD-10-PCS; principal; 2019-03-11)
DX: C79.31 Secondary malignant neoplasm of brain (principal); G93.6 Cerebral edema; C34.90 Malignant neoplasm of unspecified part of unspecified bronchus or lung; E44.0 Moderate protein-calorie malnutrition; E87.1 Hypo-osmolality and hyponatremia; G45.9 Transient cerebral ischemic attack, unspecified; J91.0 Malignant pleural effusion; N39.0 Urinary tract infection, site not specified; Z68.1 Body mass index [BMI] 19.9 or less, adult; J98.19 Other pulmonary collapse; D63.0 Anemia in neoplastic disease; D72.823 Leukemoid reaction; E83.51 Hypocalcemia; E87.6 Hypokalemia; E89.0 Postprocedural hypothyroidism; Z87.891 Personal history of nicotine dependence; G40.909 Epilepsy, unspecified, not intractable, without status epilepticus; J44.9 Chronic obstructive pulmonary disease, unspecified; R13.10 Dysphagia, unspecified; R47.02 Dysphasia; T38.0X5A Adverse effect of glucocorticoids and synthetic analogues, initial encounter; Z79.890 Hormone replacement therapy; Z79.899 Other long term (current) drug therapy; Z82.49 Family history of ischemic heart disease and other diseases of the circulatory system; Z85.3 Personal history of malignant neoplasm of breast; Z85.850 Personal history of malignant neoplasm of thyroid; Z90.12 Acquired absence of left breast and nipple; Z92.3 Personal history of irradiation; G93.89 Other specified disorders of brain; Z91.011 Allergy to milk products
CPT/HCPCS: 36415; 70450; 70553; 71045; 71046; 72125; 76604; 77290; 77295; 77300; 77332; 77334; 77412; 80048; 80053; 81001; 82550; 82553; 82945; 83615; 83735; 84157; 84484; 85025; 85610; 85730; 87070; 87075; 87086; 87205; 88108; 88305; 88341; 88342; 89050; 93005; 95816; 99285

== ENCOUNTER 2019-03-30 23:26 | Inpatient (IN) | payer BC, OTHER ==
[2019-03-30] MEDS ORDERED: IPRATROPIUM-ALBUTEROL 3 ML NEB INHALATION STA (23:39)
--- NOTE | 2019-03-30 23:42 | ED ---
General Adult HPI - General Chief complaint: Shortness of Breath Stated complaint: ANAHI Time Seen by Provider: 03/30/19 23:34 Source: patient, family, EMS, RN notes reviewed Mode of arrival: EMS Limitations: no limitations - History of Present Illness Initial comments: Patient is a pleasant 63-year-old female presenting to the emergency Department with complaints of difficulty in breathing. Onset of symptoms was 2 days ago. Symptoms have progressively worsened since that time. No fever. Patient does have occasional cough without sputum production. Patient has been somewhat more fatigued. Patient was once previously on advise her treatments that seemed to improve her symptoms however is no longer taking these. Patient does not take oxygen at home. Patient does have known history of lung cancer. Patient did finish radiation therapy recently. Patient is unclear what the next step in her treatment is however she is discussing this with Dr. Stovall. No chest pain. No leg pain or leg swelling. - Related Data Home Medications Medication Instructions Recorded Confirmed Multivitamins, Thera [Multivitamin 1 tab PO DAILY 01/09/19 03/10/19 (formulary)] Alendronate Sodium 70 mg PO FLORES 01/10/19 03/10/19 Levothyroxine Sodium [Synthroid] 125 mcg PO DAILY 01/10/19 03/10/19 Folic Acid 1 mg PO DAILY 03/10/19 03/10/19 Previous Rx's Medication Instructions Recorded Lidocaine 5% Patch [Lidoderm 5% 1 patch TOPICAL DAILY #10 patch 01/12/19 Patch] Metoprolol Tartrate [Lopressor] 25 mg PO BID #60 tablet 01/12/19 HYDROcodone/APAP 7.5-325MG [[place] 1 tab PO Q6H PRN #28 tab 02/24/19 7.5-325] Pantoprazole [Protonix] 40 mg PO AC-BRKFST #30 tablet. 02/24/19 Dexamethasone [Decadron] 4 mg PO BID #30 tablet 03/17/19 Ferrous Sulfate [Iron (65 MG 325 mg PO W/LUNCH #30 tab 03/17/19 Elemental)] levETIRAcetam [Keppra] 750 mg PO BID #60 tab 03/17/19 Allergies Allergy/AdvReac Type Severity Reaction Status Date / Time cucumber AdvReac Unknown Verified 03/10/19 22:51 Milk Containing Products AdvReac Unknown Verified 03/10/19 22:51 [Dairy] tomato AdvReac Unknown Verified 03/10/19 22:51 Review of Systems ROS Statement: Those systems with pertinent positive or pertinent negative responses have been documented in the HPI. ROS Other: All systems not noted in ROS Statement are negative. Constitutional: Denies: fever Eyes: Denies: eye pain ENT: Denies: ear pain Respiratory: Reports: cough, dyspnea Cardiovascular: Denies: chest pain Endocrine: Reports: fatigue Gastrointestinal: Denies: abdominal pain Genitourinary: Denies: dysuria Musculoskeletal: Denies: back pain Skin: Denies: rash Neurological: Denies: weakness Past Medical History Past Medical History: Cancer, Thyroid Disorder Additional Past Medical History / Comment(s): breast cancer, lung CA, Brain lesions History of Any Multi-Drug Resistant Organisms: None Reported Past Surgical History: Breast Surgery Additional Past Surgical History / Comment(s): left breast masectomy 99, thyroid removed Past Anesthesia/Blood Transfusion Reactions: No Reported Reaction Past Psychological History: No Psychological Hx Reported Smoking Status: Former smoker Past Alcohol Use History: None Reported Past Drug Use History: None Reported - Past Family History Mother Family Medical History: Hypertension General Exam Limitations: no limitations General appearance: alert Head exam: Present: atraumatic Eye exam: Present: normal appearance, PERRL ENT exam: Present: normal oropharynx Neck exam: Present: normal inspection Respiratory exam: Present: respiratory distress, decreased breath sounds (Left- sided) Cardiovascular Exam: Present: tachycardia GI/Abdominal exam: Present: soft. Absent: tenderness Extremities exam: Present: normal inspection. Absent: pedal edema, calf tenderness Neurological exam: Present: alert Psychiatric exam: Present: normal affect, normal mood Skin exam: Present: normal color Course Vital Signs 03/30/19 03/30/19 03/31/19 23:27 23:54 00:02 Pulse Rate 142 H 142 H 144 H Respiratory 18 24 20 Rate Blood Pressure 120/71 O2 Sat by Pulse 99 Oximetry EKG Findings - EKG Comments: EKG Findings:: Sinus tachycardia 136. [place] 1:30. QRS 72. QT 288. QTC 433. Right axis. Normal QRS. Nonspecific ST-T. Medical Decision Making - Medical Decision Making Patient reevaluated with only mild improvement. Heart rate remains elevated. Patient and family updated on results and plan. Case was discussed and Dr. Dawn, who is familiar with this patient and will admit. Case was also discussed with Dr. Stovall who was also related this patient and will consult. He is in agreement with computed tomography scan of the chest which will be o rdered. - Lab Data Result diagrams: 03/30/19 23:56 03/30/19 23:56 Lab Results 03/30/19 03/30/19 Range/Units 23:56 23:56 WBC 51.1 H* (3.8-10.6) k/uL RBC 2.71 L (3.80-5.40) m/uL Hgb 8.1 L (11.4-16.0) gm/dL Hct 25.2 L (34.0-46.0) % MCV 92.8 (80.0-100.0) fL MCH 29.9 (25.0-35.0) pg MCHC 32.2 (31.0-37.0) g/dL RDW 16.3 H (11.5-15.5) % Plt Count 220 (150-450) k/uL Hypochromasia Moderate Anisocytosis Slight Sodium 135 L (137-145) mmol/L Potassium 5.3 H (3.5-5.1) mmol/L Chloride 97 L (98-107) mmol/L Carbon Dioxide 28 (22-30) mmol/L Anion Gap 10 mmol/L BUN 12 (7-17) mg/dL Creatinine 0.22 L (0.52-1.04) mg/dL Est GFR (CKD-EPI)AfAm >90 (>60 ml/min/1.73 sqM) Est GFR (CKD-EPI)NonAf >90 (>60 ml/min/1.73 sqM) Glucose 118 H (74-99) mg/dL Calcium 8.4 (8.4-10.2) mg/dL Total Bilirubin 1.1 (0.2-1.3) mg/dL AST 94 H (14-36) U/L ALT 27 (9-52) U/L Alkaline Phosphatase 253 H (38-126) U/L Total Protein 6.5 (6.3-8.2) g/dL Albumin 2.8 L (3.5-5.0) g/dL - Radiology Data Radiology results: image reviewed (Chest x-ray shows complete opacification of the left lung field. There is tracheal deviation) Disposition Clinical Impression: Dyspnea Disposition: ADMITTED IP TO THIS HOSP Condition: Serious Is patient prescribed a controlled substance at d/c from ED?: No Referrals: Stewart Dawn MD [Primary Care Provider] - 1-2 days Decision Time: 00:55
[2019-03-31 00:24] LABS: ALT 27 U/L (9-52); AST 94 U/L (14-36); African American GFR (CKD) >90 (>60 ml/min/1.73 sqM); Albumin 2.8 g/dL (3.5-5.0); Alkaline Phosphatase 253 U/L (38-126); Anion Gap 10 mmol/L; Blood Urea Nitrogen 12 mg/dL (7-17); Calcium 8.4 mg/dL (8.4-10.2); Carbon Dioxide 28 mmol/L (22-30); Chloride 97 mmol/L (98-107); Glucose 118 mg/dL (74-99); Sodium 135 mmol/L (137-145); Total Bilirubin 1.1 mg/dL (0.2-1.3); Total Protein 6.5 g/dL (6.3-8.2)
[2019-03-31 00:30] LABS: Potassium 5.3 mmol/L (3.5-5.1)
[2019-03-31 00:45] LABS: Anisocytosis Slight; HCT 25.2 % (34.0-46.0); HGB 8.1 gm/dL (11.4-16.0); Hypochromasia Moderate; MCH 29.9 pg (25.0-35.0); MCHC 32.2 g/dL (31.0-37.0); MCV 92.8 fL (80.0-100.0); Mean Platelet Volume 9.5; Platelet Count 220 k/uL (150-450); RBC 2.71 m/uL (3.80-5.40); RDW 16.3 % (11.5-15.5)
[2019-03-31 00:52] LABS: WBC 51.1 k/uL (3.8-10.6)
[2019-03-31] MEDS ORDERED: MORPHINE SULFATE 4 MG/ML SYRINGE IVP STA (01:09)
[2019-03-31 01:11] LABS: Band Neutrophils % 12 %; Lymphocytes # (M) 2.04 k/uL (1.0-4.8); Monocytes # (M) 0.51 k/uL (0-1.0); Neutrophils % (M) 83 %; Nucleated Red Blood Cells 0 /100 WBC (0-0); Total Cells Counted 100
[2019-03-31 01:12] LABS: Polychromasia Present
[2019-03-31 01:14] LABS: Toxic Vacuolation Present
[2019-03-31 01:16] LABS: Poikilocytosis (M) Present
--- NOTE | 2019-03-31 01:21 | XR ---
EXAM: XR Chest, 2 Views CLINICAL HISTORY: ITS.REASON XR Reason: difficulty breathing TECHNIQUE: Frontal and lateral views of the chest. COMPARISON: 03/13/19 chest x-ray, 02/04/19, PET/CT FINDINGS: Lungs: No significant change of opacified left hemithorax. Upper cut off of the left mainstem bronchus. Interval decrease of right upper lobe patchy opacity. Right lung appears clear. Pleural space: Unremarkable. No pneumothorax. Heart: Unremarkable. No cardiomegaly. Mediastinum: Stable leftward deviation of the trachea. Bones/joints: Unremarkable. Soft tissues: Clips overlying the left lower hemithorax. Correlates with left breast clips on prior PET/CT. IMPRESSION: 1. No significant change of opacified left hemithorax. 2. Interval decrease of right upper lobe patchy opacity. Right lung appears clear.
[2019-03-31] MEDS: SODIUM CHLORIDE 0.9% 1,000 ML IV SCH ×3 (01:28→21:55)
--- NOTE | 2019-03-31 03:30 | CT ---
EXAM: CT Angiography Chest With Intravenous Contrast CLINICAL HISTORY: ITS.REASON CT Reason: pe protocol Patient presents with ANAHI. H/x of lung and Lt breast cancer. TECHNIQUE: Axial computed tomographic angiography images of the chest with intravenous contrast using pulmonary embolism protocol. CTDI is 4.4 mGy and DLP is 184 mGy-cm. This CT exam was performed using one or more of the following dose reduction techniques: automated exposure control, adjustment of the mA and/or kV according to patient size, and/or use of iterative reconstruction technique. 52mL of isouve 370 given through IV. MIP reconstructed images were created and reviewed. COMPARISON: Chest x-ray today, PET CT 02/04/[address] 01/09/2019 FINDINGS: Pulmonary arteries: Unremarkable. No pulmonary embolism. Aorta: No acute findings. No thoracic aortic aneurysm. Lungs: Interval increased size of the large left hilar mass which is confluent with left hilar and subcarinal adenopathy. Largest component of the left hilar mass measures approximately 12 x 8 x 9 cm. Fluid or tumor fills the left mainstem bronchus. Atelectasis of the left upper and lower lobes. Compression and possible involvement of the left inferior pulmonary vein. Mass in the left lower lobe measures approximately 3 cm. Rightward deviation and compression of the esophagus. Esophageal involvement not excluded. Mass effect and compression of the left atrium. Overall leftward mediastinal shift due to atelectasis. Centrilobular emphysema of the right lung. Mild right basilar atelectasis. Some mucous plugging of the right lower lobe airways. Pleural space: Moderate left pleural effusion, increased since the prior. New small right pleural effusion. No pneumothorax. Heart: Unremarkable. No cardiomegaly. No significant pericardial effusion. No evidence of RV dysfunction. Bones/joints: No acute fracture. No dislocation. Soft tissues: Unremarkable. Lymph nodes: Mildly enlarged prevascular node. Right paraesophageal adenopathy appears confluent with the large subcarinal confluent db mass. Enlarged gastrohepatic ligament node. Liver: Multiple ill-defined heterogeneous low-density lesions in the liver, new since the prior and worrisome for metastatic disease. Largest in the caudate, 4 cm. Stable 2.5 cm left hepatic lobe low-density lesion, which may be a cyst. Pancreas: Query some fluid posterior to the pancreatic body and tail, partially visualized. Adrenals: Ill-defined mildly enlarged left adrenal gland. IMPRESSION: 1. No evidence of pulmonary embolism. 2. Increased size of the large left hilar mass as detailed above. Fluid or tumor fills the left mainstem bronchus. Atelectatic left upper and lower lobes. Possible involvement of the left inferior pulmonary vein. 3. Moderate left pleural effusion, increased since the prior. Small right pleural effusion. 4. Right lung emphysema. Some mucous plugging of the right lower lobe airways. 5. Query some fluid posterior to the pancreatic body and tail, partially visualized. Correlate for pancreatitis. 6. Multiple ill-defined heterogeneous low-density lesions in the liver, new since the prior and worrisome for metastatic disease. 7. Ill-defined mildly enlarged left adrenal gland. Possible metastasis
[2019-03-31] MEDS: IPRATROPIUM-ALBUTEROL 3 ML NEB INHALATION PRN (08:00)
--- NOTE | 2019-03-31 08:28 | P.HPIM ---
History of Present Illness H&P Date: 03/31/19 Chief Complaint: Dyspnea This is history of physical 63-year-old white female with known history of bronchogenic carcinoma. The patient has been having worsening dyspnea for the last 3-4 days. She is appropriately admitted. The significant weakness. We will go ahead and consult oncology and pulmonology for stabilization assistance. No voiding difficulties. She went to sleep. Appetite is minimal however. We had a long discussion with dietary counseling. Review of Systems Constitutional: Denies chills, Denies fever Eyes: denies blurred vision, denies pain Ears, nose, mouth and throat: Denies headache, Denies sore throat Cardiovascular: Denies chest pain, Denies shortness of breath Genitourinary: Denies dysuria, Denies hematuria Past Medical History Past Medical History: Cancer, Thyroid Disorder Additional Past Medical History / Comment(s): breast cancer, lung CA, Brain lesions History of Any Multi-Drug Resistant Organisms: None Reported Past Surgical History: Breast Surgery Additional Past Surgical History / Comment(s): left breast masectomy 99, thyroid removed Past Anesthesia/Blood Transfusion Reactions: No Reported Reaction Past Psychological History: No Psychological Hx Reported Smoking Status: Former smoker Past Alcohol Use History: None Reported Additional Past Alcohol Use History / Comment(s): quit in december 2018 Past Drug Use History: None Reported - Past Family History Mother Family Medical History: Hypertension Father Family Medical History: Cancer Additional Family Medical History / Comment(s): lung cancer Medications and Allergies Home Medications Medication Instructions Recorded Confirmed Type Multivitamins, Thera [Multivitamin 1 tab PO DAILY 01/09/19 03/31/19 History (formulary)] Alendronate Sodium 70 mg PO FLORES 01/10/19 03/31/19 History Levothyroxine Sodium [Synthroid] 125 mcg PO DAILY 01/10/19 03/31/19 History Lidocaine 5% Patch [Lidoderm 5% 1 patch TOPICAL DAILY #10 patch 01/12/19 03/31/19 Rx Patch] Metoprolol Tartrate [Lopressor] 25 mg PO BID #60 tablet 01/12/19 03/31/19 Rx HYDROcodone/APAP 7.5-325MG [[place] 1 tab PO Q6H PRN #28 tab 02/24/19 03/31/19 Rx 7.5-325] Pantoprazole [Protonix] 40 mg PO AC-BRKFST #30 tablet. 02/24/19 03/31/19 Rx Folic Acid 1 mg PO DAILY 03/10/19 03/31/19 History Dexamethasone [Decadron] 4 mg PO BID #30 tablet 03/17/19 03/31/19 Rx Ferrous Sulfate [Iron (65 MG 325 mg PO W/LUNCH #30 tab 03/17/19 03/31/19 Rx Elemental)] levETIRAcetam [Keppra] 750 mg PO BID #60 tab 03/17/19 03/31/19 Rx Allergies Allergy/AdvReac Type Severity Reaction Status Date / Time cucumber AdvReac Unknown Verified 03/31/19 07:08 Milk Containing Products AdvReac Unknown Verified 03/31/19 07:08 [Dairy] tomato AdvReac Unknown Verified 03/31/19 07:08 Physical Exam Vitals: Vital Signs Temp Pulse Pulse Resp BP BP Pulse Ox 03/31/19 08:10 122 H 03/31/19 08:02 120 H 94 L 03/31/19 04:00 98.9 F 125 H 18 124/60 99 03/31/19 03:48 98.9 F 125 H 20 124/60 99 03/31/19 03:10 98.6 F 129 H 18 124/63 98 03/31/19 01:14 99.2 F 146 H 18 113/50 93 L 03/31/19 00:02 144 H 20 03/30/19 23:54 142 H 24 03/30/19 23:27 142 H 18 120/71 99 Intake and Output 03/30/19 03/31/19 03/31/19 22:59 06:59 14:59 Other: Voiding Method Diaper Weight 47.5 kg - Constitutional General appearance: no acute distress - EENT Eyes: EOMI - Neck Neck: no lymphadenopathy - Respiratory Respiratory: bilateral: diminished - Cardiovascular Rhythm: regular Heart sounds: normal: S1, S2 Abnormal Heart Sounds: no S3 Gallop - Gastrointestinal General gastrointestinal: soft, no tenderness - Psychiatric Psychiatric: A&O x's 3, no appropriate affect Results CBC & Chem 7: 03/30/19 23:56 03/30/19 23:56 Labs: Abnormal Lab Results - Last 24 Hours (Table) 03/30/19 03/30/19 03/30/19 Range/Units 23:56 23:56 23:56 WBC 51.1 H* (3.8-10.6) k/uL RBC 2.71 L (3.80-5.40) m/uL Hgb 8.1 L (11.4-16.0) gm/dL Hct 25.2 L (34.0-46.0) % RDW 16.3 H (11.5-15.5) % Neutrophils # (Manual) 48.50 H (1.3-7.7) k/uL Sodium 135 L (137-145) mmol/L Potassium 5.3 H (3.5-5.1) mmol/L Chloride 97 L (98-107) mmol/L Creatinine 0.22 L (0.52-1.04) mg/dL Glucose 118 H (74-99) mg/dL Plasma Lactic Acid Howard 2.6 H* (0.7-2.0) mmol/L AST 94 H (14-36) U/L Alkaline Phosphatase 253 H (38-126) U/L Albumin 2.8 L (3.5-5.0) g/dL 03/31/19 Range/Units 05:21 WBC (3.8-10.6) k/uL RBC (3.80-5.40) m/uL Hgb (11.4-16.0) gm/dL Hct (34.0-46.0) % RDW (11.5-15.5) % Neutrophils # (Manual) (1.3-7.7) k/uL Sodium (137-145) mmol/L Potassium (3.5-5.1) mmol/L Chloride (98-107) mmol/L Creatinine (0.52-1.04) mg/dL Glucose (74-99) mg/dL Plasma Lactic Acid Howard 4.8 H* (0.7-2.0) mmol/L AST (14-36) U/L Alkaline Phosphatase (38-126) U/L Albumin (3.5-5.0) g/dL Thrombosis Risk Factor Assmnt - Choose All That Apply Any of the Below Risk Factors Present?: Yes Each Factor Represents 1 point: Abnormal pulmonary function (COPD) Other Risk Factors: Yes Each Risk Factor Represents 2 Points: Age 61-74 years Other congenital or acquired thrombophilia - If yes, enter type in comment: No Thrombosis Risk Factor Assessment Total Risk Factor Score: 3 Thrombosis Risk Factor Assessment Level: Moderate Risk Assessment and Plan (1) Dyspnea Current Visit: Yes Status: Acute Code(s): R06.00 - DYSPNEA, UNSPECIFIED SNOMED Code(s): 691563849 (2) Brain metastasis Current Visit: No Status: Acute Priority: High Code(s): C79.31 - SECONDARY MALIGNANT NEOPLASM OF BRAIN SNOMED Code(s): 49019285 (3) Hilar mass Current Visit: No Status: Acute Code(s): R91.8 - OTHER NONSPECIFIC ABNORMAL FINDING OF LUNG FIELD SNOMED Code(s): 093744582 (4) Non-small cell lung cancer with metastasis Current Visit: No Status: Acute Priority: High Code(s): C34.90 - MALIGNANT NEOPLASM OF UNSP PART OF UNSP BRONCHUS OR LUNG SNOMED Code(s): 871219273 Plan: Reconcile medications. Due to her tachycardia, we'll go ahead and consult cardiology in addition to pulmonology and oncology. Question need for beta nereyda at this time, walker. Check CBC and CMP in a.m. Prognosis is guarded. Time with Patient: Greater than 30
[2019-03-31] MEDS: PANTOPRAZOLE 40 MG TABLET PO SCH (09:04)
[2019-03-31] MEDS: METOPROLOL TARTRATE 25 MG TAB PO SCH ×2 (09:05→20:23)
[2019-03-31] MEDS: LIDOCAINE 5% PATCH TOPICAL SCH (09:05)
[2019-03-31] MEDS: MULTIVITAMINS, THERA 1 EACH TAB PO SCH (09:05)
[2019-03-31] MEDS: FOLIC ACID 1 MG TAB PO SCH (09:05)
[2019-03-31] MEDS: DEXAMETHASONE 4 MG TAB PO SCH ×2 (09:05→20:23)
[2019-03-31] MEDS: IPRATROPIUM-ALBUTEROL 3 ML NEB INHALATION SCH ×3 (11:07→19:32)
--- NOTE | 2019-03-31 11:20 | P.CNPUL ---
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 Patient was recently hospitalized in February for progressive dyspnea related to large left pleural effusion and left lung collapse related to a large left hilar mass. Patient underwent therapeutic thoracentesis during that admission by Dr. Laura with removal of 800 mL of pleural fluid, and Dr. Laura was not able to remove any more fluid related to significant left shoulder pain and chest pain. Following the procedure the left lung failed to reexpand, follow-up chest x-rays showing continued complete opacification of the left lung related to endobronchial obstruction and atelectasis. Pleural fluid cytology was negative cytologically for high-grade malignancy. Patient completed radiation therapy to the brain, she was on oral Decadron, she was due to start chemotherapy, and possible radiation to the lung. Case was discussed with medical oncology, and the patient was supposed to start treatment after discharge, however apparently patient and the family canceled appointment related to patient having severe chest discomfort, and after that patient has not been seen in the office. Patient presents to the hospital on 03/30/2019 by ambulance with complaints of difficulty breathing dressing over the last couple of days, chest discomfort over the midsternal area, weakness, fatigue. Patient has occasional cough, without sputum production. Denied any fever or chills, denied any nausea vomiting no diarrhea, patient has had very poor appetite, diminished oral intake, and patient has lost more weight since [place], no hemoptysis, no leg pain or leg swelling. Patient was found to be tachycardic in sinus mechanism with a rate in the 130s with nonspecific ST and T wave changes. Chest x-ray showed complete opacification of the left lung field with tracheal deviation to the left. CT chest was obtained showing no evidence of pulmonary embolism, but increase in the size of the large left hilar mass is confluent with left hilar and subcarinal adenopathy, largest component of the left hilar mass measuring 12 x 8 x 9 cm. Fluid or tumor filling the left mainstem bronchus, atelectasis of the left upper and lower lobes compression and possible involvement of the left inferior pulmonary vein, mass in the left lower lobe measuring approximately 3 cm. Was compression and rightward deviation of the esophagus, mass effect and compression of the left atrium with overall leftward mediastinal shift due to atelectasis. Some mucous plugging of the right lower lobe airways. Small right pleural effusion. Emphysematous changes seen in the right lung, possible pancreatitis, and some ill-defined heterogene ous low-density lesions in the liver that are new since prior exam and are suspicious for metastatic disease, ill-defined mildly enlarged left adrenal mass worrisome for metastatic disease. Review of Systems All systems: negative Constitutional: Denies chills, Denies fever Eyes: denies blurred vision, denies pain Ears, nose, mouth and throat: Denies headache, Denies sore throat Cardiovascular: Reports chest pain, Reports dyspnea on exertion, Reports rapid heart beat, Denies shortness of breath Respiratory: Reports congestion, Reports dyspnea, Denies cough Gastrointestinal: Reports loss of appetite, Denies abdominal pain, Denies diarrhea, Denies nausea, Denies vomiting Genitourinary: Denies dysuria, Denies hematuria Musculoskeletal: Denies myalgias Integumentary: Denies pruritus, Denies rash Neurological: Denies numbness, Denies weakness Psychiatric: Denies anxiety, Denies depression Endocrine: Denies fatigue, Denies weight change Past Medical History Past Medical History: Cancer, Thyroid Disorder Additional Past Medical History / Comment(s): breast cancer, lung CA, Brain lesions History of Any Multi-Drug Resistant Organisms: None Reported Past Surgical History: Breast Surgery Additional Past Surgical History / Comment(s): left breast masectomy 99, thyroid removed Past Anesthesia/Blood Transfusion Reactions: No Reported Reaction Past Psychological History: No Psychological Hx Reported Smoking Status: Former smoker Past Alcohol Use History: None Reported Additional Past Alcohol Use History / Comment(s): quit in december 2018 Past Drug Use History: None Reported - Past Family History Mother Family Medical History: Hypertension Father Family Medical History: Cancer Additional Family Medical History / Comment(s): lung cancer Medications and Allergies Home Medications Medication Instructions Recorded Confirmed Type Multivitamins, Thera [Multivitamin 1 tab PO DAILY 01/09/19 03/31/19 History (formulary)] Alendronate Sodium 70 mg PO FLORES 01/10/19 03/31/19 History Levothyroxine Sodium [Synthroid] 125 mcg PO DAILY 01/10/19 03/31/19 History Lidocaine 5% Patch [Lidoderm 5% 1 patch TOPICAL DAILY #10 patch 01/12/19 03/31/19 Rx Patch] Metoprolol Tartrate [Lopressor] 25 mg PO BID #60 tablet 01/12/19 03/31/19 Rx HYDROcodone/APAP 7.5-325MG [[place] 1 tab PO Q6H PRN #28 tab 02/24/19 03/31/19 Rx 7.5-325] Pantoprazole [Protonix] 40 mg PO AC-BRKFST #30 tablet. 02/24/19 03/31/19 Rx Folic Acid 1 mg PO DAILY 03/10/19 03/31/19 History Dexamethasone [Decadron] 4 mg PO BID #30 tablet 03/17/19 03/31/19 Rx Ferrous Sulfate [Iron (65 MG 325 mg PO W/LUNCH #30 tab 03/17/19 03/31/19 Rx Elemental)] levETIRAcetam [Keppra] 750 mg PO BID #60 tab 03/17/19 03/31/19 Rx Allergies Allergy/AdvReac Type Severity Reaction Status Date / Time cucumber AdvReac Unknown Verified 03/31/19 07:08 Milk Containing Products AdvReac Unknown Verified 03/31/19 07:08 [Dairy] tomato AdvReac Unknown Verified 03/31/19 07:08 Physical Exam Vitals: Vital Signs Temp Pulse Pulse Resp BP BP Pulse Ox 03/31/19 08:10 122 H 03/31/19 08:02 120 H 94 L 03/31/19 08:00 99.1 F 121 H 20 131/69 97 03/31/19 04:00 98.9 F 125 H 18 124/60 99 03/31/19 03:48 98.9 F 125 H 20 124/60 99 03/31/19 03:10 98.6 F 129 H 18 124/63 98 03/31/19 01:14 99.2 F 146 H 18 113/50 93 L 03/31/19 00:02 144 H 20 03/30/19 23:54 142 H 24 03/30/19 23:27 142 H 18 120/71 99 Intake and Output 03/30/19 03/31/19 03/31/19 22:59 06:59 14:59 Other: Voiding Method Diaper Diaper Weight 47.5 kg GENERAL EXAM: Alert, pale 63-year-old cachectic looking female on 4 L of oxygen with a pulse ox of 94%, comfortable in no apparent distress. HEAD: Normocephalic/atraumatic. EYES: Normal reaction of pupils, equal size. Conjunctiva pink, sclera white. NOSE: Clear with pink turbinates. THROAT: No erythema or exudates. NECK: No masses, no JVD, no thyroid enlargement, no adenopathy. CHEST: No chest wall deformity. Symmetrical expansion. LUNGS: Equal air entry with diminished breath sounds bronchial breath sounds on the left, diffuse crackles at the bases CVS: Regular rate and rhythm, normal S1 and S2, no gallops, no murmurs, no rubs. She is tachycardic with a heart rate in the 120s ABDOMEN: Soft, nontender. No hepatosplenomegaly, normal bowel sounds, no guarding or rigidity. EXTREMITIES: No clubbing, no edema, no cyanosis, 2+ pulses and upper and lower extremities. MUSCULOSKELETAL: Muscle strength and tone normal. SPINE: No scoliosis or deformity SKIN: No rashes CENTRAL NERVOUS SYSTEM: Alert and oriented -3. No focal deficits, tone is normal in all 4 extremities. PSYCHIATRIC: Alert and oriented -3. Appropriate affect. Intact judgment and insight. Results - Laboratory Findings CBC and BMP: 03/30/19 23:56 03/30/19 23:56 Abnormal lab findings: Abnormal Labs 03/30/19 03/30/19 03/30/19 23:56 23:56 23:56 WBC 51.1 H* RBC 2.71 L Hgb 8.1 L Hct 25.2 L RDW 16.3 H Neutrophils # (Manual) 48.50 H Sodium 135 L Potassium 5.3 H Chloride 97 L Creatinine 0.22 L Glucose 118 H Plasma Lactic Acid Howard 2.6 H* AST 94 H Alkaline Phosphatase 253 H Albumin 2.8 L 03/31/19 05:21 WBC RBC Hgb Hct RDW Neutrophils # (Manual) Sodium Potassium Chloride Creatinine Glucose Plasma Lactic Acid Howard 4.8 H* AST Alkaline Phosphatase Albumin - Diagnostic Findings Chest x-ray: report reviewed, image reviewed CT scan - chest: report reviewed, image reviewed Assessment and Plan Plan: Assessment: #1. Complete opacification of the left hemithorax, related to a large left hilar mass, and endobronchial tumor in the left mainstem bronchus with atelectat ic left upper and lower lobes, and moderately sized left pleural effusion increased from prior exam. #2. History of metastatic non-small cell lung cancer, adenocarcinoma, metastasis to the brain status post radiation treatment, patient was supposed to start chemotherapy and additional radiation treatments #3. Possible additional areas of metastasis to the liver and left adrenal gland, seen on the CTA chest #4. Recent hospitalization for dyspnea related to left lung collapse, related to postobstructive atelectasis and pleural effusion secondary to left hilar mass. She underwent therapeutic thoracentesis would removal of 800 mL of pleural fluid, cytology was negative, and following the procedure the left lung field to reexpand #5. Leukocytosis, possibly reactive, has actually improved since last admission. So, is 51.1 this admission down from 102.8 on 03/16/2019 #6. Lactic acidosis, not thought to be related to sepsis #7. Chronic anemia likely related to malignancy #8. History of chronic tobacco dependence, currently in remission #9. History of breast cancer status post left mastectomy in 1998 #10. History of thyroid cancer status post thyroidectomy Plan: We'll obtain ultrasound of the chest, the possibility of left-sided thoracentesis today. Keep the patient nothing by mouth, possibility of bronchoscopy this afternoon. Case was discussed with medical oncology, and the patient canceled her follow-up appointment when she was supposed to start chemotherapy for her lung cancer. Will continue breathing treatments, IV hydration. Patient is tachycardic, she denies acute distress, remains on 4 L of oxygen right now, pulse ox of 94%. CODE STATUS was discussed with the patient, and she states she still wants treatment, however as far as the aggressive r esuscitation and placement on mechanical ventilator she would like to discuss with her family. We'll continue to follow I performed a history & physical examination of the patient and discussed their management with my nurse practitioner, Mena Prater. I reviewed the nurse practitioner's note and agree with the documented findings and plan of care. Lung sounds are positive for diminished breath sounds, bilateral rales. The findings and the impression was discussed with the patient. I attest to the documentation by the nurse practitioner. Time with Patient: Greater than 30
--- NOTE | 2019-03-31 11:41 | US ---
EXAMINATION TYPE: US chest DATE OF EXAM: 03/31/2019 COMPARISON: NONE CLINICAL HISTORY: left hydropneumothorax. TECHNIQUE: Targeted ultrasound of the posterior lower EXAM MEASUREMENTS: Right Pleural Effusion pocket size: 1.8 cm Right skin surface to fluid distance: 1.4 cm Left Pleural Effusion pocket size: 4.4 cm Left skin surface to fluid distance: 2.6 cm Right side not marked for possible thoracentesis outside the dept. Left side marked for possible thoracentesis outside the dept. Pulmonologists are able to review the images in the patient?s EMR. IMPRESSIONS: Bilateral pleural effusions larger on the left.
[2019-03-31] MEDS ORDERED: PROPOFOL 10 MG/ML 20 ML VIAL IV ONE (14:03)
[2019-03-31] MEDS ORDERED: IV FLUID CONTINUATION 1,000 ML IV ONE (14:04)
[2019-03-31] MEDS ORDERED: LIDOCAINE 2% INJ 20 MG/ML INTRATRACH ONE (14:30)
--- NOTE | 2019-03-31 15:19 | XR ---
EXAMINATION TYPE: XR chest 1V portable DATE OF EXAM: 03/31/2019 COMPARISON: 03/31/2019 INDICATION: Status post bronchoscopy, hydropneumothorax TECHNIQUE: Frontal and lateral views of the chest are obtained. FINDINGS: The heart size is normal. The pulmonary vasculature is normal. There is a left perihilar mass with spiculated margins. Hydropneumothorax may be present. No pneumoth orax is evident. Right lung is clear. IMPRESSION: 1. Suspected left perihilar mass. 2. Left pleural effusion. 3. There is improved aeration from comparison.
[2019-03-31] MEDS: HYDROcodone/APAP 7.5-325MG 1 EACH TAB PO PRN (15:55)
[2019-03-31] MEDS: LEVOFLOXACIN 500MG-D5W PMX 500 MG in DEXTROSE/WATER 1 100ML.BAG IVPB SCH (15:59)
--- NOTE | 2019-03-31 16:38 | P.CONS ---
History of Present Illness - Reason for Consult Consult date: 03/31/19 Recent Diagnosis of Lung Cancer Requesting physician: Xu Hernandez - Chief Complaint pain SOB - History of Present Illness Ms. Ge is a pleasant lady seen in consult at [facility] 01/10/19, she presented with upper respiratory symptoms, subjective fevers and chills that had been ongoing for several weeks. These had not improved satisfactorily after different courses of antibiotics. She had also been having some upper abdominal discomfort. The patient had noted blood-tinged sputum over 2-3 weeks, associated symptoms included generalized weakness, increasing shortness of breath on exertion, as well as some numbness and tingling in her lower extremities, all progressive over the past 2-3 weeks. CXR on 01/09/19 showed a large left upper mediastinal mass. The patient left A with a plan to follow- up with Oncology and Pulmonary as an outpatient. However, due to some worsening of her symptoms she came back to the ER and agreed to be admitted for further management. On admission calcium was elevated at 10.3, CTA revealed 6.7 x 7.5 x 5.5 left hilar mass extending posteriorly and inferiorly with encasement of the left lower lobe pulmonary artery. Satellite related mass in the posterior segment was also seen measuring 2.5 x 3 cm. Calcium improved with hydration and withholding of calcium supplements. MRI of the brain revealed at least 5 separate lesions involving both lobes, the largest 4.2 cm in the right parietal lobe. These were overall cystic in nature. CT AP and bone scan were negative. She was seen by Radiation Oncology and started on Decadron. In retrospect she noted some visual complaints with blurring of vision in the right lateral visual field, as well as mild intermittent difficulty with balance. Bronchoscopy 01/12/19, path revealed poorly differentiated malignant neoplasm, positive for vimentin, but negative for other markers, including breast. 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 First office visit was on 01/19/19. She proceeded to whole brain radiation and completed that on 02/07/19. Staging PET showed widespread disease outside the OR DIRECTOR, with involvement of the left lower lobe, mediastinal lymph node, thoracic and lumbar spine, bilateral ribs and iliac bones, as well as the left lower abdomen, there was the possibility of a primary colonic neoplasm with 2 other areas of uptake. Patient agata recent,y admitted with complaints of persistent, progressive abdominal pain, lower portion of the abdomen, denies any recent bloody or mucus stools, she did have a bowel movement the day before admission, she denied any change in caliber of the stool, no rectal pain with bowel movements. She was scheduled to begin her first chemotherapy March 13 but secondary to this admission she was unable. Appeared she was treated for new acute inflammatory changes suggesting surrounding acute colitis. it was found to be sigmoid colon mass, Based on that, general surgery evaluated the patient patient underwent colonoscopy revealing a sigmoid colon mass, biopsy was consistent with poorly differentiated non-small cell carcinoma favoring metastasis from pulmonary primary. She was discharged after stabilized and was to begin chemotherapy, although she did not follow-up the week of March 23, as instructed. She now presents back to hospital with increased shortness of breath and pain. Her daughter and grandchildren at bedside and tearfu. It appears on the new imaging she has increased growth causing pulmonary obstructive from increasing mass, Pulmonary is following and taking her to Bronch today. Review of Systems A 14 point review of systems assessed and completed and all negative except HPI Past Medical History Past Medical History: Cancer, Thyroid Disorder Additional Past Medical History / Comment(s): breast cancer, lung CA, Brain lesions History of Any Multi-Drug Resistant Organisms: None Reported Past Surgical History: Breast Surgery Additional Past Surgical History / Comment(s): left breast masectomy 99, thyroid removed Past Anesthesia/Blood Transfusion Reactions: No Reported Reaction Past Psychological History: No Psychological Hx Reported Smoking Status: Former smoker Past Alcohol Use History: None Reported Additional Past Alcohol Use History / Comment(s): quit in december 2018 Past Drug Use History: None Reported - Past Family History Mother Family Medical History: Hypertension Father Family Medical History: Cancer Additional Family Medical History / Comment(s): lung cancer Medications and Allergies Home Medications Medication Instructions Recorded Confirmed Type Multivitamins, Thera [Multivitamin 1 tab PO DAILY 01/09/19 03/31/19 History (formulary)] Alendronate Sodium 70 mg PO FLORES 01/10/19 03/31/19 History Levothyroxine Sodium [Synthroid] 125 mcg PO DAILY 01/10/19 03/31/19 History Lidocaine 5% Patch [Lidoderm 5% 1 patch TOPICAL DAILY #10 patch 01/12/19 03/31/19 Rx Patch] Metoprolol Tartrate [Lopressor] 25 mg PO BID #60 tablet 01/12/19 03/31/19 Rx HYDROcodone/APAP 7.5-325MG [[place] 1 tab PO Q6H PRN #28 tab 02/24/19 03/31/19 Rx 7.5-325] Pantoprazole [Protonix] 40 mg PO AC-BRKFST #30 tablet. 02/24/19 03/31/19 Rx Folic Acid 1 mg PO DAILY 03/10/19 03/31/19 History Dexamethasone [Decadron] 4 mg PO BID #30 tablet 03/17/19 03/31/19 Rx Ferrous Sulfate [Iron (65 MG 325 mg PO W/LUNCH #30 tab 03/17/19 03/31/19 Rx Elemental)] levETIRAcetam [Keppra] 750 mg PO BID #60 tab 03/17/19 03/31/19 Rx Allergies Allergy/AdvReac Type Severity Reaction Status Date / Time cucumber AdvReac Unknown Verified 03/31/19 07:08 Milk Containing Products AdvReac Unknown Verified 03/31/19 07:08 [Dairy] tomato AdvReac Unknown Verified 03/31/19 07:08 Physical Exam Vitals: Vital Signs Temp Pulse Pulse Resp BP BP Pulse Ox 03/31/19 11:45 99.5 F 105 H 20 113/56 99 03/31/19 11:39 105 H 03/31/19 11:37 99.5 F 105 H 20 113/56 99 03/31/19 08:10 122 H 03/31/19 08:02 120 H 94 L 03/31/19 08:00 99.1 F 121 H 20 131/69 97 03/31/19 04:00 98.9 F 125 H 18 124/60 99 03/31/19 03:48 98.9 F 125 H 20 124/60 99 03/31/19 03:10 98.6 F 129 H 18 124/63 98 03/31/19 01:14 99.2 F 146 H 18 113/50 93 L 03/31/19 00:02 144 H 20 03/30/19 23:54 142 H 24 03/30/19 23:27 142 H 18 120/71 99 Intake and Output 03/30/19 03/31/19 03/31/19 22:59 06:59 14:59 Output Total 300 Balance -300 Output: Urine 300 Other: Voiding Method Diaper Diaper Weight 47.5 kg 47.5 kg Gen: Alert Head: NCNT Neck Supple Lungs: Diminished, decreased airflow Hears: Tachy Abdomen: Tender, Fir, Ext: Mild edema Results CBC & Chem 7: 03/30/19 23:56 03/30/19 23:56 Labs: Abnormal Lab Results - Last 24 Hours (Table) 03/30/19 03/30/19 03/30/19 Range/Units 23:56 23:56 23:56 WBC 51.1 H* (3.8-10.6) k/uL RBC 2.71 L (3.80-5.40) m/uL Hgb 8.1 L (11.4-16.0) gm/dL Hct 25.2 L (34.0-46.0) % RDW 16.3 H (11.5-15.5) % Neutrophils # (Manual) 48.50 H (1.3-7.7) k/uL Sodium 135 L (137-145) mmol/L Potassium 5.3 H (3.5-5.1) mmol/L Chloride 97 L (98-107) mmol/L Creatinine 0.22 L (0.52-1.04) mg/dL Glucose 118 H (74-99) mg/dL Plasma Lactic Acid Howard 2.6 H* (0.7-2.0) mmol/L AST 94 H (14-36) U/L Alkaline Phosphatase 253 H (38-126) U/L Albumin 2.8 L (3.5-5.0) g/dL 03/31/19 Range/Units 05:21 WBC (3.8-10.6) k/uL RBC (3.80-5.40) m/uL Hgb (11.4-16.0) gm/dL Hct (34.0-46.0) % RDW (11.5-15.5) % Neutrophils # (Manual) (1.3-7.7) k/uL Sodium (137-145) mmol/L Potassium (3.5-5.1) mmol/L Chloride (98-107) mmol/L Creatinine (0.52-1.04) mg/dL Glucose (74-99) mg/dL Plasma Lactic Acid Howard 4.8 H* (0.7-2.0) mmol/L AST (14-36) U/L Alkaline Phosphatase (38-126) U/L Albumin (3.5-5.0) g/dL Chest x-ray: report reviewed CT scan - chest: report reviewed Assessment and Plan Plan: Assessment and Recommendations: POorly differentiated Carcinoma metastatic - [place] to be metastatic lung Cancer and colon mass - Has not began treatment secondary to repeat hospitalization and no follow-up after last discharge - Appears increased tumor burden, progressive disease - Bronch today - Radiation onc consulted and after bronch will evaluate if inpatient treatment is an option and would be helpful to relieve symptoms palliatively
[2019-03-31] MEDS: PIPERACILLIN-TAZOBACTAM 3.375 GM in SODIUM CHLORIDE 0.9% 100 ML IVPB SCH (17:25)
[2019-03-31] MEDS: FERROUS SULFATE 325 MG TAB PO SCH (17:25)
--- NOTE | 2019-03-31 21:17 | OP ---
OPERATIVE REPORT OPERATIVE PROCEDURE: Bronchoscopy, endobronchial washings of the left mainstem bronchus, and extraction of mucus plug over endobronchial tumor of the left mainstem bronchus. PREOPERATIVE DIAGNOSIS: Left lung collapse secondary to endobronchial tumor. POSTOPERATIVE DIAGNOSIS: Left lung collapse secondary to endobronchial tumor and mucus plug on top of the endobronchial tumor on the left mainstem bronchus. ANESTHESIA USED: IV conscious sedation. PROCEDURE DESCRIPTION: The patient was prepared according to the bronchoscopy protocol. Oxygen was applied via nasal cannula, and we monitored her oxygen saturation continuously. Blood pressure was intermittently monitored. Cardiac rhythm was continuously monitored. After adequate IV conscious sedation, a bite block was placed and the bronchoscope was advanced through the bite block down to the area of the vocal cords, which were noted to be patent. Lidocaine was applied over the vocal cords, and the bronchoscope was advanced further down to the trachea. Thorough examination was done of the trachea, monica, right upper lobe, right middle lobe, right lower lobe; however, the proximal portion of the left mainstem bronchus was noted to be completely occluded initially with a large mucus plug, which I was able to suction and remove piecemeal until I reached the distal aspect of the left mainstem bronchus. There was significant endobronchial tumor noted in the left main distally. The endobronchial tumor seems to be subtotally occluding the left upper lobe, lingula and left lower lobe, and I could not visualize any of the bronchi of the left upper lobe, the lingula or the left lower lobe. Significant tumor involvement was noted in the left mainstem bronchus distally. Pictures were taken, lavage of the area was done, and washings of the distal left mainstem bronchus were done. These were sent for different diagnostic studies. Procedure was well tolerated. No evidence of any immediate complication. MMODL / IJN: [id number] /
[2019-04-01] MEDS: PIPERACILLIN-TAZOBACTAM 3.375 GM in SODIUM CHLORIDE 0.9% 100 ML IVPB SCH ×4 (00:06→23:17)
[2019-04-01] MEDS: SODIUM CHLORIDE 0.9% 1,000 ML IV SCH ×2 (00:07→17:25)
[2019-04-01] MEDS: LEVOTHYROXINE 125 MCG TAB PO SCH (06:02)
[2019-04-01] MEDS: PANTOPRAZOLE 40 MG TABLET PO SCH (07:04)
--- NOTE | 2019-04-01 07:16 | XR ---
EXAMINATION TYPE: XR chest 1V portable DATE OF EXAM: 04/01/2019 CLINICAL HISTORY: Difficulty breathing progress study. History of stage IV lung cancer. TECHNIQUE: Single AP portable upright view of the chest is obtained. COMPARISON: Chest x-ray and CT chest from one day earlier FINDINGS: There is persistent left mid to lower lung opacity with left-sided volume loss. There is b ackground chronic emphysematous change. Stable small right pleural effusion. Right lung otherwise rem ains clear. Cardiac silhouette remains silhouetted. Osseous structures are intact. IMPRESSION: Overall stable findings, persistent left mid to lower lung opacity with left-sided volu me loss corresponds to large left infrahilar mass or neoplasm with associated left lung atelectasis a nd small left pleural effusion. Background underlying emphysematous change. Stable small right pleura l effusion.
[2019-04-01] MEDS: IPRATROPIUM-ALBUTEROL 3 ML NEB INHALATION SCH ×4 (08:19→20:34)
[2019-04-01] MEDS: HYDROcodone/APAP 7.5-325MG 1 EACH TAB PO PRN ×3 (08:49→23:19)
[2019-04-01] MEDS: FOLIC ACID 1 MG TAB PO SCH (08:50)
[2019-04-01] MEDS: LIDOCAINE 5% PATCH TOPICAL SCH (08:50)
[2019-04-01] MEDS: DOCUSATE 100 MG CAP PO SCH (08:50)
[2019-04-01] MEDS: METOPROLOL TARTRATE 25 MG TAB PO SCH ×2 (08:50→20:21)
[2019-04-01] MEDS: MULTIVITAMINS, THERA 1 EACH TAB PO SCH (08:50)
--- NOTE | 2019-04-01 11:00 | P.PN ---
Subjective Progress Note Date: 04/01/19 Principal diagnosis: Dyspnea, complete opacification of the left lung with tracheal deviation to the left. 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 Patient was recently hospitalized in February for progressive dyspnea related to large left pleural effusion and left lung collapse related to a large left hilar mass. Patient underwent therapeutic thoracentesis during that admission by Dr. Laura with removal of 800 mL of pleural fluid, and Dr. Laura was not able to remove any more fluid related to significant left shoulder pain and chest pain. Following the procedure the left lung failed to reexpand, follow-up chest x-rays showing continued complete opacification of the left lung related to endobronchial obstruction and atelectasis. Pleural fluid cytology was negative cytologically for high-grade malignancy. Patient completed radiation therapy to the brain, she was on oral Decadron, she was due to start chemotherapy, and possible radiation to the lung. Case was discussed with medical oncology, and the patient was supposed to start treatment after discharge, however apparently patient and the family canceled appointment related to patient having severe chest discomfort, and after that patient has not been seen in the office. Patient presents to the hospital on 03/30/2019 by ambulance with complaints of difficulty breathing dressing over the last couple of days, chest discomfort over the midsternal area, weakness, f atigue. Patient has occasional cough, without sputum production. Denied any fever or chills, denied any nausea vomiting no diarrhea, patient has had very poor appetite, diminished oral intake, and patient has lost more weight since admission, no hemoptysis, no leg pain or leg swelling. Patient was found to be tachycardic in sinus mechanism with a rate in the 130s with nonspecific ST and T wave changes. Chest x-ray showed complete opacification of the left lung field with tracheal deviation to the left. CT chest was obtained showing no evidence of pulmonary embolism, but increase in the size of the large left hilar mass is confluent with left hilar and subcarinal adenopathy, largest component of the left hilar mass measuring 12 x 8 x 9 cm. Fluid or tumor filling the left mainstem bronchus, atelectasis of the left upper and lower lobes compression and possible involvement of the left inferior pulmonary vein, mass in the left lower lobe measuring approximately 3 cm. Was compression and rightward deviation of the esophagus, mass effect and compression of the left atrium with overall leftward mediastinal shift due to atelectasis. Some mucous plugging of the right lower lobe airways. Small right pleural effusion. Emphysematous changes seen in the right lung, possible pancreatitis, and some ill-defined heterogeneous low-density lesions in the liver that are new since prior exam and are suspicious for metastatic disease, ill-defined mildly enlarged left adrenal mass worrisome for metastatic disease. The patient is seen today 04/01/2019 in follow-up on the selective care unit. In addition to the note above the patient also has a sigmoid colon mass, which was found during previous admission related to patient's history of abdominal pain and a CAT scan of the abdomen was completed showing inflammatory changes and the mass in the descending/sigmoid colon cancer. Based on that, general surgery evaluated the patient patient underwent colonoscopy revealing a sigmoid colon mass, biopsy was consistent with poorly differentiated non-small cell carcinoma favoring metastasis from pulmonary primary. She is currently resting fairly comfortably in bed. She is on 4 L high flow nasal cannula. Maintaining O2 saturations in the upper 90s. She's afebrile. He would typically stable. Tolerating small bites of breakfast. It is post bronchoscopy with BAL yesterday cultures pending. There is endobronchial tumor and a mucous plug on top of the tumor in the left mainstem bronchus. Chest x-ray continues to show persistent left mid to lower lobe opacity with left-sided volume loss. Objective - Vital Signs Vital signs: Vital Signs Temp 98.5 F 04/01/19 04:00 Pulse 108 H 04/01/19 08:32 Resp 16 04/01/19 04:00 BP 120/61 04/01/19 04:00 Pulse Ox 98 04/01/19 04:00 Intake & Output 03/31/19 04/01/19 04/01/19 18:59 06:59 18:59 Intake Total 1000 75 100 Output Total 300 Balance 700 75 100 Weight 47.5 kg 30.5 kg Intake: IV 200 Intake, IV Titration 800 75 Amount Piperacillin-Tazobactam 3 75 .375 gm In Sodium Chloride 0.9% 100 ml @ 25 mls/hr IVPB Q8HR [facility] Rx# :[id number] Sodium Chloride 0.9% 1, 800 000 ml @ 100 mls/hr IV . Q10H [facility] Rx#:[id number] Oral 100 Output: Urine 300 Other: Voiding Method Diaper Toilet Bedpan - Exam GENERAL EXAM: Alert, weak pale 63-year-old cachectic looking female on 4 L of oxygen with a pulse ox of 98%, comfortable in no apparent distress. HEAD: Normocephalic/atraumatic. EYES: Normal reaction of pupils, equal size. Conjunctiva pink, sclera white. NOSE: Clear with pink turbinates. THROAT: No erythema or exudates. NECK: No masses, no JVD, no thyroid enlargement, no adenopathy. CHEST: No chest wall deformity. Symmetrical expansion. LUNGS: Equal air entry with diminished breath sounds bronchial breath sounds on the left, diffuse crackles at the bases CVS: Regular rate and rhythm, normal S1 and S2, no gallops, no murmurs, no rubs. She is tachycardic with a heart rate in the 110s ABDOMEN: Soft, nontender. No hepatosplenomegaly, normal bowel sounds, no guarding or rigidity. EXTREMITIES: No clubbing, no edema, no cyanosis, 2+ pulses and upper and lower extremities. MUSCULOSKELETAL: Muscle strength and tone normal. SPINE: No scoliosis or deformity SKIN: No rashes CENTRAL NERVOUS SYSTEM: No focal deficits, tone is normal in all 4 extremities. PSYCHIATRIC: Alert and oriented -3. Appropriate affect. Intact judgment and insight. - Labs CBC & Chem 7: 03/30/19 23:56 03/30/19 23:56 Labs: Microbiology - Last 24 Hours (Table) 03/31/19 14:30 Gram Stain - Preliminary Bronchial Washings - Left Bronchial Washings Culture - Preliminary 03/31/19 14:30 Acid Fast Bacilli Smear - Final Bronchial Washings - Left Acid Fast Bacilli Culture - Preliminary 03/31/19 14:30 Fungal Culture - Preliminary Bronchial Washings - Left Assessment and Plan Assessment: Assessment: #1. Complete opacification of the left hemithorax, related to a large left hil ar mass, and endobronchial tumor in the left mainstem bronchus with atelectatic left upper and lower lobes, and moderately sized left pleural effusion increased from prior exam. #2. History of metastatic non-small cell lung cancer, adenocarcinoma, metastasis to the brain status post radiation treatment, patient was supposed to start chemotherapy and additional radiation treatments #3. Sigmoid colon mass, which was found during previous admission related to patient's history of abdominal pain and a CAT scan of the abdomen was completed showing inflammatory changes and the mass in the descending/sigmoid colon cancer. Based on that, general surgery evaluated the patient patient underwent colonoscopy revealing a sigmoid colon mass, biopsy was consistent with poorly differentiated non-small cell carcinoma favoring metastasis from pulmonary primary. #4. Possible additional areas of metastasis to the liver and left adrenal gland, seen on the CTA chest #5. Recent hospitalization for dyspnea related to left lung collapse, related to postobstructive atelectasis and pleural effusion secondary to left hilar mass. She underwent therapeutic thoracentesis would removal of 800 mL of ple ural fluid, cytology was negative, and following the procedure the left lung field to reexpand #6. Leukocytosis, possibly reactive, has actually improved since last admission. Currently 51.1 this admission down from 102.8 on 03/16/2019 #7. Lactic acidosis, not thought to be related to sepsis #8. Chronic anemia likely related to malignancy #9. History of chronic tobacco dependence, currently in remission #10. History of breast cancer status post left mastectomy in 1998 #11. History of thyroid cancer status post thyroidectomy Plan: The patient was seen and evaluated by Dr. Hernandez. She is status post bronchoscopy with BAL and biopsies yesterday. Mucous plug on top of the left m ainstem endobronchial tumor. Today's chest x-ray continues to show left lung opacity with volume loss. Maintaining O2 saturations in the high 90s on 4 L/m per nasal cannula. We'll continue to follow and make further recommendations based on her clinical status. I, the cosigning physician, performed a history & physical examination of the patient. Lungs sounds with scattered rhonchi more so on the left, diminished, crackles. Maintaining good O2 saturations in the 90s on 4 L/m per nasal cannula. I discussed the assessment and plan of care with my nurse practitioner, Rosemary Dodge. I attest to the above note as dictated by her.
--- NOTE | 2019-04-01 12:42 | P.PN ---
Subjective Patient given with the shortness of breath and complete opacification of the left side of the lung patient underwent bronchoscopy with some improvement. Patient has bronchogenic cancer non-small cell cancer, with significant metastatic disease was not started on any chemotherapy. I discussed her CODE STATUS with her and patient is agreeable for 10 DO NOT RESUSCITATE. I'll also discuss with oncology regarding further goals of care and prognostication patient appears to be more appropriate for hospice at this time depending on the decision by oncology and patient. Palliative care although is definitely appropriate. Constitutional: Denied any fatigue denied any fever. Cardio vascular: denied any chest pain, palpitations Gastrointestinal denied any nausea vomiting Pulmonary: Shortness of breath improved Neurologic denied any new focal deficits All inpatient medications were reviewed and appropriate changes in these medications as dictated in the interval history and assessment and plan. Objective - Vital Signs Vital signs: Vital Signs Temp 98.7 F 04/01/19 08:00 Pulse 100 04/01/19 12:08 Resp 16 04/01/19 12:00 BP 120/58 04/01/19 08:00 Pulse Ox 94 L 04/01/19 08:00 Intake & Output 03/31/19 04/01/19 04/01/19 18:59 06:59 18:59 Intake Total 1000 75 100 Output Total 300 Balance 700 75 100 Weight 47.5 kg 30.5 kg Intake: IV 200 Intake, IV Titration 800 75 Amount Piperacillin-Tazobactam 3 75 .375 gm In Sodium Chloride 0.9% 100 ml @ 25 mls/hr IVPB Q8HR [facility] Rx# :[id number] Sodium Chloride 0.9% 1, 800 000 ml @ 100 mls/hr IV . Q10H [facility] Rx#:[id number] Oral 100 Output: Urine 300 Other: Voiding Method Diaper Toilet Bedpan Bedpan - Exam PHYSICAL EXAMINATION: GENERAL: The patient is alert and oriented x3, not in any acute distress. Thin built cachectic female HEENT: Pupils are round and equally reacting to light. EOMI. No scleral icterus. No conjunctival pallor. Normocephalic, atraumatic. No pharyngeal erythema. No thyromegaly. CARDIOVASCULAR: S1 and S2 present. No murmurs, rubs, or gallops. PULMONARY: Decreased air movement on the left side no wheezing or crackles are appreciated ABDOMEN: Soft, nontender, nondistended, normoactive bowel sounds. No palpable organomegaly. MUSCULOSKELETAL: No joint swelling or deformity. EXTREMITIES: No cyanosis, clubbing, or pedal edema. NEUROLOGICAL: Gross neurological examination did not reveal any focal deficits. SKIN: No rashes. - Labs CBC & Chem 7: 03/30/19 23:56 03/30/19 23:56 Labs: Microbiology - Last 24 Hours (Table) 03/31/19 14:30 Gram Stain - Preliminary Bronchial Washings - Left Bronchial Washings Culture - Preliminary 03/31/19 14:30 Acid Fast Bacilli Smear - Final Bronchial Washings - Left Acid Fast Bacilli Culture - Preliminary 03/31/19 14:30 Fungal Culture - Preliminary Bronchial Washings - Left Assessment and Plan Plan: Acute hypercapnic respiratory failure secondary to endobronchial tumor obstructing and the postobstructive collapse of the lung on the left side. Patient is status post bronchoscopy with improvement in aviation a bit. -Metastatic non-small cell lung cancer which is adenocarcinoma: Further management of this in discussion with oncology as mentioned above. -Possibility of sepsis on admission had lactic acidosis can be secondary to severe intravascular volume depletion as well but anyways patient is being treated for pneumonia as well with levofloxacin. Patient -Leukocytosis due to either pneumonia or cancer itself -Anemia of chronic disease secondary to malignancy CODE STATUS DO NOT RESUSCITATE
[2019-04-01] MEDS ORDERED: ONDANSETRON 4 MG/2 ML VIAL IVP PRN (13:44)
[2019-04-01] MEDS: KETOROLAC 30 MG/ML 1 ML VIAL IVP SCH ×3 (14:02→23:18)
--- NOTE | 2019-04-01 14:54 | P.CRDCN ---
<Barbara Cannon - Last Filed: 04/01/19 14:49> History of Present Illness History of present illness: This is Barbara Cannon PA-C dictating a consult on this patient The patient was interviewed and examined by me IMPRESSION / ASSESSMENT: Sinus tachycardia, asymptomatic History of lung cancer, growing large left hilar mass, fluid or tumor filling the mainstem bronchus, evidence for possible metastasis on CT scan Bilateral pleural effusions PLAN: Continue with metoprolol tartrate 25 mg 2 times a day HPI Patient is a 63-year-old female with a past medical history of lung cancer status post radiation presented with complaints of progressively worsening shortness of breath. She was found to have a large hilar mass, fluid or tumors in the mainstem mediastinum, and moderate left pleural effusion as well as small right pleural effusion on CT. No evidence for pulmonary embolism. We are consulted for evaluation of elevated heart rate. EKG and telemetry revealed sinus tachycardia. Patient continues to have some SOB but denies symptoms of chest pain, palpitations, lightheadedness, or dizziness. EXAMINATION: Patient is afebrile, pulse 104, blood pressure 120/58, respirations 16, oxygen saturation 94% on 4 L nasal cannula Patient examined resting in bed, appears comfortable Breath sounds diminished on the left Heart is tachycardic but regular, no murmurs appreciated No elevated JVD noted No lower extremity edema REVIEW OF LABS, ECG & MEDICAL DATA EKG shows sinus tachycardia with T-wave wave inversions in the lateral precordial leads Telemetry shows sinus tachycardia Labs upon admission : White blood cell count 51.1, hemoglobin 8.1, potassium 5.3, BUN 12, creatinine 0.22, AST 94, alkaline phosphatase 253 Chest CTA reveals no pulmonary embolism, increased size of left large hilar mass, fluid or tumors filling the mainstem bronchus, moderate left pleural effusion, small right pleural effusion, and ill-defined heterogeneous low- density lesions of the liver as well as mildly enlarged left adrenal gland concerning for metastasis Past Medical History Past Medical History: Cancer, Thyroid Disorder Additional Past Medical History / Comment(s): breast cancer, lung CA, Brain lesions History of Any Multi-Drug Resistant Organisms: None Reported Past Surgical History: Breast Surgery Additional Past Surgical History / Comment(s): left breast masectomy 99, thyroid removed Past Anesthesia/Blood Transfusion Reactions: No Reported Reaction Past Psychological History: No Psychological Hx Reported Smoking Status: Former smoker Past Alcohol Use History: None Reported Additional Past Alcohol Use History / Comment(s): quit in december 2018 Past Drug Use History: None Reported - Past Family History Mother Family Medical History: Hypertension Father Family Medical History: Cancer Additional Family Medical History / Comment(s): lung cancer Medications and Allergies Home Medications Medication Instructions Recorded Confirmed Type Multivitamins, Thera [Multivitamin 1 tab PO DAILY 01/09/19 03/31/19 History (formulary)] Alendronate Sodium 70 mg PO FLORES 01/10/19 03/31/19 History Levothyroxine Sodium [Synthroid] 125 mcg PO DAILY 01/10/19 03/31/19 History Lidocaine 5% Patch [Lidoderm 5% 1 patch TOPICAL DAILY #10 patch 01/12/19 03/31/19 Rx Patch] Metoprolol Tartrate [Lopressor] 25 mg PO BID #60 tablet 01/12/19 03/31/19 Rx HYDROcodone/APAP 7.5-325MG [Stanton 1 tab PO Q6H PRN #28 tab 02/24/19 03/31/19 Rx 7.5-325] Pantoprazole [Protonix] 40 mg PO AC-BRKFST #30 tablet. 02/24/19 03/31/19 Rx Folic Acid 1 mg PO DAILY 03/10/19 03/31/19 History Dexamethasone [Decadron] 4 mg PO BID #30 tablet 03/17/19 03/31/19 Rx Ferrous Sulfate [Iron (65 MG 325 mg PO W/LUNCH #30 tab 03/17/19 03/31/19 Rx Elemental)] levETIRAcetam [Keppra] 750 mg PO BID #60 tab 03/17/19 03/31/19 Rx Allergies Allergy/AdvReac Type Severity Reaction Status Date / Time cucumber AdvReac Unknown Verified 03/31/19 07:08 Milk Containing Products AdvReac Unknown Verified 03/31/19 07:08 [Dairy] tomato AdvReac Unknown Verified 03/31/19 07:08 Physical Exam Vitals: Vital Signs Temp Pulse Pulse Resp BP Pulse Ox 04/01/19 12:08 100 04/01/19 12:00 104 H 101 H 16 04/01/19 08:32 108 H 04/01/19 08:21 112 H 04/01/19 08:00 98.7 F 101 H 16 120/58 94 L 04/01/19 04:00 98.5 F 100 15 120/61 98 03/31/19 23:39 98.7 F 98 16 119/58 97 03/31/19 20:25 98.4 F 114 H 16 105/53 96 03/31/19 19:41 115 H 03/31/19 19:32 113 H 03/31/19 15:55 122 H 03/31/19 15:45 118 H 03/31/19 15:30 118 H 03/31/19 15:27 99.3 F 118 H 20 130/61 98 Intake and Output 03/31/19 04/01/19 04/01/19 22:59 06:59 14:59 Intake Total 800 75 100 Balance 800 75 100 Intake: Intake, IV Titration 800 75 Amount Piperacillin-Tazobactam 3 75 .375 gm In Sodium Chloride 0.9% 100 ml @ 25 mls/hr IVPB Q8HR [facility] Rx# :[id number] Sodium Chloride 0.9% 1, 800 000 ml @ 100 mls/hr IV . Q10H [facility] Rx#:[id number] Oral 100 Other: Voiding Method Toilet Toilet Bedpan Bedpan Bedpan Weight 30.5 kg Results 03/30/19 23:56 03/30/19 23:56 Current Medications Generic Name Dose Route Start Last Admin Trade Name Freq PRN Reason Stop Dose Admin Hydrocodone Bitart/Acetaminophen 1 each 03/31/19 08:28 04/01/19 08:49 Stanton 7.5-325 PO 1 each Q6H PRN Administration MODERATE Pain Albuterol/Ipratropium 3 ml 03/31/19 00:56 03/31/19 08:00 Duoneb 0.5 Mg-3 Mg/3 Ml Soln INHALATION 3 ml RT-Q4H PRN Administration Shortness Of Breath Or Wheezing Albuterol/Ipratropium 3 ml 03/31/19 12:00 04/01/19 11:54 Duoneb 0.5 Mg-3 Mg/3 Ml Soln INHALATION 3 ml RT-QID LU Administration Docusate Sodium 100 mg 04/01/19 09:00 04/01/19 08:50 Colace PO 100 mg DAILY LU Administration Ferrous Sulfate 325 mg 03/31/19 12:30 03/31/19 17:25 Feosol PO 325 mg W/LUNCH LU Administration Folic Acid 1 mg 03/31/19 09:00 04/01/19 08:50 Folic Acid PO 1 mg DAILY LU Administration Sodium Chloride 1,000 mls @ 100 mls/hr 03/31/19 01:00 04/01/19 00:07 Saline 0.9% IV 100 mls/hr .Q10H LU Administration Levofloxacin 500 mg/ IV 100 mls @ 100 mls/hr 03/31/19 15:00 03/31/19 15:59 Solution IVPB 100 mls/hr Q24H LU Administration Piperacillin Sod/Tazobactam 100 mls @ 25 mls/hr 03/31/19 16:00 04/01/19 08:50 Sod 3.375 gm/ Sodium Chloride IVPB 25 mls/hr Q8HR LU Administration Ketorolac Tromethamine 15 mg 04/01/19 14:00 04/01/19 14:02 Toradol IVP 04/05/19 13:47 15 mg Q6HR LU Administration Levetiracetam 750 mg 03/31/19 09:00 04/01/19 08:49 Keppra PO 750 mg BID LU Administration Levothyroxine Sodium 125 mcg 04/01/19 06:30 04/01/19 06:02 Synthroid PO 125 mcg DAILY@0630 LU Administration Lidocaine 1 patch 03/31/19 09:00 04/01/19 08:50 Lidoderm TOPICAL 1 patch DAILY LU Administration Metoprolol Tartrate 25 mg 03/31/19 09:00 04/01/19 08:50 Lopressor PO 25 mg BID LU Administration Multivitamins 1 each 03/31/19 09:00 04/01/19 08:50 Theragran PO 1 each DAILY LU Administration Non-Formulary Medication 70 mg 04/02/19 09:00 Alendronate Sodium [Alendronate Sodium] PO FLORES LU Ondansetron HCl 4 mg 04/01/19 13:44 04/01/19 14:01 Zofran IVP 4 mg Q6HR PRN Administration Nausea And Vomiting Pantoprazole Sodium 40 mg 03/31/19 08:30 04/01/19 07:04 Protonix PO 40 mg AC-BRKFST LU Administration Intake and Output 03/31/19 04/01/19 04/01/19 22:59 06:59 14:59 Intake Total 800 75 100 Balance 800 75 100 Intake: Intake, IV Titration 800 75 Amount Piperacillin-Tazobactam 3 75 .375 gm In Sodium Chloride 0.9% 100 ml @ 25 mls/hr IVPB Q8HR [facility] Rx# :[id number] Sodium Chloride 0.9% 1, 800 000 ml @ 100 mls/hr IV . Q10H [facility] Rx#:[id number] Oral 100 Other: Voiding Method Toilet Toilet Bedpan Bedpan Bedpan Weight 30.5 kg 03/30/19 23:56 03/30/19 23:56 <Branden Prince - Last Filed: 04/01/19 21:02> Physical Exam Vitals: Vital Signs Temp Pulse Pulse Resp BP Pulse Ox 04/01/19 20:45 110 H 18 04/01/19 20:34 107 H 20 04/01/19 20:10 97.4 F L 106 H 17 112/57 98 04/01/19 16:37 100 04/01/19 16:23 104 H 04/01/19 16:00 97.5 F L 106 H 18 106/55 97 04/01/19 12:08 100 04/01/19 12:00 98.7 F 104 H 108 H 16 103/51 100 04/01/19 08:32 108 H 04/01/19 08:21 112 H 04/01/19 08:00 98.7 F 101 H 16 120/58 94 L 04/01/19 04:00 98.5 F 100 15 120/61 98 03/31/19 23:39 98.7 F 98 16 119/58 97 Intake and Output 04/01/19 04/01/19 04/01/19 06:59 14:59 22:59 Intake Total 75 280 Output Total 350 300 Balance 75 -70 -300 Intake: Intake, IV Titration 75 Amount Piperacillin-Tazobactam 3 75 .375 gm In Sodium Chloride 0.9% 100 ml @ 25 mls/hr IVPB Q8HR [facility] Rx# :[id number] Oral 280 Output: Urine 350 300 Other: Voiding Method Toilet Bedpan Bedpan Bedpan Weight 30.5 kg Results 03/30/19 23:56 03/30/19 23:56 Current Medications Generic Name Dose Route Start Last Admin Trade Name Freq PRN Reason Stop Dose Admin Hydrocodone Bitart/Acetaminophen 1 each 03/31/19 08:28 04/01/19 17:33 Stanton 7.5-325 PO 1 each Q6H PRN Administration MODERATE Pain Albuterol/Ipratropium 3 ml 03/31/19 00:56 03/31/19 08:00 Duoneb 0.5 Mg-3 Mg/3 Ml Soln INHALATION 3 ml RT-Q4H PRN Administration Shortness Of Breath Or Wheezing Albuterol/Ipratropium 3 ml 03/31/19 12:00 04/01/19 20:34 Duoneb 0.5 Mg-3 Mg/3 Ml Soln INHALATION 3 ml RT-QID LU Administration Docusate Sodium 100 mg 04/01/19 09:00 04/01/19 08:50 Colace PO 100 mg DAILY LU Administration Ferrous Sulfate 325 mg 03/31/19 12:30 04/01/19 17:28 Feosol PO 325 mg W/LUNCH LU Administration Folic Acid 1 mg 03/31/19 09:00 04/01/19 08:50 Folic Acid PO 1 mg DAILY LU Administration Sodium Chloride 1,000 mls @ 100 mls/hr 03/31/19 01:00 04/01/19 17:25 Saline 0.9% IV 100 mls/hr .Q10H LU Administration Levofloxacin 500 mg/ IV 100 mls @ 100 mls/hr 03/31/19 15:00 04/01/19 17:27 Solution IVPB 100 mls/hr Q24H LU Administration Piperacillin Sod/Tazobactam 100 mls @ 25 mls/hr 03/31/19 16:00 04/01/19 17:27 Sod 3.375 gm/ Sodium Chloride IVPB 25 mls/hr Q8HR LU Administration Ketorolac Tromethamine 15 mg 04/01/19 14:00 04/01/19 17:29 Toradol IVP 04/05/19 13:47 15 mg Q6HR LU Administration Levetiracetam 750 mg 03/31/19 09:00 04/01/19 20:21 Keppra PO 750 mg BID LU Administration Levothyroxine Sodium 125 mcg 04/01/19 06:30 04/01/19 06:02 Synthroid PO 125 mcg DAILY@0630 LU Administration Lidocaine 1 patch 03/31/19 09:00 04/01/19 08:50 Lidoderm TOPICAL 1 patch DAILY [facility] Administration Metoprolol Tartrate 25 mg 03/31/19 09:00 04/01/19 20:21 Lopressor PO 25 mg BID LU Administration Multivitamins 1 each 03/31/19 09:00 04/01/19 08:50 Theragran PO 1 each DAILY [facility] Administration Non-Formulary Medication 70 mg 04/02/19 09:00 Alendronate Sodium [Alendronate Sodium] PO FLORES [facility] Ondansetron HCl 4 mg 04/01/19 13:44 04/01/19 14:01 Zofran IVP 4 mg Q6HR PRN Administration Nausea And Vomiting Pantoprazole Sodium 40 mg 03/31/19 08:30 04/01/19 07:04 Protonix PO 40 mg AC-BRKFST [facility] Administration Intake and Output 04/01/19 04/01/19 04/01/19 06:59 14:59 22:59 Intake Total 75 280 Output Total 350 300 Balance 75 -70 -300 Intake: Intake, IV Titration 75 Amount Piperacillin-Tazobactam 3 75 .375 gm In Sodium Chloride 0.9% 100 ml @ 25 mls/hr IVPB Q8HR [facility] Rx# :[id number] Oral 280 Output: Urine 350 300 Other: Voiding Method Toilet Bedpan Bedpan Bedpan Weight 30.5 kg 03/30/19 23:56 03/30/19 23:56
[2019-04-01] MEDS: LEVOFLOXACIN 500MG-D5W PMX 500 MG in DEXTROSE/WATER 1 100ML.BAG IVPB SCH (17:27)
[2019-04-01] MEDS: FERROUS SULFATE 325 MG TAB PO SCH (17:28)
[2019-04-02] MEDS: SODIUM CHLORIDE 0.9% 1,000 ML IV SCH ×3 (04:47→23:24)
[2019-04-02] MEDS: PANTOPRAZOLE 40 MG TABLET PO SCH (06:05)
[2019-04-02] MEDS: LEVOTHYROXINE 125 MCG TAB PO SCH (06:06)
[2019-04-02] MEDS: HYDROcodone/APAP 7.5-325MG 1 EACH TAB PO PRN ×3 (06:06→20:06)
[2019-04-02] MEDS: KETOROLAC 30 MG/ML 1 ML VIAL IVP SCH ×4 (06:06→23:17)
[2019-04-02 06:32] LABS: Anisocytosis Slight; HCT 20.8 % (34.0-46.0); Hypochromasia Moderate; MCH 29.6 pg (25.0-35.0); MCHC 32.2 g/dL (31.0-37.0); MCV 91.9 fL (80.0-100.0); Mean Platelet Volume 8.3; Platelet Count 187 k/uL (150-450); Poikilocytosis Slight; RBC 2.27 m/uL (3.80-5.40); RDW 16.4 % (11.5-15.5)
[2019-04-02 06:37] LABS: WBC 56.6 k/uL (3.8-10.6)
[2019-04-02 06:39] LABS: HGB 6.7 gm/dL (11.4-16.0)
[2019-04-02 07:16] LABS: African American GFR (CKD) >90 (>60 ml/min/1.73 sqM); Anion Gap 6 mmol/L; Blood Urea Nitrogen 11 mg/dL (7-17); Calcium 8.1 mg/dL (8.4-10.2); Carbon Dioxide 27 mmol/L (22-30); Chloride 105 mmol/L (98-107); Glucose 71 mg/dL (74-99); Potassium 3.7 mmol/L (3.5-5.1); Sodium 138 mmol/L (137-145)
[2019-04-02] MEDS: IPRATROPIUM-ALBUTEROL 3 ML NEB INHALATION SCH ×4 (07:38→19:40)
[2019-04-02] MEDS ORDERED: NON-FORMULARY DRUG (Alendronate Sodium [Alendronate Sodium] 70 MG) PO SCH (09:00)
[2019-04-02] MEDS: DOCUSATE 100 MG CAP PO SCH (09:26)
[2019-04-02] MEDS: MULTIVITAMINS, THERA 1 EACH TAB PO SCH (09:26)
[2019-04-02] MEDS: METOPROLOL TARTRATE 25 MG TAB PO SCH ×2 (09:26→20:06)
[2019-04-02] MEDS: FOLIC ACID 1 MG TAB PO SCH (09:26)
[2019-04-02] MEDS: LIDOCAINE 5% PATCH TOPICAL SCH (09:27)
[2019-04-02] MEDS: PIPERACILLIN-TAZOBACTAM 3.375 GM in SODIUM CHLORIDE 0.9% 100 ML IVPB SCH ×3 (09:28→23:18)
--- NOTE | 2019-04-02 09:42 | P.CONS ---
History of Present Illness - Reason for Consult Consult date: 04/01/19 dyspnea, lung tumor Requesting physician: Sherry Pimentel - Chief Complaint dyspnea - History of Present Illness The patient is a 63 year old female with a history of metastatic non-small cell lung cancer with disease involving the brain and multiple abdominal sites. She underwent whole-brain radiotherapy for multiple large brain metastases finishing on 01/2019. She recently completed a course of palliative radiotherapy to the left lung due to central disease causing complete left lung collapse on 03/22/2019. She now presents due to increased dyspnea, cough and chest-di scomfort. According to the patient, she was feeling a bit better at the end of her radiation course. However, since she has had increased dyspnea and cough. She was admitted on 03/30 and repeat chest-CT showed no evidence of PE. There was note of increased size of left hilar mass and increased pleural effusion. Small liver densities were felt new and worrisome for metastases. She underwent bronchoscopy on 03/31 which showed a large mucous plug in the left mainstem, which was cleared. Then in the distal mainstem there was significant endobronchial disease noted. Repeat CXR has continued to show left lung collapse. She is currently on 4L of O2, and reports her dyspnea has not i mproved much since admission. She reports she has not been up and out of bed. She denies pain when I saw her, but her nurse explained that she has consistently complained of discomfort in the chest and has been requiring frequent Browder. Review of Systems Constitutional: Denies chills, Denies fever Eyes: denies blurred vision Ears: deny: decreased hearing Ears, nose, mouth and throat: Denies headache Cardiovascular: Reports chest pain, Reports dyspnea on exertion Respiratory: Reports cough, Reports dyspnea, Denies hemoptysis Gastrointestinal: Denies abdominal pain Genitourinary: Denies flank pain Integumentary: Reports rash Neurological: Denies confusion, Denies headaches Psychiatric: Denies disorientation Past Medical History Past Medical History: Cancer, Thyroid Disorder Additional Past Medical History / Comment(s): breast cancer, lung CA, Brain lesions History of Any Multi-Drug Resistant Organisms: None Reported Past Surgical History: Breast Surgery Additional Past Surgical History / Comment(s): left breast masectomy 99, thyroid removed Past Anesthesia/Blood Transfusion Reactions: No Reported Reaction Past Psychological History: No Psychological Hx Reported Smoking Status: Former smoker Past Alcohol Use History: None Reported Additional Past Alcohol Use History / Comment(s): quit in december 2018 Past Drug Use History: None Reported - Past Family History Mother Family Medical History: Hypertension Father Family Medical History: Cancer Additional Family Medical History / Comment(s): lung cancer Medications and Allergies Home Medications Medication Instructions Recorded Confirmed Type Multivitamins, Thera [Multivitamin 1 tab PO DAILY 01/09/19 03/31/19 History (formulary)] Alendronate Sodium 70 mg PO FLORES 01/10/19 03/31/19 History Levothyroxine Sodium [Synthroid] 125 mcg PO DAILY 01/10/19 03/31/19 History Lidocaine 5% Patch [Lidoderm 5% 1 patch TOPICAL DAILY #10 patch 01/12/19 03/31/19 Rx Patch] Metoprolol Tartrate [Lopressor] 25 mg PO BID #60 tablet 01/12/19 03/31/19 Rx HYDROcodone/APAP 7.5-325MG [Browder 1 tab PO Q6H PRN #28 tab 02/24/19 03/31/19 Rx 7.5-325] Pantoprazole [Protonix] 40 mg PO AC-BRKFST #30 tablet. 02/24/19 03/31/19 Rx Folic Acid 1 mg PO DAILY 03/10/19 03/31/19 History Dexamethasone [Decadron] 4 mg PO BID #30 tablet 03/17/19 03/31/19 Rx Ferrous Sulfate [Iron (65 MG 325 mg PO W/LUNCH #30 tab 03/17/19 03/31/19 Rx Elemental)] levETIRAcetam [Keppra] 750 mg PO BID #60 tab 03/17/19 03/31/19 Rx Allergies Allergy/AdvReac Type Severity Reaction Status Date / Time cucumber AdvReac Unknown Verified 03/31/19 07:08 Milk Containing Products AdvReac Unknown Verified 03/31/19 07:08 [Dairy] tomato AdvReac Unknown Verified 03/31/19 07:08 Physical Exam Vitals: Vital Signs Temp Pulse Pulse Resp BP Pulse Ox 04/02/19 07:55 96 04/02/19 07:41 100 98 04/02/19 04:35 98.2 F 107 H 18 118/61 94 L 04/02/19 01:01 97.2 F L 110 H 18 124/63 96 04/01/19 20:45 110 H 18 04/01/19 20:34 107 H 20 04/01/19 20:10 97.4 F L 106 H 17 112/57 98 04/01/19 16:37 100 04/01/19 16:23 104 H 04/01/19 16:00 97.5 F L 106 H 18 106/55 97 04/01/19 12:08 100 04/01/19 12:00 98.7 F 104 H 108 H 16 103/51 100 Intake and Output 04/01/19 04/02/19 04/02/19 22:59 06:59 14:59 Output Total 300 Balance -300 Output: Urine 300 Other: Voiding Method Bedpan Bedpan Diaper Diaper # Voids 1 Weight 46 kg - Constitutional General appearance: no acute distress - EENT Eyes: EOMI, PERRLA ENT: hearing grossly normal - Neck Neck: no lymphadenopathy - Respiratory Respiratory: right: CTA, left: diminished - Cardiovascular Rhythm: regular - Gastrointestinal General gastrointestinal: no distended - Integumentary Integumentary: no rash - Neurologic Neurologic: CNII-XII intact - Musculoskeletal Musculoskeletal: generalized weakness - Psychiatric Psychiatric: A&O x's 3, appropriate affect Results CBC & Chem 7: 04/02/19 06:02 04/02/19 06:02 Labs: Abnormal Lab Results - Last 24 Hours (Table) 04/02/19 04/02/19 Range/Units 06:02 06:02 WBC 56.6 H* (3.8-10.6) k/uL RBC 2.27 L (3.80-5.40) m/uL Hgb 6.7 L* (11.4-16.0) gm/dL Hct 20.8 L (34.0-46.0) % RDW 16.4 H (11.5-15.5) % Creatinine 0.31 L (0.52-1.04) mg/dL Glucose 71 L (74-99) mg/dL Calcium 8.1 L (8.4-10.2) mg/dL Microbiology - Last 24 Hours (Table) 03/31/19 14:30 Gram Stain - Preliminary Bronchial Washings - Left Bronchial Washings Culture - Preliminary Chest x-ray: report reviewed, image reviewed CT scan - chest: report reviewed, image reviewed Assessment and Plan Plan: The patient is a 63 year old female with a history of metastatic non-small cell lung cancer with disease involving the brain and multiple abdominal sites. She underwent whole-brain radiotherapy for multiple large brain metastases finishing on 01/2019. She recently completed a course of palliative radiotherapy to the left lung due to central disease causing complete left lung collapse on 03/22/2019. She now presents due to increased dyspnea, cough and chest- discomfort. 1. Dyspnea: Likely due to endobronchial tumor + ipsilateral effusion resulting in complete lung collapse. Patient recently finished a course of RT less than 2 weeks ago to this area. She was symptomatically doing better at that time, but our imaging reveals she never did have re-expansion of the lung. I do not feel that further radiotherapy is likely to be of much benefit. Curious if any benefit to repeat tap of effusion? Near 1 L taken a few weeks ago which looks to have re-accumulated. 2. Metastatic NSCLC: Patient has had this diagnosis for several months now. Due to repeat hospitalizations and decline in KPS, she has not been able to initiate any systemic therapy. She likely doesn't have adequate performance status right now to tolerate chemotherapy. I discussed with the patient that a comfort care approach would also be reasonable. She does still seem a bit reluctant regarding this approach. I will discuss this further with Dr. Wild. Time with Patient: Greater than 30
--- NOTE | 2019-04-02 12:09 | P.PN ---
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 Patient was recently hospitalized in February for progressive dyspnea related to large left pleural effusion and left lung collapse related to a large left hilar mass. Patient underwent therapeutic thoracentesis during that admission by Dr. Laura with removal of 800 mL of pleural fluid, and Dr. Laura was not able to remove any more fluid related to significant left shoulder pain and chest pain. Following the procedure the left lung failed to reexpand, follow-up chest x-rays showing continued complete opacification of the left lung related to endobronchial obstruction and atelectasis. Pleural fluid cytology was negative cytologically for high-grade malignancy. Patient completed radiation therapy to the brain, she was on oral Decadron, she was due to start chemotherapy, and possible radiation to the lung. Case was discussed with medical oncology, and the patient was supposed to start treatment after discharge, however apparently patient and the family canceled appointment related to patient having severe chest discomfort, and after that patient has not been seen in the office. Patient presents to the hospital on 03/30/2019 by ambulance with complaints of difficulty breathing dressing over the last couple of days, chest discomfort over the midsternal area, weakness, f atigue. Patient has occasional cough, without sputum production. Denied any fever or chills, denied any nausea vomiting no diarrhea, patient has had very poor appetite, diminished oral intake, and patient has lost more weight since admission, no hemoptysis, no leg pain or leg swelling. Patient was found to be tachycardic in sinus mechanism with a rate in the 130s with nonspecific ST and T wave changes. Chest x-ray showed complete opacification of the left lung field with tracheal deviation to the left. CT chest was obtained showing no evidence of pulmonary embolism, but increase in the size of the large left hilar mass is confluent with left hilar and subcarinal adenopathy, largest component of the left hilar mass measuring 12 x 8 x 9 cm. Fluid or tumor filling the left mainstem bronchus, atelectasis of the left upper and lower lobes compression and possible involvement of the left inferior pulmonary vein, mass in the left lower lobe measuring approximately 3 cm. Was compression and rightward deviation of the esophagus, mass effect and compression of the left atrium with overall leftward mediastinal shift due to atelectasis. Some mucous plugging of the right lower lobe airways. Small right pleural effusion. Emphysematous changes seen in the right lung, possible pancreatitis, and some ill-defined heterogeneous low-density lesions in the liver that are new since prior exam and are suspicious for metastatic disease, ill-defined mildly enlarged left adrenal mass worrisome for metastatic disease. The patient is seen today 04/01/2019 in follow-up on the selective care unit. In addition to the note above the patient also has a sigmoid colon mass, which was found during previous admission related to patient's history of abdominal pain and a CAT scan of the abdomen was completed showing inflammatory changes and the mass in the descending/sigmoid colon cancer. Based on that, general surgery evaluated the patient patient underwent colonoscopy revealing a sigmoid colon mass, biopsy was consistent with poorly differentiated non-small cell carcinoma favoring metastasis from pulmonary primary. She is currently resting fairly comfortably in bed. She is on 4 L high flow nasal cannula. Maintaining O2 saturations in the upper 90s. She's afebrile. He would typically stable. Tolerating small bites of breakfast. It is post bronchoscopy with BAL yesterday cultures pending. There is endobronchial tumor and a mucous plug on top of the tumor in the left mainstem bronchus. Chest x-ray continues to show persistent left mid to lower lobe opacity with left-sided volume loss. On 04/02/2019 she seen in follow-up on selective care unit, she is awake and alert, no acute distress, currently on 4 L of oxygen with a pulse ox of 95%, she states she is breathing easier since her bronchoscopy, still has a congested nonproductive cough, she is afebrile, still intermittently tachycardic, but less tachycardic compared to admission. Yesterday chest x-ray showed improvement in the aeration of the left upper lobe, but did show persistent left mid and lower lung opacity with left-sided volume loss related to large left infrahilar mass associated lung atelectasis and small left pleural effusion. Patient underwent bronchoscopy with Dr. Laura on 03/31/2019 significant mucous plugging was noted in the left mainstem bronchus with underlying endobronchial tumor in the left mainstem bronchus distally. Significant amount of secretions and mucous plugging were removed from the airways and subsequent chest x-ray following the procedure showed improvement of the left lung aeration. Patient remains weak, she has had a poor appetite, but overall she states she is breathing easier. He was seen by radiation oncologist, who does not recommend further radiotherapy Objective - Vital Signs Vital signs: Vital Signs Temp 97.8 F 04/02/19 11:49 Pulse 109 H 04/02/19 11:49 Resp 18 04/02/19 11:49 BP 127/63 04/02/19 11:49 Pulse Ox 95 04/02/19 08:00 Intake & Output 04/01/19 04/02/19 04/02/19 18:59 06:59 18:59 Intake Total 280 100 Output Total 650 Balance -370 100 Weight 46 kg Intake: Oral 280 100 Blood Product 0 Rc As-1 Unit 0 [id number] Output: Urine 650 Other: Voiding Method Bedpan Bedpan Bedpan Diaper Diaper # Voids 1 - Exam GENERAL EXAM: Alert, pale 63-year-old cachectic looking female on 4 L of oxygen with a pulse ox of 94%, comfortable in no apparent distress. HEAD: Normocephalic/atraumatic. EYES: Normal reaction of pupils, equal size. Conjunctiva pink, sclera white. NOSE: Clear with pink turbinates. THROAT: No erythema or exudates. NECK: No masses, no JVD, no thyroid enlargement, no adenopathy. CHEST: No chest wall deformity. Symmetrical expansion. LUNGS: Equal air entry with diminished breath sounds at the bases, with diffuse crackles CVS: Regular rate and rhythm, normal S1 and S2, no gallops, no murmurs, no rubs. She is tachycardic with a heart rate in the 120s ABDOMEN: Soft, nontender. No hepatosplenomegaly, normal bowel sounds, no guarding or rigidity. EXTREMITIES: No clubbing, no edema, no cyanosis, 2+ pulses and upper and lower extremities. MUSCULOSKELETAL: Muscle strength and tone normal. SPINE: No scoliosis or deformity SKIN: No rashes CENTRAL NERVOUS SYSTEM: Alert and oriented -3. No focal deficits, tone is normal in all 4 extremities. PSYCHIATRIC: Alert and oriented -3. Appropriate affect. Intact judgment and insight. - Labs CBC & Chem 7: 04/02/19 06:02 04/02/19 06:02 Labs: Abnormal Lab Results - Last 24 Hours (Table) 04/02/19 04/02/19 04/02/19 Range/Units 06:02 06:02 09:19 WBC 56.6 H* (3.8-10.6) k/uL RBC 2.27 L (3.80-5.40) m/uL Hgb 6.7 L* (11.4-16.0) gm/dL Hct 20.8 L (34.0-46.0) % RDW 16.4 H (11.5-15.5) % Creatinine 0.31 L (0.52-1.04) mg/dL Glucose 71 L (74-99) mg/dL Calcium 8.1 L (8.4-10.2) mg/dL Crossmatch See Detail Microbiology - Last 24 Hours (Table) 03/31/19 14:30 Gram Stain - Preliminary Bronchial Washings - Left Bronchial Washings Culture - Preliminary Gram Neg Bacilli Assessment and Plan Plan: Assessment: #1. Complete opacification of the left hemithorax, related to a large left hilar mass, and endobronchial tumor in the left mainstem bronchus with atelectatic left upper and lower lobes, and moderately sized left pleural effus ion increased from prior exam, that is post bronchoscopy with BAL on 03/31/2019 and there was significant mucous plugs and secretions removed from the left mainstem bronchus, and endobronchial tumor was visualized in the left mainstem bronchus distally once the secretions were removed. Subsequent chest x-ray showed improvement of the left lung aeration #2. History of metastatic non-small cell lung cancer, adenocarcinoma, metastasis to the brain status post radiation treatment, patient was supposed to start chemotherapy and additional radiation treatments #3. Possible additional areas of metastasis to the liver and left adrenal gland, seen on the CTA chest #4. Recent hospitalization for dyspnea related to left lung collapse, related to postobstructive atelectasis and pleural effusion secondary to left hilar mass. She underwent therapeutic thoracentesis would removal of 800 mL of p leural fluid, cytology was negative, and following the procedure the left lung field to reexpand #5. Leukocytosis, possibly reactive, has actually improved since last admission. So, is 51.1 this admission down from 102.8 on 03/16/2019 #6. Lactic acidosis, not thought to be related to sepsis #7. Chronic anemia likely related to malignancy #8. History of chronic tobacco dependence, currently in remission #9. History of breast cancer status post left mastectomy in 1998 #10. History of thyroid cancer status post thyroidectomy Plan: Patient underwent bronchoscopy with BAL, and significant amount of mucous plugs and secretions were removed from the left mainstem bronchus revealing the underlying left endobronchial tumor distally, equal and chest x-rays following the procedure showed improvement of the aeration of the left lung, however patient may be developing mucous plugging again, related to her overall deconditioning, and inability to clear phlegm. We will obtain follow-up chest x-ray tomorrow, and there is a possibility that patient may need repeat bronchoscopy and the possibility of thoracentesis. Overall she states she is feeling better since admission. Encourage deep breathing and coughing, continue with nebulized bronchodilators, provided senna spirometer, encouraged patient to sit up in the chair. Continue with Zosyn and Levaquin, results of the final bro nchial wash cultures, preliminary gram stain showed gram-negative bacilli. I performed a history & physical examination of the patient and discussed their management with my nurse practitioner, Mena Prater. I reviewed the nurse practitioner's note and agree with the documented findings and plan of care. Lung sounds are positive for diminished breath sounds, bilateral rales. The findings and the impression was discussed with the patient. I attest to the documentation by the nurse practitioner. Time with Patient: Less than 30
--- NOTE | 2019-04-02 12:18 | P.PN ---
Subjective Progress Note Date: 04/02/19 The patient remains quite weak. She gets short of breath easily on exertion. Pain is controlled at this time. No nausea vomiting or obvious bleeding. Objective - Vital Signs Vital signs: Vital Signs Temp 98.3 F 04/02/19 11:59 Pulse 112 H 04/02/19 11:59 Resp 18 04/02/19 11:59 BP 113/55 04/02/19 11:59 Pulse Ox 97 04/02/19 11:59 Intake & Output 04/01/19 04/02/19 04/02/19 18:59 06:59 18:59 Intake Total 280 100 Output Total 650 Balance -370 100 Weight 46 kg Intake: Oral 280 100 Blood Product 0 Rc As-1 Unit 0 [id number] Output: Urine 650 Other: Voiding Method Bedpan Bedpan Bedpan Diaper Diaper # Voids 1 - Constitutional General appearance: Present: no acute distress - EENT Eyes: Present: EOMI ENT: Present: hearing grossly normal, normal oropharynx - Respiratory Respiratory: left: diminished - Cardiovascular Rhythm: regular Heart sounds: normal: S1, S2 - Gastrointestinal General gastrointestinal: Present: normal bowel sounds, soft - Integumentary Integumentary: Present: normal - Neurologic Neurologic: Present: CNII-XII intact - Musculoskeletal Musculoskeletal: Present: generalized weakness, strength equal bilaterally - Psychiatric Psychiatric: Present: A&O x's 3, appropriate affect - Labs CBC & Chem 7: 04/02/19 06:02 04/02/19 06:02 Labs: Abnormal Lab Results - Last 24 Hours (Table) 04/02/19 04/02/19 04/02/19 Range/Units 06:02 06:02 09:19 WBC 56.6 H* (3.8-10.6) k/uL RBC 2.27 L (3.80-5.40) m/uL Hgb 6.7 L* (11.4-16.0) gm/dL Hct 20.8 L (34.0-46.0) % RDW 16.4 H (11.5-15.5) % Creatinine 0.31 L (0.52-1.04) mg/dL Glucose 71 L (74-99) mg/dL Calcium 8.1 L (8.4-10.2) mg/dL Crossmatch See Detail Microbiology - Last 24 Hours (Table) 03/31/19 14:30 Gram Stain - Preliminary Bronchial Washings - Left Bronchial Washings Culture - Preliminary Gram Neg Bacilli Assessment and Plan (1) Non-small cell lung cancer with metastasis Narrative/Plan: The patient has a recent diagnosis of aggressive widely metastatic non-small cell lung cancer. She had presented with brain metastasis, and also has unusual lower abdominal metastasis with invasion of the colon. She has had palliative radiation to the brain, as well as to the left lung. However she has not been able to start systemic treatment missing office appointment 2 because of acute decompensation leading to hospital admissions, including this time. Despite palliative radiation to the left lung, the patient has essentially white out of the left lung noted during this admission. Given the rate of progression of disease, the patient's poor performance status would decline, and inability to start systemic therapy, her prognosis is very poor. She is considering comfort care and hospice consult has been request ed. The patient's disease status and her current performance status and implications are discussed in detail with her and her family. She is well aware that her malignancy is not curable. For systemic therapy to be effective in prolonging life and improving symptoms, she would need a good response, occurring within a comparatively quick period of time. Even if she were to have stable disease, her performance status would likely not improve enough for her to continue treatment . In addition, with the current performance status risk of side effects are certainly higher. Therefore at this time the chances of for being able to receive adequate systemic treatment and benefit from it appeared to be very slim. Based on the above, I am in agreement with consideration of comfort care. The patient expressed understanding of the same. Current Visit: No Status: Acute Priority: High Code(s): C34.90 - MALIGNANT NEOPLASM OF UNSP PART OF UNSP BRONCHUS OR LUNG SNOMED Code(s): 508874128 (2) Normocytic anemia Narrative/Plan: This is due to blood loss from: Metastasis, as well as anemia of metastatic malignancy. The patient will be receiving a unit of blood for hemoglobin of 6.7. It was discussed with the patient and her family that the intent is palliative. Current Visit: No Status: Acute Priority: Medium Code(s): D64.9 - ANEMIA, UNSPECIFIED SNOMED Code(s): 507762660
[2019-04-02] MEDS: FERROUS SULFATE 325 MG TAB PO SCH (12:40)
--- NOTE | 2019-04-02 13:38 | P.PN ---
Subjective Patient given with the shortness of breath and complete opacification of the left side of the lung patient underwent bronchoscopy with some improvement. Patient has bronchogenic cancer non-small cell cancer, with significant metastatic disease was not started on any chemotherapy. I discussed her CODE STATUS with her and patient is agreeable for 10 DO NOT RESUSCITATE. I'll also discuss with oncology regarding further goals of care and prognostication patient appears to be more appropriate for hospice at this time depending on the decision by oncology and patient. Palliative care although is definitely appropriate. 04/02/2019 10 patient's hemoglobin dropped to 6.8 because of which are transfused 1 unit of blood after that patient and decided on hospice after discussion with oncology. I discussed the patient and family members as well patient probably will be discharged tomorrow to home with hospice. Constitutional: Denied any fatigue denied any fever. Cardio vascular: denied any chest pain, palpitations Gastrointestinal denied any nausea vomiting Pulmonary: Shortness of breath improved Neurologic denied any new focal deficits All inpatient medications were reviewed and appropriate changes in these medications as dictated in the interval history and assessment and plan. Objective - Vital Signs Vital signs: Vital Signs Temp 98.1 F 04/02/19 12:29 Pulse 112 H 04/02/19 12:29 Resp 18 04/02/19 12:29 BP 119/60 04/02/19 12:29 Pulse Ox 94 L 04/02/19 12:29 Intake & Output 04/01/19 04/02/19 04/02/19 18:59 06:59 18:59 Intake Total 280 100 Output Total 650 Balance -370 100 Weight 46 kg Intake: Oral 280 100 Blood Product 0 Rc As-1 Unit 0 [id number] Output: Urine 650 Other: Voiding Method Bedpan Bedpan Bedpan Diaper Diaper # Voids 1 - Exam PHYSICAL EXAMINATION: GENERAL: The patient is alert and oriented x3, not in any acute distress. Thin built cachectic female HEENT: Pupils are round and equally reacting to light. EOMI. No scleral icterus. No conjunctival pallor. Normocephalic, atraumatic. No pharyngeal erythema. No thyromegaly. CARDIOVASCULAR: S1 and S2 present. No murmurs, rubs, or gallops. PULMONARY: Decreased air movement on the left side no wheezing or crackles are appreciated ABDOMEN: Soft, nontender, nondistended, normoactive bowel sounds. No palpable organomegaly. MUSCULOSKELETAL: No joint swelling or deformity. EXTREMITIES: No cyanosis, clubbing, or pedal edema. NEUROLOGICAL: Gross neurological examination did not reveal any focal deficits. SKIN: No rashes. - Labs CBC & Chem 7: 04/02/19 06:02 04/02/19 06:02 Labs: Abnormal Lab Results - Last 24 Hours (Table) 04/02/19 04/02/19 04/02/19 Range/Units 06:02 06:02 09:19 WBC 56.6 H* (3.8-10.6) k/uL RBC 2.27 L (3.80-5.40) m/uL Hgb 6.7 L* (11.4-16.0) gm/dL Hct 20.8 L (34.0-46.0) % RDW 16.4 H (11.5-15.5) % Creatinine 0.31 L (0.52-1.04) mg/dL Glucose 71 L (74-99) mg/dL Calcium 8.1 L (8.4-10.2) mg/dL Crossmatch See Detail Microbiology - Last 24 Hours (Table) 03/31/19 14:30 Gram Stain - Preliminary Bronchial Washings - Left Bronchial Washings Culture - Preliminary Gram Neg Bacilli Assessment and Plan Plan: Acute hypercapnic respiratory failure secondary to endobronchial tumor obstructing and the postobstructive collapse of the lung on the left side. Patient is status post bronchoscopy with improvement , still significantly hypoxic -Metastatic non-small cell lung cancer which is adenocarcinoma:patient's prognosis is extremely poor, hospice was consult it. -Possibility of sepsis on admission had lactic acidosis can be secondary to severe intravascular volume depletion , antibiotics can be discontinued -Leukocytosis due to either pneumonia or cancer itself -Anemia of chronic disease secondary to malignancy CODE STATUS DO NOT RESUSCITATE
[2019-04-02] MEDS ORDERED: FUROSEMIDE 10 MG/ML 2 ML VIAL IV ONE (15:25)
[2019-04-02] MEDS: DICLOFENAC SODIUM GEL 100 GM TUBE TOPICAL SCH ×2 (17:45→23:24)
[2019-04-03] MEDS: HYDROcodone/APAP 7.5-325MG 1 EACH TAB PO PRN ×4 (03:40→23:57)
[2019-04-03] MEDS: IPRATROPIUM-ALBUTEROL 3 ML NEB INHALATION PRN ×2 (03:44→17:19)
[2019-04-03] MEDS: KETOROLAC 30 MG/ML 1 ML VIAL IVP SCH ×4 (06:04→23:57)
[2019-04-03] MEDS: PANTOPRAZOLE 40 MG TABLET PO SCH (06:05)
[2019-04-03] MEDS: LEVOTHYROXINE 125 MCG TAB PO SCH (06:05)
[2019-04-03] MEDS: IPRATROPIUM-ALBUTEROL 3 ML NEB INHALATION SCH ×4 (08:42→19:24)
[2019-04-03] MEDS: DOCUSATE 100 MG CAP PO SCH (09:12)
[2019-04-03] MEDS: METOPROLOL TARTRATE 25 MG TAB PO SCH ×2 (09:12→21:06)
[2019-04-03] MEDS: MULTIVITAMINS, THERA 1 EACH TAB PO SCH (09:12)
[2019-04-03] MEDS: FOLIC ACID 1 MG TAB PO SCH (09:12)
[2019-04-03] MEDS: LIDOCAINE 5% PATCH TOPICAL SCH (09:13)
[2019-04-03] MEDS: PIPERACILLIN-TAZOBACTAM 3.375 GM in SODIUM CHLORIDE 0.9% 100 ML IVPB SCH ×3 (09:13→23:56)
[2019-04-03] MEDS: DICLOFENAC SODIUM GEL 100 GM TUBE TOPICAL SCH ×4 (09:14→21:07)
[2019-04-03 11:08] VITALS: BMI 19.8
[2019-04-03] MEDS: FERROUS SULFATE 325 MG TAB PO SCH (12:42)
[2019-04-03 23:56] VITALS: RESP 16
[2019-04-04] MEDS: SODIUM CHLORIDE 0.9% 1,000 ML IV SCH ×2 (00:05→05:12)
[2019-04-04 05:34] VITALS: BP 136/85; TEMP 97.6
[2019-04-04] MEDS ORDERED: LEVOTHYROXINE 50 MCG TAB PO SCH (06:02)
[2019-04-04] MEDS: KETOROLAC 30 MG/ML 1 ML VIAL IVP SCH ×2 (06:11→12:55)
[2019-04-04] MEDS: IPRATROPIUM-ALBUTEROL 3 ML NEB INHALATION SCH ×2 (08:03→11:11)
[2019-04-04] MEDS: HYDROcodone/APAP 7.5-325MG 1 EACH TAB PO PRN (08:37)
[2019-04-04] MEDS: FERROUS SULFATE 325 MG TAB PO SCH (10:16)
[2019-04-04] MEDS: PANTOPRAZOLE 40 MG TABLET PO SCH (10:16)
[2019-04-04] MEDS: METOPROLOL TARTRATE 25 MG TAB PO SCH (10:16)
[2019-04-04] MEDS: MULTIVITAMINS, THERA 1 EACH TAB PO SCH (10:16)
[2019-04-04] MEDS: DOCUSATE 100 MG CAP PO SCH (10:16)
[2019-04-04] MEDS: DICLOFENAC SODIUM GEL 100 GM TUBE TOPICAL SCH ×2 (10:21→12:53)
[2019-04-04] MEDS: PIPERACILLIN-TAZOBACTAM 3.375 GM in SODIUM CHLORIDE 0.9% 100 ML IVPB SCH (10:48)
[2019-04-04] MEDS: FOLIC ACID 1 MG TAB PO SCH (10:49)
[2019-04-04] MEDS: LIDOCAINE 5% PATCH TOPICAL SCH (10:59)
[2019-04-04 12:44] VITALS: PULSE 89
== END 2019-04-04 14:00 | disposition still patient (30) | DRG 180 ==
LOC: EC 23:26 → 3SCARD 03-31 00:56 → 3NMEDONC 04-04 00:53
PROVIDERS: ADMIT Family Medicine; ATTEND Family Medicine
PROC: 0BC78ZZ Extirpation of Matter from Left Main Bronchus, Via Natural or Artificial Opening Endoscopic (ICD-10-PCS; principal; 2019-03-31 07:50)
PROC: 30233N1 Transfusion of Nonautologous Red Blood Cells into Peripheral Vein, Percutaneous Approach (ICD-10-PCS; 2019-04-02)
DX: C34.02 Malignant neoplasm of left main bronchus (principal); J96.02 Acute respiratory failure with hypercapnia; J96.01 Acute respiratory failure with hypoxia; A41.9 Sepsis, unspecified organism; J18.9 Pneumonia, unspecified organism; J90 Pleural effusion, not elsewhere classified; C78.7 Secondary malignant neoplasm of liver and intrahepatic bile duct; C77.1 Secondary and unspecified malignant neoplasm of intrathoracic lymph nodes; C79.72 Secondary malignant neoplasm of left adrenal gland; C79.51 Secondary malignant neoplasm of bone; C79.31 Secondary malignant neoplasm of brain; E87.2 Acidosis; J93.9 Pneumothorax, unspecified; J98.11 Atelectasis; C78.5 Secondary malignant neoplasm of large intestine and rectum; T17.590A Other foreign object in bronchus causing asphyxiation, initial encounter; T17.890A Other foreign object in other parts of respiratory tract causing asphyxiation, initial encounter; Z87.891 Personal history of nicotine dependence; D50.0 Iron deficiency anemia secondary to blood loss (chronic); D63.0 Anemia in neoplastic disease; D72.829 Elevated white blood cell count, unspecified; E89.0 Postprocedural hypothyroidism; Z51.5 Encounter for palliative care; Z66 Do not resuscitate; Z79.890 Hormone replacement therapy; Z79.899 Other long term (current) drug therapy; Z80.1 Family history of malignant neoplasm of trachea, bronchus and lung; Z82.49 Family history of ischemic heart disease and other diseases of the circulatory system; Z85.3 Personal history of malignant neoplasm of breast; Z85.850 Personal history of malignant neoplasm of thyroid; Z90.12 Acquired absence of left breast and nipple; Z92.3 Personal history of irradiation; G89.3 Neoplasm related pain (acute) (chronic)
CPT/HCPCS: 31624; 31645; 36415; 71045; 71046; 71275; 76604; 80048; 80053; 83605; 83880; 84484; 85025; 85027; 86850; 86900; 86901; 86920; 87070; 87077; 87102; 87116; 87186; 87205; 87206; 88108; 88305; 93005; 94640; 94760; 96374; 99285